=== PATIENT | female | born 1960 | race Caucasian/White ===

== ENCOUNTER → 2017-05-21 | Outpatient (CLI) | payer OTHER ==
--- NOTE | 2017-05-21 22:29 | CT ---
EXAMINATION TYPE: CT cervical spine wo/w con DATE OF EXAM: 05/21/2017 COMPARISON: NONE HISTORY: 56-year-old female pain, no known injury TECHNIQUE: Contiguous axial scanning of the cervical spine performed without and with IV Contrast, pa tient injected with 100 mL of Omnipaque 300. Delayed images through the kidneys were obtained. Hunt l/sagittal reconstructions performed. CT DLP: 1448.6 mGycm Automated exposure control for dose reduction was used. FINDINGS: There is a prominent CSF density collection along the right posterior cranial fossa that demonstrates mass effect on to the right cerebellar hemisphere. This measures 4.8 x 1.8 cm. There is a circumscribed, ovoid homogeneously enhancing lesion measuring 1.5 x 1.0 cm along the left parotid tail at the junction of the deep and superficial carotid lobes. No craniocervical junction abnormality, predental space widening, or prevertebral soft tissue swellin g. Mild to moderate degenerative disc disease lower cervical spine especially at C5-C7 levels with disc osteophyte complex formation and corresponding uncovertebral joint arthropathy. At C5-C6, there is disc osteophyte complex causing moderate spinal canal stenosis with AP canal dimen jose alejandro of 7.3 mm. There is also moderate left and mild right neuroforaminal stenosis at this level. At C6-C7, there is excessive artifact from the patient's shoulders limiting assessment of the spinal canal. Disc osteophyte complex and uncovertebral joint arthropathy is present at this level as well w ith moderate right and mild left neuroforaminal stenosis. No acute fracture of the cervical spine. Alignment is maintained. IMPRESSION: 1. MODERATE SPONDYLOTIC CHANGE ESPECIALLY FROM C5 THROUGH C7 LEVELS. DISC OSTEOPHYTE COMPLEX CAUSES M ODERATE SPINAL CANAL STENOSIS AT C5-C6. 2. THERE IS A MODERATE LEFT AND MILD RIGHT NEUROFORAMINAL STENOSIS AT C5-C6 AND MODERATE RIGHT AND WA LD LEFT NEUROFORAMINAL STENOSIS AT C6/C7. 3. CORRELATE WITH PHYSICAL EXAM FINDINGS FOR A 1.5 X 1.0 CM HOMOGENEOUSLY ENHANCING, CIRCUMSCRIBED MA SS AT THE LEFT PAROTID TAIL. AN ENLARGED LYMPH NODE, NERVE SHEATH TUMOR, OR SALIVARY GLAND TUMOR ARE IN THE DIFFERENTIAL. CONSIDER CLINICAL AND ULTRASOUND SURVEILLANCE. IF ANY GROWTH IS NOTED, TISSUE SA MPLING MAY BE INDICATED. 4. CSF DENSITY COLLECTION IN THE RIGHT POSTERIOR CRANIAL FOSSA MEASURING 4.8 X 1.8 CM. DIFFERENTIAL C ONSIDERATIONS INCLUDE AN ARACHNOID CYST AND EPIDERMOID CYST. CONTRAST-ENHANCED BRAIN MRI CAN FURTHER EVALUATE.
--- NOTE | 2017-05-21 22:43 | CT ---
EXAMINATION TYPE: CT lumbar spine wo/w con DATE OF EXAM: 05/21/2017 COMPARISON: NONE HISTORY: 56-year-old in the lower back pain with difficulty walking. TECHNIQUE: Contiguous axial scanning of the lumbar spine performed without and with IV Contrast, mo ent injected with 100 mL of Omnipaque 300. Coronal/sagittal reconstructions performed. CT DLP: 1909.6 mGycm Automated exposure control for dose reduction was used. FINDINGS: There is a levoconvex scoliosis of the lumbar spine. There is mild left lateral subluxation of L3 on L4 and minimal lateral subluxation of L2 on L3. Hypertrophic facet arthropathy throughout with trace grade 1 retrolistheses at L3-L4 and L4-L5. Degenerative thinning of the interspinous ligament with abutment near abutment of the spinous process es. Vertebral body heights are preserved. Moderate multilevel degenerative disc disease with disc space narrowing and bulging discs at T11-T12, there is mild diffuse disc bulge without significant canal stenosis. There is mild narrowing of the right neuroforamen. At T12-L1, there is mild diffuse disc bulge without significant canal or foraminal stenosis. At L1-L2, tiny central disc without canal or foraminal stenosis. At L2-L3, there is right paracentral and intraforaminal disc protrusion which may abut the traversing L3 nerve root. Changes cause moderate right and mild left neuroforaminal stenosis without significan t spinal canal stenosis. At L3-L4, there is hypertrophic facet arthropathy with trace retrolisthesis and diffuse disc bulge. C hanges cause mild spinal canal stenosis with mild bilateral neural foraminal stenosis. Disc material potentially abuts both traversing L4 nerve roots. At L4-L5, there is diffuse disc bulging with hypertrophic facet arthropathy, ligamentum flavum thicke jonathan, and trace retrolisthesis. Changes result in a moderate left and [id number] right neurofor aminal stenosis. Suspect left lateral recess stenosis possibly with impingement of the traversing lef t L5 nerve root. No spinal canal stenosis. At L5-S1, there is hypertrophic facet arthropathy with bulging disc. Changes result in moderate left greater than right neural foraminal stenosis. Mild degenerative changes of the SI joints. No prevertebral or paravertebral soft tissue abnormality seen. IMPRESSION: 1. A DEGENERATED LEVOCONVEX SCOLIOSIS WITH SLIGHT LEFT LATERAL SUBLUXATION OF L2 ON L3 AND L3 ON L4. 2. HYPERTROPHIC FACET ARTHROPATHY WITH TRACE GRADE 1 RETROLISTHESIS AT L3-L4 AND L4-L5. 3. MODERATE MULTILEVEL DEGENERATIVE DISC DISEASE. NO ROSALBA CANAL COMPROMISE. 4. HOWEVER, CHANGES RESULT IN VERY MINIMAL MILD/MODERATE NEUROFORAMINAL STENOSES OUTLINED ABOVE. T HE GREATEST DEGREE OF NEUROFORAMINAL NARROWING IS MODERATE ON THE LEFT AT L4-L5 AND MODERATE LEFT GRE ATER THAN RIGHT AT L5-S1. 5. DISC MATERIAL AT L3-L4 POTENTIALLY ABUTS BOTH TRAVERSING L4 NERVE ROOTS. AT L4-L5, SUSPECT LEFT LA TERAL RECESS STENOSIS POSSIBLY WITH IMPINGEMENT OF THE TRAVERSING LEFT L5 NERVE ROOT. 6. BAASTRUP'S DISEASE.
== END | disposition home or self-care (01) ==
LOC: RADCTMAIN 18:35
PROVIDERS: ATTEND Physical Medicine & Rehabilitation
DX: M48.02 Spinal stenosis, cervical region (principal); M99.71 Connective tissue and disc stenosis of intervertebral foramina of cervical region; M47.812 Spondylosis without myelopathy or radiculopathy, cervical region; S33.120A Subluxation of L2/L3 lumbar vertebra, initial encounter; S33.130A Subluxation of L3/L4 lumbar vertebra, initial encounter; M99.73 Connective tissue and disc stenosis of intervertebral foramina of lumbar region; M46.96 Unspecified inflammatory spondylopathy, lumbar region; M51.36 Other intervertebral disc degeneration, lumbar region; M43.16 Spondylolisthesis, lumbar region; M48.20 Kissing spine, site unspecified; M41.86 Other forms of scoliosis, lumbar region
CPT/HCPCS: 72127; 72133; Q9967

== ENCOUNTER → 2017-09-01 | Outpatient (CLI) | payer OTHER ==
--- NOTE | 2017-09-01 12:37 | US ---
EXAMINATION TYPE: US abdomen complete DATE OF EXAM: 09/01/2017 COMPARISON: NONE CLINICAL HISTORY: B18.2 chronic hep c. Abd pain EXAM MEASUREMENTS: Liver Length: 21.2 cm Gallbladder Wall: 0.2 cm CBD: 0.9 cm Spleen: 12.1 cm Right Kidney: 9.6 x 4.9 x 5.7 cm Left Kidney: 11.1 x 5.1 x 4.9 cm Pancreas: Tail obscured by overlying bowel gas, visualized portions show no abnormality Liver: Enlarged, heterogeneous echotexture Gallbladder: No stones or sludge visualized Evidence for sonographic Abebe's sign: No CBD: Dilated. Distal portion is obscured by bowel gas Spleen: Nonenlarged Right Kidney: No hydronephrosis or masses seen Left Kidney: No hydronephrosis or masses seen Upper IVC: wnl Abd Aorta: Some atherosclerotic changed noted. Proximal portion obscured by bowel gas There is no ascites Kidneys show normal cortical medullary differentiation IMPRESSION: Correlate for hepatic steatosis with hepatomegaly, hepatocellular disease. Borderline enl argement of the common bile duct. Somewhat limited exam.
--- NOTE | 2017-09-01 13:04 | US ---
EXAMINATION TYPE: US pelvic complete DATE OF EXAM: 09/01/2017 COMPARISON: NONE CLINICAL HISTORY: R10 abdominal pain. Right ovary and fallopian tube surgically absent per patient. D ifficult scan due to patient unable to fill bladder and overlying bowel TECHNIQUE: Transvaginal (TV) and Transabdominal (TA) endovaginal scanning performed for better evalu ation of the uterus. Date of LMP: 15 years ago EXAM MEASUREMENTS: Uterus: 5.2 x 2.9 x 3.3 cm Endometrial Stripe: 0.35 cm Right Ovary: Surgically absent Left Ovary: 2.3 x 0.8 x 1.3 cm There is no free fluid. 1. Uterus: Anteverted Heterogenous echotexture. Hypoechoic area visualized measuring 1.0 x 1.0 x 1 .1 cm, possible fibroid 2. Endometrium: wnl 3. Right Ovary: Surgically absent 4. Left Ovary: wnl 5. Bilateral Adnexa: wnl 6. Posterior cul-de-sac: wnl IMPRESSION: Possible small fibroid within the uterus. Right ovary is not visualized.
--- NOTE | 2017-09-01 15:10 | CT ---
EXAMINATION TYPE: CT chest wo con DATE OF EXAM: 09/01/2017 COMPARISON: NONE HISTORY: Pulmonary nodule CT DLP: 723 mGycm, Automated exposure control for dose reduction was used. CONTRAST: Performed injected with 0 mL of Omnipaque 300. TECHNIQUE: Axial images were obtained at 5 mm thick sections. Reconstructed images are reviewed on [employer] computer in the coronal plane. FINDINGS: Limited portion of the thyroid visualized is normal. There is a 0.3 cm calcification within the periphery of the right upper lobe. A punctate nodule is ad jacent measuring 0.1 cm. Series 4 image 20. Punctate nodules in the periphery of the right upper lobe posterior laterally measuring 0.3 cm. Series 4 image 18. A 0.2 cm punctate nodular densities in the periphery of the right upper lobe. Series 4 image 21. 0.2 cm punctate nodularities in the periphery o f the right posterior lateral mid lung. Series 4 image 29. A peripheral punctate densities at the lef t midlung. Series 4 image 29. Very faint nodule within the periphery of the superior segment left low er lobe. Series 4 image 30. Faint nodularities in the periphery of the right middle lobe. Series 4 im age 31. Some pneumonitis changes in the periphery of the right middle lobe at the same level. Punctat e nodularity measuring 0.2 cm is in the lingula. Series 4 image 31. Calcifications in the right lower lobe measuring 0.3 cm. Series 4 image 32. 0.3 cm calcifications at the left lung base. Series 4 imag e 42 No enlarged mediastinal or hilar adenopathy is evident. There are scattered lymph nodes within the mediastinum which are not enlarged by CT criteria. The ascending aorta diameter at the level of the m ain pulmonary artery is 3.0 cm. The main pulmonary artery diameter at the bifurcation is 3.2 cm. Germán e mild pulmonary hypertension may be present. Note is made of coronary artery calcification. Limited CT sections are obtained through the upper abdomen. There is a splenule anterior to the later al left spleen. IMPRESSIONS: 1. Multiple tiny nodular densities within the periphery of the lungs. Follow-up CT chest is recommend ed in 6 months.
== END | disposition home or self-care (01) ==
LOC: RADUSMAIN 08:27
PROVIDERS: ATTEND Family Medicine
DX: K83.8 Other specified diseases of biliary tract (principal); J98.4 Other disorders of lung; R10.9 Unspecified abdominal pain; B18.2 Chronic viral hepatitis C; Z87.898 Personal history of other specified conditions
CPT/HCPCS: 71250; 76700; 76830; 76856

== ENCOUNTER 2017-10-28 19:19 | Emergency (ER) | payer OTHER ==
[2017-10-28] MEDS ORDERED: HYDROmorphone 1 MG/ML 1 ML SYRINGE IM STA (20:03)
[2017-10-28] MEDS ORDERED: ONDANSETRON 4 MG ODT STARTER PACK 2 TAB BTL PO STA (20:04)
--- NOTE | 2017-10-28 20:13 | ED ---
General Adult HPI - General Chief complaint: Headache Stated complaint: Dr Sent/Head Pain Time Seen by Provider: 10/28/17 19:42 Source: patient, RN notes reviewed Mode of arrival: wheelchair Limitations: no limitations - History of Present Illness Initial comments: Chief complaint and history of present illness a 57-year-old female with a complaint of chronic headaches and pain. 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 She states she's had over 300 and his. She was told she should not have any more lumbar punctures because her tissue is so difficult and scarred to get through. She's also had 29 shunts varying types and the last one was 6 years ago. The patient presents today with the desire to have another shunt placed. We did discuss the fact that neurosurgeons place shunts and she is agreeable to follow-up with a neurosurgeon on referral. She takes pain medications from her chronic pain management doctor. - Related Data Home Medications Medication Instructions Recorded Confirmed Atorvastatin [Lipitor] 20 mg PO HS 10/28/17 10/28/17 Ergocalciferol (Vitamin D2) 50,000 unit PO MO 10/28/17 10/28/17 [Vitamin D2] Lisinopril 40 mg PO DAILY 10/28/17 10/28/17 Metoprolol Tartrate [Lopressor] 100 mg PO BID 10/28/17 10/28/17 Morphine Sulfate [Morphabond ER] 30 mg PO BID PRN 10/28/17 10/28/17 amLODIPine [Norvasc] 10 mg PO DAILY 10/28/17 10/28/17 metFORMIN HCL [metFORMIN HCL ER] 1,000 mg PO BID 10/28/17 10/28/17 oxyCODONE ER [OxyCONTIN 20MG E.R] 20 mg PO Q12HR PRN 10/28/17 10/28/17 Allergies Allergy/AdvReac Type Severity Reaction Status Date / Time Penicillins Allergy Unknown Verified 10/28/17 19:46 Review of Systems ROS Statement: Those systems with pertinent positive or pertinent negative responses have been documented in the HPI. review of systems. The patient has chronic headache. Chronic musculoskeletal pain. She sees a chronic pain management doctor and some chronic pain medications. No significant changes of late. No fever. No meningeal irritation. No complaint of visual acuity changes. Patient states that she used to get at least 6 months worth of relief when she had a [employer] shunt in and stated that has been 6 years since she last had one and has decided she wants and needs another one. Her headache is no worse than it normally is over the last several months. No neuro deficits. All systems are reviewed. Past medical problems significant for nonspecific diabetes mellitus, hypertension, sleep apnea for which he uses CPAP and pseudotumor cerebri. Surgeries include tonsils, adenoidsSurgeries for this LP shunts, bladder surgery ankle surgery. Family history no cancers. Patient has ALLERGIES to penicillin. She does smoke she was encouraged to stop she denies alcohol use. ROS Other: All systems not noted in ROS Statement are negative. Past Medical History Past Medical History: Diabetes Mellitus, Hypertension, Sleep Apnea/CPAP/BIPAP Additional Past Medical History / Comment(s): pseudo- tumor cerebri, neck and back pain History of Any Multi-Drug Resistant Organisms: None Reported Past Surgical History: Adenoidectomy, Appendectomy, Back Surgery, Bladder Surgery, Orthopedic Surgery, Tonsillectomy Additional Past Surgical History / Comment(s): [employer] shunts- none at this time. eye surgery Past Psychological History: Anxiety Smoking Status: Current every day smoker Past Alcohol Use History: None Reported Past Drug Use History: None Reported General Exam - General Exam Comments Initial Comments: General: The patient is awake and alert, he was chronic pain. Hope that she would be able to have a BP shunt placed for chronic headache secondary to pseudotumor cerebri. Her last one was 6 years ago. She states if she can have one done and she would like a referral to someone who can do it. He understands now that we don't have a neurosurgeon who does [employer] shunt [facility]. If she thinks she needs one this evening then we can transfer her by ambulance but she states she can wait and have her friend drive her to an appointment. Vital signs shows temperature 98.8 pulse 84 respiratory rate 18 pulse ox 96. Room air blood pressure 125/79 Eye: Pupils are equal, round and reactive to light, extra-ocular movements are intact ; there is normal conjunctiva bilaterally. No signs of icterus. Ears, nose, mouth and throat: There are moist mucous membranes and no oral lesions. Neck: The neck is supple, there is no tenderness Cardiovascular: There is a regular rate and rhythm. No murmur, rub or gallop is appreciated. Respiratory: Lungs are clear to auscultation, respirations are non-labored, breath sounds are equal. No wheezes, stridor, rales, or rhonchi. Gastrointestinal: no nausea no vomiting no diarrhea. Back: chronic back pain, no changes. She takes multiple pain medications for this and follows up with her chronic pain doctor. Musculoskeletal: sitting comfortably cross legged, and discussing her chronic pain. Neurological: no complaint of or evidence of any neuro deficits. Skin: Skin is warm and dry and no rashes or lesions are noted. Limitations: no limitations Course Vital Signs 10/28/17 19:30 Temperature 98.8 F Pulse Rate 84 Respiratory 18 Rate Blood Pressure 125/79 O2 Sat by Pulse 96 Oximetry Medical Decision Making - Medical Decision Making medical decision making; the patient received a pain shot here. Her friend will drive her home. She will be given the names of neurosurgeons on staff. She is to call the office for appointments. Also advised to talk to her chronic pain management doctor who might be able to refer to a neurosurgeon closer by. She does have a friend who will drive her to her appointment. Disposition Clinical Impression: Chronic pain, Chronic headache disorder Disposition: HOME SELF-CARE Condition: Fair Instructions: Cluster Headache (ED) Additional Instructions: Take home medications as directed by your chronic pain management doctor. Asked for a referral to a neurosurgeon. Referrals: Maribell Anaya MD [Primary Care Provider] - 1-2 days Eddie Rosa MD [STAFF PHYSICIAN] - 1-2 days Time of Disposition: 20:13
[2017-10-28 23:36] VITALS: BP 132/69; PULSE 81; RESP 18; TEMP 98.4
== END 2017-10-28 20:34 | disposition home or self-care (01) ==
LOC: EC 19:19
DX: G44.89 Other headache syndrome (principal); E11.9 Type 2 diabetes mellitus without complications; I10 Essential (primary) hypertension; G47.30 Sleep apnea, unspecified; G93.2 Benign intracranial hypertension; F41.9 Anxiety disorder, unspecified; F17.200 Nicotine dependence, unspecified, uncomplicated; Z98.2 Presence of cerebrospinal fluid drainage device; Z79.84 Long term (current) use of oral hypoglycemic drugs; Z79.899 Other long term (current) drug therapy; Z88.0 Allergy status to penicillin
CPT/HCPCS: 99283; 96372; J1170; S0119

== ENCOUNTER → 2018-04-14 | Outpatient (CLI) | payer OTHER ==
--- NOTE | 2018-04-14 16:07 | CT ---
EXAMINATION TYPE: CT chest wo con DATE OF EXAM: 04/14/2018 COMPARISON: 09/01/2017 HISTORY: 57-year-old female SOB and cough TECHNIQUE: Contiguous axial scanning of the chest without IV contrast. Coronal and sagittal reconstru ctions performed. CT DLP: 842 mGycm Automated exposure control for dose reduction was used. FINDINGS: Heart normal size without pericardial effusion. Coronary vessel calcifications are present and are re markable for coronary artery disease. The aorta normal caliber with conventional arch vessel branching anatomy and mild discogenic calcific ations. No thoracic lymphadenopathy by CT size criteria. Possible 1 cm hypodense nodule left lobe of the thyr oid gland. Evaluation of the lungs show scattered calcified granulomas and minimal centrilobular emphysema. There is some stable subpleural nodularity measuring 9 mm in the peripheral right base suspected to r epresent pleural parenchymal scarring, axial image 37 No consolidation or pleural effusion. No enlarging pulmonary nodule or mass is seen. Visualized upper abdomen shows an anterior splenule. Bones: Endplate spondylosis mid to lower thoracic spine. Moderate multilevel degenerative disc diseas e. IMPRESSION: 1. PRIOR GRANULOMATOUS DISEASE WITH SCATTERED CALCIFIED PULMONARY NODULES. 2. A 9 MM SUBPLEURAL PULMONARY NODULE AT THE PERIPHERAL RIGHT BASE IS UNCHANGED FOR 7 MONTHS AND IS S USPECTED TO RELATE TO PLEURAL PARENCHYMAL SCARRING. AN ADDITIONAL ONE-YEAR FOLLOW-UP CAN BE PERFORMED . 3. MINIMAL EMPHYSEMATOUS CHANGE.
== END | disposition home or self-care (01) ==
LOC: RADCTMAIN 13:34
PROVIDERS: ATTEND Internal Medicine
DX: J43.9 Emphysema, unspecified (principal); R91.8 Other nonspecific abnormal finding of lung field
CPT/HCPCS: 71250

== ENCOUNTER → 2018-09-10 | Outpatient (CLI) | payer OTHER ==
[2018-09-10 12:15] LABS: Partial Thromboplastin Time 25.8 sec (22.0-30.0); Prothrombin Time 9.8 sec (9.0-12.0)
[2018-09-10 12:21] LABS: Basophils # (A) 0.1 k/uL (0-0.2); Basophils % (A) 1 %; Eosinophils # (A) 0.2 k/uL (0-0.7); Eosinophils % (A) 2 %; HCT 42.2 % (34.0-46.0); HGB 13.7 gm/dL (11.4-16.0); Lymphocytes # (A) 2.3 k/uL (1.0-4.8); Lymphocytes % (A) 17 %; MCH 29.1 pg (25.0-35.0); MCHC 32.5 g/dL (31.0-37.0); MCV 89.6 fL (80.0-100.0); Mean Platelet Volume 7.6; Monocytes # (A) 0.7 k/uL (0-1.0); Monocytes % (A) 5 %; Neutrophils # (A) 10.2 k/uL (1.3-7.7); Neutrophils % (A) 74 %; Platelet Count 260 k/uL (150-450); RDW 13.1 % (11.5-15.5); WBC 13.8 k/uL (3.8-10.6)
[2018-09-13 16:13] LABS: HCV Quant Log 5.77 (<1.08)
== END | disposition home or self-care (01) ==
LOC: LABWHC1 10:44
PROVIDERS: ATTEND Internal Medicine Infectious Disease
DX: B18.2 Chronic viral hepatitis C (principal)
CPT/HCPCS: 36415; 85025; 85610; 85730; 87522; 87902

== ENCOUNTER → 2019-01-18 | Outpatient (CLI) | payer OTHER ==
[2019-01-17 14:24] VITALS: BMI 36.5
[2019-01-18 14:16] VITALS: BP 114/74; PULSE 73; RESP 18
--- NOTE | 2019-01-19 09:55 | P.PAINCN ---
History of Present Illness - Reason for Consult Consult date: 01/18/19 - History of Present Illness This is an initial consultation visit for this 58-year-old female with a chronic history of severe neck pain and low back pain, she reported that the pain started more than 5 years ago, she denies any initiating event and she reported that the intensity of the pain increased significantly over the last 4 months, the pain is constant interfere with the quality of life with the intensity of 8/10 and increases with any activity, intensity of the pain interfere with the quality of life and increased when she is sitting, standing, bending forward or moving the neck, the pain in the neck area radiated to the shoulder blade area, she had occasional numbness and tingling sensation in the upper extremity, both fingers, the pain in the low back area radiated to the posterior aspect of both lower extremity, and she has some numbness and tingling sensation in the front of the right leg, she feels that the pain interfere with her ability to walk, she denies any fever or night sweats which she denies any change in the bowel movement or urination, 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,pulmonary htn,steroids December 2018,psoriasis,uses a walker-unable to stand over 5 minutes or walker over 10 feet,bacterial meningitis at age 30,cancer cervix History of Any Multi-Drug Resistant Organisms: None Reported Past Surgical History: Adenoidectomy, Appendectomy, Back Surgery, Bladder Surgery, Orthopedic Surgery, Tonsillectomy, Tubal Ligation Additional Past Surgical History / Comment(s): 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- none at 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 time,28 LP shunts, eye surgery,rt ovary and fallopian tube removed, Laser procedure for cervix CA Past Anesthesia/Blood Transfusion Reactions: No Reported Reaction Additional Past Anesthesia/Blood Transfusion Reaction / Comm: no hx blood transfusion Past Psychological History: Anxiety Smoking Status: Current every day smoker Past Alcohol Use History: None Reported Additional Past Alcohol Use History / Comment(s): started smoking at age 15,1ppd Past Drug Use History: None Reported - Past Family History Mother Family Medical History: No Reported History Medications and Allergies Home Medications Medication Instructions Recorded Confirmed Type Atorvastatin [Lipitor] 20 mg PO HS 10/28/17 01/17/19 History Ergocalciferol (Vitamin D2) 50,000 unit PO MO 10/28/17 01/17/19 History [Vitamin D2] Lisinopril 40 mg PO DAILY 10/28/17 01/17/19 History Metoprolol Tartrate [Lopressor] 100 mg PO BID 10/28/17 01/17/19 History amLODIPine [Norvasc] 10 mg PO DAILY 10/28/17 01/17/19 History metFORMIN HCL [metFORMIN HCL ER] 1,000 mg PO BID 10/28/17 01/17/19 History Glimepiride [Amaryl] 1 mg PO DAILY 01/17/19 01/17/19 History Methadone HCl [Methadone Intensol] 105 mg PO QAM 01/17/19 01/17/19 History Allergies Allergy/AdvReac Type Severity Reaction Status Date / Time No Known Allergies Allergy Verified 01/17/19 14:10 Physical Exam Vitals: Vital Signs Pulse Resp BP Pulse Ox 01/18/19 14:02 73 18 114/74 95 Social history : smoker , NO ETOH , NO Illegal drugs use . Review of Systems : - Constitutional : no chills , no fever , no night sweats , - Ears : no ear discharge , no change in hearing -Nose, Mouth ,Throat ; no bleeding gums, no sore throat , no epistaxis , -Cardiovascular : Denies chest pain, , no orthopnea , no palpitation -Respiratory : Denies cough , no dyspnea , no hemoptysis -Gastrointestinal :, no change in bowel habits , no coffee- ground emesis . -Genitourinary : No hematuria , no discharge , no incontinence, -Musculoskeletal :report gait dysfunction , report low back pain , reports neck pain, report numbness and tingling in the upper and lower extremity , - Neurological : no ataxia , no tremor , no sezure , -Psychatric , no suicidal ideation no hallucination - Endocrine : no cold intolerence , no polyuria , no polydypsia , -Hematologic : no easy bleeding , no easy brusing , -Allergic / immunology : no angioedema , no wheezing ,no allergic rhinitis -Integumentary : no brttle nails , no change hair / nails , no foot/leg ulcers . Physical Examinations : -Constitutional : Cooperative , not in acute distress . -HEENT : nech ; supple , no Lymphadenopathy , no Thyromegaly , :eyes , no icterus, no photophobia . ENT : , normal oropharynx , no Thrush - Respiratory : Chest clear to auscultations Bilaterally , no wheezing . - Cardiovascular : regular rate and rhythem , S1 , S2 , no S3 , no S4. - Gastrointestinal: abdomen soft no tenderness , no organomegally . - Genitourinary : Defferred . -Integumentary : No cellulitis , no ulcers , normal skin turgor , no cyanotic . - neurologic : Cranial nerve II to XII intact , no focal neurological deffecit -psychatric : alert , oriented X 3 , appropriate affect , intact judgment and insight . -Lymphatic : no Lymphadenopathy. - musculoskeltal: normal gait Cervical Spine motor stregnth in the deltoid and biceps, normal right side , normal Left side motor stregnth biceps and the wrist extensors normal right side ,normal left side . motor stregnth in the triceps muscle . normal Right side , normal Left side deep tendon reflexes normal at the biceps , normal at Brachioradialis , normal at triceps. Spurling test = positive Neck distraction test= positive Rudd sign= positive positive cervical facet loading test . Lumber spine moter stegnth lower extremities ,thigh and legs 4/5 Right side , 4/5 Left side deep tendon reflexes : normal Knee Jerk , normal ankle Jerk positive lumber facet Loading Test Range of motion of the lumbar spine Flexion 30 degrees, extension 10 degrees strait leg raising test , positive at 30 degree Fabere test positive RT and positive LT . Severe tenderness over the sacroiliac joint on the right side, and on the left side Gaenslen test= positive bilaterally Seated flexion test= positive bilaterally Results Comments: Computed tomography scan of the lumbar spine= levoscoliosis, L3 4 L4 5 and L5-S1 degenerative disc disease and facet arthropathy, there is bilateral sacroiliac joint degeneration. Computed tomography scan of the cervical spine C5 6, C6 7 foraminal stenosis , and facet arthropathy Assessment and Plan Plan: Assessment and plan= chronic severe low back pain secondary to lumbar spondylosis and lumbar facet arthropathy, and lumbar degenerative disc disease. Right lumbar radiculopathy at L4 5 and L5-S1 distribution Patient will be good candidate to have diagnostic medial branch block lumbar area L3/L4/L5-S1 x2 and if it is positive window RFA. Severe chronic neck pain secondary to cervical spondylosis with cervical facet arthropathy, and cervical foraminal stenosis In the future patient will be good candidate to have agnostic medial branch block cervical area and possible RFA Time with Patient: Greater than 30 PQRS Measure Charge Sheet Measure #130: Documentation of Current Meds in Medical Chart: Patient's medications documented in chart Measure #226: Tobacco Use: Screen & Cessation Intervention: Pt screened for tobacco use AND intervention given Measure #111: Pneumonia Vaccination: Pneumococcal vaccine NOT administered or previously given Measure #47: Advance Care Plan: Advance care planning discussed & documented, pt chose/unable to give Measure #412: Opioid Treatment Agreement: No documentation of signed opioid treatment agreement Measure #408: Opioid Therapy Follow-up Evaluation: Patient had NO f/u eval minimum every 3 months during opioid therapy Measure #317: Preventitive Care & Scrn High Bld Press & F/U: Normal blood pressure, f/u not required Measure #128: Body Mass Index (BMI) Screening & Follow-up: BMI documented ABOVE normal parameters - f/u documented Measure #131: Pain Assessment & Follow-up: Pain positive & plan documented, Follow-up scheduled Measure #431: Unhealthy Alcohol Use Preventative Care & Scrn: Patient not identified as an unhealthy alcohol user PQRS Narrative: Smoking Status Current every day smoker Do You Want the Pneumonia No Vaccine AT THIS TIME? Blood Pressure 114/74 Pain Intensity [Generalized] 8 Scale Used Numeric (1 - 10) Hx Alcohol Use (MH) No Home Medications: Ambulatory Orders Atorvastatin [Lipitor] 20 mg PO HS 10/28/17 Ergocalciferol (Vitamin D2) [Vitamin D2] 50,000 unit PO MO 10/28/17 Lisinopril 40 mg PO DAILY 10/28/17 Metoprolol Tartrate [Lopressor] 100 mg PO BID 10/28/17 amLODIPine [Norvasc] 10 mg PO DAILY 10/28/17 metFORMIN HCL [metFORMIN HCL ER] 1,000 mg PO BID 10/28/17 Glimepiride [Amaryl] 1 mg PO DAILY 01/17/19 Methadone HCl [Methadone Intensol] 105 mg PO QAM 01/17/19
== END | disposition home or self-care (01) ==
LOC: PNWHC3 13:37
PROVIDERS: ATTEND Specialist
DX: G89.29 Other chronic pain (principal); M48.02 Spinal stenosis, cervical region; M51.16 Intervertebral disc disorders with radiculopathy, lumbar region; M47.26 Other spondylosis with radiculopathy, lumbar region; M47.812 Spondylosis without myelopathy or radiculopathy, cervical region; M46.96 Unspecified inflammatory spondylopathy, lumbar region; M46.92 Unspecified inflammatory spondylopathy, cervical region; F17.210 Nicotine dependence, cigarettes, uncomplicated; Z79.899 Other long term (current) drug therapy
CPT/HCPCS: 99211

== ENCOUNTER 2019-03-22 16:43 | Observation (INO) | payer OTHER ==
--- NOTE | 2019-03-22 17:38 | ED ---
General Adult HPI - General Chief complaint: Chest Pain Stated complaint: Chest pain Time Seen by Provider: 03/22/19 17:26 Source: patient, EMS, RN notes reviewed, old records reviewed Mode of arrival: EMS Limitations: no limitations - History of Present Illness Initial comments: 58-year-old female with multiple medical problems including congestive heart failure, pulmonary nodules, pulmonary hypertension presenting with chest pain and dyspnea. She states she has had significant weight gain and lower extremity edema over the past 34 days. She's had constant central chest pain as well as dyspnea for the same 4 days. Denies vomiting. Denies diaphoresis. Denies abdominal pain. Denies cough or fever. She is currently on methadone for chronic pain. - Related Data Home Medications Medication Instructions Recorded Confirmed Atorvastatin [Lipitor] 20 mg PO HS 10/28/17 03/22/19 Ergocalciferol (Vitamin D2) 50,000 unit PO MO 10/28/17 03/22/19 [Vitamin D2] Lisinopril 40 mg PO DAILY 10/28/17 03/22/19 Metoprolol Tartrate [Lopressor] 100 mg PO BID 10/28/17 03/22/19 amLODIPine [Norvasc] 10 mg PO DAILY 10/28/17 03/22/19 Methadone HCl [Methadone Intensol] 45 mg PO QAM 01/17/19 03/22/19 Fluticasone Nasal Hext [Flonase 2 spr EA NOSTRIL BID 03/22/19 03/22/19 Nasal Hext] Insulin Glargine,Hum.rec.anlog 24 units SQ DAILY 03/22/19 03/22/19 [Basaglar Kwikpen U-100] Pioglitazone [Actos] 15 mg PO DAILY 03/22/19 03/22/19 metFORMIN HCL 1,000 mg PO BID 03/22/19 03/22/19 Allergies Allergy/AdvReac Type Severity Reaction Status Date / Time No Known Allergies Allergy Verified 03/22/19 17:25 Review of Systems ROS Statement: Those systems with pertinent positive or pertinent negative responses have been documented in the HPI. ROS Other: All systems not noted in ROS Statement are negative. 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,pulmonary htn,steroids December 2018,psoriasis,uses a walker-unable to stand over 5 minutes or walker over 10 feet,bacterial meningitis at age 30,cancer cervix History of Any Multi-Drug Resistant Organisms: None Reported Past Surgical History: Adenoidectomy, Appendectomy, Back Surgery, Bladder Surgery, Orthopedic Surgery, Tonsillectomy, Tubal Ligation Additional Past Surgical History / Comment(s): 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- none at this time,28 LP shunts, eye surgery,rt ovary and fallopian tube removed, Laser procedure for cervix [place] Past Anesthesia/Blood Transfusion Reactions: No Reported Reaction Additional Past Anesthesia/Blood Transfusion Reaction / Comment(s): no hx blood transfusion Past Psychological History: Anxiety Smoking Status: Current every day smoker Past Alcohol Use History: None Reported Past Drug Use History: None Reported - Past Family History Mother Family Medical History: No Reported History General Exam Limitations: no limitations General appearance: alert, in no apparent distress Head exam: Present: atraumatic, normocephalic Eye exam: Present: normal appearance, PERRL Neck exam: Present: normal inspection. Absent: tenderness, meningismus Respiratory exam: Present: normal lung sounds bilaterally. Absent: respiratory distress, wheezes Cardiovascular Exam: Present: regular rate, normal rhythm GI/Abdominal exam: Present: soft. Absent: distended, tenderness, guarding Extremities exam: Present: pedal edema, calf tenderness (Right lower extremity swelling worse than left,) Neurological exam: Present: alert, oriented X3, CN II-XII intact. Absent: motor sensory deficit Psychiatric exam: Present: normal affect, normal mood Skin exam: Present: warm, dry, intact. Absent: cyanosis, diaphoretic Course Vital Signs 03/22/19 03/22/19 17:10 19:20 Temperature 98.6 F Pulse Rate 92 94 Respiratory 20 18 Rate Blood Pressure 153/86 128/81 O2 Sat by Pulse 99 96 Oximetry EKG Findings - EKG Comments: EKG Findings:: EKG: Normal sinus rhythm, rate of 90, RI interval 144, QRS duration 82, QTC 459, no ST segment elevation T-wave flattening in lead 3 Medical Decision Making - Medical Decision Making 58 female with chest pain central chest tightness and dyspnea. Patient has EKG showing sinus rhythm with no ST segment elevation. She has a chest x-ray which is negative for acute cardiopulmonary disease. She did have right lower extremity swelling, ultrasound is obtained is negative for DVT. She has leukocytosis of uncertain etiology. We will trend. Patient has negative d- dimer, negative troponin, negative BNP. She given aspirin in the emergency department. Symptoms are improved at the time of evaluation. She does have risk factors and will be kept in observation for serial cardiac enzymes, telemetry, cardiology consultation. - Lab Data Result diagrams: 03/22/19 18:15 03/22/19 18:15 Lab Results 03/22/19 03/22/19 03/22/19 Range/Units 18:15 18:15 18:15 WBC 14.6 H (3.8-10.6) k/uL RBC 4.36 (3.80-5.40) m/uL Hgb 12.3 (11.4-16.0) gm/dL Hct 37.5 (34.0-46.0) % MCV 86.2 (80.0-100.0) fL MCH 28.3 (25.0-35.0) pg MCHC 32.8 (31.0-37.0) g/dL RDW 13.9 (11.5-15.5) % Plt Count 292 (150-450) k/uL Neutrophils % 72 % Lymphocytes % 18 % Monocytes % 5 % Eosinophils % 2 % Basophils % 1 % Neutrophils # 10.5 H (1.3-7.7) k/uL Lymphocytes # 2.7 (1.0-4.8) k/uL Monocytes # 0.7 (0-1.0) k/uL Eosinophils # 0.3 (0-0.7) k/uL Basophils # 0.1 (0-0.2) k/uL PT (9.0-12.0) sec INR (<1.2) APTT (22.0-30.0) sec D-Dimer (<0.60) mg/L FEU Sodium 141 (137-145) mmol/L Potassium 4.5 (3.5-5.1) mmol/L Chloride 105 (98-107) mmol/L Carbon Dioxide 24 (22-30) mmol/L Anion Gap 12 mmol/L BUN 18 H (7-17) mg/dL Creatinine 0.84 (0.52-1.04) mg/dL Est GFR (CKD-EPI)AfAm 90 (>60 ml/min/1.73 sqM) Est GFR (CKD-EPI)NonAf 78 (>60 ml/min/1.73 sqM) Glucose 125 H (74-99) mg/dL Calcium 9.4 (8.4-10.2) mg/dL Magnesium 1.4 L (1.6-2.3) mg/dL Total Bilirubin 0.3 (0.2-1.3) mg/dL AST 42 H (14-36) U/L ALT 34 (9-52) U/L Alkaline Phosphatase 122 (38-126) U/L Troponin I (0.000-0.034) ng/mL NT-Pro-B Natriuret Pep 273 pg/mL Total Protein 7.3 (6.3-8.2) g/dL Albumin 4.1 (3.5-5.0) g/dL Lipase 71 (23-300) U/L 03/22/19 03/22/19 Range/Units 18:15 18:15 WBC (3.8-10.6) k/uL RBC (3.80-5.40) m/uL Hgb (11.4-16.0) gm/dL Hct (34.0-46.0) % MCV (80.0-100.0) fL MCH (25.0-35.0) pg MCHC (31.0-37.0) g/dL RDW (11.5-15.5) % Plt Count (150-450) k/uL Neutrophils % % Lymphocytes % % Monocytes % % Eosinophils % % Basophils % % Neutrophils # (1.3-7.7) k/uL Lymphocytes # (1.0-4.8) k/uL Monocytes # (0-1.0) k/uL Eosinophils # (0-0.7) k/uL Basophils # (0-0.2) k/uL PT 10.0 (9.0-12.0) sec INR 0.9 (<1.2) APTT 26.6 (22.0-30.0) sec D-Dimer 0.32 (<0.60) mg/L FEU Sodium (137-145) mmol/L Potassium (3.5-5.1) mmol/L Chloride (98-107) mmol/L Carbon Dioxide (22-30) mmol/L Anion Gap mmol/L BUN (7-17) mg/dL Creatinine (0.52-1.04) mg/dL Est GFR (CKD-EPI)AfAm (>60 ml/min/1.73 sqM) Est GFR (CKD-EPI)NonAf (>60 ml/min/1.73 sqM) Glucose (74-99) mg/dL Calcium (8.4-10.2) mg/dL Magnesium (1.6-2.3) mg/dL Total Bilirubin (0.2-1.3) mg/dL AST (14-36) U/L ALT (9-52) U/L Alkaline Phosphatase (38-126) U/L Troponin I <0.012 (0.000-0.034) ng/mL NT-Pro-B Natriuret Pep pg/mL Total Protein (6.3-8.2) g/dL Albumin (3.5-5.0) g/dL Lipase (23-300) U/L Disposition Clinical Impression: Chest pain Disposition: ADMITTED IP TO THIS [facility] Condition: Stable Is patient prescribed a controlled substance at d/c from ED?: No Referrals: Maribell Anaya MD [Primary Care Provider] - 1-2 days Decision to Admit Reason: Admit from EC Decision Date: 03/22/19 Decision Time: 20:30
[2019-03-22 18:26] LABS: Basophils # (A) 0.1 k/uL (0-0.2); Basophils % (A) 1 %; Eosinophils # (A) 0.3 k/uL (0-0.7); Eosinophils % (A) 2 %; HCT 37.5 % (34.0-46.0); HGB 12.3 gm/dL (11.4-16.0); Lymphocytes # (A) 2.7 k/uL (1.0-4.8); Lymphocytes % (A) 18 %; MCH 28.3 pg (25.0-35.0); MCHC 32.8 g/dL (31.0-37.0); MCV 86.2 fL (80.0-100.0); Mean Platelet Volume 7.6; Monocytes # (A) 0.7 k/uL (0-1.0); Monocytes % (A) 5 %; Neutrophils # (A) 10.5 k/uL (1.3-7.7); Neutrophils % (A) 72 %; Platelet Count 292 k/uL (150-450); RBC 4.36 m/uL (3.80-5.40); RDW 13.9 % (11.5-15.5); WBC 14.6 k/uL (3.8-10.6)
--- NOTE | 2019-03-22 18:26 | XR ---
EXAMINATION: XR chest 2V DATE AND TIME: 03/22/2019 6:06 PM CLINICAL INDICATION: PHH; Chest Pain TECHNIQUE: Departmental protocol COMPARISON: None FINDINGS: There is a horizontal band of added opacity over the right lung zone, with evidence of mild volume lo ss, findings consistent with discoid atelectasis versus parenchymal scar. Otherwise, the lungs are clear well-expanded bilaterally. The pleural spaces are negative. The cardiac silhouette is not enlarged. The remainder of the mediastinal silhouette is unremarkable. The skeletal structures and soft tissues are negative for acute findings. IMPRESSION: NO ACUTE PROCESS.
[2019-03-22 18:37] LABS: Albumin 4.1 g/dL (3.5-5.0); Calcium 9.4 mg/dL (8.4-10.2); Magnesium 1.4 mg/dL (1.6-2.3); Potassium 4.5 mmol/L (3.5-5.1); Total Bilirubin 0.3 mg/dL (0.2-1.3); Total Protein 7.3 g/dL (6.3-8.2)
[2019-03-22 18:42] LABS: D-Dimer 0.32 mg/L FEU (<0.60); INR 0.9 (<1.2); Partial Thromboplastin Time 26.6 sec (22.0-30.0)
--- NOTE | 2019-03-22 19:44 | US ---
EXAMINATION TYPE: US venous doppler duplex LE RT DATE OF EXAM: 03/22/2019 6:44 PM COMPARISON: NONE CLINICAL HISTORY: Pain. Right leg swelling. SIDE PERFORMED: Right TECHNIQUE: The lower extremity deep venous system is examined utilizing real time linear array sonog porsha with graded compression, doppler sonography and color-flow sonography. VESSELS IMAGED: External Iliac Vein (EIV) Common Femoral Vein Deep Femoral Vein Greater Saphenous Vein * Femoral Vein Popliteal Vein Small Saphenous Vein * Proximal Calf Veins (* superficial vessels) FINDINGS: Grayscale, color doppler, spectral doppler imaging performed of the deep veins of the lower extremities. There is normal flow, compressibility, vascular waveforms. IMPRESSION: NEGATIVE FOR DVT, RIGHT LOWER EXTREMITY.
[2019-03-22] MEDS ORDERED: ASPIRIN 325 MG TAB PO STA (19:59)
[2019-03-22] MEDS ORDERED: MAGNESIUM SULFATE-D5W PMX 1 GM in DEXTROSE/WATER 1 100ML.BAG IVPB ONE (19:59)
[2019-03-22] MEDS ORDERED: KETOROLAC 30 MG/ML 1 ML VIAL IVP STA (20:18)
[2019-03-22] MEDS ORDERED: NALOXONE 0.4 MG/ML 1 ML VIAL IV PRN (20:25)
[2019-03-22] MEDS ORDERED: ATORVASTATIN 20 MG TAB PO SCH (21:00)
[2019-03-22] MEDS: METOPROLOL TARTRATE 50 MG TAB PO SCH (21:43)
[2019-03-22] MEDS: metFORMIN 500 MG TAB PO SCH (21:43)
[2019-03-22] MEDS ORDERED: IBUPROFEN 400 MG TAB PO STA (23:37)
[2019-03-23] MEDS ORDERED: IBUPROFEN 400 MG TAB PO STA (03:49)
[2019-03-23] MEDS ORDERED: METHADONE 5 MG TAB PO SCH (07:00)
[2019-03-23] MEDS ORDERED: METHADONE 10 MG TAB PO SCH ×2 (07:00→09:00)
[2019-03-23 07:33] VITALS: TEMP 98.2
--- NOTE | 2019-03-23 07:53 | P.CRDCN ---
History of Present Illness Consult date: 03/23/19 Chief complaint: Chest pain History of present illness: This is a pleasant 58-year-old female patient with a past medical history significant for diabetes, hypertension, dyslipidemia, smoking, and chronic lung disease/pulmonary nodules, presented to the emergency room complaining of chest discomfort. She was in her usual state of health until yesterday when she started experiencing discomfort in the mid of the chest, as a pressure on the ch est, without any radiation to the arm or neck or shoulders, and without any associated symptoms. The patient stated that she always does have shortness of breath which is chronic and related to her lung conditions. And her shortness of breath has been the same. The chest discomfort is new to her. The EKG showed sinus rhythm without any significant ST or T-wave abnormalities. The cardiac enzymes were checked and came in to be unremarkable. She does have a very significant family history of coronary artery disease with her father. Beside that she is diabetic as well as a smoker. She was seen recently in our office because of chest discomfort and she scheduled to undergo a stress test b ut she did not doing good. I am concerned about severe underlying coronary artery disease and because of that I would recommend obtaining a stress test to rule out severe CAD. We'll continue following up with the patient. 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,pulmonary htn,steroids December 2018,psoriasis,uses a walker-unable to stand over 5 minutes or walker over 10 feet,bacterial meningitis at age 30,cancer cervix History of Any Multi-Drug Resistant Organisms: None Reported Past Surgical History: Adenoidectomy, Appendectomy, Back Surgery, Bladder Surgery, Orthopedic Surgery, Tonsillectomy, Tubal Ligation Additional Past Surgical History / Comment(s): 9 [employer] shunts- none at this time,28 LP shunts, eye surgery,rt ovary and fallopian tube removed, Laser procedure for cervix [place] Past Anesthesia/Blood Transfusion Reactions: No Reported Reaction Additional Past Anesthesia/Blood Transfusion Reaction / Comment(s): no hx blood transfusion Past Psychological History: Anxiety Smoking Status: Current every day smoker Past Alcohol Use History: None Reported Past Drug Use History: None Reported - Past Family History Mother Family Medical History: No Reported History Medications and Allergies Home Medications Medication Instructions Recorded Confirmed Type Atorvastatin [Lipitor] 20 mg PO HS 10/28/17 03/22/19 History Ergocalciferol (Vitamin D2) 50,000 unit PO MO 10/28/17 03/22/19 History [Vitamin D2] Lisinopril 40 mg PO DAILY 10/28/17 03/22/19 History Metoprolol Tartrate [Lopressor] 100 mg PO BID 10/28/17 03/22/19 History amLODIPine [Norvasc] 10 mg PO DAILY 10/28/17 03/22/19 History Methadone HCl [Methadone Intensol] 45 mg PO QAM 01/17/19 03/22/19 History Fluticasone Nasal [place] [Flonase 2 spr EA NOSTRIL BID 03/22/19 03/22/19 History Nasal [place]] Insulin Glargine,Hum.rec.anlog 24 units SQ DAILY 03/22/19 03/22/19 History [Basaglar Kwikpen U-100] Pioglitazone [Actos] 15 mg PO DAILY 03/22/19 03/22/19 History metFORMIN HCL 1,000 mg PO BID 03/22/19 03/22/19 History Allergies Allergy/AdvReac Type Severity Reaction Status Date / Time No Known Allergies Allergy Verified 03/22/19 17:25 Physical Exam Vitals: Vital Signs Temp Pulse Resp BP Pulse Ox 03/23/19 07:31 98.2 F 82 18 149/89 96 03/23/19 06:27 78 18 127/81 97 03/23/19 00:25 97.8 F 81 16 112/82 98 03/22/19 23:26 98 F 71 16 131/71 97 03/22/19 22:30 72 20 118/72 99 03/22/19 21:30 82 18 127/92 98 03/22/19 20:00 98.1 F 76 18 126/76 99 03/22/19 19:20 94 18 128/81 96 03/22/19 17:10 98.6 F 92 20 153/86 99 Intake and Output 03/22/19 03/23/19 03/23/19 22:59 06:59 14:59 Other: Weight 108.862 kg - Constitutional General appearance: no acute distress - Respiratory Respiratory: bilateral: CTA - Cardiovascular Rhythm: regular Heart sounds: normal: S1, S2 Results 03/22/19 18:15 03/22/19 18:15 Cardiac Enzymes 03/22/19 03/22/19 03/23/19 Range/Units 18:15 18:15 02:17 AST 42 H (14-36) U/L Troponin I <0.012 <0.012 (0.000-0.034) ng/mL Coagulation 03/22/19 Range/Units 18:15 PT 10.0 (9.0-12.0) sec APTT 26.6 (22.0-30.0) sec CBC 03/22/19 Range/Units 18:15 WBC 14.6 H (3.8-10.6) k/uL RBC 4.36 (3.80-5.40) m/uL Hgb 12.3 (11.4-16.0) gm/dL Hct 37.5 (34.0-46.0) % Plt Count 292 (150-450) k/uL Comprehensive Metabolic Panel 03/22/19 Range/Units 18:15 Sodium 141 (137-145) mmol/L Potassium 4.5 (3.5-5.1) mmol/L Chloride 105 (98-107) mmol/L Carbon Dioxide 24 (22-30) mmol/L BUN 18 H (7-17) mg/dL Creatinine 0.84 (0.52-1.04) mg/dL Glucose 125 H (74-99) mg/dL Calcium 9.4 (8.4-10.2) mg/dL AST 42 H (14-36) U/L ALT 34 (9-52) U/L Alkaline Phosphatase 122 (38-126) U/L Total Protein 7.3 (6.3-8.2) g/dL Albumin 4.1 (3.5-5.0) g/dL Current Medications Generic Name Dose Route Start Last Admin Trade Name Freq PRN Reason Stop Dose Admin Amlodipine Besylate 10 mg 03/23/19 09:00 Norvasc PO DAILY COUNT INCLUDES THE [facility] Atorvastatin Calcium 20 mg 03/22/19 21:00 03/22/19 21:43 Lipitor PO 20 mg HS TREE Administration Insulin Detemir 24 unit 03/23/19 09:00 Levemir SQ DAILY COUNT INCLUDES THE [facility] Lisinopril 40 mg 03/23/19 09:00 Zestril PO DAILY TREE Metformin HCl 1,000 mg 03/22/19 21:00 03/22/19 21:43 Glucophage PO 1,000 mg BID TREE Administration Methadone HCl 40 mg 03/23/19 07:00 03/23/19 06:24 Dolophine PO 40 mg DAILY@0700 TREE Administration Methadone HCl 5 mg 03/23/19 07:00 03/23/19 06:24 Dolophine PO 5 mg DAILY@0700 TREE Administration Metoprolol Tartrate 100 mg 03/22/19 21:00 03/22/19 21:43 Lopressor PO 100 mg BID TREE Administration Naloxone HCl 0.2 mg 03/22/19 20:25 Narcan IV Q2M PRN Opioid Reversal Intake and Output 03/22/19 03/23/19 03/23/19 22:59 06:59 14:59 Other: Weight 108.862 kg 03/22/19 18:15 03/22/19 18:15 Assessment and Plan Assessment: Assessment #1 chest discomfort #2 multiple risk factors for CAD including diabetes, hypertension, dyslipidemia, smoking #3 chronic lung disease Plan #1 acute coronary syndrome was ruled out #2 I will obtain a stress test #3 follow-up with the patient Thank you for allowing us participate in her care
[2019-03-23] MEDS ORDERED: SODIUM CHLORIDE 0.9% IV ONE (07:54)
[2019-03-23] MEDS ORDERED: CAFFEINE CITRATE 60 MG/3 ML VIAL IV PRN (07:54)
[2019-03-23] MEDS ORDERED: AMINOPHYLLINE 500 MG/20 ML VIAL IV PRN (07:54)
[2019-03-23] MEDS ORDERED: DIPYRIDAMOLE IV ONE (07:54)
[2019-03-23] MEDS ORDERED: DOBUTamine DRIP for NUC MED 500 MG in DEXTROSE/WATER 1 250ML.BAG IV ONE (08:35)
[2019-03-23 08:50] LABS: Glucose,Whole Blood 126 mg/dL (75-99)
[2019-03-23] MEDS ORDERED: LISINOPRIL 20 MG TAB PO SCH (09:00)
[2019-03-23] MEDS ORDERED: INSULIN DETEMIR (LEVEMIR) 100 UNIT/ML SYR SQ SCH (09:00)
[2019-03-23] MEDS ORDERED: amLODIPine 10 MG TAB PO SCH (09:00)
[2019-03-23] MEDS: METOPROLOL TARTRATE 50 MG TAB PO SCH (09:29)
[2019-03-23] MEDS: metFORMIN 500 MG TAB PO SCH (09:30)
[2019-03-23 09:33] VITALS: RESP 20
[2019-03-23] MEDS ORDERED: ATROPINE SULFATE 0.1 MG/ML 10ML SYRINGE ONE (11:20)
[2019-03-23 12:25] LABS: Glucose,Whole Blood 116 mg/dL (75-99)
[2019-03-23 12:27] VITALS: BP 113/69; PULSE 73
[2019-03-23 13:29] VITALS: BMI 39.9
--- NOTE | 2019-03-23 17:02 | P.HPIM ---
History of Present Illness H&P Date: 03/23/19 Chief Complaint: Chest pressure Patient is a 58 old female with a known history of pseudo-tumor cerebri, chronic neck and back pain with polysubstance abuse currently on methadone, hypertension, diabetes type 2, pulmonary hypertension and other multiple medical problems including morbid obesity with BMI 39.9 came to ER with the complaints of chest discomfort. Patient has been having chest discomfort/pressure like sensation mainly left retrosternal for the past few days., Worse last night. Patient denied radiation of the pain. No associated nausea vomiting or diapho resis. Patient does have baseline shortness of breath without much change. Patient follows with Dr. Anaya, as an outpatient. Patient is currently being worked up for leukocytosis, malignancy versus autoimmune. Following hematology clinic. Patient says that she's been having right lower extremity swelling on and off for the past 3 weeks. Right lower extremity duplex scan is negative for DVT. EKG showed normal sinus rhythm without significant improvement ST-T wave changes. Troponin 3 negative Chest x-ray showed no acute cardio pulmonary process Review of Systems Constitutional: Patient denies any fever or chills . No generalized weakness or weight loss. Abdomen: Patient denied nausea vomiting and diarrhea and abdominal pain. Cardiovascular: Patient denies any chest pain or short of breath no palpitations. Chest pressure. Respiratory: patient denied any cough is from production. No shortness of breath Neurologic: Patient denied any numbness or tingling headache. Musculoskeletal: Patient denies any complaints of joint swelling or deformity. Skin: Negative Psychiatric: Negative Endocrine: No heat or cold intolerance. No recent weight gain. Genitourinary: No dysuria or hematuria. 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,pulmonary htn,steroids December 2018,psoriasis,uses a walker-unable to stand over 5 minutes or walker over 10 feet,bacterial meningitis at age 30,cancer cervix History of Any Multi-Drug Resistant Organisms: None Reported Past Surgical History: Adenoidectomy, Appendectomy, Back Surgery, Bladder Surgery, Orthopedic Surgery, Tonsillectomy, Tubal Ligation Additional Past Surgical History / Comment(s): 9 [employer] shunts- none at this time,28 LP shunts, eye surgery,rt ovary and fallopian tube removed, Laser procedure for cervix [place] Past Anesthesia/Blood Transfusion Reactions: No Reported Reaction Additional Past Anesthesia/Blood Transfusion Reaction / Comment(s): no hx blood transfusion Past Psychological History: Anxiety Smoking Status: Current every day smoker Past Alcohol Use History: None Reported Past Drug Use History: None Reported - Past Family History Mother Family Medical History: No Reported History Father Family Medical History: Myocardial Infarction (DC) Additional Family Medical History / Comment(s): Father of a DC at the age of 60 yrs. Medications and Allergies Home Medications Medication Instructions Recorded Confirmed Type Atorvastatin [Lipitor] 20 mg PO HS 10/28/17 03/22/19 History Ergocalciferol (Vitamin D2) 50,000 unit PO MO 10/28/17 03/22/19 History [Vitamin D2] Lisinopril 40 mg PO DAILY 10/28/17 03/22/19 History Metoprolol Tartrate [Lopressor] 100 mg PO BID 10/28/17 03/22/19 History amLODIPine [Norvasc] 10 mg PO DAILY 10/28/17 03/22/19 History Methadone HCl [Methadone Intensol] 45 mg PO QAM 01/17/19 03/22/19 History Fluticasone Nasal [place] [Flonase 2 spr EA NOSTRIL BID 03/22/19 03/22/19 History Nasal [place]] Insulin Glargine,Hum.rec.anlog 24 units SQ DAILY 03/22/19 03/22/19 History [Basaglar Kwikpen U-100] Pioglitazone [Actos] 15 mg PO DAILY 03/22/19 03/22/19 History metFORMIN HCL 1,000 mg PO BID 03/22/19 03/22/19 History Allergies Allergy/AdvReac Type Severity Reaction Status Date / Time No Known Allergies Allergy Verified 03/22/19 17:25 Physical Exam Vitals: Vital Signs Temp Pulse Resp BP Pulse Ox 03/23/19 12:25 73 20 113/69 96 03/23/19 09:31 80 20 152/85 96 03/23/19 07:31 98.2 F 82 18 149/89 96 03/23/19 06:27 78 18 127/81 97 03/23/19 00:25 97.8 F 81 16 112/82 98 03/22/19 23:26 98 F 71 16 131/71 97 03/22/19 22:30 72 20 118/72 99 03/22/19 21:30 82 18 127/92 98 03/22/19 20:00 98.1 F 76 18 126/76 99 03/22/19 19:20 94 18 128/81 96 03/22/19 17:10 98.6 F 92 20 153/86 99 Intake and Output 03/22/19 03/23/19 03/23/19 22:59 06:59 14:59 Other: Weight 108.862 kg 108.862 kg PHYSICAL EXAMINATION: Patient is lying in the bed comfortably, no acute distress, awake alert and oriented. Morbidly obese.. HEENT: Normocephalic. Neck is supple. Pupils reactive. Nostrils clear. Oral cavity is moist. Ears reveal no drainage. Neck reveals no JVD, carotid bruits, or thyromegaly. CHEST EXAMINATION: Trachea is central. Symmetrical expansion. Lung dutta clear to auscultation and percussion. CARDIAC: Normal S1, S2 with no gallops. No murmurs ABDOMEN: Soft. Bowel sounds normal. No organomegaly. No abdominal bruits. Extremities: Right lower extremity trace edema greater than left. No clubbing or cyanosis Neurologically awake, alert, oriented x3 with well-coordinated movements. No focal deficits noted Skin: No rash or skin lesions. Psychiatric: Coperative. Nonsuicidal Musculoskeletal: No joint swelling or deformity. Normal range of motion. Results CBC & Chem 7: 03/22/19 18:15 03/22/19 18:15 Labs: Abnormal Lab Results - Last 24 Hours (Table) 03/22/19 03/22/19 03/23/19 Range/Units 18:15 18:15 08:47 WBC 14.6 H (3.8-10.6) k/uL Neutrophils # 10.5 H (1.3-7.7) k/uL BUN 18 H (7-17) mg/dL Glucose 125 H (74-99) mg/dL POC Glucose (mg/dL) 126 H (75-99) mg/dL Magnesium 1.4 L (1.6-2.3) mg/dL AST 42 H (14-36) U/L 03/23/19 Range/Units 12:23 WBC (3.8-10.6) k/uL Neutrophils # (1.3-7.7) k/uL BUN (7-17) mg/dL Glucose (74-99) mg/dL POC Glucose (mg/dL) 116 H (75-99) mg/dL Magnesium (1.6-2.3) mg/dL AST (14-36) U/L Thrombosis Risk Factor Assmnt - DVT/VTE Prophylaxis DVT/VTE Prophylaxis: Pharmacologic Prophylaxis ordered Assessment and Plan Assessment: Chest pressure/atypical chest pain. Rule out ACS. Hypomagnesemia replaced Hypertension Diabetes type 2 Pulmonary hypertension Partial diaphragmatic paralysis History of pseudotumor cerebri Family history of coronary artery disease Anxiety Nicotine addiction with current every day smoker Morbid obesity with BMI 39.9 DVT prophylaxis Plan: Patient be continued on telemetry monitoring. Serial EKG and troponin 3 negative. Cardiology is planning for stress test today. Continue the home medications and follow up closely. Started back on methadone dose. Further recommendations based on the clinical course. Prognosis is guarded. Time with Patient: Greater than 30
--- NOTE | 2019-03-23 18:03 | ECHOS ---
STRESS ECHOCARDIOGRAM DATE OF SERVICE: 03/23/2019 INDICATIONS: Chest pain. MEDICATIONS: BASELINE HEART RATE: 67 BASELINE BLOOD PRESSURE: 102/76 MAXIMUM HEART RATE: 130 MAXIMUM BLOOD PRESSURE: 159/78 85% MPHR: 139 100% MPHR: 164 METS: MAXIMUM STAGE REACHED: 5 mcg/kg per minute TOTAL EXERCISE TIME: 15:11 CLINICAL INFORMATION: STRESS DATA: Pre-testing physical examination showed a heart rate of 67, pressure 162/74 mmHg. Baseline EKG showed sinus mechanism. Dobutamine infusion at a dose of 10 mcg/kg per minute was initiated and increased to 40 mcg/kg per minute. The patient achieved a max heart rate of 130, which is about 80% of maximum predicted heart rate. Maximum blood pressure was 159/73 mmHg. Clinically the patient did not have any symptoms of chest pain or discomfort and the EKG did not show any significant ST or T- wave abnormalities concerning for ischemia. ECHOCARDIOGRAM IMAGES: Echocardiogram images from parasternal long-axis view, parasternal short-axis view, apical 4-chamber and apical 2-chamber views were obtained as the baseline images, at low-dose dobutamine infusion, at peak heart rate, as well as on recovery. The echocardiogram did not show any obvious wall motion abnormalities concerning for ischemia. CONCLUSION: 1. Normal EKG in response to dobutamine. 2. Normal echocardiogram in response to dobutamine. 3. Essentially normal dobutamine stress echocardiogram for the heart rate that was achieved, which is 79% of maximum predicted heart rate. MMODL / IJN: [id number] /
== END 2019-03-23 15:10 | disposition home or self-care (01) ==
LOC: EC 16:43 → 1SOBS 20:25
PROVIDERS: ADMIT Hospitalist; ATTEND Hospitalist
DX: R07.89 Other chest pain (principal); E83.42 Hypomagnesemia; I11.0 Hypertensive heart disease with heart failure; I50.9 Heart failure, unspecified; I27.20 Pulmonary hypertension, unspecified; R91.8 Other nonspecific abnormal finding of lung field; E11.9 Type 2 diabetes mellitus without complications; D72.829 Elevated white blood cell count, unspecified; G93.2 Benign intracranial hypertension; L40.9 Psoriasis, unspecified; F41.9 Anxiety disorder, unspecified; J98.6 Disorders of diaphragm; J98.4 Other disorders of lung; E78.5 Hyperlipidemia, unspecified; R60.0 Localized edema; F19.11 Other psychoactive substance abuse, in remission; G89.29 Other chronic pain; M54.2 Cervicalgia; M54.9 Dorsalgia, unspecified; E66.01 Morbid (severe) obesity due to excess calories; Z68.39 Body mass index [BMI] 39.0-39.9, adult; F17.200 Nicotine dependence, unspecified, uncomplicated; Z79.891 Long term (current) use of opiate analgesic; Z79.4 Long term (current) use of insulin; Z79.899 Other long term (current) drug therapy; Z85.41 Personal history of malignant neoplasm of cervix uteri; Z90.49 Acquired absence of other specified parts of digestive tract; Z98.51 Tubal ligation status; Z90.721 Acquired absence of ovaries, unilateral; Z90.79 Acquired absence of other genital organ(s); Z86.61 Personal history of infections of the central nervous system; Z86.69 Personal history of other diseases of the nervous system and sense organs; Z82.49 Family history of ischemic heart disease and other diseases of the circulatory system; Z53.21 Procedure and treatment not carried out due to patient leaving prior to being seen by health care provider
CPT/HCPCS: 96365; 96375; 99285; 36415; 93005; 85379; 83880; 80053; 83690; 83735; 84484 ×2; 85025; 85610; 85730; 71046; 93971; G0378 ×2; C8930; J1250; J0461; J1885; S0109 ×2; J3475; Q9950; 93351

== ENCOUNTER → 2019-10-28 | Outpatient (CLI) | payer OTHER ==
--- NOTE | 2019-10-28 15:00 | US ---
EXAMINATION TYPE: US venous doppler duplex LE BI DATE OF EXAM: 10/28/2019 2:44 PM COMPARISON: NONE CLINICAL HISTORY: 59-year-old female R60.9 edema. SIDE PERFORMED: Bilateral TECHNIQUE: The lower extremity deep venous system is examined utilizing real time linear array sonog porsha with graded compression, doppler sonography and color-flow sonography. FINDINGS: VESSELS IMAGED: External Iliac Vein (EIV) Common Femoral Vein Deep Femoral Vein Greater Saphenous Vein * Femoral Vein Popliteal Vein Small Saphenous Vein * Proximal Calf Veins (* superficial vessels) Right Leg: Negative for DVT Left Leg: Negative for DVT IMPRESSION: No evidence for DVT within the bilateral lower extremities imaged from the groin to the upper calves.
== END | disposition home or self-care (01) ==
LOC: RADUSWWP 10-03 12:14
PROVIDERS: ATTEND Internal Medicine Pulmonary Disease
DX: R60.0 Localized edema (principal)
CPT/HCPCS: 93970

== ENCOUNTER → 2019-10-31 | Outpatient (CLI) | payer OTHER ==
--- NOTE | 2019-11-01 10:13 | MR ---
EXAMINATION TYPE: MR lumbar spine wo con DATE OF EXAM: 10/31/2019 COMPARISON: NONE HISTORY: Neck and low back pain TECHNIQUE: T1 and T2 axial and sagittal images of the lumbar spine are submitted. FINDINGS: There is no abnormal signal seen within the visualized spinal cord or paraspinal soft tissu es. T12-L1 there is a right paracentral disc bulge or small protrusion but no spinal cord contact. Neural foramina patent. Mild facet arthropathy and degenerative disc disease. At L1-2 there is there is central disc bulging but no canal stenosis. Neural foramina patent. Vacuum disc and severe degenerative disc disease. At L2-3 there is vacuum disc and severe degenerative disc disease with diffuse disc bulging and facet arthropathy. Borderline to mild canal stenosis. Mild bilateral foraminal encroachment but no nerve r oot impingement At L3-4 there is vacuum disc and severe degenerative disc disease with advanced facet arthropathy and ligamentum flavum hypertrophy. Diffuse disc bulging contributes to mild canal stenosis and bilateral foraminal encroachment. At L4-5 there is moderate to severe degenerative disc disease with marked facet arthropathy greater o n the left. Disc bulging contributes to mild canal stenosis with moderate to severe left foraminal en croachment and mild to moderate right foraminal encroachment. At L5-S1 there is vacuum disc and severe degenerative disc disease with advanced facet arthropathy an d ligamentum flavum hypertrophy. Moderate bilateral foraminal encroachment. No Canal stenosis. IMPRESSION: 1. Multilevel degenerative disc disease. Disc bulging or protrusions at multiple levels are noted as discussed above resulting in multilevel mild canal stenosis and foraminal encroachment. 2. At T12-L1 there is a right paracentral disc or small protrusion with no foraminal encroachment or canal stenosis. No spinal cord contact. EXAMINATION TYPE: MR cervical spine wo con DATE OF EXAM: 10/31/2019 COMPARISON: NONE HISTORY: Neck and low back pain TECHNIQUE: T1 sagittal and coronal, T2 sagittal, and gradient echo axial views of the cervical spine are submitted. FINDINGS: Low-lying cerebellar tonsils.. There is no abnormal signal seen within the spinal cord or paraspinal soft tissues. Exam is limited by motion artifact. At C2-3 there is no disc herniation or canal stenosis. No foraminal encroachment. At C3-4 there is no disc herniation or canal stenosis. No foraminal encroachment. At C4-5 there is enter disc disease with mild bilateral uncovertebral joint hypertrophy. Mild central disc bulging but no canal stenosis or focal herniation. Neural foramina patent. At C5-6 there is degenerative disc disease with broad-based disc protrusion and mild central stenosis . Moderate to severe left foraminal encroachment and moderate right foraminal encroachment. At C6-7 there is degenerative disc disease with broad-based disc protrusion. Mild central stenosis an d mild bilateral foraminal encroachment with facet arthropathy. Uncovertebral joint hypertrophy bilat erally. At C7-T1 there is no disc herniation or canal stenosis. No foraminal encroachment. Vertebral body hem angioma of T1. IMPRESSION: Limited exam due to motion artifact. 1. Multilevel degenerative disc disease with broad-based disc protrusion C5-C6 resulting in mild can al stenosis and moderate to severe bilateral foraminal encroachment as discussed above. 2. Disc bulging C4-C5 but no canal stenosis or foraminal encroachment. 3. Broad-based disc protrusion with mild central stenosis C6-C7. Mild bilateral foraminal encroachmen t. 4. Low-lying cerebellar tonsils.
== END | disposition home or self-care (01) ==
LOC: RADMRIMAIN 14:43
PROVIDERS: ATTEND Internal Medicine
DX: M48.061 Spinal stenosis, lumbar region without neurogenic claudication (principal); M51.25 Other intervertebral disc displacement, thoracolumbar region; M51.26 Other intervertebral disc displacement, lumbar region; M51.36 Other intervertebral disc degeneration, lumbar region; M48.02 Spinal stenosis, cervical region; M50.221 Other cervical disc displacement at C4-C5 level; M50.322 Other cervical disc degeneration at C5-C6 level
CPT/HCPCS: 72141; 72148

== ENCOUNTER 2020-03-21 11:31 | Emergency (ER) | payer OTHER ==
[2020-03-21 11:34] VITALS: TEMP 98
[2020-03-21] MEDS ORDERED: OXYMETAZOLINE 0.05% NASL SPRAY 1 SPRAY BOTTLE NASAL STA (11:40)
--- NOTE | 2020-03-21 12:25 | ED ---
ENT HPI - General Chief complaint: ENT Stated complaint: nose bleed Time Seen by Provider: 03/21/20 11:37 Source: EMS Mode of arrival: EMS Limitations: no limitations - History of Present Illness Initial comments: Patient is a 59-year-old female presenting to the emergency department with a chief complaint of a nosebleed. Patient reports the bleeding started about 45 minutes prior to arrival. She was brought to the ED via EMS. States she was about to eat her meal when she began a sudden onset of right-sided epistaxis. She also continues to spit out blood clots. She states she can taste the blood in the back of her throat. Denies any direct trauma. States she applied pressure but there is no improvement in his symptoms. States she is not on blood thinners. - Related Data Home Medications Medication Instructions Recorded Confirmed Ergocalciferol (Vitamin D2) 50,000 unit PO MO 10/28/17 12/13/19 [Vitamin D2] Fluticasone Nasal [place] [Flonase 2 spray EA NOSTRIL DAILY 03/22/19 12/13/19 Nasal [place]] Pioglitazone [Actos] 15 mg PO DAILY 03/22/19 12/13/19 metFORMIN HCL 1,000 mg PO BID 03/22/19 12/13/19 Aspirin 81 mg PO DAILY 12/13/19 12/13/19 Atorvastatin [Lipitor] 10 mg PO HS 12/13/19 12/13/19 Furosemide [Lasix] 40 mg PO DAILY 12/13/19 12/13/19 Metoprolol Succinate (ER) [Toprol 100 mg PO BID 12/13/19 12/13/19 XL] Omeprazole 20 mg PO DAILY 12/13/19 12/13/19 Potassium Chloride ER [K-Dur 10] 10 meq PO DAILY 12/13/19 12/13/19 oxyCODONE-APAP 10-325MG [Percocet 1 tab PO Q6H 12/13/19 12/13/19 10-325 mg] Previous Rx's Medication Instructions Recorded Cyanocobalamin [Vitamin B-12 1,000 mcg SQ WEEKLY #8 vial 12/15/19 Injection] Insulin Detemir (Levemir) [Levemir] 15 unit SQ DAILY@0700 #1 vial 12/15/19 Magnesium Oxide [Mag-Ox] 400 mg PO DAILY 5 Days #5 tab 12/15/19 Nicotine 21Mg/24Hr Patch [Habitrol] 1 patch TRANSDERM DAILY #30 patch 12/15/19 acetaZOLAMIDE [Diamox] 500 mg PO BID #120 tab 12/15/19 Lisinopril [Zestril] 10 mg PO DAILY #0 12/16/19 Amoxicillin/Potassium Clav 1 tab PO BID 5 Days #10 tab 03/21/20 [Augmentin 875-125 Tablet] Allergies Allergy/AdvReac Type Severity Reaction Status Date / Time No Known Allergies Allergy Verified 03/21/20 11:32 Review of Systems ROS Statement: Those systems with pertinent positive or pertinent negative responses have been documented in the HPI. ROS Other: All systems not noted in ROS Statement are negative. 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,pulmonary htn,steroids December 2018,psoriasis,uses a walker-unable to stand over 5 minutes or walker over 10 feet,bacterial meningitis at age 30,cancer cervix History of Any Multi-Drug Resistant Organisms: None Reported Past Surgical History: Adenoidectomy, Appendectomy, Back Surgery, Bladder Surgery, Orthopedic Surgery, Tonsillectomy, Tubal Ligation Additional Past Surgical History / Comment(s): 9 NUCLEAR MEDICINE MEDICAL DIRECTOR shunts- none at this time,30 LP shunts, eye surgery,rt ovary and fallopian tube removed, Laser procedure for cervix [place] Past Anesthesia/Blood Transfusion Reactions: No Reported Reaction Additional Past Anesthesia/Blood Transfusion Reaction / Comment(s): no hx blood transfusion Past Psychological History: Anxiety Smoking Status: Current every day smoker Past Alcohol Use History: None Reported Past Drug Use History: None Reported - Past Family History Mother Family Medical History: No Reported History Father Family Medical History: Myocardial Infarction ([place]) Additional Family Medical History / Comment(s): Father of a [place] at the age of 60 yrs. General Exam Limitations: no limitations General appearance: alert, in no apparent distress, obese Head exam: Present: atraumatic, normocephalic, normal inspection Eye exam: Present: normal appearance, PERRL, EOMI Pupils: Present: normal accommodation ENT exam: Present: normal exam, mucous membranes moist. Absent: normal oropharynx (Right-sided nasal bleed. Unable to detect the source of the bleeding. Residual blood detected in the posterior pharynx.) Neck exam: Present: normal inspection, full ROM Respiratory exam: Present: normal lung sounds bilaterally. Absent: respiratory distress, wheezes, rales Cardiovascular Exam: Present: regular rate, normal rhythm, normal heart sounds Extremities exam: Present: normal inspection, full ROM Back exam: Present: normal inspection, full ROM Neurological exam: Present: alert, oriented X3 Psychiatric exam: Present: normal affect, normal mood Skin exam: Present: warm, dry, intact, normal color Course Vital Signs 03/21/20 03/21/20 11:32 14:34 Temperature 98 F Pulse Rate 67 68 Respiratory 18 18 Rate Blood Pressure 149/95 106/73 O2 Sat by Pulse 96 Oximetry Medical Decision Making - Medical Decision Making Patient 59-year-old female presenting to the emergency department with a chief complaint of a nosebleed. Patient had over half hour of bleeding from the right nausea. On exam patient does have residual posterior pharyngeal blood. The bleed appears to be coming only from right nostril which I suspect is an anterior bleed, however I was not able to detect a source of the bleeding. Afrin and pressure was applied with no improvement. I attempted to insert a Rhino Rocket but was unsuccessful. was able to advance the Rhino Rocket in place. Patient was given [place] in the ED for pain. She takes that at home. Patient also started on Augmentin. EKG shows sinus bradycardia with no signs of ST elevation or T-wave inversion. Patient states she does have leukocytosis at baseline and is currently being investigated for a possible hematologic disorder. CBC is unremarkable otherwise. CMP is unremarkable. Patient is not on blood thinners. Patient advised to see Dr. Michel, ENT specialist, as soon as possible. Return parameters were thoroughly discussed with patient is an ascending agreeable. Case discussed with physician. - Lab Data Result diagrams: 03/21/20 14:30 03/21/20 14:30 Lab Results 03/21/20 03/21/20 03/21/20 Range/Units 14:30 14:30 14:30 WBC 17.4 H (3.8-10.6) k/uL RBC 4.48 (3.80-5.40) m/uL Hgb 12.5 (11.4-16.0) gm/dL Hct 39.9 (34.0-46.0) % MCV 89.1 (80.0-100.0) fL MCH 28.0 (25.0-35.0) pg MCHC 31.4 (31.0-37.0) g/dL RDW 13.9 (11.5-15.5) % Plt Count 282 (150-450) k/uL Neutrophils % 79 % Lymphocytes % 13 % Monocytes % 4 % Eosinophils % 2 % Basophils % 1 % Neutrophils # 13.8 H (1.3-7.7) k/uL Lymphocytes # 2.3 (1.0-4.8) k/uL Monocytes # 0.6 (0-1.0) k/uL Eosinophils # 0.4 (0-0.7) k/uL Basophils # 0.1 (0-0.2) k/uL Hypochromasia Slight PT 10.2 (9.0-12.0) sec INR 1.0 (<1.2) APTT 23.7 (22.0-30.0) sec Sodium (137-145) mmol/L Potassium (3.5-5.1) mmol/L Chloride (98-107) mmol/L Carbon Dioxide (22-30) mmol/L Anion Gap mmol/L BUN (7-17) mg/dL Creatinine (0.52-1.04) mg/dL Est GFR (CKD-EPI)AfAm (>60 ml/min/1.73 sqM) Est GFR (CKD-EPI)NonAf (>60 ml/min/1.73 sqM) Glucose (74-99) mg/dL Calcium (8.4-10.2) mg/dL Magnesium (1.6-2.3) mg/dL Total Bilirubin (0.2-1.3) mg/dL AST (14-36) U/L ALT (4-34) U/L Alkaline Phosphatase (38-126) U/L Total Protein (6.3-8.2) g/dL Albumin (3.5-5.0) g/dL Blood Type Recheck No Previous Record Bld Type Recheck Status CABO Indicated Spec Expiration Date 03/24/2020 - 232903/21/20 Range/Units 14:30 WBC (3.8-10.6) k/uL RBC (3.80-5.40) m/uL Hgb (11.4-16.0) gm/dL Hct (34.0-46.0) % MCV (80.0-100.0) fL MCH (25.0-35.0) pg MCHC (31.0-37.0) g/dL RDW (11.5-15.5) % Plt Count (150-450) k/uL Neutrophils % % Lymphocytes % % Monocytes % % Eosinophils % % Basophils % % Neutrophils # (1.3-7.7) k/uL Lymphocytes # (1.0-4.8) k/uL Monocytes # (0-1.0) k/uL Eosinophils # (0-0.7) k/uL Basophils # (0-0.2) k/uL Hypochromasia PT (9.0-12.0) sec INR (<1.2) APTT (22.0-30.0) sec Sodium 138 (137-145) mmol/L Potassium 4.8 (3.5-5.1) mmol/L Chloride 108 H (98-107) mmol/L Carbon Dioxide 21 L (22-30) mmol/L Anion Gap 9 mmol/L BUN 16 (7-17) mg/dL Creatinine 0.73 (0.52-1.04) mg/dL Est GFR (CKD-EPI)AfAm >90 (>60 ml/min/1.73 sqM) Est GFR (CKD-EPI)NonAf >90 (>60 ml/min/1.73 sqM) Glucose 139 H (74-99) mg/dL Calcium 9.3 (8.4-10.2) mg/dL Magnesium 1.7 (1.6-2.3) mg/dL Total Bilirubin 0.6 (0.2-1.3) mg/dL AST 37 H (14-36) U/L ALT 27 (4-34) U/L Alkaline Phosphatase 112 (38-126) U/L Total Protein 6.6 (6.3-8.2) g/dL Albumin 3.6 (3.5-5.0) g/dL Blood Type Recheck Bld Type Recheck Status Spec Expiration Date - EKG Data EKG Comments: Signs bradycardia, no ST or T-wave inversions. Ventricular rate 56, OH 132, QRS 78, QTC 413. Disposition Clinical Impression: Epistaxis not due to trauma Disposition: HOME SELF-CARE Condition: Stable Instructions (If sedation given, give patient instructions): Nosebleed (ED) Additional Instructions: Take prescribed medication as directed. Follow-up with an ENT specialist. Return to emergency department if symptoms worsen. Prescriptions: Amoxicillin/Potassium Clav [Augmentin 875-125 Tablet] 1 tab PO BID 5 Days #10 tab Is patient prescribed a controlled substance at d/c from ED?: No Referrals: Omer Garcia MD [Primary Care Provider] - 1-2 days Daren Michel MD [STAFF PHYSICIAN] - 1-2 days Time of Disposition: 15:34
[2020-03-21 14:54] LABS: Basophils # (A) 0.1 k/uL (0-0.2); Basophils % (A) 1 %; Eosinophils # (A) 0.4 k/uL (0-0.7); Eosinophils % (A) 2 %; HCT 39.9 % (34.0-46.0); HGB 12.5 gm/dL (11.4-16.0); Hypochromasia Slight; Lymphocytes # (A) 2.3 k/uL (1.0-4.8); Lymphocytes % (A) 13 %; MCHC 31.4 g/dL (31.0-37.0); MCV 89.1 fL (80.0-100.0); Monocytes # (A) 0.6 k/uL (0-1.0); Monocytes % (A) 4 %; Neutrophils # (A) 13.8 k/uL (1.3-7.7); Neutrophils % (A) 79 %; Platelet Count 282 k/uL (150-450); RBC 4.48 m/uL (3.80-5.40); RDW 13.9 % (11.5-15.5); WBC 17.4 k/uL (3.8-10.6)
[2020-03-21 15:02] LABS: Partial Thromboplastin Time 23.7 sec (22.0-30.0); Prothrombin Time 10.2 sec (9.0-12.0)
[2020-03-21 15:13] LABS: ALT 27 U/L (4-34); AST 37 U/L (14-36); African American GFR (CKD) >90 (>60 ml/min/1.73 sqM); Albumin 3.6 g/dL (3.5-5.0); Alkaline Phosphatase 112 U/L (38-126); Anion Gap 9 mmol/L; Blood Urea Nitrogen 16 mg/dL (7-17); Calcium 9.3 mg/dL (8.4-10.2); Carbon Dioxide 21 mmol/L (22-30); Chloride 108 mmol/L (98-107); Glucose 139 mg/dL (74-99); Magnesium 1.7 mg/dL (1.6-2.3); Non-African American GFR(CKD) >90 (>60 ml/min/1.73 sqM); Potassium 4.8 mmol/L (3.5-5.1); Sodium 138 mmol/L (137-145); Total Bilirubin 0.6 mg/dL (0.2-1.3); Total Protein 6.6 g/dL (6.3-8.2)
[2020-03-21] MEDS ORDERED: HYDROcodone/APAP 10-325MG 1 EACH TAB PO ONE (15:33)
[2020-03-21] MEDS ORDERED: AMOXIC-POT CLAV 875MG STARTER PACK 2 TAB BTL PO STA (15:33)
[2020-03-21 16:21] VITALS: BP 133/77; PULSE 78; RESP 16
== END 2020-03-21 16:20 | disposition home or self-care (01) ==
LOC: EC 11:31
DX: R04.0 Epistaxis (principal); I11.0 Hypertensive heart disease with heart failure; I50.9 Heart failure, unspecified; E11.9 Type 2 diabetes mellitus without complications; F17.200 Nicotine dependence, unspecified, uncomplicated; Z99.81 Dependence on supplemental oxygen; Z85.41 Personal history of malignant neoplasm of cervix uteri; Z98.890 Other specified postprocedural states; Z79.82 Long term (current) use of aspirin; Z79.899 Other long term (current) drug therapy; Z79.84 Long term (current) use of oral hypoglycemic drugs
CPT/HCPCS: 30903; 36415; 80053; 83735; 85025; 85610; 85730; 86850; 86900; 86901; 93005; 99284

== ENCOUNTER 2020-03-23 01:54 | Emergency (ER) | payer OTHER ==
[2020-03-23] MEDS ORDERED: TRANEXAMIC ACID 1,000 MG in SODIUM CHLORIDE 0.9% 100 ML IVPB ONE (02:01)
[2020-03-23 02:08] VITALS: TEMP 98.4
[2020-03-23 02:51] LABS: Basophils # (A) 0.1 k/uL (0-0.2); Basophils % (A) 0 %; Eosinophils # (A) 0.4 k/uL (0-0.7); Eosinophils % (A) 2 %; HCT 32.5 % (34.0-46.0); HGB 10.8 gm/dL (11.4-16.0); Hypochromasia Moderate; Lymphocytes # (A) 3.3 k/uL (1.0-4.8); Lymphocytes % (A) 20 %; MCH 29.3 pg (25.0-35.0); MCHC 33.2 g/dL (31.0-37.0); MCV 88.3 fL (80.0-100.0); Mean Platelet Volume 8.8; Monocytes # (A) 0.9 k/uL (0-1.0); Monocytes % (A) 5 %; Neutrophils # (A) 11.4 k/uL (1.3-7.7); Neutrophils % (A) 70 %; Platelet Count 269 k/uL (150-450); RBC 3.68 m/uL (3.80-5.40); WBC 16.3 k/uL (3.8-10.6)
[2020-03-23] MEDS ORDERED: HYDROcodone/APAP 10-325MG 1 EACH TAB PO ONE (03:31)
[2020-03-23] MEDS ORDERED: METHADONE 10 MG TAB PO ONE (04:00)
--- NOTE | 2020-03-23 04:14 | ED ---
ENT HPI - General Chief complaint: ENT Stated complaint: Nose bleed Time Seen by Provider: 03/23/20 01:59 Source: EMS Mode of arrival: EMS Limitations: no limitations - History of Present Illness Initial comments: This patient is a 59-year-old woman who presents to be evaluated for epistaxis. The patient had been seen here on the for the same. She states that at that time they had placed a balloon packing which had stopped bleeding. The patient states that while she was at home she had a recurrence of bleeding. She is denying chest pain or dyspnea. No palpitations, lightheadedness or syncope. MD complaint: epistaxis -: days(s) Location: nose Severity scale (1-10): 0 Consistency: constant Improves with: none Worsens with: none - Related Data Home Medications Medication Instructions Recorded Confirmed Ergocalciferol (Vitamin D2) 50,000 unit PO MO 10/28/17 12/13/19 [Vitamin D2] Fluticasone Nasal [place] [Flonase 2 spray EA NOSTRIL DAILY 03/22/19 12/13/19 Nasal [place]] Pioglitazone [Actos] 15 mg PO DAILY 03/22/19 12/13/19 metFORMIN HCL 1,000 mg PO BID 03/22/19 12/13/19 Aspirin 81 mg PO DAILY 12/13/19 12/13/19 Atorvastatin [Lipitor] 10 mg PO HS 12/13/19 12/13/19 Furosemide [Lasix] 40 mg PO DAILY 12/13/19 12/13/19 Metoprolol Succinate (ER) [Toprol 100 mg PO BID 12/13/19 12/13/19 XL] Omeprazole 20 mg PO DAILY 12/13/19 12/13/19 Potassium Chloride ER [K-Dur 10] 10 meq PO DAILY 12/13/19 12/13/19 oxyCODONE-APAP 10-325MG [Percocet 1 tab PO Q6H 12/13/19 12/13/19 10-325 mg] Previous Rx's Medication Instructions Recorded Cyanocobalamin [Vitamin B-12 1,000 mcg SQ WEEKLY #8 vial 12/15/19 Injection] Insulin Detemir (Levemir) [Levemir] 15 unit SQ DAILY@0700 #1 vial 12/15/19 Magnesium Oxide [Mag-Ox] 400 mg PO DAILY 5 Days #5 tab 12/15/19 Nicotine 21Mg/24Hr Patch [Habitrol] 1 patch TRANSDERM DAILY #30 patch 12/15/19 acetaZOLAMIDE [Diamox] 500 mg PO BID #120 tab 12/15/19 Lisinopril [Zestril] 10 mg PO DAILY #0 12/16/19 Amoxicillin/Potassium Clav 1 tab PO BID 5 Days #10 tab 03/21/20 [Augmentin 875-125 Tablet] Allergies Allergy/AdvReac Type Severity Reaction Status Date / Time No Known Allergies Allergy Verified 03/23/20 02:08 Review of Systems ROS Statement: Those systems with pertinent positive or pertinent negative responses have been documented in the HPI. ROS Other: All systems not noted in ROS Statement are negative. 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, pulmonary htn,steroids December 2018,psoriasis,uses a walker-unable to stand over 5 minutes or walker over 10 feet,bacterial meningitis at age 30,cancer cervix History of Any Multi-Drug Resistant Organisms: None Reported Past Surgical History: Adenoidectomy, Appendectomy, Back Surgery, Bladder Surgery, Orthopedic Surgery, Tonsillectomy, Tubal Ligation Additional Past Surgical History / Comment(s): 9 TEST DESKMAN shunts- none at this time,30 LP shunts, eye surgery,rt ovary and fallopian tube removed, Laser procedure for cervix [place] Past Anesthesia/Blood Transfusion Reactions: No Reported Reaction Additional Past Anesthesia/Blood Transfusion Reaction / Comment(s): no hx blood transfusion Past Psychological History: Anxiety Smoking Status: Current every day smoker Past Alcohol Use History: None Reported Past Drug Use History: None Reported - Past Family History Mother Family Medical History: No Reported History Father Family Medical History: Myocardial Infarction ([place]) Additional Family Medical History / Comment(s): Father of a [place] at the age of 60 yrs. General Exam Limitations: no limitations General appearance: alert, in no apparent distress Head exam: Present: atraumatic, normocephalic Eye exam: Present: normal appearance. Absent: scleral icterus, conjunctival injection Neck exam: Present: normal inspection Respiratory exam: Present: normal lung sounds bilaterally. Absent: respiratory distress, wheezes, rales, rhonchi, stridor Cardiovascular Exam: Present: regular rate, normal rhythm, normal heart sounds. Absent: systolic murmur, diastolic murmur, rubs, gallop GI/Abdominal exam: Present: soft. Absent: tenderness Extremities exam: Present: normal inspection, normal capillary refill. Absent: pedal edema, calf tenderness Neurological exam: Present: alert Skin exam: Present: warm, dry, intact, normal color. Absent: rash Course Vital Signs 03/23/20 03/23/20 01:58 04:15 Temperature 98.4 F Pulse Rate 95 88 Respiratory 18 16 Rate Blood Pressure 138/78 134/76 O2 Sat by Pulse 97 96 Oximetry Medical Decision Making - Medical Decision Making This patient's 59-year-old woman presenting with recurrence of epistaxis from the right naris. She does have the balloon packing in place. I did administer a dose of TXA which has stop the recurrence of bleeding, and in light of this the packing was not disturbed. Patient will follow with ENT as had been previously planned. Discussed appropriate return parameters patient does have prescription for antibiotic coverage. - Lab Data Result diagrams: 03/23/20 02:15 Lab Results 03/23/20 Range/Units 02:15 WBC 16.3 H (3.8-10.6) k/uL RBC 3.68 L (3.80-5.40) m/uL Hgb 10.8 L (11.4-16.0) gm/dL Hct 32.5 L (34.0-46.0) % MCV 88.3 (80.0-100.0) fL MCH 29.3 (25.0-35.0) pg MCHC 33.2 (31.0-37.0) g/dL RDW 14.0 (11.5-15.5) % Plt Count 269 (150-450) k/uL Neutrophils % 70 % Lymphocytes % 20 % Monocytes % 5 % Eosinophils % 2 % Basophils % 0 % Neutrophils # 11.4 H (1.3-7.7) k/uL Lymphocytes # 3.3 (1.0-4.8) k/uL Monocytes # 0.9 (0-1.0) k/uL Eosinophils # 0.4 (0-0.7) k/uL Basophils # 0.1 (0-0.2) k/uL Hypochromasia Moderate Disposition Clinical Impression: Epistaxis Disposition: HOME SELF-CARE Condition: Fair Instructions (If sedation given, give patient instructions): Nosebleed (ED) Is patient prescribed a controlled substance at d/c from ED?: No Referrals: Omer Garcia MD [Primary Care Provider] - 1-2 days Daren Michel MD [STAFF PHYSICIAN] - 1-2 days
[2020-03-23 04:17] VITALS: BP 134/76; PULSE 88; RESP 16
== END 2020-03-23 04:35 | disposition home or self-care (01) ==
LOC: EC 01:54
DX: R04.0 Epistaxis (principal); I11.0 Hypertensive heart disease with heart failure; I27.20 Pulmonary hypertension, unspecified; I50.9 Heart failure, unspecified; E11.9 Type 2 diabetes mellitus without complications; B19.20 Unspecified viral hepatitis C without hepatic coma; F17.200 Nicotine dependence, unspecified, uncomplicated; Z79.4 Long term (current) use of insulin; Z79.82 Long term (current) use of aspirin; Z79.899 Other long term (current) drug therapy; Z85.41 Personal history of malignant neoplasm of cervix uteri; Z82.49 Family history of ischemic heart disease and other diseases of the circulatory system; Z99.89 Dependence on other enabling machines and devices; Z98.890 Other specified postprocedural states
CPT/HCPCS: 99284; 96365; 36415; 85025; S0109

== ENCOUNTER 2020-03-24 04:12 | Inpatient (IN) | payer OTHER ==
[2020-03-24] MEDS ORDERED: SODIUM CHLORIDE 0.9% 1,000 ML IV STA ×2 (05:06)
--- NOTE | 2020-03-24 05:07 | ED ---
ENT HPI - General Chief complaint: ENT Stated complaint: Nose bleed Time Seen by Provider: 03/24/20 04:15 Source: patient, EMS Mode of arrival: EMS Limitations: no limitations - Related Data Home Medications Medication Instructions Recorded Confirmed Ergocalciferol (Vitamin D2) 50,000 unit PO MO 10/28/17 12/13/19 [Vitamin D2] Fluticasone Nasal [place] [Flonase 2 spray EA NOSTRIL DAILY 03/22/19 12/13/19 Nasal [place]] Pioglitazone [Actos] 15 mg PO DAILY 03/22/19 12/13/19 metFORMIN HCL 1,000 mg PO BID 03/22/19 12/13/19 Aspirin 81 mg PO DAILY 12/13/19 12/13/19 Atorvastatin [Lipitor] 10 mg PO HS 12/13/19 12/13/19 Furosemide [Lasix] 40 mg PO DAILY 12/13/19 12/13/19 Metoprolol Succinate (ER) [Toprol 100 mg PO BID 12/13/19 12/13/19 XL] Omeprazole 20 mg PO DAILY 12/13/19 12/13/19 Potassium Chloride ER [K-Dur 10] 10 meq PO DAILY 12/13/19 12/13/19 oxyCODONE-APAP 10-325MG [Percocet 1 tab PO Q6H 12/13/19 12/13/19 10-325 mg] Previous Rx's Medication Instructions Recorded Cyanocobalamin [Vitamin B-12 1,000 mcg SQ WEEKLY #8 vial 12/15/19 Injection] Insulin Detemir (Levemir) [Levemir] 15 unit SQ DAILY@0700 #1 vial 12/15/19 Magnesium Oxide [Mag-Ox] 400 mg PO DAILY 5 Days #5 tab 12/15/19 Nicotine 21Mg/24Hr Patch [Habitrol] 1 patch TRANSDERM DAILY #30 patch 12/15/19 acetaZOLAMIDE [Diamox] 500 mg PO BID #120 tab 12/15/19 Lisinopril [Zestril] 10 mg PO DAILY #0 12/16/19 Amoxicillin/Potassium Clav 1 tab PO BID 5 Days #10 tab 03/21/20 [Augmentin 875-125 Tablet] Allergies Allergy/AdvReac Type Severity Reaction Status Date / Time No Known Allergies Allergy Verified 03/23/20 02:08 Review of Systems ROS Statement: Those systems with pertinent positive or pertinent negative responses have been documented in the HPI. ROS Other: All systems not noted in ROS Statement are negative. 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,pulmonary htn,steroids December 2018,psoriasis,uses a walker-unable to stand over 5 minutes or walker over 10 feet,bacterial meningitis at age 30,cancer cervix History of Any Multi-Drug Resistant Organisms: None Reported Past Surgical History: Adenoidectomy, Appendectomy, Back Surgery, Bladder Surgery, Orthopedic Surgery, Tonsillectomy, Tubal Ligation Additional Past Surgical History / Comment(s): 9 MANUFACTURING ENGINEER MACHINING shunts- none at this time,28 LP shunts, eye surgery,rt ovary and fallopian tube removed, Laser procedure for cervix [place] Past Anesthesia/Blood Transfusion Reactions: No Reported Reaction Additional Past Anesthesia/Blood Transfusion Reaction / Comment(s): no hx blood transfusion Past Psychological History: Anxiety Smoking Status: Current every day smoker Past Alcohol Use History: None Reported Past Drug Use History: None Reported - Past Family History Mother Family Medical History: No Reported History Father Family Medical History: Myocardial Infarction ([place]) Additional Family Medical History / Comment(s): Father of a [place] at the age of 60 yrs. General Exam Limitations: no limitations Course Vital Signs 03/24/20 03/24/20 04:13 06:32 Temperature 98.2 F 97.5 F L Pulse Rate 86 85 Respiratory 20 19 Rate Blood Pressure 144/95 113/68 O2 Sat by Pulse 98 96 Oximetry Medical Decision Making - Lab Data Result diagrams: 03/24/20 04:41 03/24/20 04:41 Lab Results 03/24/20 03/24/20 03/24/20 Range/Units 04:41 04:41 04:41 WBC 15.8 H (3.8-10.6) k/uL RBC 3.61 L (3.80-5.40) m/uL Hgb 10.4 L (11.4-16.0) gm/dL Hct 31.9 L (34.0-46.0) % MCV 88.5 (80.0-100.0) fL MCH 28.9 (25.0-35.0) pg MCHC 32.6 (31.0-37.0) g/dL RDW 14.3 (11.5-15.5) % Plt Count 303 (150-450) k/uL Neutrophils % 68 % Lymphocytes % 23 % Monocytes % 5 % Eosinophils % 2 % Basophils % 1 % Neutrophils # 10.7 H (1.3-7.7) k/uL Lymphocytes # 3.7 (1.0-4.8) k/uL Monocytes # 0.7 (0-1.0) k/uL Eosinophils # 0.3 (0-0.7) k/uL Basophils # 0.1 (0-0.2) k/uL PT 9.7 (9.0-12.0) sec INR 0.9 (<1.2) APTT 24.9 (22.0-30.0) sec Sodium 141 (137-145) mmol/L Potassium 4.4 (3.5-5.1) mmol/L Chloride 107 (98-107) mmol/L Carbon Dioxide 23 (22-30) mmol/L Anion Gap 11 mmol/L BUN 19 H (7-17) mg/dL Creatinine 0.67 (0.52-1.04) mg/dL Est GFR (CKD-EPI)AfAm >90 (>60 ml/min/1.73 sqM) Est GFR (CKD-EPI)NonAf >90 (>60 ml/min/1.73 sqM) Glucose 129 H (74-99) mg/dL Calcium 9.6 (8.4-10.2) mg/dL Total Bilirubin 0.4 (0.2-1.3) mg/dL AST 40 H (14-36) U/L ALT 29 (4-34) U/L Alkaline Phosphatase 110 (38-126) U/L Total Protein 6.9 (6.3-8.2) g/dL Albumin 4.0 (3.5-5.0) g/dL Disposition Clinical Impression: Epistaxis not due to trauma, Epistaxis, Left-sided epistaxis, Right-sided epistaxis, Failure of outpatient treatment Disposition: ADMITTED IP TO THIS [facility] Condition: Good Is patient prescribed a controlled substance at d/c from ED?: No Referrals: Omer Garcia MD [Primary Care Provider] - 1-2 days
[2020-03-24 05:15] LABS: Basophils # (A) 0.1 k/uL (0-0.2); Basophils % (A) 1 %; Eosinophils # (A) 0.3 k/uL (0-0.7); Eosinophils % (A) 2 %; HCT 31.9 % (34.0-46.0); HGB 10.4 gm/dL (11.4-16.0); Lymphocytes # (A) 3.7 k/uL (1.0-4.8); Lymphocytes % (A) 23 %; MCH 28.9 pg (25.0-35.0); MCHC 32.6 g/dL (31.0-37.0); MCV 88.5 fL (80.0-100.0); Mean Platelet Volume 8.1; Monocytes # (A) 0.7 k/uL (0-1.0); Monocytes % (A) 5 %; Neutrophils # (A) 10.7 k/uL (1.3-7.7); Neutrophils % (A) 68 %; Platelet Count 303 k/uL (150-450); RBC 3.61 m/uL (3.80-5.40); RDW 14.3 % (11.5-15.5); WBC 15.8 k/uL (3.8-10.6)
[2020-03-24 05:25] LABS: ALT 29 U/L (4-34); AST 40 U/L (14-36); African American GFR (CKD) >90 (>60 ml/min/1.73 sqM); Alkaline Phosphatase 110 U/L (38-126); Anion Gap 11 mmol/L; Blood Urea Nitrogen 19 mg/dL (7-17); Calcium 9.6 mg/dL (8.4-10.2); Carbon Dioxide 23 mmol/L (22-30); Chloride 107 mmol/L (98-107); Glucose 129 mg/dL (74-99); INR 0.9 (<1.2); Non-African American GFR(CKD) >90 (>60 ml/min/1.73 sqM); Partial Thromboplastin Time 24.9 sec (22.0-30.0); Potassium 4.4 mmol/L (3.5-5.1); Prothrombin Time 9.7 sec (9.0-12.0); Sodium 141 mmol/L (137-145); Total Bilirubin 0.4 mg/dL (0.2-1.3); Total Protein 6.9 g/dL (6.3-8.2)
[2020-03-24] MEDS ORDERED: MORPHINE SULFATE 4 MG/ML SYRINGE IVP STA (05:43)
[2020-03-24] MEDS ORDERED: LORazepam 2 MG/ML INJ IV STA (06:53)
[2020-03-24] MEDS ORDERED: AMPICILLIN-SULBACTAM 3 GM in SODIUM CHLORIDE 0.9% 100 ML IVPB STA (06:53)
[2020-03-24] MEDS ORDERED: TRANEXAMIC ACID 1,000 MG in SODIUM CHLORIDE 0.9% 100 ML IVPB ONE (07:13)
[2020-03-24] MEDS ORDERED: HYDROmorphone 1 MG/ML 1 ML SYRINGE IVP STA (07:13)
[2020-03-24] MEDS ORDERED: HYDROmorphone 1 MG/ML 1 ML SYRINGE IVP PRN (07:13)
[2020-03-24] MEDS ORDERED: NALOXONE 0.4 MG/ML 1 ML VIAL IV PRN (13:39)
[2020-03-24] MEDS ORDERED: HYDROmorphone PCA 10 MG/50 ML BAG IV PRN (13:39)
[2020-03-24] MEDS ORDERED: ONDANSETRON 4 MG/2 ML VIAL IVP PRN (13:43)
[2020-03-24] MEDS ORDERED: TEMAZEPAM 30 MG CAP PO PRN (14:05)
--- NOTE | 2020-03-24 14:34 | P.HPIM ---
History of Present Illness 59-year-old female with multiple medical issues is admitted for epistaxis patient wasn't in with similar symptoms twice in ER was referred to ENT specialist as an outpatient and a tampon was put in at that time shortly after a wound that patient started bleeding again patient had multiple episodes of epistaxis leading to swallowing of blood and hematemesis along with the.stools patient had couple episodes of dark stools today and couple episodes of hematemesis yesterday and multiple episodes of for epistaxis. Patient is on Mot rin and aspirin as an outpatient. These are being held and patient had a syncopal episode and lightheadedness secondary to significant bleeding. She hasn't some nonspecific diffuse abdominal pain. Patient had an acetyl packing ENT was consulted ENT physician is evaluating the patient now patient does smoke has some wheezing on exam. Patient's blood pressure is low receiving IV fluids patient had a normal ejection fraction but had is on Lasix at home. Review of Systems REVIEW OF SYSTEMS: CONSTITUTIONAL: No fever, no malaise, no fatigue. HEENT: No recent visual problems or hearing problems. Denied any sore throat. CARDIOVASCULAR: No chest pain, orthopnea, PND, no palpitations, no syncope. PULMONARY: No shortness of breath, no cough, no hemoptysis. GASTROINTESTINAL: As mentioned in HPI NEUROLOGICAL: No headaches, no weakness, no numbness. HEMATOLOGICAL: Denies any bleeding or petechiae. GENITOURINARY: Denies any burning micturition, frequency, or urgency. MUSCULOSKELETAL/RHEUMATOLOGICAL: Denies any joint pain, swelling, or any muscle pain. ENDOCRINE: Denies any polyuria or polydipsia. The rest of the 14-point review of systems is negative. 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,pulmonary htn,steroids December 2018,psoriasis,uses a walker-unable to stand over 5 minutes or walker over 10 feet,bacterial meningitis at age 30,cancer cervix History of Any Multi-Drug Resistant Organisms: None Reported Past Surgical History: Adenoidectomy, Appendectomy, Back Surgery, Bladder Surgery, Orthopedic Surgery, Tonsillectomy, Tubal Ligation Additional Past Surgical History / Comment(s): 9 SPECIAL ED ASSISTANT shunts- none at this time,28 LP shunts, eye surgery,rt ovary and fallopian tube removed, Laser procedure for cervix [place] Past Anesthesia/Blood Transfusion Reactions: No Reported Reaction Additional Past Anesthesia/Blood Transfusion Reaction / Comment(s): no hx blood transfusion Past Psychological History: Anxiety Additional Psychological History / Comment(s): Pt resides at home with her Daugh christy. She uses a walker to ambulate and has a motorized wheelchair coming soon. Smoking Status: Former smoker Past Alcohol Use History: None Reported Additional Past Alcohol Use History / Comment(s): started smoking at age 15, was a 2.5 ppd smoker but has cut down to 1/2 ppd and has gotten chantrix. States she quit as of . Past Drug Use History: None Reported - Past Family History Mother Family Medical History: No Reported History Father Family Medical History: Myocardial Infarction ([place]) Additional Family Medical History / Comment(s): Father of a [place] at the age of 60 yrs. Medications and Allergies Home Medications Medication Instructions Recorded Confirmed Type Ergocalciferol (Vitamin D2) 50,000 unit PO MO 10/28/17 03/24/20 History [Vitamin D2] Fluticasone Nasal [place] [Flonase 2 spray EA NOSTRIL DAILY 03/22/19 03/24/20 History Nasal [place]] Pioglitazone [Actos] 15 mg PO DAILY 03/22/19 03/24/20 History metFORMIN HCL 1,000 mg PO BID 03/22/19 03/24/20 History Aspirin 81 mg PO DAILY 12/13/19 03/24/20 History Atorvastatin [Lipitor] 10 mg PO HS 12/13/19 03/24/20 History Furosemide [Lasix] 40 mg PO DAILY 12/13/19 03/24/20 History Metoprolol Succinate (ER) [Toprol 100 mg PO BID 12/13/19 03/24/20 History XL] Omeprazole 20 mg PO DAILY 12/13/19 03/24/20 History Magnesium Oxide [Mag-Ox] 400 mg PO DAILY 5 Days #5 tab 12/15/19 03/24/20 Rx Amoxicillin/Potassium Clav 1 tab PO BID 5 Days #10 tab 03/21/20 03/24/20 Rx [Augmentin 875-125 Tablet] Butalb/Acetaminophen/Caffeine 1 - 2 each PO Q4H 03/24/20 03/24/20 History [Fioricet 50-325-40] Ertugliflozin Pidolate [Steglatro] 15 mg PO DAILY 03/24/20 03/24/20 History HYDROcodone/APAP 10-325MG [[place] 1 tab PO BID PRN 03/24/20 03/24/20 History 10-325] Ibuprofen 800 mg PO DAILY 03/24/20 03/24/20 History Insulin Glargine,Hum.rec.anlog 24 unit SQ HS 03/24/20 03/24/20 History [Basaglar Kwikpen U-100] Lisinopril 20 mg PO DAILY 03/24/20 03/24/20 History hydrOXYzine HCL [Atarax] 50 mg PO DAILY PRN 03/24/20 03/24/20 History tiZANidine HCL 4 mg PO BID 03/24/20 03/24/20 History Allergies Allergy/AdvReac Type Severity Reaction Status Date / Time No Known Allergies Allergy Verified 03/24/20 12:11 Physical Exam Vitals: Vital Signs Temp Pulse Pulse Resp BP BP Pulse Ox 03/24/20 08:00 16 03/24/20 07:51 98.3 F 73 16 100/57 92 L 03/24/20 06:32 97.5 F L 85 19 113/68 96 03/24/20 04:13 98.2 F 86 20 144/95 98 Intake and Output 03/23/20 03/24/20 03/24/20 22:59 06:59 14:59 Other: # Voids 1 Weight 108.862 kg 108.862 kg PHYSICAL EXAMINATION: GENERAL: The patient is alert and oriented x3, not in any acute distress. Well developed, well nourished. Obese HEENT: Pupils are round and equally reacting to light. EOMI. No scleral icterus. No conjunctival pallor. Normocephalic, atraumatic. No pharyngeal erythema. No thyromegaly. Patient has nasal packing at this time CARDIOVASCULAR: S1 and S2 present. No murmurs, rubs, or gallops. PULMONARY: Chest is clear to auscultation, no wheezing or crackles. ABDOMEN: Soft, nontender, nondistended, normoactive bowel sounds. No palpable organomegaly. MUSCULOSKELETAL: No joint swelling or deformity. EXTREMITIES: No cyanosis, clubbing, or pedal edema. NEUROLOGICAL: Gross neurological examination did not reveal any focal deficits. SKIN: No rashes. Results CBC & Chem 7: 03/24/20 04:41 03/24/20 04:41 Labs: Abnormal Lab Results - Last 24 Hours (Table) 03/24/20 03/24/20 Range/Units 04:41 04:41 WBC 15.8 H (3.8-10.6) k/uL RBC 3.61 L (3.80-5.40) m/uL Hgb 10.4 L (11.4-16.0) gm/dL Hct 31.9 L (34.0-46.0) % Neutrophils # 10.7 H (1.3-7.7) k/uL BUN 19 H (7-17) mg/dL Glucose 129 H (74-99) mg/dL AST 40 H (14-36) U/L Thrombosis Risk Factor Assmnt - Choose All That Apply Any of the Below Risk Factors Present?: Yes Each Factor Represents 1 point: Age 41-60 years, Obesity (BMI >25) Other Risk Factors: No Other congenital or acquired thrombophilia - If yes, enter type in comment: No Thrombosis Risk Factor Assessment Total Risk Factor Score: 2 Thrombosis Risk Factor Assessment Level: Low Risk Assessment and Plan Plan: Epistaxis: Hold off aspirin and Motrin patient is in aspirin back to ENT is evaluating the patient. Patient will be continued on Augmentin -Hematemesis along with malunited he is to be swallowing from epistaxis patient will be continued on Protonix if patient has more episodes of melena will consult gastroneurology otherwise will just monitor for now. -Hypotension and syncope: Single be secondary to hypotension from a acute bleeding secondary to epistaxis patient can urine IV fluids hold off on lisin opril and Lasix. history of pseudotumor cerebri hepatitis, psoriasis, partial paralysis of the diaphragm, Arnold-chiari mal- formation patient has a SPECIAL ED ASSISTANT shunt all these conditions are stable at this time -Type 2 diabetes mellitus patient will be resumed on her home regimen along with sliding scale insulin -Hypertension patient is actually hypotensive.
[2020-03-24] MEDS: SODIUM CHLORIDE 0.9% 1,000 ML IV SCH (16:00)
[2020-03-24 16:37] LABS: HCT 24.3 % (34.0-46.0); Hypochromasia Slight; MCH 29.4 pg (25.0-35.0); MCHC 32.7 g/dL (31.0-37.0); MCV 90.1 fL (80.0-100.0); Platelet Count 246 k/uL (150-450); RBC 2.69 m/uL (3.80-5.40); RDW 14.7 % (11.5-15.5); WBC 12.9 k/uL (3.8-10.6)
[2020-03-24 16:38] LABS: HGB 7.9 gm/dL (11.4-16.0)
[2020-03-24 17:00] LABS: Glucose,Whole Blood 96 mg/dL (75-99)
[2020-03-24 20:38] LABS: Glucose,Whole Blood 116 mg/dL (75-99)
[2020-03-24] MEDS: PANTOPRAZOLE 40 MG/10 ML VIAL IVP SCH (21:09)
[2020-03-24] MEDS: METOPROLOL SUCCINATE (ER) 100 MG TAB.ER.24H PO SCH (21:10)
[2020-03-24] MEDS: ATORVASTATIN 10 MG TAB PO SCH (21:10)
[2020-03-24] MEDS: LORazepam 2 MG/ML INJ IV PRN (21:11)
[2020-03-24] MEDS: AMOXIC-POT CLAV 875-125MG 1 EACH TAB PO SCH (21:11)
[2020-03-24] MEDS: INSULIN DETEMIR (LEVEMIR) 100 UNIT/ML SYR SQ SCH (21:11)
[2020-03-24 23:51] LABS: HCT 22.8 % (34.0-46.0); HGB 7.3 gm/dL (11.4-16.0); Hypochromasia Slight; MCH 28.9 pg (25.0-35.0); MCV 90.2 fL (80.0-100.0); Mean Platelet Volume 8.3; Platelet Count 276 k/uL (150-450); RBC 2.53 m/uL (3.80-5.40); RDW 14.7 % (11.5-15.5); WBC 14.4 k/uL (3.8-10.6)
[2020-03-25] MEDS: TEMAZEPAM 15 MG CAP PO PRN ×2 (04:34→22:09)
[2020-03-25] MEDS: metFORMIN 500 MG TAB PO SCH ×3 (04:51→22:13)
[2020-03-25 06:25] LABS: Glucose,Whole Blood 110 mg/dL (75-99)
[2020-03-25 06:43] LABS: HCT 22.3 % (34.0-46.0); HGB 7.1 gm/dL (11.4-16.0); Hypochromasia Slight; MCH 28.5 pg (25.0-35.0); MCHC 31.7 g/dL (31.0-37.0); MCV 90.1 fL (80.0-100.0); Mean Platelet Volume 8.2; Platelet Count 252 k/uL (150-450); RBC 2.48 m/uL (3.80-5.40); WBC 13.4 k/uL (3.8-10.6)
[2020-03-25 06:51] LABS: African American GFR (CKD) >90 (>60 ml/min/1.73 sqM); Anion Gap 4 mmol/L; Blood Urea Nitrogen 13 mg/dL (7-17); Calcium 8.3 mg/dL (8.4-10.2); Carbon Dioxide 26 mmol/L (22-30); Chloride 109 mmol/L (98-107); Glucose 96 mg/dL (74-99); Non-African American GFR(CKD) >90 (>60 ml/min/1.73 sqM); Potassium 4.1 mmol/L (3.5-5.1); Sodium 139 mmol/L (137-145)
[2020-03-25] MEDS ORDERED: PANTOPRAZOLE 40 MG TABLET PO SCH (07:30)
[2020-03-25] MEDS: AMOXIC-POT CLAV 875-125MG 1 EACH TAB PO SCH ×2 (10:48→20:09)
[2020-03-25] MEDS: MAGNESIUM OXIDE 400 MG TAB PO SCH (10:48)
[2020-03-25] MEDS: ERTUGLIFLOZIN PIDOLATE 15 MG PO SCH (10:48)
[2020-03-25] MEDS: METOPROLOL SUCCINATE (ER) 100 MG TAB.ER.24H PO SCH ×2 (10:49→20:09)
[2020-03-25] MEDS: PANTOPRAZOLE 40 MG/10 ML VIAL IVP SCH ×2 (10:49→20:09)
[2020-03-25] MEDS: PIOGLITAZONE 15 MG TAB PO SCH (10:50)
[2020-03-25] MEDS: HYDROcodone/APAP 7.5-325MG 1 EACH TAB PO PRN (11:28)
[2020-03-25 11:31] LABS: Glucose,Whole Blood 108 mg/dL (75-99)
--- NOTE | 2020-03-25 12:10 | P.PN ---
Subjective 59-year-old female was admitted for repeat epistaxis, hematemesis and melena. Patient doesn't have any episodes of melena today patient did not move her bowel since yesterday afternoon. Patient's hemoglobin also dropped significantly to 7.1 will order 1 unit of PRBC transfusion. Dilaudid STUDY DIRECTOR pump will be discontinued and patient will be started on IV pain medications along with [place], gastroenterology will evaluate the patient.she does complain he of severe headache. Constitutional: Denied any fatigue denied any fever. Cardio vascular: denied any chest pain, palpitations Gastrointestinal denied any nausea vomiting Pulmonary: Denied any shortness of breath cough Neurologic denied any new focal deficits All inpatient medications were reviewed and appropriate changes in these medications as dictated in the interval history and assessment and plan. Objective - Vital Signs Vital signs: Vital Signs Temp 98.2 F 03/25/20 09:40 Pulse 82 03/25/20 09:40 Resp 16 03/25/20 09:40 BP 111/72 03/25/20 09:40 Pulse Ox 94 L 03/25/20 09:40 Intake & Output 03/24/20 03/25/20 03/25/20 18:59 06:59 18:59 Output Total 160 Balance -160 Weight 108.862 kg Output: Urine 160 Other: Voiding Method Bedside Commode Bedside Commode # Voids 2 2 1 # Bowel Movements 1 - Exam PHYSICAL EXAMINATION: GENERAL: The patient is alert and oriented x3, not in any acute distress. Well developed, well nourished. HEENT: Pupils are round and equally reacting to light. EOMI. No scleral icter us.does have conjunctival pallor. Normocephalic, atraumatic. No pharyngeal erythema. No thyromegaly. nasal packing in place CARDIOVASCULAR: S1 and S2 present. No murmurs, rubs, or gallops. PULMONARY: Chest is clear to auscultation, no wheezing or crackles. ABDOMEN: Soft, nontender, nondistended, normoactive bowel sounds. No palpable organomegaly. MUSCULOSKELETAL: No joint swelling or deformity. EXTREMITIES: No cyanosis, clubbing, or pedal edema. NEUROLOGICAL: Gross neurological examination did not reveal any focal deficits. SKIN: No rashes. - Labs CBC & Chem 7: 03/25/20 05:53 03/25/20 05:53 Labs: Abnormal Lab Results - Last 24 Hours (Table) 05/30/20 05/30/20 05/30/20 Range/Units 16:17 20:36 23:01 WBC 12.9 H 14.4 H (3.8-10.6) k/uL RBC 2.69 L 2.53 L (3.80-5.40) m/uL Hgb 7.9 L D 7.3 L (11.4-16.0) gm/dL Hct 24.3 L 22.8 L (34.0-46.0) % Chloride (98-107) mmol/L POC Glucose (mg/dL) 116 H (75-99) mg/dL Calcium (8.4-10.2) mg/dL 03/25/20 03/25/20 03/25/20 Range/Units 05:53 05:53 06:20 WBC 13.4 H (3.8-10.6) k/uL RBC 2.48 L (3.80-5.40) m/uL Hgb 7.1 L (11.4-16.0) gm/dL Hct 22.3 L (34.0-46.0) % Chloride 109 H (98-107) mmol/L POC Glucose (mg/dL) 110 H (75-99) mg/dL Calcium 8.3 L (8.4-10.2) mg/dL 03/25/20 Range/Units 11:29 WBC (3.8-10.6) k/uL RBC (3.80-5.40) m/uL Hgb (11.4-16.0) gm/dL Hct (34.0-46.0) % Chloride (98-107) mmol/L POC Glucose (mg/dL) 108 H (75-99) mg/dL Calcium (8.4-10.2) mg/dL Assessment and Plan Plan: Epistaxis: Hold off aspirin and Motrin patient is in aspirin back to ENTevaluated the patient and patient has a nasal packing. Patient will be continued on Augmentin -possibility of GI bleed cannot be ruled out acute blood loss anemia from upper GI bleed cannot be excluded. Gastric body was consulted patient is on Protonix now gastroenterology will evaluated the patient -Hypotension and syncope: Single be secondary to hypotension from a acute bleeding secondary to epistaxis patient can urine IV fluids hold off on lisinopril and Lasix. 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
[2020-03-25 16:40] LABS: Glucose,Whole Blood 124 mg/dL (75-99)
[2020-03-25] MEDS: MORPHINE SULFATE 4 MG/ML SYRINGE IVP PRN ×2 (17:54→22:09)
--- NOTE | 2020-03-25 19:38 | P.CONS ---
History of Present Illness - Reason for Consult Consult date: 03/25/20 Hematemesis, melena Requesting physician: Nancy Willis - Chief Complaint Nose bleed - History of Present Illness 59-year-old female with multiple medical comorbidities including psoriasis, hypertension, pseudotumor cerebri, diabetes mellitus who presents to the hosp [facility] with recurrent episodes of epistaxis. The patient has been having problems with recurrent epistaxis according over the past few weeks. Bleeding occurs from both nares. She reports dark colored stool and episodes of hematemesis with the episodes. She had been scheduled to see an ENT in the outpatient setting however presented to the hospital similar complaints. She also reports a long-standing history of reflux. She is on omeprazole daily but does have breakthrough symptoms for which she takes Tums. She also takes aspirin daily and had previously been taking Motrin once per day. She also reports a history of fatty liver disease as well as hepatitis C for which she is treatment izabel. No prior EGD or colonoscopy. Laboratory evaluation significant for anemia on presentation with hemoglobin currently at 7.1, WBC 13.4, platelet count 252,000, INR 0.9, alkaline phosphatase 110, alkaline phosphatase 0.9, AST 40 and ALT 29. Review of Systems REVIEW OF SYSTEMS: CONSTITUTIONAL: Denies any fevers, chills, weight change or fatigue. CARDIOVASCULAR: Denies any chest pain, palpitations high or low blood pressures RESPIRATORY: Denies any shortness of breath acutely but does suffer from shortness of breath at baseline, hemoptysis or cough. GENITOURINARY: No dysuria or hematuria. MUSCULOSKELETAL: No weakness reported. SKIN: Denies any new rashes or lesions, jaundice or pallor. PSYCHIATRIC: Denies any depression or anxiety. NEUROLOGY: Denies headache, denies any new focal deficits. EARS/NOSE/THROAT: No recent hearing change, congestion, nasal discharge or sore throat, however to present to the hospital due to recurrent epistaxis. EYES: No pain in eyes, discharge or change in vision. GASTROINTESTINAL: As per HPI. 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,pulmonary htn,steroids December 2018,psoriasis,uses a walker-unable to stand over 5 minutes or walker over 10 feet,bacterial meningitis at age 30,cancer cervix History of Any Multi-Drug Resistant Organisms: None Reported Past Surgical History: Adenoidectomy, Appendectomy, Back Surgery, Bladder Surgery, Orthopedic Surgery, Tonsillectomy, Tubal Ligation Additional Past Surgical History / Comment(s): 9 VICE PRESIDENT EDUCATION shunts- none at this time,28 LP shunts, eye surgery,rt ovary and fallopian tube removed, Laser procedure for cervix [place] Past Anesthesia/Blood Transfusion Reactions: No Reported Reaction Additional Past Anesthesia/Blood Transfusion Reaction / Comm: no hx blood transfusion Past Psychological History: Anxiety Additional Psychological History / Comment(s): Pt resides at home with her Daug hter. She uses a walker to ambulate and has a motorized wheelchair coming soon. Smoking Status: Former smoker Past Alcohol Use History: None Reported Additional Past Alcohol Use History / Comment(s): started smoking at age 15, was a 2.5 ppd smoker but has cut down to 1/2 ppd and has gotten chantrix. States she quit as of . Past Drug Use History: None Reported - Past Family History Mother Family Medical History: No Reported History Father Family Medical History: Myocardial Infarction ([place]) Additional Family Medical History / Comment(s): Father of a [place] at the age of 60 yrs. Medications and Allergies Home Medications Medication Instructions Recorded Confirmed Type Ergocalciferol (Vitamin D2) 50,000 unit PO MO 10/28/17 03/24/20 History [Vitamin D2] Fluticasone Nasal [place] [Flonase 2 spray EA NOSTRIL DAILY 03/22/19 03/24/20 History Nasal [place]] Pioglitazone [Actos] 15 mg PO DAILY 03/22/19 03/24/20 History metFORMIN HCL 1,000 mg PO BID 03/22/19 03/24/20 History Aspirin 81 mg PO DAILY 12/13/19 03/24/20 History Atorvastatin [Lipitor] 10 mg PO HS 12/13/19 03/24/20 History Furosemide [Lasix] 40 mg PO DAILY 12/13/19 03/24/20 History Metoprolol Succinate (ER) [Toprol 100 mg PO BID 12/13/19 03/24/20 History XL] Omeprazole 20 mg PO DAILY 12/13/19 03/24/20 History Magnesium Oxide [Mag-Ox] 400 mg PO DAILY 5 Days #5 tab 12/15/19 03/24/20 Rx Amoxicillin/Potassium Clav 1 tab PO BID 5 Days #10 tab 03/21/20 03/24/20 Rx [Augmentin 875-125 Tablet] Butalb/Acetaminophen/Caffeine 1 - 2 each PO Q4H 03/24/20 03/24/20 History [Fioricet 50-325-40] Ertugliflozin Pidolate [Steglatro] 15 mg PO DAILY 03/24/20 03/24/20 History HYDROcodone/APAP 10-325MG [[place] 1 tab PO BID PRN 03/24/20 03/24/20 History 10-325] Ibuprofen 800 mg PO DAILY 03/24/20 03/24/20 History Insulin Glargine,Hum.rec.anlog 24 unit SQ HS 03/24/20 03/24/20 History [Basaglar Kwikpen U-100] Lisinopril 20 mg PO DAILY 03/24/20 03/24/20 History hydrOXYzine HCL [Atarax] 50 mg PO DAILY PRN 03/24/20 03/24/20 History tiZANidine HCL 4 mg PO BID 03/24/20 03/24/20 History Allergies Allergy/AdvReac Type Severity Reaction Status Date / Time No Known Allergies Allergy Verified 03/24/20 12:11 Physical Exam Vitals: Vital Signs Temp Pulse Resp BP Pulse Ox 03/25/20 04:00 98.3 F 94 16 117/84 94 L 03/25/20 00:00 97.9 F 95 14 126/65 96 03/24/20 20:00 98.3 F 93 16 135/63 03/24/20 15:38 97.7 F 83 18 132/73 99 03/24/20 15:30 16 Intake and Output 03/24/20 03/25/20 03/25/20 22:59 06:59 14:59 Output Total 160 Balance -160 Output: Urine 160 Other: Voiding Method Bedside Commode Bedside Commode # Voids 2 2 1 # Bowel Movements 1 On physical examination, patient appears comfortable in no apparent distress. HEAD: Normocephalic, atraumatic. EYES: No scleral icterus. No conjunctival injection. MOUTH: No lesions, tongue midline. NECK: Trachea midline, no gross abnormalities. CHEST: Decreased air entry bilaterally. HEART: S1-S2 appreciated. ABDOMEN: Soft, obese. Bowel sounds are positive. No organomegaly. No guarding or rigidity. EXTREMITIES: No pedal edema. SKIN: No rashes, no jaundice, history of psoriasis. NEUROLOGIC: Alert and oriented x3. No focal deficits. Results CBC & Chem 7: 03/25/20 05:53 03/25/20 05:53 Labs: Abnormal Lab Results - Last 24 Hours (Table) 03/24/20 03/24/20 03/24/20 Range/Units 16:17 20:36 23:01 WBC 12.9 H 14.4 H (3.8-10.6) k/uL RBC 2.69 L 2.53 L (3.80-5.40) m/uL Hgb 7.9 L D 7.3 L (11.4-16.0) gm/dL Hct 24.3 L 22.8 L (34.0-46.0) % Chloride (98-107) mmol/L POC Glucose (mg/dL) 116 H (75-99) mg/dL Calcium (8.4-10.2) mg/dL 03/25/20 03/25/20 03/25/20 Range/Units 05:53 05:53 06:20 WBC 13.4 H (3.8-10.6) k/uL RBC 2.48 L (3.80-5.40) m/uL Hgb 7.1 L (11.4-16.0) gm/dL Hct 22.3 L (34.0-46.0) % Chloride 109 H (98-107) mmol/L POC Glucose (mg/dL) 110 H (75-99) mg/dL Calcium 8.3 L (8.4-10.2) mg/dL Assessment and Plan (1) Anemia associated with acute blood loss Narrative/Plan: 59-year-old female with multiple medical comorbidities who presents to the hospital due to recurrent epistaxis found to have an acute fall in her hemog lobin currently 7.1 from 10.4 on presentation. Likely related to epistaxis, however cannot rule out a component of GI bleed as the patient reports symptoms of uncontrolled GERD and has been taking aspirin in combination with Motrin. No prior history of EGD or colonoscopy. She does report frequent GERD with breakthrough symptoms even on omeprazole therapy. Plan is to rule out peptic ulcer disease, gastritis, esophagitis or other upper GI etiology is contributing to her anemia. Current Visit: Yes Status: Acute Code(s): D62 - ACUTE POSTHEMORRHAGIC ANEMIA SNOMED Code(s): 189068811 (2) Melena Current Visit: Yes Status: Acute Code(s): K92.1 - MELENA SNOMED Code(s): 2397355 (3) Epistaxis not due to trauma Current Visit: Yes Status: Acute Code(s): R04.0 - EPISTAXIS SNOMED Code(s): 161128969 Plan: Supportive care Okay for diet Nothing by mouth after midnight Continue to monitor hemoglobin and hematocrit and transfuse as needed Continue Protonix 40 mg twice daily Avoid NSAID use Plan for EGD tomorrow to rule out GI bleed Evaluation by ENT Thank you for allowing us to participate in the care of the patient we will continue to follow
[2020-03-25] MEDS: ATORVASTATIN 10 MG TAB PO SCH (20:09)
[2020-03-25] MEDS: LORazepam 2 MG/ML INJ IV PRN (20:09)
[2020-03-25 20:41] LABS: Glucose,Whole Blood 104 mg/dL (75-99)
[2020-03-25] MEDS: INSULIN DETEMIR (LEVEMIR) 100 UNIT/ML SYR SQ SCH (22:11)
[2020-03-26] MEDS: MORPHINE SULFATE 4 MG/ML SYRINGE IVP PRN ×4 (03:17→20:52)
[2020-03-26 05:49] LABS: Glucose,Whole Blood 93 mg/dL (75-99)
[2020-03-26] MEDS: SODIUM CHLORIDE 0.9% 1,000 ML IV SCH ×3 (07:12→08:07)
[2020-03-26] MEDS: ERTUGLIFLOZIN PIDOLATE 15 MG PO SCH (08:53)
[2020-03-26] MEDS: HYDROcodone/APAP 7.5-325MG 1 EACH TAB PO PRN ×2 (09:02→19:46)
[2020-03-26] MEDS: MAGNESIUM OXIDE 400 MG TAB PO SCH (09:02)
[2020-03-26] MEDS: METOPROLOL SUCCINATE (ER) 100 MG TAB.ER.24H PO SCH ×2 (09:02→19:45)
[2020-03-26] MEDS: AMOXIC-POT CLAV 875-125MG 1 EACH TAB PO SCH ×2 (09:03→19:46)
[2020-03-26] MEDS: metFORMIN 500 MG TAB PO SCH ×2 (09:03→20:51)
[2020-03-26] MEDS: PANTOPRAZOLE 40 MG/10 ML VIAL IVP SCH ×2 (09:04→19:45)
[2020-03-26] MEDS: LORazepam 2 MG/ML INJ IV PRN (09:07)
[2020-03-26 10:29] LABS: HCT 27.7 % (34.0-46.0); HGB 8.9 gm/dL (11.4-16.0); MCH 28.9 pg (25.0-35.0); MCHC 32.2 g/dL (31.0-37.0); MCV 89.7 fL (80.0-100.0); Mean Platelet Volume 8.7; Platelet Count 279 k/uL (150-450); Poikilocytosis Slight; RBC 3.09 m/uL (3.80-5.40); RDW 15.4 % (11.5-15.5); WBC 12.6 k/uL (3.8-10.6)
--- NOTE | 2020-03-26 12:09 | P.DS ---
Providers Date of admission: 03/25/20 14:43 Attending physician: Jose Armando Romeo Consults: 03/24/20 06:53 Consult Physician Routine Consulting Provider: Daren Michel Consult Reason/Comments: epistaxis Do you want consulting provider notified?: Yes 03/24/20 15:46 Consult Physician Routine Consulting Provider: Hannah Gongora Consult Reason/Comments: GI BLEED Do you want consulting provider notified?: Yes Primary care physician: Radha Tello Hospital Course: 59-year-old female was admitted for repeat epistaxis, hematemesis and melena. Patient doesn't have any episodes of melena today patient did not move her bowel since yesterday afternoon. Patient's hemoglobin also dropped significantly to 7.1 will order 1 unit of PRBC transfusion. 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 03/26/2020 Patient will undergo upper GI endoscopy and after that if she is cleared by gastroenterology and after physical therapy evaluation patient will be discharged patient's Motrin and aspirin will be discontinued until seen by ENT for her epistaxis patient doesn't have any epistaxis patient denied any dark stools or blood in the stools today. Physical therapy and occupational therapy will evaluate the patient and if patient is physically strong enough will be discharged home or else may require home care for subacute rehabilitation. PHYSICAL EXAMINATION: GENERAL: The patient is alert and oriented x3, not in any acute distress. Well developed, well nourished. Obese HEENT: Pupils are round and equally reacting to light. EOMI. does have conjunctival pallor scleral icterus. No conjunctival pallor. Normocephalic, atraumatic. No pharyngeal erythema. No thyromegaly. She has nasal packing in both nostrils CARDIOVASCULAR: S1 and S2 present. No murmurs, rubs, or gallops. PULMONARY: Chest is clear to auscultation, no wheezing or crackles. ABDOMEN: Soft, nontender, nondistended, normoactive bowel sounds. No palpable organomegaly. MUSCULOSKELETAL: No joint swelling or deformity. EXTREMITIES: No cyanosis, clubbing, or pedal edema. NEUROLOGICAL: Gross neurological examination did not reveal any focal deficits. SKIN: No rashes. Assessment and Plan Plan: Epistaxis: Hold off aspirin and Motrin patient is in aspirin back to ENTevaluated the patient and patient has a nasal packing. Patient will be continued on Augmentin -possibility of GI bleed cannot be ruled out acute blood loss anemia from upper GI bleed cannot be excluded. Patient will undergo upper GI endoscopy patient is presently on Protonix will be discharged on Prilosec twice a day -Hypotension and syncope: Single be secondary to hypotension from a acute bleeding secondary to epistaxis patient not requiring Lasix. Lasix will be discontinued. 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 all these conditions are stable at this time -Type 2 diabetes mellitus patient will be resumed on her home regimen, blood sugars are very well controlled -Hypertension patient's hypotension resolved and patient can be resumed on her lisinopril Patient Condition at Discharge: Good Plan - Discharge Summary New Discharge Prescriptions: New Omeprazole [PriLOSEC] 40 mg PO BID #30 cap Atorvastatin Calcium [Lipitor] 10 mg PO HS #30 tab Continue Ergocalciferol (Vitamin D2) [Vitamin D2] 50,000 unit PO MO Pioglitazone [Actos] 15 mg PO DAILY metFORMIN HCL 1,000 mg PO BID Fluticasone Nasal [place] [Flonase Nasal [place]] 2 spray EA NOSTRIL DAILY Metoprolol Succinate (ER) [Toprol XL] 100 mg PO BID Furosemide [Lasix] 40 mg PO DAILY Magnesium Oxide [Mag-Ox] 400 mg PO DAILY 5 Days #5 tab Amoxicillin/Potassium Clav [Augmentin 875-125 Tablet] 1 tab PO BID 5 Days #10 tab Butalb/Acetaminophen/Caffeine [Fioricet 50-325-40] 1 - 2 each PO Q4H Ertugliflozin Pidolate [Steglatro] 15 mg PO DAILY HYDROcodone/APAP 10-325MG [[facility] 10-325] 1 tab PO BID PRN PRN Reason: Pain hydrOXYzine HCL [Atarax] 50 mg PO DAILY PRN PRN Reason: Itching Insulin Glargine,Hum.rec.anlog [Basaglar Kwikpen U-100] 24 unit SQ HS Lisinopril 20 mg PO DAILY tiZANidine HCL 4 mg PO BID Discontinued Aspirin 81 mg PO DAILY Atorvastatin [Lipitor] 10 mg PO HS Omeprazole 20 mg PO DAILY Ibuprofen 800 mg PO DAILY Discharge Medication List Ergocalciferol (Vitamin D2) [Vitamin D2] 50,000 unit PO MO 10/28/17 [History] Fluticasone Nasal [place] [Flonase Nasal [place]] 2 spray EA NOSTRIL DAILY 03/22/19 [History] Pioglitazone [Actos] 15 mg PO DAILY 03/22/19 [History] metFORMIN HCL 1,000 mg PO BID 03/22/19 [History] Furosemide [Lasix] 40 mg PO DAILY 12/13/19 [History] Metoprolol Succinate (ER) [Toprol XL] 100 mg PO BID 12/13/19 [History] Magnesium Oxide [Mag-Ox] 400 mg PO DAILY 5 Days #5 tab 12/15/19 [Rx] Amoxicillin/Potassium Clav [Augmentin 875-125 Tablet] 1 tab PO BID 5 Days #10 tab 03/21/20 [Rx] Butalb/Acetaminophen/Caffeine [Fioricet 50-325-40] 1 - 2 each PO Q4H 03/24/20 [History] Ertugliflozin Pidolate [Steglatro] 15 mg PO DAILY 03/24/20 [History] HYDROcodone/APAP 10-325MG [[facility] 10-325] 1 tab PO BID PRN 03/24/20 [History] Insulin Glargine,Hum.rec.anlog [Basaglar Kwikpen U-100] 24 unit SQ HS 03/24/20 [History] Lisinopril 20 mg PO DAILY 03/24/20 [History] hydrOXYzine HCL [Atarax] 50 mg PO DAILY PRN 03/24/20 [History] tiZANidine HCL 4 mg PO BID 03/24/20 [History] Atorvastatin Calcium [Lipitor] 10 mg PO HS #30 tab 03/26/20 [Rx] Omeprazole [PriLOSEC] 40 mg PO BID #30 cap 03/26/20 [Rx] Follow up Appointment(s)/Referral(s): Omer Garcia MD [Primary Care Provider] - 1-2 days
[2020-03-26 12:37] LABS: Glucose,Whole Blood 72 mg/dL (75-99)
[2020-03-26] MEDS ORDERED: MIDAZOLAM 2 MG/2 ML VIAL ONE (15:37)
[2020-03-26] MEDS ORDERED: LIDOCAINE 1% INJ 10MG/ML (20 ML MDV) ONE (15:37)
[2020-03-26] MEDS ORDERED: PROPOFOL 10 MG/ML 20 ML VIAL IV ONE (15:37)
--- NOTE | 2020-03-26 15:40 | CONS ---
CONSULTATION DATE OF CONSULTATION: 03/24/2020 REASON FOR THE CONSULTATION: Epistaxis. HISTORY OF PRESENT ILLNESS: The patient is a pleasant 59-year-old female who was admitted via the [facility] for control of bilateral epistaxis. The patient states that approximately 4 days prior to her admission, she developed a nosebleed. She was not able to stop this at home and therefore she presented at [facility]. The emergency room physicians were able to get the bleeding stopped and the patient was discharged to home. Once she was discharged home, the bleeding apparently started again. She returned to [facility] and this time after stopping the bleeding, the ER physicians placed a balloon packing in the left naris. The patient states that this was quite uncomfortable. She returned home and approximately the next day she noted there was significant bleeding around the nasal balloon and therefore she returned for a third time to [facility]. This was on 03/24/2020. The ER physician remove the balloon but could not see the exact source of the bleeding and therefore he inserted bilateral nasal tampons because the patient was bleeding out of both nares. I was contacted in the early a.m. of 03/24/2020, and advised the ER physician that because the patient had been to the emergency room multiple times that it would be best to admit her. Since her admission, she has not had any significant bleeding from her nose. However, she has developed rectal bleeding, which will be dealt with by the GI Service because they are planning on scope her. PAST MEDICAL HISTORY: Reveals patient is on numerous medications including Steglatro, Fioricet, insulin, Atarax, aspirin, lisinopril, Tizanidine, Lasix, Flonase, Toprol, metformin, Actos, [place], Prilosec, and Lipitor. She smokes approximately 1/2 pack of cigarettes now, but has in the past smoked as much as 2 packs of cigarettes. She has a history of type 1 diabetes mellitus, hypertension, and also COPD. REVIEW OF SYSTEMS: CARDIOVASCULAR SYSTEM: Positive for hypertension and ASHD. RESPIRATORY SYSTEM: Positive for COPD/emphysema. GASTROINTESTINAL SYSTEM; Positive for GERD, gastroesophageal reflux disorder. METABOLIC ENDOCRINE SYSTEM: Positive for hypercholesterolemia and type 1 diabetes mellitus. MUSCULOSKELETAL SYSTEM: Positive for osteoarthritis. The remainder of the review of systems is essentially unremarkable. PHYSICAL EXAMINATION: This patient is a 59-year-old female who was alert and cooperative. She is in no acute distress at this time, and she is not bleeding. HEENT: Patient is normocephalic. Tympanic membranes are normal. Middle ear spaces are free of any fluid or infection. Pupils are equal, round, and react to light and accommodation. Extraocular movements within normal limits. Intranasal examination reveals bilateral nasal tampons intact and relatively dry. Examination of oropharynx reveals no bleeding down the posterior pharyngeal wall. Examination of oropharynx is unremarkable. Palpation of the neck, cranial nerves 2-12, remainder of the head and neck exam is all within normal limits. CHEST CARDIOVASCULAR: Both lung dutta are clear to percussion and auscultation, although lung sounds are quite distant. There is no evidence any rales or rhonchi. The patient is in regular sinus rhythm. S1, S2 are present without evidence of murmurs, S3s or S4. ABDOMEN: There is no evidence any masses, megaly or tenderness. Abdomen is soft. The remainder of physical examination is unremarkable. ASSESSMENT: Bilateral anterior-posterior epistaxis, nasal packing is intact and effective. PLAN: We will continue to monitor this patient and keep the nasal packing in place. I generally likely to leave the nasal packing in for at least 4 or 5 days before removing the give the blood vessels a chance to thrombose. I will most likely remove this packing in my office where they could be done in a controlled situation. 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 I will also give her something for nausea, Zofran 4 mg IV q.6 hours p.r.n. for nausea, compression stockings, and also Restoril for sleep. I will monitor this patient on a daily basis and follow her with you. I want to thank you for allowing me to assist in the care of your patient. If I can be of any further assistance, please feel free to call my office. MMODL / IJN: [id number] / MTDD
[2020-03-26] MEDS ORDERED: IV FLUID CONTINUATION 1,000 ML IV ONE (15:42)
--- NOTE | 2020-03-26 15:57 | P.PCN ---
Date of Procedure: 03/26/20 Description of Procedure: BRIEF HISTORY: 59-year-old female with multiple medical comorbidities including psoriasis, hypertension, pseudotumor cerebri, diabetes mellitus who presents to the hospital with recurrent episodes of epistaxis. The patient has been having problems with recurrent epistaxis according over the past few weeks. Bleeding occurs from both nares. She reports dark colored stool and episodes of hematemesis with the episodes. She had been scheduled to see an ENT in the outpatient setting however presented to the hospital similar complaints. She also reports a long-standing history of reflux. She is on omeprazole daily but does have breakthrough symptoms for which she takes Tums. She also takes aspirin daily and had previously been taking Motrin once per day. She also reports a history of fatty liver disease as well as hepatitis C for which she is treatment izabel. No prior EGD or colonoscopy. Laboratory evaluation significant for anemia on presentation with hemoglobin currently at 7.1, WBC 13.4, platelet count 252,000, INR 0.9, alkaline phosphatase 110, alkaline phosphatase 0.9, AST 40 and ALT 29. PROCEDURE PERFORMED: Esophagogastroduodenoscopy with biopsy. PREOPERATIVE DIAGNOSIS: Anemia acute blood loss, melena, hematemesis. ESTIMATED BLOOD LOSS: Minimal. IV sedation per anesthesia. PROCEDURE: After informed consent was obtained, the patient was brought into the endoscopy unit. IV sedation was administered by Anesthesia under continuous monitoring. Initially the Olympus GIF-190 video endoscope was inserted into the mouth. Esophagus intubated without any difficulty. It was gradually advanced into the stomach and duodenum and carefully examined. The bulb and the second part of the duodenum appeared normal, with biopsies taken. The scope at this time was withdrawn to the stomach, adequately insufflated with air, and upon careful examination, mucosa of the antrum, body, cardia and the fundus appeared normal, except for some mild scattered erythema in the antrum and body suggestive of mild gastritis with biopsies taken. The scope was then withdrawn into the esophagus. The GE junction was located at 37 cm from the incisors. The esophagus appeared normal. There were no erosions or ulcerations seen and the patient estefani erated the procedure well. IMPRESSION: 1. No old blood, active bleeding or pathology to suggest upper GI bleed. 2. Gastritis antrum and body, biopsied. 3. Duodenal biopsies. RECOMMENDATIONS: The findings of this examination were discussed with the patient. Okay to resume diet. Okay to resume medications. Follow-up with ENT as previously scheduled. No further gastroenterology intervention planned at this time, okay for discharge when otherwise medically stable.
[2020-03-26 17:00] LABS: Glucose,Whole Blood 72 mg/dL (75-99)
[2020-03-26] MEDS: PIOGLITAZONE 15 MG TAB PO SCH (18:20)
[2020-03-26] MEDS: ATORVASTATIN 10 MG TAB PO SCH (19:45)
[2020-03-26] MEDS: TEMAZEPAM 15 MG CAP PO PRN (19:46)
[2020-03-26 20:50] LABS: Glucose,Whole Blood 133 mg/dL (75-99)
[2020-03-26] MEDS: INSULIN DETEMIR (LEVEMIR) 100 UNIT/ML SYR SQ SCH (20:51)
[2020-03-27] MEDS: HYDROcodone/APAP 7.5-325MG 1 EACH TAB PO PRN (00:49)
[2020-03-27] MEDS: LORazepam 2 MG/ML INJ IV PRN ×2 (00:58→11:25)
[2020-03-27] MEDS: MORPHINE SULFATE 4 MG/ML SYRINGE IVP PRN ×3 (02:14→13:44)
--- NOTE | 2020-03-27 03:05 | PN ---
PROGRESS NOTE DATE OF SERVICE: 03/25/2020 SUBJECTIVE: Vital signs are stable. No further active bleeding noted. OBJECTIVE: Examination of the nasal tampons reveals that there has not been any further absorption of blood on either the right or left nasal tampon suggesting the bleeding is under control. Examination of oropharynx does not reveal any evidence of bleeding down the posterior pharyngeal wall. The remainder of the head and neck exam and physical exam is unchanged since last visit. ASSESSMENT: Bilateral anterior posterior epistaxis. PLAN: The patient apparently is scheduled to undergo a GI assessment for rectal bleeding tomorrow. I will see her tomorrow and if she does not have any further nasal bleeding, then certainly she could be discharged to home. I would like to see her in my office on either Thursday or and at that time I will remove the nasal tampons. In addition to this, she is not. I advised her that she should never use the Flonase nasal spray because this medication is known to cause bleeding. Using that in conjunction with the baby aspirin daily, most likely is what caused her bleeding to start and not stop. When I see her in the office, I will advise her of a different medication that she can use to assist her in breathing through her nose. Unfortunately, she has a severely deviated nasal septum and therefore there are very few medications that will help her and because of her poor health she is not a surgical candidate for septoplasty. I will continue to follow this patient with you. BENNY / RUTHANN: [id number] /
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
[2020-03-27 06:19] LABS: Glucose,Whole Blood 79 mg/dL (75-99)
[2020-03-27 06:19] LABS: HCT 25.7 % (34.0-46.0); HGB 8.1 gm/dL (11.4-16.0); Hypochromasia Slight; MCH 28.5 pg (25.0-35.0); MCHC 31.7 g/dL (31.0-37.0); MCV 89.8 fL (80.0-100.0); Mean Platelet Volume 8.2; Platelet Count 255 k/uL (150-450); Poikilocytosis Slight; RBC 2.86 m/uL (3.80-5.40); RDW 15.7 % (11.5-15.5); WBC 10.2 k/uL (3.8-10.6)
[2020-03-27] MEDS: MAGNESIUM OXIDE 400 MG TAB PO SCH (08:40)
[2020-03-27] MEDS: PIOGLITAZONE 15 MG TAB PO SCH (08:40)
[2020-03-27] MEDS: METOPROLOL SUCCINATE (ER) 100 MG TAB.ER.24H PO SCH (08:40)
[2020-03-27] MEDS: AMOXIC-POT CLAV 875-125MG 1 EACH TAB PO SCH (08:40)
[2020-03-27] MEDS: metFORMIN 500 MG TAB PO SCH (08:40)
[2020-03-27] MEDS: PANTOPRAZOLE 40 MG/10 ML VIAL IVP SCH (08:40)
[2020-03-27 09:20] VITALS: RESP 16
[2020-03-27] MEDS: ERTUGLIFLOZIN PIDOLATE 15 MG PO SCH (10:38)
--- NOTE | 2020-03-27 11:15 | P.DS ---
Providers Date of admission: 03/25/20 14:43 Attending physician: Jose Armando Romeo Consults: 03/24/20 06:53 Consult Physician Routine Consulting Provider: Daren Michel Consult Reason/Comments: epistaxis Do you want consulting provider notified?: Yes Primary care physician: Radha Tello Hospital Course: Patient had an upper GI scope. He showed mild gastritis. Patient doesn't have any evidence of any more GI bleed. Patient will be discharged today to either subacute rehab or home with home care. I will ask the physical therapy to reevaluate the patient has patient doesn't want to go to rehab once to go home and the recommendation yesterday was 2 discharged to subacute rehabilitation. Patient will follow-up with the gastroneurology, PCP and ENT as an outpatient patient still has last packing in place for rest of the other hospitalization course and medical issues that were addressed please refer to my discharge summary from yesterday. PHYSICAL EXAMINATION: GENERAL: The patient is alert and oriented x3, not in any acute distress. Well developed, well nourished. Obese HEENT: Pupils are round and equally reacting to light. EOMI. does have conjunctival pallor scleral icterus. No conjunctival pallor. Normocephalic, atraumatic. No pharyngeal erythema. No thyromegaly. She has nasal packing in both nostrils CARDIOVASCULAR: S1 and S2 present. No murmurs, rubs, or gallops. PULMONARY: Chest is clear to auscultation, no wheezing or crackles. ABDOMEN: Soft, nontender, nondistended, normoactive bowel sounds. No palpable organomegaly. MUSCULOSKELETAL: No joint swelling or deformity. EXTREMITIES: No cyanosis, clubbing, or pedal edema. NEUROLOGICAL: Gross neurological examination did not reveal any focal deficits. SKIN: No rashes. Patient Condition at Discharge: Good Plan - Discharge Summary New Discharge Prescriptions: New Omeprazole [PriLOSEC] 40 mg PO BID #30 cap Atorvastatin Calcium [Lipitor] 10 mg PO HS #30 tab Continue Ergocalciferol (Vitamin D2) [Vitamin D2] 50,000 unit PO MO Pioglitazone [Actos] 15 mg PO DAILY metFORMIN HCL 1,000 mg PO BID Fluticasone Nasal [place] [Flonase Nasal [place]] 2 spray EA NOSTRIL DAILY Metoprolol Succinate (ER) [Toprol XL] 100 mg PO BID Furosemide [Lasix] 40 mg PO DAILY Magnesium Oxide [Mag-Ox] 400 mg PO DAILY 5 Days #5 tab Amoxicillin/Potassium Clav [Augmentin 875-125 Tablet] 1 tab PO BID 5 Days #10 tab Butalb/Acetaminophen/Caffeine [Fioricet 50-325-40] 1 - 2 each PO Q4H Ertugliflozin Pidolate [Steglatro] 15 mg PO DAILY HYDROcodone/APAP 10-325MG [[place] 10-325] 1 tab PO BID PRN PRN Reason: Pain hydrOXYzine HCL [Atarax] 50 mg PO DAILY PRN PRN Reason: Itching Insulin Glargine,Hum.rec.anlog [Basaglar Kwikpen U-100] 24 unit SQ HS Lisinopril 20 mg PO DAILY tiZANidine HCL 4 mg PO BID Discontinued Aspirin 81 mg PO DAILY Atorvastatin [Lipitor] 10 mg PO HS Omeprazole 20 mg PO DAILY Ibuprofen 800 mg PO DAILY Discharge Medication List Ergocalciferol (Vitamin D2) [Vitamin D2] 50,000 unit PO MO 10/28/17 [History] Fluticasone Nasal [place] [Flonase Nasal [place]] 2 spray EA NOSTRIL DAILY 03/22/19 [History] Pioglitazone [Actos] 15 mg PO DAILY 03/22/19 [History] metFORMIN HCL 1,000 mg PO BID 03/22/19 [History] Furosemide [Lasix] 40 mg PO DAILY 12/13/19 [History] Metoprolol Succinate (ER) [Toprol XL] 100 mg PO BID 12/13/19 [History] Magnesium Oxide [Mag-Ox] 400 mg PO DAILY 5 Days #5 tab 12/15/19 [Rx] Amoxicillin/Potassium Clav [Augmentin 875-125 Tablet] 1 tab PO BID 5 Days #10 tab 03/21/20 [Rx] Butalb/Acetaminophen/Caffeine [Fioricet 50-325-40] 1 - 2 each PO Q4H 03/24/20 [History] Ertugliflozin Pidolate [Steglatro] 15 mg PO DAILY 03/24/20 [History] HYDROcodone/APAP 10-325MG [[place] 10-325] 1 tab PO BID PRN 03/24/20 [History] Insulin Glargine,Hum.rec.anlog [Basaglar Kwikpen U-100] 24 unit SQ HS 03/24/20 [History] Lisinopril 20 mg PO DAILY 03/24/20 [History] hydrOXYzine HCL [Atarax] 50 mg PO DAILY PRN 03/24/20 [History] tiZANidine HCL 4 mg PO BID 03/24/20 [History] Atorvastatin Calcium [Lipitor] 10 mg PO HS #30 tab 03/26/20 [Rx] Omeprazole [PriLOSEC] 40 mg PO BID #30 cap 03/26/20 [Rx] Follow up Appointment(s)/Referral(s): Omer Garcia MD [Primary Care Provider] - 03/30/20 9:10 am Daren Michel MD [STAFF PHYSICIAN] - 03/29/20 12:00 pm (Please arrive 15 minutes early to fill out new patient forms.) Naif Moreira MD [STAFF PHYSICIAN] - 04/16/20 1:30 pm Patient Instructions/Handouts: Nosebleed (GEN)
[2020-03-27 11:40] VITALS: BP 138/85; PULSE 75; TEMP 98.1
[2020-03-27 11:53] LABS: Glucose,Whole Blood 100 mg/dL (75-99)
== END 2020-03-27 16:06 | disposition home health service (06) | DRG 151 ==
LOC: EC 04:12 → 1SOBS 06:53 → 3SCARD 18:09 → OBSVTOIN 03-25 14:43
PROVIDERS: ADMIT Hospitalist; ATTEND Hospitalist
DX: R04.0 Epistaxis (principal); D62 Acute posthemorrhagic anemia; K92.0 Hematemesis; K92.1 Melena; I27.20 Pulmonary hypertension, unspecified; J98.6 Disorders of diaphragm; I95.89 Other hypotension; I11.0 Hypertensive heart disease with heart failure; I50.9 Heart failure, unspecified; K76.0 Fatty (change of) liver, not elsewhere classified; E11.9 Type 2 diabetes mellitus without complications; F17.210 Nicotine dependence, cigarettes, uncomplicated; F41.9 Anxiety disorder, unspecified; J44.9 Chronic obstructive pulmonary disease, unspecified; K21.9 Gastro-esophageal reflux disease without esophagitis; K29.70 Gastritis, unspecified, without bleeding; L40.9 Psoriasis, unspecified; Q07.00 Arnold-Chiari syndrome without spina bifida or hydrocephalus; G93.2 Benign intracranial hypertension; B19.20 Unspecified viral hepatitis C without hepatic coma; R55 Syncope and collapse; J98.4 Other disorders of lung; E66.9 Obesity, unspecified; Z68.35 Body mass index [BMI] 35.0-35.9, adult; Z79.4 Long term (current) use of insulin; Z79.82 Long term (current) use of aspirin; Z79.899 Other long term (current) drug therapy; Z98.2 Presence of cerebrospinal fluid drainage device; Z85.41 Personal history of malignant neoplasm of cervix uteri; Z90.49 Acquired absence of other specified parts of digestive tract; Z98.51 Tubal ligation status; Z90.79 Acquired absence of other genital organ(s); Z90.721 Acquired absence of ovaries, unilateral; Z82.49 Family history of ischemic heart disease and other diseases of the circulatory system
CPT/HCPCS: 36410; 36415; 43239; 76937; 80048; 80053; 85025; 85027; 85610; 85730; 86850; 86900; 86901; 86920; 88305; 96361; 96374; 99284

== ENCOUNTER 2020-11-12 07:28 | Observation (INO) | payer OTHER ==
[2020-11-12 07:39] VITALS: RESP 18
[2020-11-12] MEDS ORDERED: ONDANSETRON 4 MG/2 ML VIAL IVP STA (08:12)
[2020-11-12] MEDS ORDERED: HYDROmorphone 0.5 MG/0.5 ML SYRINGE IVP STA ×2 (08:12→09:44)
--- NOTE | 2020-11-12 08:19 | ED ---
General Adult HPI - General Chief complaint: Abdominal Pain Stated complaint: Abd Pain Time Seen by Provider: 11/12/20 07:43 Source: patient, EMS, RN notes reviewed Mode of arrival: EMS Limitations: no limitations - History of Present Illness Initial comments: Patient's a 60-year-old female significant past medical history for liver failure, presented to the emergency room today with a chief complaint of increased right-sided abdominal pain. Patient doesn't that she's had symptoms over the last week of nausea, vomiting, diarrhea. She denies any fever. Denies any cough or congestion. Patient states that she's currently on palliative care for history of liver failure. States she has a history of both lung and heart failure as well. Patient denies any other complaints or symptoms currently. Patient denies any recent fever, chills, shortness of breath, chest pain, back pain, headaches or visual changes, or any other complaints. - Related Data Home Medications Medication Instructions Recorded Confirmed Pioglitazone [Actos] 15 mg PO DAILY 03/22/19 11/12/20 Furosemide [Lasix] 40 mg PO MOWEFR 12/13/19 11/12/20 Ertugliflozin Pidolate [Steglatro] 15 mg PO DAILY 03/24/20 11/12/20 lisinopriL 20 mg PO DAILY 03/24/20 11/12/20 tiZANidine HCL 4 mg PO BID 03/24/20 11/12/20 Aspirin EC [Ecotrin Low Dose] 81 mg PO DAILY 11/12/20 11/12/20 Clobetasol Propionate [Temovate 1 applic TOPICAL DAILY 11/12/20 11/12/20 0.05% Cream] Dapagliflozin/Metformin HCl 1 tab PO BID 11/12/20 11/12/20 [Xigduo Xr 10 mg-1,000 mg Tab] Ferrous Sulfate [Feosol] 325 mg PO DAILY 11/12/20 11/12/20 Gabapentin 600 mg PO BID 11/12/20 11/12/20 Ibuprofen [Motrin] 800 mg PO Q12H 11/12/20 11/12/20 Insulin Glargine,Hum.rec.anlog 16 - 18 unit SQ DAILY 11/12/20 11/12/20 [Lantus Solostar] LORazepam [Ativan] 1 mg PO TID PRN 11/12/20 11/12/20 Omeprazole [PriLOSEC] 40 mg PO DAILY 11/12/20 11/12/20 Promethazine HCl 12.5 mg PO QID PRN 11/12/20 11/12/20 Tacrolimus 30 gm TP DAILY 11/12/20 11/12/20 hydrOXYzine HCL 10 mg PO QID 11/12/20 11/12/20 oxyCODONE HCL [oxyCODONE HCL (IR)] 20 mg PO Q4H 11/12/20 11/12/20 Allergies Allergy/AdvReac Type Severity Reaction Status Date / Time No Known Allergies Allergy Verified 11/12/20 07:39 Review of Systems ROS Statement: Those systems with pertinent positive or pertinent negative responses have been documented in the HPI. ROS Other: All systems not noted in ROS Statement are negative. 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- none at this time,28 LP shunts, eye surgery,rt ovary and fallopian tube removed, Laser procedure for cervix [place] Past Anesthesia/Blood Transfusion Reactions: No Reported Reaction Additional Past Anesthesia/Blood Transfusion Reaction / Comment(s): no hx blood transfusion Past Psychological History: Anxiety Smoking Status: Current every day smoker Past Alcohol Use History: None Reported Past Drug Use History: None Reported - Past Family History Mother Family Medical History: No Reported History Father Family Medical History: Myocardial Infarction ([place]) Additional Family Medical History / Comment(s): Father of a [place] at the age of 60 yrs. General Exam - General Exam Comments Initial Comments: General: The patient is awake and alert, in no distress, and does not appear acutely ill. Eye: extra-ocular movements are intact. No nystagmus. There is normal conjunctiva bilaterally. No signs of icterus. Ears, nose, mouth and throat: There are moist mucous membranes and no oral lesions. Neck: The neck is supple, there is no tenderness or JVD. Cardiovascular: There is a regular rate and rhythm. No murmur, rub or gallop is appreciated. Respiratory: Lungs are clear to auscultation, respirations are non-labored, breath sounds are equal. No wheezes, stridor, rales, or rhonchi. Gastrointestinal: Abdomen mildly distended. Does have tenderness in epigastric right upper quadrants. No rebound, guarding. Musculoskeletal: Normal ROM, no tenderness. Strength 5/5. Sensation intact. Pulses equal bilaterally 2+. Neurological: A&O x 3. CN II-XII intact, There are no obvious motor or sensory deficits. Coordination appears grossly intact. Speech is normal. Skin: Skin is warm and dry and no rashes or lesions are noted. Psychiatric: Cooperative, appropriate mood & affect, normal judgment. Limitations: no limitations Course Vital Signs 11/12/20 11/12/20 11/12/20 07:29 08:43 09:26 Temperature 99.5 F Pulse Rate 107 H 98 99 Respiratory 18 18 18 Rate Blood Pressure 156/98 133/68 128/78 O2 Sat by Pulse 97 95 94 L Oximetry 11/12/20 10:35 Temperature Pulse Rate 95 Respiratory 18 Rate Blood Pressure 101/57 O2 Sat by Pulse 92 L Oximetry EKG Findings - EKG Comments: EKG Findings:: EKG performed: 0756. Normal sinus rhythm at 103 bpm. ID interval 130. QRS 72. QT/QTc 330/432. No acute ST changes. Medical Decision Making - Medical Decision Making Patient reexamined at this time she is resting comfortably. Patient does admit to some pain to the right side of the abdomen. She admits that she has a history of liver, lung, heart failure. Patient's CAT scan was reviewed on the patient's labs here in emergency room. She does admit that she is on palliative care and has been talking about starting hospice. She is living at home by herself does not feel that she is able take care of himself at home and may be needs to be sent [facility]. - Lab Data Result diagrams: 11/12/20 08:20 11/12/20 08:20 Lab Results 11/12/20 11/12/20 11/12/20 Range/Units 08:20 08:20 08:20 WBC 12.1 H (3.8-10.6) k/uL RBC 5.05 (3.80-5.40) m/uL Hgb 14.0 (11.4-16.0) gm/dL Hct 41.9 (34.0-46.0) % MCV 82.9 (80.0-100.0) fL MCH 27.7 (25.0-35.0) pg MCHC 33.4 (31.0-37.0) g/dL RDW 14.2 (11.5-15.5) % Plt Count 246 (150-450) k/uL MPV 7.6 Neutrophils % 77 % Lymphocytes % 13 % Monocytes % 5 % Eosinophils % 2 % Basophils % 1 % Neutrophils # 9.3 H (1.3-7.7) k/uL Lymphocytes # 1.5 (1.0-4.8) k/uL Monocytes # 0.7 (0-1.0) k/uL Eosinophils # 0.3 (0-0.7) k/uL Basophils # 0.1 (0-0.2) k/uL PT 9.8 (9.0-12.0) sec INR 0.9 (<1.2) APTT 25.3 (22.0-30.0) sec Sodium 138 (137-145) mmol/L Potassium 4.9 (3.5-5.1) mmol/L Chloride 102 (98-107) mmol/L Carbon Dioxide 27 (22-30) mmol/L Anion Gap 9 mmol/L BUN 23 H (7-17) mg/dL Creatinine 0.66 (0.52-1.04) mg/dL Est GFR (CKD-EPI)AfAm >90 (>60 ml/min/1.73 sqM) Est GFR (CKD-EPI)NonAf >90 (>60 ml/min/1.73 sqM) Glucose 222 H (74-99) mg/dL Calcium 9.8 (8.4-10.2) mg/dL Total Bilirubin 0.5 (0.2-1.3) mg/dL AST 50 H (14-36) U/L ALT 45 H (4-34) U/L Alkaline Phosphatase 122 (38-126) U/L Ammonia (<30) umol/L Troponin I (0.000-0.034) ng/mL Total Protein 7.6 (6.3-8.2) g/dL Albumin 4.2 (3.5-5.0) g/dL Amylase 67 (30-110) U/L Lipase 86 (23-300) U/L Urine Color Urine Appearance (Clear) Urine pH (5.0-8.0) Ur Specific [place] (1.001-1.035) Urine Protein (Negative) Urine Glucose (UA) (Negative) Urine Ketones (Negative) Urine Blood (Negative) Urine Nitrite (Negative) Urine Bilirubin (Negative) Urine Urobilinogen (<2.0) mg/dL Ur Leukocyte Esterase (Negative) 11/12/20 11/12/20 11/12/20 Range/Units 08:20 08:20 08:20 WBC (3.8-10.6) k/uL RBC (3.80-5.40) m/uL Hgb (11.4-16.0) gm/dL Hct (34.0-46.0) % MCV (80.0-100.0) fL MCH (25.0-35.0) pg MCHC (31.0-37.0) g/dL RDW (11.5-15.5) % Plt Count (150-450) k/uL MPV Neutrophils % % Lymphocytes % % Monocytes % % Eosinophils % % Basophils % % Neutrophils # (1.3-7.7) k/uL Lymphocytes # (1.0-4.8) k/uL Monocytes # (0-1.0) k/uL Eosinophils # (0-0.7) k/uL Basophils # (0-0.2) k/uL PT (9.0-12.0) sec INR (<1.2) APTT (22.0-30.0) sec Sodium (137-145) mmol/L Potassium (3.5-5.1) mmol/L Chloride (98-107) mmol/L Carbon Dioxide (22-30) mmol/L Anion Gap mmol/L BUN (7-17) mg/dL Creatinine (0.52-1.04) mg/dL Est GFR (CKD-EPI)AfAm (>60 ml/min/1.73 sqM) Est GFR (CKD-EPI)NonAf (>60 ml/min/1.73 sqM) Glucose (74-99) mg/dL Calcium (8.4-10.2) mg/dL Total Bilirubin (0.2-1.3) mg/dL AST (14-36) U/L ALT (4-34) U/L Alkaline Phosphatase (38-126) U/L Ammonia <9 (<30) umol/L Troponin I <0.012 (0.000-0.034) ng/mL Total Protein (6.3-8.2) g/dL Albumin (3.5-5.0) g/dL Amylase (30-110) U/L Lipase (23-300) U/L Urine Color Light Yellow Urine Appearance Clear (Clear) Urine pH 5.0 (5.0-8.0) Ur Specific [place] 1.015 (1.001-1.035) Urine Protein Negative (Negative) Urine Glucose (UA) 4+ H (Negative) Urine Ketones Negative (Negative) Urine Blood Negative (Negative) Urine Nitrite Negative (Negative) Urine Bilirubin Negative (Negative) Urine Urobilinogen <2.0 (<2.0) mg/dL Ur Leukocyte Esterase Negative (Negative) Disposition Clinical Impression: Abdominal pain, Ascites Disposition: ADMITTED IP TO THIS HOSP Condition: Stable Referrals: Omer Garcia MD [Primary Care Provider] - 1-2 days Time of Disposition: 10:56
[2020-11-12 08:38] LABS: Basophils # (A) 0.1 k/uL (0-0.2); Basophils % (A) 1 %; Eosinophils # (A) 0.3 k/uL (0-0.7); Eosinophils % (A) 2 %; HCT 41.9 % (34.0-46.0); Lymphocytes # (A) 1.5 k/uL (1.0-4.8); Lymphocytes % (A) 13 %; MCH 27.7 pg (25.0-35.0); MCHC 33.4 g/dL (31.0-37.0); MCV 82.9 fL (80.0-100.0); Mean Platelet Volume 7.6; Monocytes # (A) 0.7 k/uL (0-1.0); Monocytes % (A) 5 %; Neutrophils # (A) 9.3 k/uL (1.3-7.7); Neutrophils % (A) 77 %; Platelet Count 246 k/uL (150-450); RBC 5.05 m/uL (3.80-5.40); RDW 14.2 % (11.5-15.5); WBC 12.1 k/uL (3.8-10.6)
[2020-11-12 08:40] LABS: Appearance,Urine Clear (Clear); Bilirubin,Urine Negative (Negative); Blood,Urine Negative (Negative); Color,Urine Light Yellow; Glucose,Urine (UA) 4+ (Negative); Ketones,Urine Negative (Negative); Leukocyte Esterase,Urine Negative (Negative); Nitrite,Urine Negative (Negative); Protein,Urine Negative (Negative); Specific Gravity,Urine 1.015 (1.001-1.035); Urobilinogen,Urine <2.0 mg/dL (<2.0)
--- NOTE | 2020-11-12 08:41 | XR ---
EXAMINATION TYPE: XR chest 1V portable DATE OF EXAM: 11/12/2020 COMPARISON: Chest CT April 14, 2018. Chest x-ray December 14, 2019 HISTORY: Epigastric and chest pain. TECHNIQUE: Single frontal view of the chest is obtained. FINDINGS: Mild emphysematous change with right basilar linear scarring redemonstrated. There is no ne w suspicious focal air space opacity, pleural effusion, or pneumothorax seen. The cardiac silhouette size is stable and within normal limits. The osseous structures are intact. IMPRESSION: No acute process.
[2020-11-12 08:48] LABS: INR 0.9 (<1.2); Partial Thromboplastin Time 25.3 sec (22.0-30.0); Prothrombin Time 9.8 sec (9.0-12.0)
[2020-11-12 08:49] LABS: ALT 45 U/L (4-34); AST 50 U/L (14-36); African American GFR (CKD) >90 (>60 ml/min/1.73 sqM); Albumin 4.2 g/dL (3.5-5.0); Alkaline Phosphatase 122 U/L (38-126); Amylase 67 U/L (30-110); Anion Gap 9 mmol/L; Blood Urea Nitrogen 23 mg/dL (7-17); Calcium 9.8 mg/dL (8.4-10.2); Carbon Dioxide 27 mmol/L (22-30); Chloride 102 mmol/L (98-107); Glucose 222 mg/dL (74-99); Lipase 86 U/L (23-300); Non-African American GFR(CKD) >90 (>60 ml/min/1.73 sqM); Potassium 4.9 mmol/L (3.5-5.1); Sodium 138 mmol/L (137-145); Total Bilirubin 0.5 mg/dL (0.2-1.3); Total Protein 7.6 g/dL (6.3-8.2)
--- NOTE | 2020-11-12 09:40 | CT ---
EXAMINATION TYPE: CT abdomen pelvis w con DATE OF EXAM: 11/12/2020 HISTORY: Generalized pain with distention. CT DLP: 1962.2mGycm Automated Exposure Control for Dose Reduction was Utilized. CONTRAST: CT scan of the abdomen and pelvis is performed without oral but with IV Contrast, patient injected wi th 100 mL of Isovue 300. COMPARISON: Ultrasound abdomen September 01, 2017 FINDINGS: LUNG BASES: Persistent slightly elevated right hemidiaphragm with right basilar linear scarring. Ther e are a few small calcified nodules are granulomas in the right lung base axial image 7 for reference has 6 mm calcified nodule or granuloma. LIVER/GB: Visualized liver is heterogeneously hypodense. No surrounding ascites. No ductal dilatation . PANCREAS: No significant abnormality is seen. SPLEEN: Spleen is enlarged in size at 14.2 cm long axis coronal image 77. There is roughly 1.5 cm spl enule anterior to the spleen on axial image 31 ADRENALS: No significant abnormality is seen. KIDNEYS: Symmetric cortical medullary uptake and excretion without hydronephrosis seen bilaterally. BOWEL: Slightly suboptimal evaluation of bowel without enteric contrast. No suspicious small or large bowel dilatation is seen. Moderate prominence of fecal material in the right colon. UTERUS/ADNEXA: Anteverted uterus. Scattered bilateral pelvic phleboliths. LYMPH NODES: No greater than 1cm abdominal or pelvic lymph nodes are appreciated. OSSEOUS STRUCTURES: No significant abnormality is seen. Underlying scoliosis with loss of normal lumb ar lordosis. Multilevel subtle spondylolisthesis. Multilevel spurring and disc space narrowing in the thoracolumbar spine. Moderate narrowing and acetabular spurring of both hip joints. Multilevel facet arthropathy in the mid to lower lumbar spine. OTHER: Moderate to severe calcified plaque of the distal abdominal aorta extends into the iliac branc h vessels. IMPRESSION: 1. No bowel obstruction. No new ascites. Mild/moderate proximal colonic fecal stasis otherwise no acu te findings identified. 2. Diffuse fatty infiltration of liver and/or underlying hepatocellular disease. Spleen is now slight ly enlarged in size.
[2020-11-12] MEDS ORDERED: NALOXONE 0.4 MG/ML 1 ML VIAL IV PRN (10:53)
[2020-11-12] MEDS ORDERED: HYDROmorphone 0.5 MG/0.5 ML SYRINGE IVP PRN (10:53)
[2020-11-12] MEDS ORDERED: ONDANSETRON 4 MG/2 ML VIAL IVP PRN (10:53)
[2020-11-12] MEDS ORDERED: SODIUM CHLORIDE 0.9% 1,000 ML IV SCH (11:00)
[2020-11-12] MEDS ORDERED: PROMETHAZINE 25 MG TAB PO PRN (12:45)
[2020-11-12] MEDS ORDERED: LORazepam 1 MG TAB PO PRN (12:45)
[2020-11-12 12:50] VITALS: BP 136/85; PULSE 98; TEMP 98.3
[2020-11-12] MEDS ORDERED: IBUPROFEN 800 MG TAB PO SCH (13:15)
[2020-11-12] MEDS ORDERED: FUROSEMIDE 40 MG TAB PO SCH (13:15)
[2020-11-12] MEDS ORDERED: HYDROcodone/APAP 5-325MG 1 EACH TAB PO PRN (14:35)
[2020-11-12] MEDS ORDERED: NICOTINE 21MG/24HR PATCH TRANSDERM SCH (14:45)
[2020-11-12 16:54] LABS: Glucose,Whole Blood 167 mg/dL (75-99)
[2020-11-12] MEDS ORDERED: INSULIN ASPART (NovoLOG) 100 UNIT/ML VIAL SQ SCH (17:30)
--- NOTE | 2020-11-12 20:48 | P.HPIM ---
History of Present Illness This is a pleasant 60 years old female with past medical history of heart failure, diabetes mellitus, hypertension, hepatitis C, pseudotumor cerebri, chronic neck and back pain, pulmonary hypertension, psoriasis cervical cancer. She is a patient of Dr. Garcia. Presents because of abdominal pain, patient states her pain is right upper quadrant for 5 days about 8-10/10 in severity, first set sites nonradiating then she said it radiates to the whole upper abdomen but is focused more on the right upper quadrant felt like someone p ushing from inside. Associated with nausea but no vomiting as per patient, she complains also from dizziness and also she states that she has diarrhea about twice per day for 2 days and it is soft not watery. And she says she always has little blood in her stool but not concerned marked about it. Also she states she has chronic chest pain and chronic dyspnea and she has heart failure Patient claims that she supposed to be hospice at home however she did not want to be DO NOT RESUSCITATE and she wants to find it so she turned into palliative care and states that Dr. Garcia is her hospice doctor and that she is in hospice because she has heart failure, liver failure and COPD. However lungs examination is clear without wheezing or basal crepitation or abnormal findings to suggest CHF or COPD, call her INR 0.9 and her liver enzymes only mildly elevated which does not go with her history of severe heart failure, liver failure or COPD that's eligible for hospice. She told me she has a wheelchair because of chronic dyspnea but because of her apartment she cannot use it and she has to use a walker and that she can walks only to the kitchen. She states she smokes 1-5 cigarettes per day, no alcohol or illicit drugs. She states she is on Lasix because of her leg swelling and she confirms remission takes Levemir 16-18 units Patient had recent EGD on 03/26/20 showing normal mucosa of the stomach and duodenum Vitas looks stable, patient is afebrile. Labs showing mild leukocytosis of 12.1 K, patient also has chronic leukocytosis. INR is 0.9, BMP is unremarkable, liver enzymes only mildly elevated with AST 50 and ALT 45. His negative less than 0.02, lipase is negative at 86. Urinalysis is no suspicion of infection CT of the abdomen and pelvis with contrast: Diffuse fatty infiltration of the liver and/or underlying hepatocellular disease. Spleen is now slightly large in size Chest x-ray: No acute process. In the emergency room patient received Dilaudid, Zofran. A started on normal sinus 50 mL per hour Review of Systems CONSTITUTIONAL: No fever, no malaise, no fatigue. HEENT: No recent visual problems or hearing problems. Denied any sore throat. CARDIOVASCULAR: No orthopnea, PND, no palpitations, no syncope. PULMONARY: No chest wall tenderness, no hemoptysis. GASTROINTESTINAL: No jaundice. Normoactive bowel sounds. NEUROLOGICAL: No headaches, no weakness, no numbness. HEMATOLOGICAL: Denies any bleeding or petechiae. GENITOURINARY: Denies any burning micturition, frequency, or urgency. MUSCULOSKELETAL/RHEUMATOLOGICAL: Denies any joint pain, swelling, or any muscle pain. ENDOCRINE: Denies any polyuria or polydipsia. 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 time,28 LP shunts, eye surgery,rt ovary and fallopian tube removed, Laser procedure for cervix [place] Past Anesthesia/Blood Transfusion Reactions: No Reported Reaction Additional Past Anesthesia/Blood Transfusion Reaction / Comment(s): no hx blood transfusion Past Psychological History: Anxiety Smoking Status: Current every day smoker Past Alcohol Use History: None Reported Past Drug Use History: None Reported - Past Family History Mother Family Medical History: No Reported History Father Family Medical History: Myocardial Infarction ([place]) Additional Family Medical History / Comment(s): Father of a [place] at the age of 60 yrs. Medications and Allergies Home Medications Medication Instructions Recorded Confirmed Type Pioglitazone [Actos] 15 mg PO DAILY 03/22/19 11/12/20 History Furosemide [Lasix] 40 mg PO MOWEFR 12/13/19 11/12/20 History Ertugliflozin Pidolate [Steglatro] 15 mg PO DAILY 03/24/20 11/12/20 History lisinopriL 20 mg PO DAILY 03/24/20 11/12/20 History tiZANidine HCL 4 mg PO BID 03/24/20 11/12/20 History Aspirin EC [Ecotrin Low Dose] 81 mg PO DAILY 11/12/20 11/12/20 History Clobetasol Propionate [Temovate 1 applic TOPICAL DAILY 11/12/20 11/12/20 History 0.05% Cream] Dapagliflozin/Metformin HCl 1 tab PO BID 11/12/20 11/12/20 History [Xigduo Xr 10 mg-1,000 mg Tab] Ferrous Sulfate [Feosol] 325 mg PO DAILY 11/12/20 11/12/20 History Gabapentin 600 mg PO BID 11/12/20 11/12/20 History Ibuprofen [Motrin] 800 mg PO Q12H 11/12/20 11/12/20 History Insulin Glargine,Hum.rec.anlog 16 - 18 unit SQ DAILY 11/12/20 11/12/20 History [Lantus Solostar] LORazepam [Ativan] 1 mg PO TID PRN 11/12/20 11/12/20 History Omeprazole [PriLOSEC] 40 mg PO DAILY 11/12/20 11/12/20 History Promethazine HCl 12.5 mg PO QID PRN 11/12/20 11/12/20 History Tacrolimus 30 gm TP DAILY 11/12/20 11/12/20 History hydrOXYzine HCL 10 mg PO QID 11/12/20 11/12/20 History oxyCODONE HCL [oxyCODONE HCL (IR)] 20 mg PO Q4H 11/12/20 11/12/20 History Allergies Allergy/AdvReac Type Severity Reaction Status Date / Time No Known Allergies Allergy Verified 11/12/20 07:39 Physical Exam Vitals: Vital Signs Temp Pulse Resp BP Pulse Ox 11/12/20 11:40 98.6 F 94 18 110/58 96 11/12/20 10:35 95 18 101/57 92 L 11/12/20 09:26 99 18 128/78 94 L 11/12/20 08:43 98 18 133/68 95 11/12/20 07:29 99.5 F 107 H 18 156/98 97 Intake and Output 11/11/20 11/12/20 11/12/20 22:59 06:59 14:59 Other: Weight 108.862 kg GENERAL: The patient is alert and oriented x3, not in any acute distress. Well developed, well nourished. HEENT: Pupils are round and equally reacting to light. EOMI. No scleral icterus. No conjunctival pallor. Normocephalic, atraumatic. No pharyngeal erythema. No thyromegaly. CARDIOVASCULAR: S1 and S2 present. No murmurs, rubs, or gallops. PULMONARY: Chest is clear to auscultation, no wheezing or crackles. -ABDOMEN: Soft, on touching the right upper quadrant of the abdomen patient states is tender, nondistended, normoactive bowel sounds. No palpable organomegaly. MUSCULOSKELETAL: No joint swelling or deformity. EXTREMITIES: No cyanosis, clubbing, or pedal edema. NEUROLOGICAL: Gross neurological examination did not reveal any focal deficits. SKIN: No rashes. No petechiae Results CBC & Chem 7: 11/12/20 08:20 11/12/20 08:20 Labs: Abnormal Lab Results - Last 24 Hours (Table) 11/12/20 11/12/20 11/12/20 Range/Units 08:20 08:20 08:20 WBC 12.1 H (3.8-10.6) k/uL Neutrophils # 9.3 H (1.3-7.7) k/uL BUN 23 H (7-17) mg/dL Glucose 222 H (74-99) mg/dL AST 50 H (14-36) U/L ALT 45 H (4-34) U/L Urine Glucose (UA) 4+ H (Negative) Assessment and Plan Assessment: Abdominal pain Diffuse fatty infiltration of the liver with possible hepatocellular disease. Mild splenomegaly Chronic leukocytosis and Diabetes mellitus Hypertension Hepatitis C History of pseudotumor cerebri History of heart failure Chronic neck and back pain Pulmonary hypertension History of psoriasis History of cervical cancer Plan: This is a pleasant 60 resolved female who presents with right-sided abdominal pain. Continue with pain management. Follow-up less closely. GI consult . Continue gentle hydration Labs and medication were reviewed.. Continue same treatment. Continue with symptomatic treatment. Resume home medication. Monitor lytes and vitals. DVT and GI prophylaxis. Further recommendations depends on the clinical course of the patient DVT prophylaxis: Subcutaneous heparin GI Prophylaxis: Pepcid Prognosis is guarded
[2020-11-12] MEDS ORDERED: GABAPENTIN 300 MG CAP PO SCH (21:00)
[2020-11-12] MEDS ORDERED: INSULIN DETEMIR (LEVEMIR) 100 UNIT/ML SYR SQ SCH (21:00)
[2020-11-13] MEDS ORDERED: PIOGLITAZONE 15 MG TAB PO SCH (09:00)
[2020-11-13] MEDS ORDERED: lisinopriL 20 MG TAB PO SCH (09:00)
[2020-11-13] MEDS ORDERED: TACROLIMUS TOPICAL SCH (09:00)
[2020-11-13] MEDS ORDERED: ASPIRIN 81 MG PO SCH (09:00)
[2020-11-13] MEDS ORDERED: CLOBETASOL PROP 0.05% CR 15GM TOPICAL SCH (09:00)
== END 2020-11-12 18:29 | disposition left against medical advice (07) ==
LOC: EC 07:28 → INTOOBSV 11:27 → 5NMEDONC 11:27 → UNDODISIN 18:29
PROVIDERS: ADMIT Internal Medicine; ATTEND Internal Medicine
DX: R10.11 Right upper quadrant pain (principal); Z53.29 Procedure and treatment not carried out because of patient's decision for other reasons; R11.0 Nausea; R42 Dizziness and giddiness; R19.4 Change in bowel habit; K92.1 Melena; K72.90 Hepatic failure, unspecified without coma; I50.9 Heart failure, unspecified; J96.90 Respiratory failure, unspecified, unspecified whether with hypoxia or hypercapnia; E11.9 Type 2 diabetes mellitus without complications; I11.0 Hypertensive heart disease with heart failure; L40.9 Psoriasis, unspecified; G93.2 Benign intracranial hypertension; J98.4 Other disorders of lung; J98.6 Disorders of diaphragm; I27.20 Pulmonary hypertension, unspecified; F41.9 Anxiety disorder, unspecified; G89.29 Other chronic pain; M54.2 Cervicalgia; M54.9 Dorsalgia, unspecified; R07.9 Chest pain, unspecified; J44.9 Chronic obstructive pulmonary disease, unspecified; F17.210 Nicotine dependence, cigarettes, uncomplicated; K76.0 Fatty (change of) liver, not elsewhere classified; R16.1 Splenomegaly, not elsewhere classified; D72.829 Elevated white blood cell count, unspecified; Z79.899 Other long term (current) drug therapy; Z79.82 Long term (current) use of aspirin; Z79.52 Long term (current) use of systemic steroids; Z79.1 Long term (current) use of non-steroidal anti-inflammatories (NSAID); Z79.4 Long term (current) use of insulin; Z79.891 Long term (current) use of opiate analgesic; Z86.19 Personal history of other infectious and parasitic diseases; Z85.41 Personal history of malignant neoplasm of cervix uteri; Z86.61 Personal history of infections of the central nervous system; Z90.89 Acquired absence of other organs; Z90.49 Acquired absence of other specified parts of digestive tract; Z98.890 Other specified postprocedural states; Z90.79 Acquired absence of other genital organ(s); Z90.721 Acquired absence of ovaries, unilateral; Z98.51 Tubal ligation status; Z82.49 Family history of ischemic heart disease and other diseases of the circulatory system
CPT/HCPCS: 96376; 96374; 96375; 99285; 36415; 93005; 80053; 82140; 82150; 83690; 84484; 85025; 85610; 85730; 81003; 71045; 74177; G0378; S4990; J2405; J1170; Q9967

== ENCOUNTER 2020-12-14 19:41 | Emergency (ER) | payer OTHER ==
[2020-12-14 20:41] LABS: Basophils # (A) 0.1 k/uL (0-0.2); Basophils % (A) 1 %; Eosinophils # (A) 0.2 k/uL (0-0.7); Eosinophils % (A) 2 %; HCT 43.4 % (34.0-46.0); HGB 14.4 gm/dL (11.4-16.0); Lymphocytes # (A) 1.8 k/uL (1.0-4.8); Lymphocytes % (A) 15 %; MCHC 33.3 g/dL (31.0-37.0); MCV 84.3 fL (80.0-100.0); Mean Platelet Volume 7.6; Monocytes # (A) 0.6 k/uL (0-1.0); Monocytes % (A) 5 %; Neutrophils # (A) 8.7 k/uL (1.3-7.7); Neutrophils % (A) 75 %; Platelet Count 248 k/uL (150-450); RBC 5.15 m/uL (3.80-5.40); RDW 13.9 % (11.5-15.5); WBC 11.6 k/uL (3.8-10.6)
[2020-12-14 20:50] LABS: ALT 38 U/L (4-34); AST 41 U/L (14-36); African American GFR (CKD) >90 (>60 ml/min/1.73 sqM); Albumin 4.4 g/dL (3.5-5.0); Alkaline Phosphatase 121 U/L (38-126); Anion Gap 11 mmol/L; Blood Urea Nitrogen 25 mg/dL (7-17); Calcium 9.8 mg/dL (8.4-10.2); Carbon Dioxide 26 mmol/L (22-30); Chloride 100 mmol/L (98-107); Glucose 185 mg/dL (74-99); Magnesium 1.6 mg/dL (1.6-2.3); Non-African American GFR(CKD) 85 (>60 ml/min/1.73 sqM); Potassium 4.6 mmol/L (3.5-5.1); Sodium 137 mmol/L (137-145); Total Bilirubin 0.5 mg/dL (0.2-1.3); Total Protein 7.9 g/dL (6.3-8.2)
[2020-12-14 20:56] LABS: D-Dimer 0.29 mg/L FEU (<0.60); INR 0.9 (<1.2); Partial Thromboplastin Time 25.4 sec (22.0-30.0); Prothrombin Time 9.7 sec (9.0-12.0)
--- NOTE | 2020-12-14 20:56 | XR ---
EXAMINATION TYPE: XR chest 2V DATE OF EXAM: 12/14/2020 COMPARISON: 11/12/2020 HISTORY: Chest pain TECHNIQUE: FINDINGS: Heart is normal. There is some atelectasis at the right lung base and slight elevated right diaphragm. Left lung is clear. There is no heart failure. There are no hilar masses. Mediastinum is normal. IMPRESSION: There is some atelectasis at the right lung base that is the same or slightly worse than last exam. Normal heart.
--- NOTE | 2020-12-14 22:34 | ED ---
General Adult HPI - General Chief complaint: Chest Pain Stated complaint: Chest pain Time Seen by Provider: 12/14/20 19:43 Source: patient, EMS Mode of arrival: EMS Limitations: no limitations - History of Present Illness Initial comments: Kristyn is a 60-year-old female with a very extensive past medical history for which she was previously on hospice but had this enrolled in hospice is now on palliative care. Patient presents to the hospital today via ambulance for evaluation of 2 days of upper chest pain that she describes as a pulling sensation in her mid upper chest at approximately level of the clavicles. This pain is constant, not reproducible. Associated with subjective shortness of breath. No fevers chills or cough. She does report she's been hot and sweaty but no documented fevers. She reports generalized malaise, weakness and body aches. No known sick contacts. - Related Data Home Medications Medication Instructions Recorded Confirmed Pioglitazone [Actos] 15 mg PO DAILY 03/22/19 12/14/20 Furosemide [Lasix] 40 mg PO MOWEFR 12/13/19 12/14/20 lisinopriL 20 mg PO DAILY 03/24/20 12/14/20 tiZANidine HCL 4 mg PO BID 03/24/20 12/14/20 Aspirin EC [Ecotrin Low Dose] 81 mg PO DAILY 11/12/20 12/14/20 Clobetasol Propionate [Temovate 1 applic TOPICAL DAILY 11/12/20 12/14/20 0.05% Cream] Ferrous Sulfate [Feosol] 325 mg PO DAILY 11/12/20 12/14/20 Gabapentin 600 mg PO BID 11/12/20 12/14/20 Ibuprofen [Motrin] 800 mg PO Q12H 11/12/20 12/14/20 Insulin Glargine,Hum.rec.anlog 16 - 18 unit SQ DAILY 11/12/20 12/14/20 [Lantus Solostar] LORazepam [Ativan] 1 mg PO TID PRN 11/12/20 12/14/20 Omeprazole [PriLOSEC] 40 mg PO DAILY 11/12/20 12/14/20 Promethazine HCl 12.5 mg PO QID PRN 11/12/20 12/14/20 Tacrolimus 1 applic TOPICAL DAILY 11/12/20 12/14/20 hydrOXYzine HCL 10 mg PO QID 11/12/20 12/14/20 oxyCODONE HCL [oxyCODONE HCL (IR)] 20 mg PO Q4H PRN 11/12/20 12/14/20 Dapagliflozin/Metformin HCl 1 tab PO BID 12/14/20 12/14/20 [Xigduo Xr 5 mg-500 mg Tablet] Allergies Allergy/AdvReac Type Severity Reaction Status Date / Time No Known Allergies Allergy Verified 12/14/20 21:19 Review of Systems ROS Statement: Those systems with pertinent positive or pertinent negative responses have been documented in the HPI. ROS Other: All systems not noted in ROS Statement are negative. 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 02 2l at night History of Any Multi-Drug Resistant Organisms: None Reported Past Surgical History: Adenoidectomy, Appendectomy, Back Surgery, Bladder Surgery, Orthopedic Surgery, Tonsillectomy, Tubal Ligation Additional Past Surgical History / Comment(s): 9 [employer] shunts- none at this time,30 LP shunts, eye surgery,rt ovary and fallopian tube removed, Laser procedure for cervix [place] Past Anesthesia/Blood Transfusion Reactions: No Reported Reaction Additional Past Anesthesia/Blood Transfusion Reaction / Comment(s): no hx blood transfusion Past Psychological History: Anxiety Smoking Status: Former smoker Past Alcohol Use History: None Reported Past Drug Use History: None Reported - Past Family History Mother Family Medical History: No Reported History Father Family Medical History: Myocardial Infarction ([place]) Additional Family Medical History / Comment(s): Father of a [place] at the age of 60 yrs. General Exam - General Exam Comments Initial Comments: Physical Exam GENERAL: Chronically ill-appearing obese female in no acute distress HENT: Normocephalic, Atraumatic. EYES: PERRL, EOMI PULMONARY: Unlabored respirations. CARDIOVASCULAR: RRR Warm and well perfused extremities ABDOMEN: Non-tender, Non-distended SKIN: General pallor : Deferred NEUROLOGIC: Alert and oriented Normal speech Normal gait MUSCULOSKELETAL: Moving all extremities with no apparent injury PSYCHIATRIC: No SI/HI Limitations: no limitations Course Vital Signs 12/14/20 12/14/20 12/14/20 19:42 21:35 22:47 Temperature 98.7 F 98.4 F Pulse Rate 117 H 104 H 97 Respiratory 20 20 20 Rate Blood Pressure 141/83 114/79 136/86 O2 Sat by Pulse 97 97 96 Oximetry EKG Findings - EKG Comments: EKG Findings:: KG obtained due to complaint of chest pain and EKG obtained at 1945 rate is 111 rhythm is sinus tachycardia normal axis, normal intervals, IL 128 QRS 82 QTc 454 there are no acute ST elevations or depressions Medical Decision Making - Lab Data Result diagrams: 12/14/20 20:30 12/14/20 20:30 Lab Results 12/14/20 12/14/20 12/14/20 Range/Units 20:30 20:30 20:30 WBC 11.6 H (3.8-10.6) k/uL RBC 5.15 (3.80-5.40) m/uL Hgb 14.4 (11.4-16.0) gm/dL Hct 43.4 (34.0-46.0) % MCV 84.3 (80.0-100.0) fL MCH 28.0 (25.0-35.0) pg MCHC 33.3 (31.0-37.0) g/dL RDW 13.9 (11.5-15.5) % Plt Count 248 (150-450) k/uL MPV 7.6 Neutrophils % 75 % Lymphocytes % 15 % Monocytes % 5 % Eosinophils % 2 % Basophils % 1 % Neutrophils # 8.7 H (1.3-7.7) k/uL Lymphocytes # 1.8 (1.0-4.8) k/uL Monocytes # 0.6 (0-1.0) k/uL Eosinophils # 0.2 (0-0.7) k/uL Basophils # 0.1 (0-0.2) k/uL PT 9.7 (9.0-12.0) sec INR 0.9 (<1.2) APTT 25.4 (22.0-30.0) sec D-Dimer 0.29 (<0.60) mg/L FEU Sodium 137 (137-145) mmol/L Potassium 4.6 (3.5-5.1) mmol/L Chloride 100 (98-107) mmol/L Carbon Dioxide 26 (22-30) mmol/L Anion Gap 11 mmol/L BUN 25 H (7-17) mg/dL Creatinine 0.77 (0.52-1.04) mg/dL Est GFR (CKD-EPI)AfAm >90 (>60 ml/min/1.73 sqM) Est GFR (CKD-EPI)NonAf 85 (>60 ml/min/1.73 sqM) Glucose 185 H (74-99) mg/dL Calcium 9.8 (8.4-10.2) mg/dL Magnesium 1.6 (1.6-2.3) mg/dL Total Bilirubin 0.5 (0.2-1.3) mg/dL AST 41 H (14-36) U/L ALT 38 H (4-34) U/L Alkaline Phosphatase 121 (38-126) U/L Troponin I (0.000-0.034) ng/mL Total Protein 7.9 (6.3-8.2) g/dL Albumin 4.4 (3.5-5.0) g/dL 12/14/20 Range/Units 20:30 WBC (3.8-10.6) k/uL RBC (3.80-5.40) m/uL Hgb (11.4-16.0) gm/dL Hct (34.0-46.0) % MCV (80.0-100.0) fL MCH (25.0-35.0) pg MCHC (31.0-37.0) g/dL RDW (11.5-15.5) % Plt Count (150-450) k/uL MPV Neutrophils % % Lymphocytes % % Monocytes % % Eosinophils % % Basophils % % Neutrophils # (1.3-7.7) k/uL Lymphocytes # (1.0-4.8) k/uL Monocytes # (0-1.0) k/uL Eosinophils # (0-0.7) k/uL Basophils # (0-0.2) k/uL PT (9.0-12.0) sec INR (<1.2) APTT (22.0-30.0) sec D-Dimer (<0.60) mg/L FEU Sodium (137-145) mmol/L Potassium (3.5-5.1) mmol/L Chloride (98-107) mmol/L Carbon Dioxide (22-30) mmol/L Anion Gap mmol/L BUN (7-17) mg/dL Creatinine (0.52-1.04) mg/dL Est GFR (CKD-EPI)AfAm (>60 ml/min/1.73 sqM) Est GFR (CKD-EPI)NonAf (>60 ml/min/1.73 sqM) Glucose (74-99) mg/dL Calcium (8.4-10.2) mg/dL Magnesium (1.6-2.3) mg/dL Total Bilirubin (0.2-1.3) mg/dL AST (14-36) U/L ALT (4-34) U/L Alkaline Phosphatase (38-126) U/L Troponin I <0.012 (0.000-0.034) ng/mL Total Protein (6.3-8.2) g/dL Albumin (3.5-5.0) g/dL Disposition Clinical Impression: Atypical chest pain Disposition: HOME SELF-CARE Condition: Stable Instructions (If sedation given, give patient instructions): Chest Pain (ED) Is patient prescribed a controlled substance at d/c from ED?: No Referrals: Omer Garcia MD [Primary Care Provider] - 1-2 days
[2020-12-14 22:51] VITALS: TEMP 98.4
[2020-12-14 23:51] VITALS: BP 120/108; PULSE 101; RESP 16
== END 2020-12-14 23:51 | disposition home or self-care (01) ==
LOC: EC 19:41
DX: R07.89 Other chest pain (principal); F41.9 Anxiety disorder, unspecified; I50.9 Heart failure, unspecified; E11.9 Type 2 diabetes mellitus without complications; I11.0 Hypertensive heart disease with heart failure; Z79.4 Long term (current) use of insulin; Z79.899 Other long term (current) drug therapy; Z87.891 Personal history of nicotine dependence; Z90.89 Acquired absence of other organs; Z90.49 Acquired absence of other specified parts of digestive tract; Z85.41 Personal history of malignant neoplasm of cervix uteri; Z82.49 Family history of ischemic heart disease and other diseases of the circulatory system
CPT/HCPCS: 36415; 71046; 80053; 83735; 84484; 85025; 85379; 85610; 85730; 93005; 99285

== ENCOUNTER 2021-05-25 16:51 | Inpatient (IN) | payer OTHER ==
[2021-05-25] MEDS ORDERED: SODIUM CHLORIDE 0.9% 1,000 ML IV ONE (17:03)
[2021-05-25] MEDS ORDERED: HYDROmorphone 1 MG/ML 1 ML SYRINGE IVP STA (17:09)
--- NOTE | 2021-05-25 17:10 | ED ---
Altered Mental Status HPI - General Chief Complaint: Altered Mental Status Stated Complaint: Altered Mental Source: EMS Mode of arrival: EMS Limitations: altered mental status - History of Present Illness Initial Comments: Patient is a 60-year-old female with past medical history of pseudotumor cerebri, chronic neck and back pain on narcotics, hepatitis C, diabetic mellitus presents emergency Department with reported altered mental status. The patient does reside at [facility] on the pending sale to [facility]. EMS states that the patient had sudden onset of altered mental status and therefore EMS was called and the patient was transported to the hospital. They found that she had a temperature of 102 axillary. They state that she is normally alert and oriented 4 however could not provide any history to them. She was moaning however not answering any questions appropriately. Transfer paperwork states that the patient was hypoxic and shaky. Upon arrival the patient is moaning and will answer yes or no questions. She denies being in any pain. She does not have any unilateral numbness or weakness. Patient will follow commands. Due to the patient's confusion, the HPI is difficult to obtain - Related Data Home Medications Medication Instructions Recorded Confirmed Furosemide [Lasix] 40 mg PO DAILY 12/13/19 05/25/21 Ferrous Sulfate [Feosol] 325 mg PO DAILY 11/12/20 05/25/21 Gabapentin 600 mg PO BID 11/12/20 05/25/21 LORazepam [Ativan] 1 mg PO TID@0600,1400,2200 11/12/20 05/25/21 Promethazine HCl 12.5 mg PO QID PRN 11/12/20 05/25/21 hydrOXYzine HCL 10 mg PO QID@00,06,12,18 11/12/20 05/25/21 oxyCODONE HCL [oxyCODONE HCL (IR)] 20 mg PO Q4H PRN 11/12/20 05/25/21 DULoxetine HCL [Cymbalta] 60 mg PO DAILY 05/25/21 05/25/21 Gabapentin 300 mg PO BID 05/25/21 05/25/21 Glimepiride [Amaryl] 2 mg PO DAILY 05/25/21 05/25/21 INSULIN LISPRO (HumaLOG) [humaLOG] See Protocol SQ ACHS@09,12,17,05/25/21 05/25/21 Insulin Detemir [Levemir Flextouch] 16 units SQ DAILY 05/25/21 05/25/21 Ketoconazole 2% Cream [Nizoral 2%] 1 applic TOPICAL TUSA@2100 05/25/21 05/25/21 Lisinopril [Prinivil] 10 mg PO DAILY 05/25/21 05/25/21 Metoprolol Tartrate [Lopressor] 100 mg PO BID 05/25/21 05/25/21 Nitroglycerin Sl Tabs [Nitrostat] 0.4 mg SL Q5M PRN 05/25/21 05/25/21 Omeprazole 20 mg PO DAILY 05/25/21 05/25/21 Sennosides [Senna] 8.6 mg PO BID PRN 05/25/21 05/25/21 Tacrolimus [Protopic] 1 applic TOPICAL BID 05/25/21 05/25/21 Vascepa 1gm 2 gm PO BID 05/25/21 05/25/21 metFORMIN HCL [Glucophage] 1,000 mg PO BID@0900,1700 05/25/21 05/25/21 Allergies Allergy/AdvReac Type Severity Reaction Status Date / Time No Known Allergies Allergy Verified 05/25/21 17:07 Review of Systems ROS Statement: Those systems with pertinent positive or pertinent negative responses have been documented in the HPI. ROS Other: All systems not noted in ROS Statement are negative. 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 02 2l at night History of Any Multi-Drug Resistant Organisms: None Reported Past Surgical History: Adenoidectomy, Appendectomy, Back Surgery, Bladder Surgery, Orthopedic Surgery, Tonsillectomy, Tubal Ligation Additional Past Surgical History / Comment(s): 9 [employer] shunts- none at this time,28 LP shunts, eye surgery,rt ovary and fallopian tube removed, Laser procedure for cervix [place] Past Anesthesia/Blood Transfusion Reactions: No Reported Reaction Additional Past Anesthesia/Blood Transfusion Reaction / Comment(s): no hx blood transfusion Past Psychological History: Anxiety Smoking Status: Former smoker Past Alcohol Use History: None Reported Past Drug Use History: None Reported - Past Family History Mother Family Medical History: No Reported History Father Family Medical History: Myocardial Infarction ([place]) Additional Family Medical History / Comment(s): Father of a [place] at the age of 60 yrs. General Exam Limitations: altered mental status Course Vital Signs 05/25/21 05/25/21 05/25/21 16:55 17:58 18:00 Temperature 99.7 F H Pulse Rate 144 H 140 H 140 H Respiratory 18 16 16 Rate Blood Pressure 154/84 151/93 151/93 O2 Sat by Pulse 94 L 94 L 94 L Oximetry 05/25/21 05/25/21 18:58 19:55 Temperature 99.1 F 100 F H Pulse Rate 140 H 137 H Respiratory 18 20 Rate Blood Pressure 135/76 118/78 O2 Sat by Pulse 95 95 Oximetry Procedures - Sepsis Sepsis Focused Exam #1 Time Sepsis Criteria Met: 18:10 Sepsis Focused Exam Date: 05/25/21 Sepsis Focused Exam Time: 21:00 Sepsis Focused Exam Complete: Yes Vital Signs & RN Notes Reviewed: Yes Capillary Refill: < 2 Seconds: Fingers, Toes Peripheral Pulses: Normal: Radial (R), Radial (L) Skin Color: Normal for Patient Cardiovascular Exam: tachycardia Medical Decision Making - Medical Decision Making Upon arrival the patient is promptly placed in trauma bay 1. A thorough history and physical exam is performed. IV is obtained and laboratory studies were conducted. Patient is started on 75 mL normal saline per hour. She is given 1 mg of Dilaudid as she does appear to be in pain. She went immediately for CT of her brain. Laboratory studies are reviewed and demonstrated a d-dimer of 2.75. Lactic acid is 4.2. Urinalysis is positive for nitrites, large leukocyte esterase, 16 red blood cells, 59 white blood cells and many white blood cell clumps. Diagnosis of UTI with sepsis is made at 1810. Blood cultures are obtained, the patient was given a dose of Rocephin and fluids increased to 130 mL/hr. no boluses given due to her history of congestive heart failure. CT of the patient's brain demonstrates no acute intracranial abnormality. Encephalomalacia of the right parietal lobe with previous surgery. Right-sided posterior fossa abnormality that could relate to old cerebellar infarct. A ches t x-ray demonstrates increased atelectasis at the lung bases. CTA of the patient's chest is performed due to elevated d-dimer which demonstrates bilateral lower lobe pulmonary infiltrates and atelectasis. Because of this I did add on azithromycin. Patient was given acetaminophen IV for fever control. Patient could not tolerate by mouth intake originally upon arrival due to her confusion. CT of the patient's abdomen and pelvis was also. Through because she did not provide a history. He demonstrates decreased renal excretion with some mild fullness of the right upper collecting system. Patient is reevaluated and becomes more alert. She is able to answer questions appropriately and is oriented 3. Patient admits to her chronic neck and back pain stating that "she gets in a lot of pain when she is not given her pain meds". She denies any headaches, chest pain, shortness of breath. Typically wears 2L of O2. Is non ambulatory. I recommended hospital admission. I spoke with Dr. fish who agreed to admit the patient. Patient is a DO NOT RESUSCITATE. Dr. fish does request Zosyn administration and consult Dr. Aranda. Patient was taken to the floor in stable condition - Lab Data Result diagrams: 05/27/21 07:11 05/27/21 07:11 Lab Results 05/25/21 05/25/21 05/25/21 Range/Units 17:22 17:22 17:22 WBC 9.5 (3.8-10.6) k/uL RBC 4.69 (3.80-5.40) m/uL Hgb 13.8 (11.4-16.0) gm/dL Hct 41.2 (34.0-46.0) % MCV 87.9 (80.0-100.0) fL MCH 29.4 (25.0-35.0) pg MCHC 33.4 (31.0-37.0) g/dL RDW 13.8 (11.5-15.5) % Plt Count 186 (150-450) k/uL MPV 7.9 Neutrophils % (Manual) 71 % Band Neuts % (Manual) 20 % Lymphocytes % (Manual) 8 % Eosinophils % (Manual) 1 % Basophils % (Manual) 1 % Neutrophils # (Manual) 8.60 H (1.3-7.7) k/uL Lymphocytes # (Manual) 0.76 L (1.0-4.8) k/uL Eosinophils # (Manual) 0.10 (0-0.7) k/uL Basophils # (Manual) 0.10 (0-0.2) k/uL Nucleated RBCs 0 (0-0) /100 WBC Manual Slide Review Performed PT 11.0 (9.0-12.0) sec INR 1.0 (<1.2) APTT 24.8 (22.0-30.0) sec D-Dimer 2.75 H (<0.60) mg/L FEU Sodium 138 (137-145) mmol/L Potassium 4.2 (3.5-5.1) mmol/L Chloride 101 (98-107) mmol/L Carbon Dioxide 21 L (22-30) mmol/L Anion Gap 16 mmol/L BUN 29 H (7-17) mg/dL Creatinine 1.16 H (0.52-1.04) mg/dL Est GFR (CKD-EPI)AfAm 60 (>60 ml/min/1.73 sqM) Est GFR (CKD-EPI)NonAf 52 (>60 ml/min/1.73 sqM) Glucose 179 H (74-99) mg/dL Lactic Ac Sepsis Rflx Plasma Lactic Acid Ian (0.7-2.0) mmol/L Calcium 9.0 (8.4-10.2) mg/dL Total Bilirubin 0.9 (0.2-1.3) mg/dL AST 48 H (14-36) U/L ALT 27 (4-34) U/L Alkaline Phosphatase 168 H (38-126) U/L Ammonia (<30) umol/L Creatine Kinase 201 H (30-135) U/L Troponin I (0.000-0.034) ng/mL Total Protein 7.2 (6.3-8.2) g/dL Albumin 3.8 (3.5-5.0) g/dL TSH 0.553 (0.465-4.680) mIU/L Urine Color Urine Appearance (Clear) Urine pH (5.0-8.0) Ur Specific [place] (1.001-1.035) Urine Protein (Negative) Urine Glucose (UA) (Negative) Urine Ketones (Negative) Urine Blood (Negative) Urine Nitrite (Negative) Urine Bilirubin (Negative) Urine Urobilinogen (<2.0) mg/dL Ur Leukocyte Esterase (Negative) Urine RBC (0-5) /hpf Urine WBC (0-5) /hpf Urine WBC Clumps (None) /hpf Ur Squamous Epith Cells (0-4) /hpf Urine Bacteria (None) /hpf Urine Mucus (None) /hpf Urine Opiates Screen (NotDetected) Ur Oxycodone Screen (NotDetected) Urine Methadone Screen (NotDetected) Ur Propoxyphene Screen (NotDetected) Ur Barbiturates Screen (NotDetected) U Tricyclic Antidepress (NotDetected) Ur Phencyclidine Scrn (NotDetected) Ur Amphetamines Screen (NotDetected) U Methamphetamines Scrn (NotDetected) U Benzodiazepines Scrn (NotDetected) Urine Cocaine Screen (NotDetected) U Marijuana (THC) Screen (NotDetected) Coronavirus (PCR) (Not Detectd) 05/25/21 05/25/21 05/25/21 Range/Units 17:22 17:22 17:22 WBC (3.8-10.6) k/uL RBC (3.80-5.40) m/uL Hgb (11.4-16.0) gm/dL Hct (34.0-46.0) % MCV (80.0-100.0) fL MCH (25.0-35.0) pg MCHC (31.0-37.0) g/dL RDW (11.5-15.5) % Plt Count (150-450) k/uL MPV Neutrophils % (Manual) % Band Neuts % (Manual) % Lymphocytes % (Manual) % Eosinophils % (Manual) % Basophils % (Manual) % Neutrophils # (Manual) (1.3-7.7) k/uL Lymphocytes # (Manual) (1.0-4.8) k/uL Eosinophils # (Manual) (0-0.7) k/uL Basophils # (Manual) (0-0.2) k/uL Nucleated RBCs (0-0) /100 WBC Manual Slide Review PT (9.0-12.0) sec INR (<1.2) APTT (22.0-30.0) sec D-Dimer (<0.60) mg/L FEU Sodium (137-145) mmol/L Potassium (3.5-5.1) mmol/L Chloride (98-107) mmol/L Carbon Dioxide (22-30) mmol/L Anion Gap mmol/L BUN (7-17) mg/dL Creatinine (0.52-1.04) mg/dL Est GFR (CKD-EPI)AfAm (>60 ml/min/1.73 sqM) Est GFR (CKD-EPI)NonAf (>60 ml/min/1.73 sqM) Glucose (74-99) mg/dL Lactic Ac Sepsis Rflx Plasma Lactic Acid Ian 4.2 H* (0.7-2.0) mmol/L Calcium (8.4-10.2) mg/dL Total Bilirubin (0.2-1.3) mg/dL AST (14-36) U/L ALT (4-34) U/L Alkaline Phosphatase (38-126) U/L Ammonia 19 (<30) umol/L Creatine Kinase (30-135) U/L Troponin I 0.013 (0.000-0.034) ng/mL Total Protein (6.3-8.2) g/dL Albumin (3.5-5.0) g/dL TSH (0.465-4.680) mIU/L Urine Color Urine Appearance (Clear) Urine pH (5.0-8.0) Ur Specific [place] (1.001-1.035) Urine Protein (Negative) Urine Glucose (UA) (Negative) Urine Ketones (Negative) Urine Blood (Negative) Urine Nitrite (Negative) Urine Bilirubin (Negative) Urine Urobilinogen (<2.0) mg/dL Ur Leukocyte Esterase (Negative) Urine RBC (0-5) /hpf Urine WBC (0-5) /hpf Urine WBC Clumps (None) /hpf Ur Squamous Epith Cells (0-4) /hpf Urine Bacteria (None) /hpf Urine Mucus (None) /hpf Urine Opiates Screen (NotDetected) Ur Oxycodone Screen (NotDetected) Urine Methadone Screen (NotDetected) Ur Propoxyphene Screen (NotDetected) Ur Barbiturates Screen (NotDetected) U Tricyclic Antidepress (NotDetected) Ur Phencyclidine Scrn (NotDetected) Ur Amphetamines Screen (NotDetected) U Methamphetamines Scrn (NotDetected) U Benzodiazepines Scrn (NotDetected) Urine Cocaine Screen (NotDetected) U Marijuana (THC) Screen (NotDetected) Coronavirus (PCR) (Not Detectd) 05/25/21 05/25/21 05/25/21 Range/Units 17:23 18:09 19:00 WBC (3.8-10.6) k/uL RBC (3.80-5.40) m/uL Hgb (11.4-16.0) gm/dL Hct (34.0-46.0) % MCV (80.0-100.0) fL MCH (25.0-35.0) pg MCHC (31.0-37.0) g/dL RDW (11.5-15.5) % Plt Count (150-450) k/uL MPV Neutrophils % (Manual) % Band Neuts % (Manual) % Lymphocytes % (Manual) % Eosinophils % (Manual) % Basophils % (Manual) % Neutrophils # (Manual) (1.3-7.7) k/uL Lymphocytes # (Manual) (1.0-4.8) k/uL Eosinophils # (Manual) (0-0.7) k/uL Basophils # (Manual) (0-0.2) k/uL Nucleated RBCs (0-0) /100 WBC Manual Slide Review PT (9.0-12.0) sec INR (<1.2) APTT (22.0-30.0) sec D-Dimer (<0.60) mg/L FEU Sodium (137-145) mmol/L Potassium (3.5-5.1) mmol/L Chloride (98-107) mmol/L Carbon Dioxide (22-30) mmol/L Anion Gap mmol/L BUN (7-17) mg/dL Creatinine (0.52-1.04) mg/dL Est GFR (CKD-EPI)AfAm (>60 ml/min/1.73 sqM) Est GFR (CKD-EPI)NonAf (>60 ml/min/1.73 sqM) Glucose (74-99) mg/dL Lactic Ac Sepsis Rflx Y Plasma Lactic Acid Ian (0.7-2.0) mmol/L Calcium (8.4-10.2) mg/dL Total Bilirubin (0.2-1.3) mg/dL AST (14-36) U/L ALT (4-34) U/L Alkaline Phosphatase (38-126) U/L Ammonia (<30) umol/L Creatine Kinase (30-135) U/L Troponin I (0.000-0.034) ng/mL Total Protein (6.3-8.2) g/dL Albumin (3.5-5.0) g/dL TSH (0.465-4.680) mIU/L Urine Color Yellow Urine Appearance Cloudy H (Clear) Urine pH 5.5 (5.0-8.0) Ur Specific [place] 1.014 (1.001-1.035) Urine Protein 2+ H (Negative) Urine Glucose (UA) Negative (Negative) Urine Ketones Negative (Negative) Urine Blood Moderate H (Negative) Urine Nitrite Positive H (Negative) Urine Bilirubin Negative (Negative) Urine Urobilinogen <2.0 (<2.0) mg/dL Ur Leukocyte Esterase Large H (Negative) Urine RBC 16 H (0-5) /hpf Urine WBC 59 H (0-5) /hpf Urine WBC Clumps Many H (None) /hpf Ur Squamous Epith Cells 1 (0-4) /hpf Urine Bacteria Occasional H (None) /hpf Urine Mucus Rare H (None) /hpf Urine Opiates Screen Detected H (NotDetected) Ur Oxycodone Screen Detected H (NotDetected) Urine Methadone Screen Not Detected (NotDetected) Ur Propoxyphene Screen Not Detected (NotDetected) Ur Barbiturates Screen Not Detected (NotDetected) U Tricyclic Antidepress Not Detected (NotDetected) Ur Phencyclidine Scrn Not Detected (NotDetected) Ur Amphetamines Screen Not Detected (NotDetected) U Methamphetamines Scrn Not Detected (NotDetected) U Benzodiazepines Scrn Detected H (NotDetected) Urine Cocaine Screen Not Detected (NotDetected) U Marijuana (THC) Screen Not Detected (NotDetected) Coronavirus (PCR) Not Detected (Not Detectd) - EKG Data EKG Comments: EKG demonstrates a sinus tachycardia with a ventricular rate of 144. VA interval 128. QRS 80. QTC of 510. There is some mild ST depression likely rate dependent. No acute ST segment elevations. Disposition Clinical Impression: Acute encephalopathy, Sepsis secondary to UTI, Tachycardia, Lactic acid acidosis Disposition: ADMITTED IP TO THIS [facility] Condition: Serious Is patient prescribed a controlled substance at d/c from ED?: No Decision to Admit Reason: Admit from EC Decision Date: 05/25/21 Decision Time: 19:53
[2021-05-25] MEDS: ACETAMINOPHEN TAB 500 MG TAB PO STA ×2 (17:21→17:27)
[2021-05-25 17:31] LABS: HCT 41.2 % (34.0-46.0); HGB 13.8 gm/dL (11.4-16.0); MCH 29.4 pg (25.0-35.0); MCHC 33.4 g/dL (31.0-37.0); MCV 87.9 fL (80.0-100.0); Mean Platelet Volume 7.9; Platelet Count 186 k/uL (150-450); RBC 4.69 m/uL (3.80-5.40); RDW 13.8 % (11.5-15.5); WBC 9.5 k/uL (3.8-10.6)
[2021-05-25 17:37] LABS: Albumin 3.8 g/dL (3.5-5.0); Potassium 4.2 mmol/L (3.5-5.1); Total Bilirubin 0.9 mg/dL (0.2-1.3); Total Protein 7.2 g/dL (6.3-8.2)
[2021-05-25 17:40] LABS: Partial Thromboplastin Time 24.8 sec (22.0-30.0)
[2021-05-25] MEDS ORDERED: ACETAMINOPHEN IV (For NPO) 1,000 MG in EMPTY BAG 1 BAG IVPB STA (17:43)
--- NOTE | 2021-05-25 17:57 | CT ---
EXAMINATION TYPE: CT brain wo con DATE OF EXAM: 05/25/2021 COMPARISON: None HISTORY: AMS. Hx pseudo tumor cerebri. CT DLP: 1231.4 mGycm Automated exposure control for dose reduction was used. There is mild cerebral atrophy. There is no mass effect nor midline shift. There is no sign of intrac ranial hemorrhage. There is some serra white matter hypodensity in the right parietal lobe that measur es 3 x 1 cm. There is apparent right old parietal craniotomy defect. There is widening of the subdura l space in the posterior fossa on the right side without mass effect. This could relate to some asymm etric cerebellar atrophy or old infarct. IMPRESSION: No acute intracranial abnormality. Encephalomalacia right parietal lobe. Previous surgery. Right side posterior fossa abnormality as above that could relate to old cerebellar infarct or atrophy.
--- NOTE | 2021-05-25 17:59 | XR ---
EXAMINATION TYPE: XR chest 2V DATE OF EXAM: 05/25/2021 COMPARISON: December 14, 2020 HISTORY: Altered mental status TECHNIQUE: FINDINGS: There is poor inspiration. There is atelectasis at the lung bases. There is no gross heart failure. Heart size is fairly normal. There are chest leads. IMPRESSION: There is increased atelectasis at the lung bases compared to old exam.
[2021-05-25 18:07] LABS: Band Neutrophils % 20 %; Lymphocytes # (M) 0.76 k/uL (1.0-4.8); Neutrophils % (M) 71 %; Nucleated Red Blood Cells 0 /100 WBC (0-0); Total Cells Counted 200
[2021-05-25 18:27] LABS: Appearance,Urine Cloudy (Clear); Bacteria,Urine Occasional /hpf; Bilirubin,Urine Negative (Negative); Blood,Urine Moderate (Negative); Color,Urine Yellow; Glucose,Urine (UA) Negative (Negative); Ketones,Urine Negative (Negative); Leukocyte Esterase,Urine Large (Negative); Mucus,Urine Rare /hpf; Nitrite,Urine Positive (Negative); PH, Urine 5.5 (5.0-8.0); Protein,Urine 2+ (Negative); RBC,Urine 16 /hpf (0-5); Specific Gravity,Urine 1.014 (1.001-1.035); Squamous Epithelial Cell,Urine 1 /hpf (0-4); Urobilinogen,Urine <2.0 mg/dL (<2.0); WBC,Urine 59 /hpf (0-5)
[2021-05-25 18:33] LABS: Amphetamine Screen,Urine Not Detected (NotDetected); Barbiturate Screen,Urine Not Detected (NotDetected); Benzodiazepines Screen,Urine Detected (NotDetected); Cocaine Screen,Urine Not Detected (NotDetected); Methadone Screen, Urine Not Detected (NotDetected); Opiate Screen,Urine Detected (NotDetected); Oxycodone Screen, Urine Detected (NotDetected); Phencyclidine Screen,Urine Not Detected (NotDetected); Tricyclic Antidepressant,Urine Not Detected (NotDetected); Urn Cannabinoid Scrn Not Detected (NotDetected)
[2021-05-25] MEDS ORDERED: cefTRIAXone IN SWFI 1,000 MG/10 ML SYRINGE IVP STA (18:36)
--- NOTE | 2021-05-25 19:16 | CT ---
EXAMINATION TYPE: CT chest angio for PE DATE OF EXAM: 05/25/2021 COMPARISON: None HISTORY: Elevated d dimer. hypoxia. Pt unable to follow breathing commands CT DLP: 646.3 mGycm Automated exposure control for dose reduction was used. CONTRAST: Performed with IV Contrast, patient injected with 80 mL of Isovue 370. Images obtained from the thoracic inlet to the diaphragm with IV contrast. There are 3-D post process ed images. There is some patchy infiltrate and atelectasis in the lower lung dutta. Heart appears borderline en larged. There is no pericardial effusion. There is no pleural effusion. There is some fatty infiltrat ion of the liver. I see no evidence of filling defect in the pulmonary arteries. The thoracic aorta is intact. There is no sign of aneurysm or dissection. There is no mediastinal adenopathy. There are no hilar masses. The bony thorax is intact. There is no compression fracture. Sternum is intact. IMPRESSION: Bilateral lower lobe pulmonary infiltrates and atelectasis. Fatty infiltration of the liver. No evidence of pulmonary embolism.
[2021-05-25] MEDS ORDERED: AZITHROMYCIN 500 MG in SODIUM CHLORIDE 0.9% 250 ML IVPB STA (19:27)
--- NOTE | 2021-05-25 19:27 | CT ---
EXAMINATION TYPE: CT abdomen pelvis w con DATE OF EXAM: 05/25/2021 COMPARISON: 11/12/2020 HISTORY: Fever CT DLP: mGycm Automated exposure control for dose reduction was used. CONTRAST: Images obtained from the diaphragm to the floor the pelvis with IV contrast Isovue 80 mL. There is some patchy atelectasis at the lung bases. There is also some infiltrate component in the ri ght lower lobe. There is no pleural effusion. Heart size is fairly normal. There is no pericardial ef fusion. There is some fatty infiltration of the liver. Spleen is intact. The stomach is intact. There is no evidence of pancreatic mass. Gallbladder appears normal. There is no adrenal mass. Kidneys show satisfactory contrast opacification. There is no hydronephrosi s. There is decreased contrast on the delayed images in the right renal collecting system compared to the left. There is some fullness of the right upper collecting system. There is minimal stranding ar ound the right kidney. No calculus seen.. There is no retroperitoneal adenopathy. Abdominal aorta is atheromatous. Bladder is empty. There is Collado catheter in the bladder. Uterus is anteverted. There i s no inguinal hernia. There is no free fluid in the pelvis. There is some retained fecal material in the rectum. Lumbar vertebra appear intact. There is mild thoracolumbar levoscoliosis. There is no lum bar compression fracture. The bony pelvis appears intact. There is no mesenteric edema. Appendix is not definitely seen. There is no sign of thickened appendix . There is no ascites or free air. There is no sign of a bowel obstruction. IMPRESSION: Decreased renal excretion consistent with some degree of renal failure that is more on the right side in the left side. There is some mild fullness of the right upper collecting system compared to old e xam but no calculus seen. This could relate to recently passed stone or nonopaque stone or pyelonephr itis. Mild constipation.
[2021-05-25] MEDS ORDERED: NALOXONE 0.4 MG/ML 1 ML VIAL IV PRN (19:53)
[2021-05-25] MEDS ORDERED: ACETAMINOPHEN TAB 325 MG TAB PO PRN (19:53)
[2021-05-25] MEDS ORDERED: IBUPROFEN 400 MG TAB PO PRN (19:53)
[2021-05-25] MEDS: SODIUM CHLORIDE 0.9% 1,000 ML IV SCH (19:55)
[2021-05-25] MEDS ORDERED: SENNOSIDES 8.6 MG TAB PO PRN (20:43)
[2021-05-25] MEDS ORDERED: PROMETHAZINE 25 MG TAB PO PRN (20:43)
[2021-05-25] MEDS ORDERED: GABAPENTIN 300 MG CAP PO SCH (21:00)
[2021-05-25] MEDS ORDERED: METOPROLOL TARTRATE 50 MG TAB PO SCH (21:00)
[2021-05-25 21:01] LABS: Glucose,Whole Blood 146 mg/dL (75-99)
[2021-05-25] MEDS: LORazepam 1 MG TAB PO SCH (22:05)
[2021-05-25] MEDS: GABAPENTIN 300 MG CAP PO SCH (22:05)
[2021-05-25] MEDS: CLOTRIMAZOLE 1% CREAM 30 GM TUBE TOPICAL SCH (22:08)
[2021-05-25] MEDS ORDERED: SODIUM CHLORIDE 0.9% 500 ML 500 ML IV ONE (23:10)
[2021-05-25] MEDS: PIPERACILLIN-TAZOBACTAM 3.375 GM in SODIUM CHLORIDE 0.9% 100 ML IVPB SCH (23:23)
[2021-05-26] MEDS: INSULIN ASPART (NovoLOG) 100 UNIT/ML VIAL SQ SCH ×5 (00:17→23:59)
[2021-05-26] MEDS: SODIUM CHLORIDE 0.9% 1,000 ML IV SCH ×5 (00:19→19:57)
[2021-05-26 04:23] LABS: Basophils # (A) 0.1 k/uL (0-0.2); Basophils % (A) 0 %; Eosinophils % (A) 0 %; HCT 33.4 % (34.0-46.0); Lymphocytes # (A) 1.2 k/uL (1.0-4.8); Lymphocytes % (A) 5 %; MCH 29.6 pg (25.0-35.0); MCHC 32.8 g/dL (31.0-37.0); MCV 90.3 fL (80.0-100.0); Mean Platelet Volume 8.7; Monocytes # (A) 1.3 k/uL (0-1.0); Monocytes % (A) 5 %; Neutrophils # (A) 23.3 k/uL (1.3-7.7); Neutrophils % (A) 89 %; Platelet Count 208 k/uL (150-450); RDW 13.6 % (11.5-15.5); WBC 26.3 k/uL (3.8-10.6)
[2021-05-26 04:38] LABS: Calcium 7.8 mg/dL (8.4-10.2); Potassium 4.3 mmol/L (3.5-5.1)
[2021-05-26 06:16] LABS: Glucose,Whole Blood 216 mg/dL (75-99)
[2021-05-26] MEDS: INSULIN DETEMIR (LEVEMIR) 100 UNIT/ML SYR SQ SCH (06:17)
[2021-05-26] MEDS: PANTOPRAZOLE 40 MG TABLET PO SCH (06:17)
[2021-05-26] MEDS: LORazepam 1 MG TAB PO SCH ×3 (06:17→21:33)
[2021-05-26] MEDS ORDERED: SODIUM CHLORIDE 0.9% 1,000 ML IV ONE (07:35)
[2021-05-26] MEDS ORDERED: SODIUM CHLORIDE 0.9% 2,000 ML IV ONE (07:37)
[2021-05-26] MEDS: FERROUS SULFATE 325 MG TAB PO SCH (07:50)
[2021-05-26] MEDS: DULoxetine HCL 60 MG CAPSULE.DR PO SCH (07:50)
[2021-05-26] MEDS: PIPERACILLIN-TAZOBACTAM 3.375 GM in SODIUM CHLORIDE 0.9% 100 ML IVPB SCH ×3 (07:50→23:59)
[2021-05-26] MEDS: HEPARIN SODIUM,PORCINE/PF 5,000 UNIT/0.5 ML SYRINGE SQ SCH ×2 (07:50→21:38)
[2021-05-26] MEDS: GABAPENTIN 300 MG CAP PO SCH ×2 (07:50→21:32)
--- NOTE | 2021-05-26 08:29 | US ---
EXAMINATION TYPE: US renals and bladder DATE OF EXAM: 05/26/2021 COMPARISON: CT 05/25/2021 CLINICAL HISTORY: uti. EXAM MEASUREMENTS: Right Kidney: 12.5 x 5.1 x 6.3 cm Left Kidney: 11.5 x 5.4 x 5.6 cm Right Kidney: No hydronephrosis or masses seen Left Kidney: No hydronephrosis or masses seen Bladder: not seen, patient has catheter. There is no evidence for hydronephrosis at this point in time. No nephrolithiasis is seen. No austen s are identified. IMPRESSION: No hydronephrosis or nephrolithiasis. Collado catheter limits assessment of bladder.
--- NOTE | 2021-05-26 08:53 | P.HPIM ---
History of Present Illness This is a pleasant 60 years old female with past medical history of hepatitis C, diabetes mellitus, hypertension, chronic neck and back pain, pseudotumor cerebri, pulmonary hypertension, psoriasis bacterial meningitis at age 30. An xiety Patient is fully awake and oriented, she states she lives at [facility] because she has too many medical problems and she cannot take care of herself. She has a daughter that she thinks she stopped taking care of her and she does not want us to contact her. Instead she wants us to contact her cousin came [facility]ry [facility] Patient states this and her because she was going crazy as she describes, but in for the last 2-3 days. Ends her problem is in her bladder because she can smell bad odor for the last 2 days, also reports increased frequency of urination but no dysuria. No diarrhea actually she is complaining of from constipation. She likes to smoke but they don't that her in the penitentiary. She denies alcohol or illicit drugs Showing or suicidal ideation. She confirms she has history of atrial fibrillation but she is not on anticoagulation. Also she has history She is also on 2 L of oxygen at night which she was not using. 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 Numbness or sensory loss. She called her neurosurgeon at her report to see if he can help her with her low back pain and they told her they don't take patients now. Blood pressure is on the low side 95/53 and currently is 88/53. Heart rate is 93, patient is afebrile currently but she had fever of 100 on admission, Her WBCs on admission was 9.5, this morning increased to 26.3. Hemoglobin 11.0. INR is 1.0. Creatinine 1.1 went up to 1.4. Lactic acid was high at 5.5 improved to 3.1 which is still elevated. AST is mildly elevated at 48, ALT is normal at 27. Ammonia level is normal at 19, TSH is normal 0.5. On is normal at 0.013. Urinalysis is suspicious of infection Urinary tract screen is positive for opioids, oxycodone, and benzodiazepines. Coronavirus not detected. EKG showing sinus tachycardia at [address] T changes, QTC is 510. Chest x-ray: There is increased atelectasis of the lung base compared to old exam CT of the brain: No acute process. Encephalomalacia with the right parietal lobe. Previous surgery. 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 Fatty infiltration of the liver CT of the abdomen and pelvis done with contrast showing decreasing renal excretion consistent with some degree of renal failure that is more on the right side and the left side. There is some mild fullness of the right upper collecting system compared to old exam but no calculus seen.. This could be related to recently passed stone or non-opaque stone or pyelonephritis. TSH 0.5. Also Collado catheter was placed in the emergency room, currently this morning she has 125 mL in her urine bag Review of Systems CONSTITUTIONAL: No fever, no malaise, no fatigue. HEENT: No recent visual problems or hearing problems. Denied any sore throat. CARDIOVASCULAR: No orthopnea, PND, no palpitations, no syncope. PULMONARY: No shortness of breath, no cough, no hemoptysis. GASTROINTESTINAL: No diarrhea, no nausea, no vomiting,. Normoactive bowel sounds. NEUROLOGICAL: No headaches, no weakness, no numbness. HEMATOLOGICAL: Denies any bleeding or petechiae. GENITOURINARY: Denies any burning micturition, no hematuria. MUSCULOSKELETAL/RHEUMATOLOGICAL: Denies any joint pain, swelling, or any muscle pain. ENDOCRINE: Denies any polyuria or polydipsia. 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 02 2l at night History of Any Multi-Drug Resistant Organisms: None Reported Past Surgical History: Adenoidectomy, Appendectomy, Back Surgery, Bladder Surgery, Orthopedic Surgery, Tonsillectomy, Tubal Ligation Additional Past Surgical History / Comment(s): 9 RAG INSPECTOR shunts- none at this time, 28 LP shunts, eye surgery, rt ovary and fallopian tube removed, Laser procedure for cervix [place] Past Anesthesia/Blood Transfusion Reactions: No Reported Reaction Additional Past Anesthesia/Blood Transfusion Reaction / Comment(s): no hx blood transfusion Past Psychological History: Anxiety Smoking Status: Former smoker Past Alcohol Use History: None Reported Additional Past Alcohol Use History / Comment(s): started smoking at age 15, was a 2.5 ppd smoker but has cut down to 1/2 ppd and has gotten chantrix. States she quit as of . Past Drug Use History: None Reported - Past Family History Mother Family Medical History: No Reported History Father Family Medical History: Myocardial Infarction ([place]) Additional Family Medical History / Comment(s): Father of a [place] at the age of 60 yrs. Medications and Allergies Home Medications Medication Instructions Recorded Confirmed Type Furosemide [Lasix] 40 mg PO DAILY 12/13/19 05/25/21 History Ferrous Sulfate [Feosol] 325 mg PO DAILY 11/12/20 05/25/21 History Gabapentin 600 mg PO BID 11/12/20 05/25/21 History LORazepam [Ativan] 1 mg PO TID@0600,1400,2200 11/12/20 05/25/21 History Promethazine HCl 12.5 mg PO QID PRN 11/12/20 05/25/21 History hydrOXYzine HCL 10 mg PO QID@00,06,12,18 11/12/20 05/25/21 History oxyCODONE HCL [oxyCODONE HCL (IR)] 20 mg PO Q4H PRN 11/12/20 05/25/21 History DULoxetine HCL [Cymbalta] 60 mg PO DAILY 05/25/21 05/25/21 History Gabapentin 300 mg PO BID 05/25/21 05/25/21 History Glimepiride [Amaryl] 2 mg PO DAILY 05/25/21 05/25/21 History INSULIN LISPRO (HumaLOG) [humaLOG] See Protocol SQ ACHS@09,12,17,05/25/21 05/25/21 History Insulin Detemir [Levemir Flextouch] 16 units SQ DAILY 05/25/21 05/25/21 History Ketoconazole 2% Cream [Nizoral 2%] 1 applic TOPICAL TUSA@2100 05/25/21 05/25/21 History Lisinopril [Prinivil] 10 mg PO DAILY 05/25/21 05/25/21 History Metoprolol Tartrate [Lopressor] 100 mg PO BID 05/25/21 05/25/21 History Nitroglycerin Sl Tabs [Nitrostat] 0.4 mg SL Q5M PRN 05/25/21 05/25/21 History Omeprazole 20 mg PO DAILY 05/25/21 05/25/21 History Sennosides [Senna] 8.6 mg PO BID PRN 05/25/21 05/25/21 History Tacrolimus [Protopic] 1 applic TOPICAL BID 05/25/21 05/25/21 History Vascepa 1gm 2 gm PO BID 05/25/21 05/25/21 History metFORMIN HCL [Glucophage] 1,000 mg PO BID@0900,1700 05/25/21 05/25/21 History Allergies Allergy/AdvReac Type Severity Reaction Status Date / Time No Known Allergies Allergy Verified 05/25/21 17:07 Physical Exam Vitals: Vital Signs Temp Pulse Pulse Resp BP BP Pulse Ox 05/26/21 04:00 98.4 F 93 16 88/53 97 05/26/21 00:00 98.6 F 97 15 92/51 96 05/25/21 21:00 97.9 F 118 H 16 95/53 96 05/25/21 19:55 100 F H 137 H 20 118/78 95 05/25/21 18:58 99.1 F 140 H 18 135/76 95 05/25/21 18:00 140 H 16 151/93 94 L 05/25/21 17:58 140 H 16 151/93 94 L 05/25/21 16:55 99.7 F H 144 H 18 154/84 94 L Intake and Output 05/25/21 05/26/21 05/26/21 22:59 06:59 14:59 Intake Total 20 Output Total 250 120 150 Balance -250 -100 -150 Intake: IV 20 Invasive Line 2 20 Output: Urine 250 120 150 Uretheral (Collado) 150 Other: Voiding Method Indwelling Catheter Weight 81.647 kg 97 kg -GENERAL: The patient is fully awake and oriented to time, place and person, she is appropriate and follow commands, not in any acute distress. Obese HEENT: Pupils are round and equally reacting to light. EOMI. No scleral icterus. No conjunctival pallor. Normocephalic, atraumatic. No pharyngeal erythema. No thyromegaly. CARDIOVASCULAR: S1 and S2 present. No murmurs, rubs, or gallops. PULMONARY: Chest is clear to auscultation, no wheezing or crackles. -ABDOMEN: Soft, mild right lower quadrant tenderness, nondistended, normoactive bowel sounds. No palpable organomegaly. -MUSCULOSKELETAL: No joint swelling or deformity. Right leg looks slightly weaker than the left leg.(Patient refused to do back examination) EXTREMITIES: No cyanosis, clubbing, or pedal edema. NEUROLOGICAL: Gross neurological examination did not reveal any focal deficits. SKIN: No rashes. No petechiae Results CBC & Chem 7: 05/26/21 03:36 05/26/21 03:36 Labs: Abnormal Lab Results - Last 24 Hours (Table) 05/25/21 05/25/21 05/25/21 Range/Units 17:22 17:22 17:22 WBC (3.8-10.6) k/uL RBC (3.80-5.40) m/uL Hgb (11.4-16.0) gm/dL Hct (34.0-46.0) % Neutrophils # (1.3-7.7) k/uL Neutrophils # (Manual) 8.60 H (1.3-7.7) k/uL Lymphocytes # (Manual) 0.76 L (1.0-4.8) k/uL Monocytes # (0-1.0) k/uL D-Dimer 2.75 H (<0.60) mg/L FEU Carbon Dioxide 21 L (22-30) mmol/L BUN 29 H (7-17) mg/dL Creatinine 1.16 H (0.52-1.04) mg/dL Glucose 179 H (74-99) mg/dL POC Glucose (mg/dL) (75-99) mg/dL Plasma Lactic Acid Ian (0.7-2.0) mmol/L Calcium (8.4-10.2) mg/dL AST 48 H (14-36) U/L Alkaline Phosphatase 168 H (38-126) U/L Creatine Kinase 201 H (30-135) U/L Urine Appearance (Clear) Urine Protein (Negative) Urine Blood (Negative) Urine Nitrite (Negative) Ur Leukocyte Esterase (Negative) Urine RBC (0-5) /hpf Urine WBC (0-5) /hpf Urine WBC Clumps (None) /hpf Urine Bacteria (None) /hpf Urine Mucus (None) /hpf Urine Opiates Screen (NotDetected) Ur Oxycodone Screen (NotDetected) U Benzodiazepines Scrn (NotDetected) 05/25/21 05/25/21 05/25/21 Range/Units 17:22 18:09 20:47 WBC (3.8-10.6) k/uL RBC (3.80-5.40) m/uL Hgb (11.4-16.0) gm/dL Hct (34.0-46.0) % Neutrophils # (1.3-7.7) k/uL Neutrophils # (Manual) (1.3-7.7) k/uL Lymphocytes # (Manual) (1.0-4.8) k/uL Monocytes # (0-1.0) k/uL D-Dimer (<0.60) mg/L FEU Carbon Dioxide (22-30) mmol/L BUN (7-17) mg/dL Creatinine (0.52-1.04) mg/dL Glucose (74-99) mg/dL POC Glucose (mg/dL) 146 H (75-99) mg/dL Plasma Lactic Acid Ian 4.2 H* (0.7-2.0) mmol/L Calcium (8.4-10.2) mg/dL AST (14-36) U/L Alkaline Phosphatase (38-126) U/L Creatine Kinase (30-135) U/L Urine Appearance Cloudy H (Clear) Urine Protein 2+ H (Negative) Urine Blood Moderate H (Negative) Urine Nitrite Positive H (Negative) Ur Leukocyte Esterase Large H (Negative) Urine RBC 16 H (0-5) /hpf Urine WBC 59 H (0-5) /hpf Urine WBC Clumps Many H (None) /hpf Urine Bacteria Occasional H (None) /hpf Urine Mucus Rare H (None) /hpf Urine Opiates Screen Detected H (NotDetected) Ur Oxycodone Screen Detected H (NotDetected) U Benzodiazepines Scrn Detected H (NotDetected) 05/25/21 05/26/21 05/26/21 Range/Units 21:06 00:51 03:36 WBC 26.3 H (3.8-10.6) k/uL RBC 3.70 L (3.80-5.40) m/uL Hgb 11.0 L (11.4-16.0) gm/dL Hct 33.4 L (34.0-46.0) % Neutrophils # 23.3 H (1.3-7.7) k/uL Neutrophils # (Manual) (1.3-7.7) k/uL Lymphocytes # (Manual) (1.0-4.8) k/uL Monocytes # 1.3 H (0-1.0) k/uL D-Dimer (<0.60) mg/L FEU Carbon Dioxide (22-30) mmol/L BUN (7-17) mg/dL Creatinine (0.52-1.04) mg/dL Glucose (74-99) mg/dL POC Glucose (mg/dL) (75-99) mg/dL Plasma Lactic Acid Ian 5.5 H* 3.8 H* (0.7-2.0) mmol/L Calcium (8.4-10.2) mg/dL AST (14-36) U/L Alkaline Phosphatase (38-126) U/L Creatine Kinase (30-135) U/L Urine Appearance (Clear) Urine Protein (Negative) Urine Blood (Negative) Urine Nitrite (Negative) Ur Leukocyte Esterase (Negative) Urine RBC (0-5) /hpf Urine WBC (0-5) /hpf Urine WBC Clumps (None) /hpf Urine Bacteria (None) /hpf Urine Mucus (None) /hpf Urine Opiates Screen (NotDetected) Ur Oxycodone Screen (NotDetected) U Benzodiazepines Scrn (NotDetected) 05/26/21 05/26/21 05/26/21 Range/Units 03:36 03:36 06:13 WBC (3.8-10.6) k/uL RBC (3.80-5.40) m/uL Hgb (11.4-16.0) gm/dL Hct (34.0-46.0) % Neutrophils # (1.3-7.7) k/uL Neutrophils # (Manual) (1.3-7.7) k/uL Lymphocytes # (Manual) (1.0-4.8) k/uL Monocytes # (0-1.0) k/uL D-Dimer (<0.60) mg/L FEU Carbon Dioxide (22-30) mmol/L BUN 33 H (7-17) mg/dL Creatinine 1.40 H (0.52-1.04) mg/dL Glucose 243 H (74-99) mg/dL POC Glucose (mg/dL) 216 H (75-99) mg/dL Plasma Lactic Acid Ian 3.1 H* (0.7-2.0) mmol/L Calcium 7.8 L (8.4-10.2) mg/dL AST (14-36) U/L Alkaline Phosphatase (38-126) U/L Creatine Kinase (30-135) U/L Urine Appearance (Clear) Urine Protein (Negative) Urine Blood (Negative) Urine Nitrite (Negative) Ur Leukocyte Esterase (Negative) Urine RBC (0-5) /hpf Urine WBC (0-5) /hpf Urine WBC Clumps (None) /hpf Urine Bacteria (None) /hpf Urine Mucus (None) /hpf Urine Opiates Screen (NotDetected) Ur Oxycodone Screen (NotDetected) U Benzodiazepines Scrn (NotDetected) Thrombosis Risk Factor Assmnt - Choose All That Apply Each Factor Represents 1 point: Age 41-60 years, Obesity (BMI >25) Thrombosis Risk Factor Assessment Total Risk Factor Score: 2 Thrombosis Risk Factor Assessment Level: Low Risk Assessment and Plan Assessment: Acute urinary tract infection Severe sepsis secondary to above Hypotension Elevated lactic acid, slightly improving Acute kidney injury Acute and chronic low back pain with radiating to the right leg with difficulty walking and right leg weakness Diabetes mellitus Hypertension Chronic neck and back pain History of pseudotumor cerebri History of bacterial meningitis at age 30 History of hepatitis C History of pulmonary hypertension History of psoriasis Anxiety, not an active issue. Plan: this is a pleasant 60 years old female who presents with severe sepsis, UTI. GUSTAVO 2 L of normal saline Monitor creatinine and input and output. Consult Continue with IV antibiotic. Follow-up with ID team recommendations Check renal ultrasound Also we'll consult orthopedic team for low back pain with right leg weakness for 1-2 months Labs and medication were reviewed.. Continue same treatment. Continue with symptomatic treatment. Resume home medication. Monitor lytes and vitals. DVT and GI prophylaxis. Further recommendations depends on the clinical course of the patient DVT prophylaxis: Subcutaneous heparin GI Prophylaxis: Pepcid Prognosis is guarded
[2021-05-26] MEDS ORDERED: FAMOTIDINE 20 MG/2 ML VIAL IV SCH (09:00)
[2021-05-26] MEDS ORDERED: lisinopriL 10 MG TAB PO SCH (09:00)
[2021-05-26] MEDS: MIDODRINE 5 MG TAB PO SCH ×2 (09:56→11:54)
[2021-05-26 11:45] LABS: Glucose,Whole Blood 104 mg/dL (75-99)
--- NOTE | 2021-05-26 14:27 | P.NPCON ---
History of Present Illness - Reason for Consult Consult date: 05/26/21 acute renal failure - Chief Complaint Altered mental status. - History of Present Illness 60-year-old white female coming to the hospital with the above complaints. Nephrology was consulted for acute kidney injury. Very minimal history obtained from the patient, most of the story is obtained from the nursing staff and the chart. His line creatinine 0.7-0.9 MG per DL. Admitted with a creatinine of 1.1 yesterday and 1.4 MG per DL today. She has a Collado catheter making good amount of urine. Urine analysis consistent with activity/UTI. She had computed tomography scan of the abdomen and chest and 80 mL of contrast was used. She was hypotensive on admission with a systolic blood pressure of 90s and lactic acidosis. Currently on antibiotics, blood pressure seems to be improved. No hi story of nausea vomiting diarrhea. Medications does include Lasix, lisinopril, metoprolol and metformin. 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 States she quit as of . Past Drug Use History: None Reported - Past Family History Mother Family Medical History: No Reported History Father Family Medical History: Myocardial Infarction ([place]) Additional Family Medical History / Comment(s): Father of a [place] at the age of 60 yrs. Medications and Allergies Home Medications Medication Instructions Recorded Confirmed Type Furosemide [Lasix] 40 mg PO DAILY 12/13/19 05/25/21 History Ferrous Sulfate [Feosol] 325 mg PO DAILY 11/12/20 05/25/21 History Gabapentin 600 mg PO BID 11/12/20 05/25/21 History LORazepam [Ativan] 1 mg PO TID@0600,1400,2200 11/12/20 05/25/21 History Promethazine HCl 12.5 mg PO QID PRN 11/12/20 05/25/21 History hydrOXYzine HCL 10 mg PO QID@00,06,12,18 11/12/20 05/25/21 History oxyCODONE HCL [oxyCODONE HCL (IR)] 20 mg PO Q4H PRN 11/12/20 05/25/21 History DULoxetine HCL [Cymbalta] 60 mg PO DAILY 05/25/21 05/25/21 History Gabapentin 300 mg PO BID 05/25/21 05/25/21 History Glimepiride [Amaryl] 2 mg PO DAILY 05/25/21 05/25/21 History INSULIN LISPRO (HumaLOG) [humaLOG] See Protocol SQ ACHS@09,12,17,05/25/21 05/25/21 History Insulin Detemir [Levemir Flextouch] 16 units SQ DAILY 05/25/21 05/25/21 History Ketoconazole 2% Cream [Nizoral 2%] 1 applic TOPICAL TUSA@2100 05/25/21 05/25/21 History Lisinopril [Prinivil] 10 mg PO DAILY 05/25/21 05/25/21 History Metoprolol Tartrate [Lopressor] 100 mg PO BID 05/25/21 05/25/21 History Nitroglycerin Sl Tabs [Nitrostat] 0.4 mg SL Q5M PRN 05/25/21 05/25/21 History Omeprazole 20 mg PO DAILY 05/25/21 05/25/21 History Sennosides [Senna] 8.6 mg PO BID PRN 05/25/21 05/25/21 History Tacrolimus [Protopic] 1 applic TOPICAL BID 05/25/21 05/25/21 History Vascepa 1gm 2 gm PO BID 05/25/21 05/25/21 History metFORMIN HCL [Glucophage] 1,000 mg PO BID@0900,1700 05/25/21 05/25/21 History Allergies Allergy/AdvReac Type Severity Reaction Status Date / Time No Known Allergies Allergy Verified 05/25/21 17:07 Physical Exam Vitals: Vital Signs Temp Pulse Pulse Resp BP BP Pulse Ox 05/26/21 14:00 100 16 05/26/21 12:00 98.8 F 100 16 145/78 94 L 05/26/21 10:26 116/64 05/26/21 09:18 91/52 05/26/21 08:00 78 18 05/26/21 07:43 97.7 F 78 18 98/57 98 05/26/21 04:00 98.4 F 93 16 88/53 97 05/26/21 00:00 98.6 F 97 15 92/51 96 05/25/21 21:00 97.9 F 118 H 16 95/53 96 05/25/21 19:55 100 F H 137 H 20 118/78 95 05/25/21 18:58 99.1 F 140 H 18 135/76 95 05/25/21 18:00 140 H 16 151/93 94 L 05/25/21 17:58 140 H 16 151/93 94 L 05/25/21 16:55 99.7 F H 144 H 18 154/84 94 L Intake and Output 05/25/21 05/26/21 05/26/21 22:59 06:59 14:59 Intake Total 20 240 Output Total 250 120 150 Balance -250 -100 90 Intake: IV 20 Invasive Line 2 20 Oral 240 Output: Urine 250 120 150 Uretheral (Collado) 150 Other: Voiding Method Indwelling Catheter Indwelling Catheter Weight 81.647 kg 97 kg Acute distress S1-S2 heard Lungs clear Edema Results - Lab Results Most recent lab results Calcium 7.8 mg/dL (8.4-10.2) L 05/26/21 03:36 05/26/21 03:36 05/26/21 03:36 Assessment and Plan Assessment: #1 acute kidney injury multifactorial. Hemodynamic and toxic ATN with hypotensive episodes and recent contrast studies. Baseline creatinine 0.7-0.9 MG per DL. #2 severe shock secondary to complicated UTI. #3 lactic acidosis #4 encephalopathy #5 complicated UTI Plan: #1 continue with IV fluids and antibiotics. Blood pressure seems to be better. Continue current management. #2 midodrine if systolic less than 100. #3 avoid nephrotoxic agents and hypotensive episodes. #4 anticipate improvement in renal function with good perfusion.
[2021-05-26 16:31] LABS: Glucose,Whole Blood 152 mg/dL (75-99)
[2021-05-26 21:04] LABS: Glucose,Whole Blood 142 mg/dL (75-99)
[2021-05-26] MEDS: FAMOTIDINE 20 MG TAB PO SCH (21:32)
[2021-05-26 23:58] LABS: Glucose,Whole Blood 153 mg/dL (75-99)
[2021-05-26] MEDS ORDERED: MIDODRINE 5 MG TAB PO PRN (23:58)
[2021-05-27] MEDS: INSULIN ASPART (NovoLOG) 100 UNIT/ML VIAL SQ SCH ×4 (06:22→23:55)
[2021-05-27] MEDS: INSULIN DETEMIR (LEVEMIR) 100 UNIT/ML SYR SQ SCH (06:25)
[2021-05-27] MEDS: LORazepam 1 MG TAB PO SCH ×3 (06:33→21:07)
[2021-05-27] MEDS: PANTOPRAZOLE 40 MG TABLET PO SCH (06:33)
[2021-05-27 06:50] LABS: Glucose,Whole Blood 68 mg/dL (75-99)
[2021-05-27 06:50] LABS: Glucose,Whole Blood 85 mg/dL (75-99)
--- NOTE | 2021-05-27 07:43 | P.CONS ---
History of Present Illness - Reason for Consult Consult date: 05/26/21 Bacteremia Requesting physician: Jose Armando Romeo - Chief Complaint Mental status changes x 1 day - History of Present Illness Patient is a 60-year-old female presenting to the ER last night for evaluation of her mental status changes patient is a resident of local care home apparently the patient did have good onset of mental status changes and the patient was noticed to be febrile with temperature of 102 F patient was moaning and not answering any question the patient was hypoxic and shaky on presentation to the hospital on arrival to the ER patient did have a temperature of 99.7 F O2 sat 94% on room air patient did have a normal white count elevation s ubsequently white count is up to 26.3 today BUN and creatinine was mildly elevated lactic acid was elevated at 3.1 liver exams were not significantly elevated but did have a positive UA with large leukocyte esterase and WBC many bacteria murillo PCR was negative chest x-ray with atelectasis at the lung bases CT angiogram of the chest bilateral lower lobe infiltrate and atelectasis no PE CT of the abdominal pelvis mild fullness of the right upper collecting system but no calculus patient was started on Zosyn subsequent blood cultures remain positive with gram-negative bacilli that has prompted this infectious disease consultation patient evaluation slightly more awake alert she knows she is in the hospital denies having any headache no chest pain shortness of breath or cough some vague abdominal pain no vomiting or diarrhea has been reported patient did have a Collado catheter however patient mention she did have a long- term catheter and is not sure when the catheter was changed last. 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 02 2l at night History of Any Multi-Drug Resistant Organisms: None Reported Past Surgical History: Adenoidectomy, Appendectomy, Back Surgery, Bladder Surgery, Orthopedic Surgery, Tonsillectomy, Tubal Ligation Additional Past Surgical History / Comment(s): 9 MA[employer] shunts- none at this time, 28 LP shunts, eye surgery, rt ovary and fallopian tube removed, Laser procedure for cervix CA Past Anesthesia/Blood Transfusion Reactions: No Reported Reaction Additional Past Anesthesia/Blood Transfusion Reaction / Comm: no hx blood transfusion Past Psychological History: Anxiety Smoking Status: Former smoker Past Alcohol Use History: None Reported Additional Past Alcohol Use History / Comment(s): started smoking at age 15, was a 2.5 ppd smoker but has cut down to 1/2 ppd and has gotten chantrix. States she quit as of . Past Drug Use History: None Reported - Past Family History Mother Family Medical History: No Reported History Father Family Medical History: Myocardial Infarction (CT) Additional Family Medical History / Comment(s): Father of a CT at the age of 60 yrs. Medications and Allergies Home Medications Medication Instructions Recorded Confirmed Type Furosemide [Lasix] 40 mg PO DAILY 12/13/19 05/25/21 History Ferrous Sulfate [Feosol] 325 mg PO DAILY 11/12/20 05/25/21 History Gabapentin 600 mg PO BID 11/12/20 05/25/21 History LORazepam [Ativan] 1 mg PO TID@0600,1400,2200 11/12/20 05/25/21 History Promethazine HCl 12.5 mg PO QID PRN 11/12/20 05/25/21 History hydrOXYzine HCL 10 mg PO QID@00,06,12,18 11/12/20 05/25/21 History oxyCODONE HCL [oxyCODONE HCL (IR)] 20 mg PO Q4H PRN 11/12/20 05/25/21 History DULoxetine HCL [Cymbalta] 60 mg PO DAILY 05/25/21 05/25/21 History Gabapentin 300 mg PO BID 05/25/21 05/25/21 History Glimepiride [Amaryl] 2 mg PO DAILY 05/25/21 05/25/21 History INSULIN LISPRO (HumaLOG) [humaLOG] See Protocol SQ ACHS@09,12,17,21 05/25/21 05/25/21 History Insulin Detemir [Levemir Flextouch] 16 units SQ DAILY 05/25/21 05/25/21 History Ketoconazole 2% Cream [Nizoral 2%] 1 applic TOPICAL TUSA@2100 05/25/21 05/25/21 History Lisinopril [Prinivil] 10 mg PO DAILY 05/25/21 05/25/21 History Metoprolol Tartrate [Lopressor] 100 mg PO BID 05/25/21 05/25/21 History Nitroglycerin Sl Tabs [Nitrostat] 0.4 mg SL Q5M PRN 05/25/21 05/25/21 History Omeprazole 20 mg PO DAILY 05/25/21 05/25/21 History Sennosides [Senna] 8.6 mg PO BID PRN 05/25/21 05/25/21 History Tacrolimus [Protopic] 1 applic TOPICAL BID 05/25/21 05/25/21 History Vascepa 1gm 2 gm PO BID 05/25/21 05/25/21 History metFORMIN HCL [Glucophage] 1,000 mg PO BID@0900,1700 05/25/21 05/25/21 History Allergies Allergy/AdvReac Type Severity Reaction Status Date / Time No Known Allergies Allergy Verified 05/25/21 17:07 Physical Exam Vitals: Vital Signs Temp Pulse Pulse Resp BP BP Pulse Ox 05/26/21 14:00 100 16 05/26/21 12:00 98.8 F 100 16 145/78 94 L 05/26/21 10:26 116/64 05/26/21 09:18 91/52 05/26/21 08:00 78 18 05/26/21 07:43 97.7 F 78 18 98/57 98 05/26/21 04:00 98.4 F 93 16 88/53 97 05/26/21 00:00 98.6 F 97 15 92/51 96 05/25/21 21:00 97.9 F 118 H 16 95/53 96 05/25/21 19:55 100 F H 137 H 20 118/78 95 05/25/21 18:58 99.1 F 140 H 18 135/76 95 05/25/21 18:00 140 H 16 151/93 94 L 05/25/21 17:58 140 H 16 151/93 94 L 05/25/21 16:55 99.7 F H 144 H 18 154/84 94 L Intake and Output 05/26/21 05/26/21 05/26/21 06:59 14:59 22:59 Intake Total 20 240 Output Total 120 150 Balance -100 90 Intake: IV 20 Invasive Line 2 20 Oral 240 Output: Urine 120 150 Other: Voiding Method Indwelling Catheter Indwelling Catheter Weight 97 kg GENERAL DESCRIPTION: Middle-aged female lying in bed, no distress. No tachypnea or accessory muscle of respiration use. HEENT: Shows Pallor , no scleral icterus. Oral mucous membrane is dry. No pharyngeal erythema or thrush NECK: Trachea central, no thyromegaly. LUNGS: Unlabored breathing. Clear to auscultation anteriorly. No wheeze or crackle. HEART: S1, S2, regular rate and rhythm. No loud murmur ABDOMEN: Soft, no tenderness , guarding or rigidity, no organomegaly EXTREMITIES: No edema of feet. SKIN: No rash, no masses palpable. NEUROLOGICAL: The patient is awake, alert, oriented x3, mood and affect normal. Results CBC & Chem 7: 05/26/21 03:36 05/26/21 03:36 Labs: Abnormal Lab Results - Last 24 Hours (Table) 05/25/21 05/25/21 05/25/21 Range/Units 17:22 17:22 17:22 WBC (3.8-10.6) k/uL RBC (3.80-5.40) m/uL Hgb (11.4-16.0) gm/dL Hct (34.0-46.0) % Neutrophils # (1.3-7.7) k/uL Neutrophils # (Manual) 8.60 H (1.3-7.7) k/uL Lymphocytes # (Manual) 0.76 L (1.0-4.8) k/uL Monocytes # (0-1.0) k/uL D-Dimer 2.75 H (<0.60) mg/L FEU Carbon Dioxide 21 L (22-30) mmol/L BUN 29 H (7-17) mg/dL Creatinine 1.16 H (0.52-1.04) mg/dL Glucose 179 H (74-99) mg/dL POC Glucose (mg/dL) (75-99) mg/dL Plasma Lactic Acid Ian (0.7-2.0) mmol/L Calcium (8.4-10.2) mg/dL AST 48 H (14-36) U/L Alkaline Phosphatase 168 H (38-126) U/L Creatine Kinase 201 H (30-135) U/L Urine Appearance (Clear) Urine Protein (Negative) Urine Blood (Negative) Urine Nitrite (Negative) Ur Leukocyte Esterase (Negative) Urine RBC (0-5) /hpf Urine WBC (0-5) /hpf Urine WBC Clumps (None) /hpf Urine Bacteria (None) /hpf Urine Mucus (None) /hpf Urine Opiates Screen (NotDetected) Ur Oxycodone Screen (NotDetected) U Benzodiazepines Scrn (NotDetected) 05/25/21 05/25/21 05/25/21 Range/Units 17:22 18:09 20:47 WBC (3.8-10.6) k/uL RBC (3.80-5.40) m/uL Hgb (11.4-16.0) gm/dL Hct (34.0-46.0) % Neutrophils # (1.3-7.7) k/uL Neutrophils # (Manual) (1.3-7.7) k/uL Lymphocytes # (Manual) (1.0-4.8) k/uL Monocytes # (0-1.0) k/uL D-Dimer (<0.60) mg/L FEU Carbon Dioxide (22-30) mmol/L BUN (7-17) mg/dL Creatinine (0.52-1.04) mg/dL Glucose (74-99) mg/dL POC Glucose (mg/dL) 146 H (75-99) mg/dL Plasma Lactic Acid Ian 4.2 H* (0.7-2.0) mmol/L Calcium (8.4-10.2) mg/dL AST (14-36) U/L Alkaline Phosphatase (38-126) U/L Creatine Kinase (30-135) U/L Urine Appearance Cloudy H (Clear) Urine Protein 2+ H (Negative) Urine Blood Moderate H (Negative) Urine Nitrite Positive H (Negative) Ur Leukocyte Esterase Large H (Negative) Urine RBC 16 H (0-5) /hpf Urine WBC 59 H (0-5) /hpf Urine WBC Clumps Many H (None) /hpf Urine Bacteria Occasional H (None) /hpf Urine Mucus Rare H (None) /hpf Urine Opiates Screen Detected H (NotDetected) Ur Oxycodone Screen Detected H (NotDetected) U Benzodiazepines Scrn Detected H (NotDetected) 05/25/21 05/26/21 05/26/21 Range/Units 21:06 00:51 03:36 WBC 26.3 H (3.8-10.6) k/uL RBC 3.70 L (3.80-5.40) m/uL Hgb 11.0 L (11.4-16.0) gm/dL Hct 33.4 L (34.0-46.0) % Neutrophils # 23.3 H (1.3-7.7) k/uL Neutrophils # (Manual) (1.3-7.7) k/uL Lymphocytes # (Manual) (1.0-4.8) k/uL Monocytes # 1.3 H (0-1.0) k/uL D-Dimer (<0.60) mg/L FEU Carbon Dioxide (22-30) mmol/L BUN (7-17) mg/dL Creatinine (0.52-1.04) mg/dL Glucose (74-99) mg/dL POC Glucose (mg/dL) (75-99) mg/dL Plasma Lactic Acid Ian 5.5 H* 3.8 H* (0.7-2.0) mmol/L Calcium (8.4-10.2) mg/dL AST (14-36) U/L Alkaline Phosphatase (38-126) U/L Creatine Kinase (30-135) U/L Urine Appearance (Clear) Urine Protein (Negative) Urine Blood (Negative) Urine Nitrite (Negative) Ur Leukocyte Esterase (Negative) Urine RBC (0-5) /hpf Urine WBC (0-5) /hpf Urine WBC Clumps (None) /hpf Urine Bacteria (None) /hpf Urine Mucus (None) /hpf Urine Opiates Screen (NotDetected) Ur Oxycodone Screen (NotDetected) U Benzodiazepines Scrn (NotDetected) 05/26/21 05/26/21 05/26/21 Range/Units 03:36 03:36 06:13 WBC (3.8-10.6) k/uL RBC (3.80-5.40) m/uL Hgb (11.4-16.0) gm/dL Hct (34.0-46.0) % Neutrophils # (1.3-7.7) k/uL Neutrophils # (Manual) (1.3-7.7) k/uL Lymphocytes # (Manual) (1.0-4.8) k/uL Monocytes # (0-1.0) k/uL D-Dimer (<0.60) mg/L FEU Carbon Dioxide (22-30) mmol/L BUN 33 H (7-17) mg/dL Creatinine 1.40 H (0.52-1.04) mg/dL Glucose 243 H (74-99) mg/dL POC Glucose (mg/dL) 216 H (75-99) mg/dL Plasma Lactic Acid Ian 3.1 H* (0.7-2.0) mmol/L Calcium 7.8 L (8.4-10.2) mg/dL AST (14-36) U/L Alkaline Phosphatase (38-126) U/L Creatine Kinase (30-135) U/L Urine Appearance (Clear) Urine Protein (Negative) Urine Blood (Negative) Urine Nitrite (Negative) Ur Leukocyte Esterase (Negative) Urine RBC (0-5) /hpf Urine WBC (0-5) /hpf Urine WBC Clumps (None) /hpf Urine Bacteria (None) /hpf Urine Mucus (None) /hpf Urine Opiates Screen (NotDetected) Ur Oxycodone Screen (NotDetected) U Benzodiazepines Scrn (NotDetected) 05/26/21 Range/Units 11:43 WBC (3.8-10.6) k/uL RBC (3.80-5.40) m/uL Hgb (11.4-16.0) gm/dL Hct (34.0-46.0) % Neutrophils # (1.3-7.7) k/uL Neutrophils # (Manual) (1.3-7.7) k/uL Lymphocytes # (Manual) (1.0-4.8) k/uL Monocytes # (0-1.0) k/uL D-Dimer (<0.60) mg/L FEU Carbon Dioxide (22-30) mmol/L BUN (7-17) mg/dL Creatinine (0.52-1.04) mg/dL Glucose (74-99) mg/dL POC Glucose (mg/dL) 104 H (75-99) mg/dL Plasma Lactic Acid Ian (0.7-2.0) mmol/L Calcium (8.4-10.2) mg/dL AST (14-36) U/L Alkaline Phosphatase (38-126) U/L Creatine Kinase (30-135) U/L Urine Appearance (Clear) Urine Protein (Negative) Urine Blood (Negative) Urine Nitrite (Negative) Ur Leukocyte Esterase (Negative) Urine RBC (0-5) /hpf Urine WBC (0-5) /hpf Urine WBC Clumps (None) /hpf Urine Bacteria (None) /hpf Urine Mucus (None) /hpf Urine Opiates Screen (NotDetected) Ur Oxycodone Screen (NotDetected) U Benzodiazepines Scrn (NotDetected) Microbiology - Last 24 Hours (Table) 05/25/21 17:22 Blood Culture Gram Stain - Preliminary Blood 05/25/21 18:09 Urine Culture - Preliminary Urine,Voided Assessment and Plan Assessment: 1-patient presented to hospital with sepsis this patient who did have a fever tachycardia elevated white count and lactic acid now with evidence of gram- negative bacteremia source likely renal with evidence of some fullness of the right renal collecting system concerning for right-sided pyelonephritis but there is evidence of any stone and the patient currently do not have any other obvious focus for this bacteremia and sepsis (1) Gram-negative bacteremia Current Visit: Yes Status: Acute Code(s): R78.81 - BACTEREMIA SNOMED Code(s): 165205437653 (2) Sepsis secondary to UTI Current Visit: Yes Status: Acute Code(s): A41.9 - SEPSIS, UNSPECIFIED ORGANISM; N39.0 - URINARY TRACT INFECTION, SITE NOT SPECIFIED SNOMED Code(s): 520368972 Plan: 1-patient to continue with Zosyn with concern for possible resistant gram- negative to responsible for this episode of sepsis and pyelonephritis 2-change Collado catheter if he has not been change since admission 3-gentle IV fluid We will follow on clinical condition and cultures to further adjust medication if needed Thank you for this consultation we will follow the patient along with you Time with Patient: Greater than 30
[2021-05-27 07:57] LABS: Basophils % (A) 0 %; Eosinophils # (A) 0.2 k/uL (0-0.7); Eosinophils % (A) 2 %; HGB 11.2 gm/dL (11.4-16.0); Hypochromasia Slight; Lymphocytes # (A) 1.1 k/uL (1.0-4.8); Lymphocytes % (A) 7 %; MCH 29.6 pg (25.0-35.0); MCV 89.8 fL (80.0-100.0); Mean Platelet Volume 8.8; Monocytes # (A) 0.7 k/uL (0-1.0); Monocytes % (A) 5 %; Neutrophils # (A) 12.3 k/uL (1.3-7.7); Neutrophils % (A) 83 %; Platelet Count 153 k/uL (150-450); RBC 3.78 m/uL (3.80-5.40); RDW 13.4 % (11.5-15.5); WBC 14.8 k/uL (3.8-10.6)
[2021-05-27 08:16] LABS: Calcium 8.1 mg/dL (8.4-10.2); Magnesium 1.5 mg/dL (1.6-2.3); Potassium 3.9 mmol/L (3.5-5.1)
[2021-05-27] MEDS: GABAPENTIN 300 MG CAP PO SCH ×2 (08:39→21:07)
[2021-05-27] MEDS: FAMOTIDINE 20 MG TAB PO SCH ×2 (08:41→21:06)
[2021-05-27] MEDS: DULoxetine HCL 60 MG CAPSULE.DR PO SCH (08:41)
[2021-05-27] MEDS: FERROUS SULFATE 325 MG TAB PO SCH (08:41)
[2021-05-27] MEDS: HEPARIN SODIUM,PORCINE/PF 5,000 UNIT/0.5 ML SYRINGE SQ SCH ×2 (08:42→21:07)
[2021-05-27] MEDS: PIPERACILLIN-TAZOBACTAM 3.375 GM in SODIUM CHLORIDE 0.9% 100 ML IVPB SCH ×3 (08:42→23:48)
--- NOTE | 2021-05-27 08:55 | P.PN ---
Subjective Patient is seen in follow-up for acute kidney injury. Renal function better today. Patient is somewhat confused. Nonoliguric. Vital signs are stable. General: The patient appeared well nourished and normally developed. HEENT: Head exam is unremarkable. Neck is without jugular venous distension. LUNGS: Breath sounds decreased. HEART: Rate and Rhythm are regular. ABDOMEN: Soft, no distention. EXTREMITITES: No edema. Objective - Vital Signs Vital signs: Vital Signs Temp 97.8 F 05/27/21 04:00 Pulse 95 05/27/21 04:00 Resp 16 05/27/21 04:00 BP 149/90 05/27/21 04:00 Pulse Ox 98 05/27/21 04:00 Intake & Output 05/26/21 05/27/21 05/27/21 18:59 06:59 18:59 Intake Total 480 10 240 Output Total 800 1100 Balance -320 -1090 240 Weight 96.5 kg Intake: IV 10 Invasive Line 1 10 Oral 480 240 Output: Urine 800 1100 Other: Voiding Method Indwelling Catheter Indwelling Catheter # Voids 0 - Labs CBC & Chem 7: 05/27/21 07:11 05/27/21 07:11 Labs: Abnormal Lab Results - Last 24 Hours (Table) 05/26/21 05/26/21 05/26/21 Range/Units 11:43 16:30 20:10 WBC (3.8-10.6) k/uL RBC (3.80-5.40) m/uL Hgb (11.4-16.0) gm/dL Neutrophils # (1.3-7.7) k/uL Chloride (98-107) mmol/L BUN (7-17) mg/dL Glucose (74-99) mg/dL POC Glucose (mg/dL) 104 H 152 H 142 H (75-99) mg/dL Calcium (8.4-10.2) mg/dL Magnesium (1.6-2.3) mg/dL 05/26/21 05/27/21 05/27/21 Range/Units 23:57 06:11 07:11 WBC 14.8 H (3.8-10.6) k/uL RBC 3.78 L (3.80-5.40) m/uL Hgb 11.2 L (11.4-16.0) gm/dL Neutrophils # 12.3 H (1.3-7.7) k/uL Chloride (98-107) mmol/L BUN (7-17) mg/dL Glucose (74-99) mg/dL POC Glucose (mg/dL) 153 H 68 L (75-99) mg/dL Calcium (8.4-10.2) mg/dL Magnesium (1.6-2.3) mg/dL 05/27/21 Range/Units 07:11 WBC (3.8-10.6) k/uL RBC (3.80-5.40) m/uL Hgb (11.4-16.0) gm/dL Neutrophils # (1.3-7.7) k/uL Chloride 110 H (98-107) mmol/L BUN 20 H (7-17) mg/dL Glucose 154 H (74-99) mg/dL POC Glucose (mg/dL) (75-99) mg/dL Calcium 8.1 L (8.4-10.2) mg/dL Magnesium 1.5 L (1.6-2.3) mg/dL Microbiology - Last 24 Hours (Table) 05/25/21 17:22 Blood Culture - Preliminary Blood No Growth after 24 hours 05/25/21 17:22 Blood Culture Gram Stain - Preliminary Blood Blood Culture - Preliminary Escherichia coli 05/25/21 18:09 Urine Culture - Preliminary Urine,Voided Assessment and Plan Plan: Assessment: 1. Acute kidney injury mostly prerenal secondary to hypotension. Renal function improving. Creatinine 0.91 today. 2. E. coli bacteremia on antibiotics. 3. Hypomagnesemia from poor intake. 4. Diabetes mellitus. Plan: Maintain IV fluids. Avoid nephrotoxins. Continue to monitor renal function and urine output. Replace magnesium.
[2021-05-27] MEDS ORDERED: Magnesium Replacement Protocol 1 EACH MISC MISCELLANE PRN (10:55)
[2021-05-27] MEDS: MAGNESIUM SULFATE-D5W PMX 1 GM in DEXTROSE/WATER 1 100ML.BAG IVPB SCH ×2 (11:48→13:05)
--- NOTE | 2021-05-27 11:51 | P.PN ---
Subjective This is a pleasant 60 years old female with past medical history of hepatitis C, diabetes mellitus, hypertension, chronic neck and back pain, pseudotumor cerebri, pulmonary hypertension, psoriasis bacterial meningitis at age 30. Anxiety Patient is fully awake and oriented, she states she lives at [facility] because she has too many medical problems and she cannot take care of herself. She has a daughter that she thinks she stopped taking care of her and she does not want us to contact her. Instead she wants us to contact her cousin came or tarry from prison Patient states this and her because she was going crazy as she describes, but in for the last 2-3 days. Ends her problem is in her bladder because she can smell bad odor for the last 2 days, also reports increased frequency of urination but no dysuria. No diarrhea actually she is complaining of from constipation. She likes to smoke but they don't that her in the prison. She denies alcohol or illicit drugs Showing or suicidal ideation. She confirms she has history of atrial fibrillation but she is not on anticoagulation. Also she has history She is also on 2 L of oxygen at night which she was not using. She has history of pulmonary fibrosis emergency medicine used to be Dr. Lam but not anymore She has mild abdominal pain in the right lower quadrant with no rebound tenderness or guarding, abdomen soft no History of kidney stones Patient states that last time she was able to walk was about one month ago with a walker, she had difficulty walking and especially over the last 2 weeks, she states that her main issue was low back pain radiating to the right leg with weakness of the right leg but she denies urine or bowel incontinence. Numbness or sensory loss. She called her neurosurgeon at her report to see if he can help her with her low back pain and they told her they don't take patients now. Blood pressure is on the low side 95/53 and currently is 88/53. Heart rate is 93, patient is afebrile currently but she had fever of 100 on admission, Her WBCs on admission was 9.5, this morning increased to 26.3. Hemoglobin 11.0. INR is 1.0. Creatinine 1.1 went up to 1.4. Lactic acid was high at 5.5 improved to 3.1 which is still elevated. AST is mildly elevated at 48, ALT is normal at 27. Ammonia level is normal at 19, TSH is normal 0.5. On is normal at 0.013. Urinalysis is suspicious of infection Urinary tract screen is positive for opioids, oxycodone, and benzodiazepines. Coronavirus not detected. EKG showing sinus tachycardia at [address] T changes, QTC is 510. Chest x-ray: There is increased atelectasis of the lung base compared to old exam CT of the brain: No acute process. Encephalomalacia with the right parietal lobe. Previous surgery. 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 Fatty infiltration of the liver CT of the abdomen and pelvis done with contrast showing decreasing renal excretion consistent with some degree of renal failure that is more on the right side and the left side. There is some mild fullness of the right upper collecting system compared to old exam but no calculus seen.. This could be related to recently passed stone or non-opaque stone or pyelonephritis. TSH 0.5. Also Collado catheter was placed in the emergency room, currently this morning she has 125 mL in her urine bag 05/27/2021 Patient is fully awake and oriented, no specific complaints, still complaining of from low back pain 9/10 in severity by patient. she still have Collado catheter was good urine output urine output. Vitals are stable Her leukocytosis is improving down to 14 gait. The blood culture is positive for E. coli and currently patient is covered with Zosyn. Her creatinine back to normal at 0.9, normal saline and maintained at 75 mL/h The tic team consult is appreciated, MRI of the spine is ordered. Review of Systems CONSTITUTIONAL: No fever, no malaise, no fatigue. HEENT: No recent visual problems or hearing problems. Denied any sore throat. CARDIOVASCULAR: No orthopnea, PND, no palpitations, no syncope. PULMONARY: No shortness of breath, no cough, no hemoptysis. GASTROINTESTINAL: No diarrhea, no nausea, no vomiting,. Normoactive bowel sounds. NEUROLOGICAL: No headaches, no weakness, no numbness. HEMATOLOGICAL: Denies any bleeding or petechiae. Active Medications Generic Name Dose Route Start Last Admin Trade Name Freq PRN Reason Stop Dose Admin Acetaminophen 650 mg 05/25/21 19:53 05/26/21 15:47 Acetaminophen Tab 325 Mg Tab PO 650 mg Q6HR PRN Administration Mild Pain or Fever > 100.5 Clotrimazole 1 applic 05/25/21 21:30 05/25/21 22:08 Clotrimazole 1% Cream 30 Gm Tube TOPICAL 1 applic TUSA@2100 TREE Administration Duloxetine HCl 60 mg 05/26/21 09:00 05/27/21 08:41 Duloxetine Hcl 60 Mg Capsule.Dr PO 60 mg DAILY TREE Administration Famotidine 10 mg 05/26/21 21:00 05/27/21 08:41 Famotidine 20 Mg Tab PO 10 mg Q12HR TREE Administration Ferrous Sulfate 325 mg 05/26/21 09:00 05/27/21 08:41 Ferrous Sulfate 325 Mg Tab PO 325 mg DAILY TREE Administration Gabapentin 900 mg 05/25/21 21:15 05/27/21 08:39 Gabapentin 300 Mg Cap PO 900 mg BID TREE Administration Heparin Sodium (Porcine) 5,000 unit 05/26/21 09:00 05/27/21 08:42 Heparin Sodium,Porcine/Pf 5,000 Unit/0.5 Ml Syringe SQ 5,000 unit Q12HR TREE Administration Hydromorphone HCl 1 mg 05/25/21 19:53 Hydromorphone 1 Mg/Ml 1 Ml Syringe IVP Q3HR PRN Severe Pain Piperacillin Sod/Tazobactam 100 mls @ 25 mls/hr 05/26/21 00:00 05/27/21 08:42 Sod 3.375 gm/ Sodium Chloride IVPB 25 mls/hr Q8HR TREE Administration Sodium Chloride 1,000 mls @ 75 mls/hr 05/26/21 09:30 05/26/21 19:57 Saline 0.9% IV Not Given .[id number] [facility] Insulin Aspart 0 unit 05/26/21 00:00 05/27/21 06:22 Insulin Aspart (Novolog) 100 Unit/Ml Vial SQ Not Given Q6HR [facility] Protocol Insulin Detemir 16 unit 05/26/21 07:00 05/27/21 06:25 Insulin Detemir (Levemir) 100 Unit/Ml Syr SQ Not Given DAILY@0700 [facility] Lorazepam 1 mg 05/25/21 22:00 05/27/21 06:33 Lorazepam 1 Mg Tab PO 1 mg TID@0600,1400,2200 [facility] Administration Midodrine 5 mg 05/26/21 23:58 Midodrine 5 Mg Tab PO TID PRN Blood Pressure - Low Miscellaneous Information 1 each 05/27/21 10:55 Magnesium Replacement Protocol 1 Each Misc MISCELLANE DAILY PRN Per Protocol Protocol Naloxone HCl 0.2 mg 05/25/21 19:53 Naloxone 0.4 Mg/Ml 1 Ml Vial IV Q2M PRN Opioid Reversal Oxycodone HCl 20 mg 05/25/21 20:43 05/27/21 08:40 Oxycodone Hcl 5 Mg Tab PO 20 mg Q4H PRN Administration Pain Pantoprazole Sodium 40 mg 05/26/21 07:30 05/27/21 06:33 Pantoprazole 40 Mg Tablet PO 40 mg [id number] TREE Administration Promethazine HCl 12.5 mg 05/25/21 20:43 Promethazine 25 Mg Tab PO QID PRN Nausea Senna 8.6 mg 05/25/21 20:43 Sennosides 8.6 Mg Tab PO BID PRN Constipation Objective - Vital Signs Vital signs: Vital Signs Temp 98.6 F 05/27/21 08:00 Pulse 105 H 05/27/21 08:00 Resp 18 05/27/21 08:00 BP 177/84 05/27/21 08:00 Pulse Ox 96 05/27/21 08:00 Intake & Output 05/26/21 05/27/21 05/27/21 18:59 06:59 18:59 Intake Total 480 10 240 Output Total 800 1100 Balance -320 -1090 240 Weight 96.5 kg Intake: IV 10 Invasive Line 1 10 Oral 480 240 Output: Urine 800 1100 Other: Voiding Method Indwelling Catheter Indwelling Catheter Indwelling Catheter # Voids 0 - Labs CBC & Chem 7: 05/27/21 07:11 05/27/21 07:11 Labs: Abnormal Lab Results - Last 24 Hours (Table) 05/26/21 05/26/21 05/26/21 Range/Units 16:30 20:10 23:57 WBC (3.8-10.6) k/uL RBC (3.80-5.40) m/uL Hgb (11.4-16.0) gm/dL Neutrophils # (1.3-7.7) k/uL Chloride (98-107) mmol/L BUN (7-17) mg/dL Glucose (74-99) mg/dL POC Glucose (mg/dL) 152 H 142 H 153 H (75-99) mg/dL Calcium (8.4-10.2) mg/dL Magnesium (1.6-2.3) mg/dL 05/27/21 05/27/21 05/27/21 Range/Units 06:11 07:11 07:11 WBC 14.8 H (3.8-10.6) k/uL RBC 3.78 L (3.80-5.40) m/uL Hgb 11.2 L (11.4-16.0) gm/dL Neutrophils # 12.3 H (1.3-7.7) k/uL Chloride 110 H (98-107) mmol/L BUN 20 H (7-17) mg/dL Glucose 154 H (74-99) mg/dL POC Glucose (mg/dL) 68 L (75-99) mg/dL Calcium 8.1 L (8.4-10.2) mg/dL Magnesium 1.5 L (1.6-2.3) mg/dL Microbiology - Last 24 Hours (Table) 05/25/21 17:22 Blood Culture - Final Blood 05/25/21 17:22 Blood Culture Gram Stain - Preliminary Blood Blood Culture - Preliminary Escherichia coli 05/25/21 18:09 Urine Culture - Preliminary Urine,Voided Assessment and Plan Assessment: Acute urinary tract infection E coli bacteremia Severe sepsis secondary to above Hypotension Elevated lactic acid, slightly improving Acute kidney injury Acute and chronic low back pain with radiating to the right leg with difficulty walking and right leg weakness Diabetes mellitus Hypertension Chronic neck and back pain History of pseudotumor cerebri History of bacterial meningitis at age 30 History of hepatitis C History of pulmonary hypertension History of psoriasis Anxiety, not an active issue. Plan: this is a pleasant 60 years old female who presents with severe sepsis, UTI. GUSTAVO normal saline at 75 mL/h Continue with IV Zosyn. Follow-up with ID team recommendations Follow-up MRI of the spine Follow-up blood culture final results follow-up urine culture Labs and medication were reviewed.. Continue same treatment. Continue with sym ptomatic treatment. Resume home medication. Monitor lytes and vitals. DVT and GI prophylaxis. Further recommendations depends on the clinical course of the patient DVT prophylaxis: Subcutaneous heparin GI Prophylaxis: Pepcid Prognosis is guarded
[2021-05-27 12:18] LABS: Glucose,Whole Blood 139 mg/dL (75-99)
[2021-05-27 17:01] LABS: Glucose,Whole Blood 162 mg/dL (75-99)
--- NOTE | 2021-05-27 17:30 | P.CNOR ---
History of Present Illness - [facility] Consult date: 05/27/21 Requesting physician: Kevin E Vinay Consult reason: other (back pain, LE weakness) History of present illness: 52-year-old female presenting the hospital 05/25/2021 in the ER with altered mental status. Patient normally lives at [facility]. This began she has many medical conditions and is unable to take care of herself. Patient does have a history of hepatitis C diabetes mellitus, hypertension, chronic neck and back pain, pseudotumor cerebri. There consults that your lower extremity weakness and back pain. Patient says she has had back pain over the past 28 years. She does not remember any specific incident that led up to her back pain. She says this weakness in her legs began about 2 weeks ago. Patient does have pain in both her lower extremities and she says it's mostly at the back of her upper legs. Patient also says she has some weakness in her arms well. She says her back pain is throughout her spine. Patient is not able to describe the pain. Patient denies any recent trauma to her spine. Patient denies any previous orthopedic surgical history. Patient denies chest pain, fever, [place] breath, nausea, loss of bowel/bladder control, saddle anesthesia. 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 02 2l at night History of Any Multi-Drug Resistant Organisms: None Reported Past Surgical History: Adenoidectomy, Appendectomy, Back Surgery, Bladder Surg edel, Orthopedic Surgery, Tonsillectomy, Tubal Ligation Additional Past Surgical History / Comment(s): [employer] shunts- none at this time, 30 LP shunts, eye surgery, rt ovary and fallopian tube removed, Laser procedure for cervix CA Past Anesthesia/Blood Transfusion Reactions: No Reported Reaction Additional Past Anesthesia/Blood Transfusion Reaction / Comm: no hx blood transfusion Past Psychological History: Anxiety Smoking Status: Former smoker Past Alcohol Use History: None Reported Additional Past Alcohol Use History / Comment(s): started smoking at age 15, was a 2.5 ppd smoker but has cut down to 1/2 ppd and has gotten chantrix. States she quit as of . Past Drug Use History: None Reported - Past Family History Mother Family Medical History: No Reported History Father Family Medical History: Myocardial Infarction ([place]) Additional Family Medical History / Comment(s): Father of a [place] at the age of 60 yrs. Medications and Allergies Home Medications Medication Instructions Recorded Confirmed Type Furosemide [Lasix] 40 mg PO DAILY 12/13/19 05/25/21 History Ferrous Sulfate [Feosol] 325 mg PO DAILY 11/12/20 05/25/21 History Gabapentin 600 mg PO BID 11/12/20 05/25/21 History LORazepam [Ativan] 1 mg PO TID@0600,1400,2200 11/12/20 05/25/21 History Promethazine HCl 12.5 mg PO QID PRN 11/12/20 05/25/21 History hydrOXYzine HCL 10 mg PO QID@00,06,12,18 11/12/20 05/25/21 History oxyCODONE HCL [oxyCODONE HCL (IR)] 20 mg PO Q4H PRN 11/12/20 05/25/21 History DULoxetine HCL [Cymbalta] 60 mg PO DAILY 05/25/21 05/25/21 History Gabapentin 300 mg PO BID 05/25/21 05/25/21 History Glimepiride [Amaryl] 2 mg PO DAILY 05/25/21 05/25/21 History INSULIN LISPRO (HumaLOG) [humaLOG] See Protocol SQ ACHS@09,12,17,05/25/21 05/25/21 History Insulin Detemir [Levemir Flextouch] 16 units SQ DAILY 05/25/21 05/25/21 History Ketoconazole 2% Cream [Nizoral 2%] 1 applic TOPICAL TUSA@2100 05/25/21 05/25/21 History Lisinopril [Prinivil] 10 mg PO DAILY 05/25/21 05/25/21 History Metoprolol Tartrate [Lopressor] 100 mg PO BID 05/25/21 05/25/21 History Nitroglycerin Sl Tabs [Nitrostat] 0.4 mg SL Q5M PRN 05/25/21 05/25/21 History Omeprazole 20 mg PO DAILY 05/25/21 05/25/21 History Sennosides [Senna] 8.6 mg PO BID PRN 05/25/21 05/25/21 History Tacrolimus [Protopic] 1 applic TOPICAL BID 05/25/21 05/25/21 History Vascepa 1gm 2 gm PO BID 05/25/21 05/25/21 History metFORMIN HCL [Glucophage] 1,000 mg PO BID@0900,1700 05/25/21 05/25/21 History Allergies Allergy/AdvReac Type Severity Reaction Status Date / Time No Known Allergies Allergy Verified 05/25/21 17:07 Physical Examination Inspection: Negative for any open fractures, ulcers, erythema, ecchymosis. Palpation: Bilateral upper extremities nontender to palpation throughout exam. Bilateral lower extremities nontender to palpation throughout exam. Spine - midline cervical, thoracic, lumbar TTP. NTTP in paravertebral area. Cervical and upper thoracic area are edematous to palpation. Sensation: Sensation is present throughout bilateral upper and lower extremities symmetric, and intact, equal. ROM: Upper extremities: Patient able lift arms FROM; bilateral lower extremities - patient not able to elevate legs off bed. Patient unable flex knees due to weakness. I am able to elevate legs off of bed, but at about 40 elevation patient feels pain in posterior upper legs bilaterally. Motor: Bilateral upper extremities: Weak 2/5 in resisted elbow flexion/extension and resisted shoulder elevation, internal rotation, external rotation, abduction. Digital Media Director strength - 3/5 bilaterally. Bilateral lower extremities - Unable perform exam due to patient not being able lift legs at all Neurovascular: Refill below 3 seconds bilaterally in upper extremities. Dorsalis pedis pulse present, intact, 2+. Radial pulses present, intact 2+. Special tests: Negative Homans bilaterally; Negative Inocencio's bilaterally; negative clonus upon dorsiflexing feet bilaterally Results - Labs Labs: Abnormal Lab Results - Last 24 Hours (Table) 05/26/21 05/26/21 05/27/21 Range/Units 20:10 23:57 06:11 WBC (3.8-10.6) k/uL RBC (3.80-5.40) m/uL Hgb (11.4-16.0) gm/dL Neutrophils # (1.3-7.7) k/uL Chloride (98-107) mmol/L BUN (7-17) mg/dL Glucose (74-99) mg/dL POC Glucose (mg/dL) 142 H 153 H 68 L (75-99) mg/dL Calcium (8.4-10.2) mg/dL Magnesium (1.6-2.3) mg/dL 05/27/21 05/27/21 05/27/21 Range/Units 07:11 07:11 12:04 WBC 14.8 H (3.8-10.6) k/uL RBC 3.78 L (3.80-5.40) m/uL Hgb 11.2 L (11.4-16.0) gm/dL Neutrophils # 12.3 H (1.3-7.7) k/uL Chloride 110 H (98-107) mmol/L BUN 20 H (7-17) mg/dL Glucose 154 H (74-99) mg/dL POC Glucose (mg/dL) 139 H (75-99) mg/dL Calcium 8.1 L (8.4-10.2) mg/dL Magnesium 1.5 L (1.6-2.3) mg/dL Microbiology - Last 24 Hours (Table) 05/25/21 18:09 Urine Culture - Preliminary Urine,Voided Gram Neg Bacilli 05/25/21 17:22 Blood Culture - Final Blood 05/25/21 17:22 Blood Culture Gram Stain - Preliminary Blood Blood Culture - Preliminary Escherichia coli H & H 05/25/21 05/26/21 05/27/21 Range/Units 17:22 03:36 07:11 Hgb 13.8 11.0 L 11.2 L (11.4-16.0) gm/dL Hct 41.2 33.4 L 34.0 (34.0-46.0) % Coagulation 05/25/21 Range/Units 17:22 INR 1.0 (<1.2) Result Diagrams: 05/27/21 07:11 05/27/21 07:11 Assessment and Plan Assessment: 1. Back pain 2. Bilateral lower extremity weakness 3. Multiple medical comorbidities Plan: 1. Back pain; bilateral lower extremity weakness- I did discuss with the patient the findings of physical exam. Discussed possibility imaging with MRI to check for spinal cord compression which could be leading to the weakness in the lower an upper extremities. At this time we'll order MRI with and without contrast of the cervical, thoracic, lumbar spine. We will continue to follow while in hospital 2. Multiple medical comorbidities 3. Appreciate medical and cardiology management 4. Pain management - stable at this time 5. DVT ppx/GI ppx - Heparin and Protonix 6. Appreciate consult 7. PT/ OT - WBAT w walker Time with Patient: Less than 30
--- NOTE | 2021-05-27 20:29 | MR ---
EXAMINATION TYPE: MR cervical spine wo/w con DATE OF EXAM: 05/27/2021 COMPARISON: 10/31/2019 HISTORY: Prior on synapse, neck pain , sepsis CONTRAST: Standard multiplanar, multisequence MRI departmental protocol utilizing 9.5 mL intravenous Gadavist g adolinium contrast. Cervical vertebra have normal alignment. There is disc space narrowing and mild posterior disc bulgin g at C5-6 and C6-7. There is developmentally adequate spinal canal. The canal measures 7.5 mm at C5-6 . Canal measures 9.5 mm at C3-6-7. Cervical spinal cord shows normal signal pattern. There is no efren a. The brainstem appears normal. There is no compression fracture. There is rounded area of increased signal in the inferior T1 vertebral body that could be some fatty marrow replacement. The prevertebr al soft tissues are intact. The contrast images show no pathologic enhancement. There is no cervical paraspinal mass. IMPRESSION: Small posterior concentric disc bulging and herniation at C5-6 and C6-7. C5-6 disc herniation slightl y increased compared to old exam. Spinal canal measures 8 mm on previous exam and now measures 7.5 mm . There is overall no significant spinal stenosis.
[2021-05-27] MEDS: SODIUM CHLORIDE 0.9% 1,000 ML IV SCH ×2 (21:06→23:29)
[2021-05-27 23:56] LABS: Glucose,Whole Blood 127 mg/dL (75-99)
[2021-05-28] MEDS: HYDROmorphone 1 MG/ML 1 ML SYRINGE IVP PRN ×2 (00:38→05:53)
[2021-05-28 05:47] LABS: Glucose,Whole Blood 98 mg/dL (75-99)
[2021-05-28] MEDS: INSULIN ASPART (NovoLOG) 100 UNIT/ML VIAL SQ SCH ×3 (05:57→18:23)
[2021-05-28] MEDS: LORazepam 1 MG TAB PO SCH ×3 (06:15→21:25)
[2021-05-28] MEDS: PANTOPRAZOLE 40 MG TABLET PO SCH (06:16)
[2021-05-28] MEDS: INSULIN DETEMIR (LEVEMIR) 100 UNIT/ML SYR SQ SCH (07:34)
[2021-05-28 08:25] LABS: African American GFR (CKD) >90 (>60 ml/min/1.73 sqM); Anion Gap 6 mmol/L; Blood Urea Nitrogen 10 mg/dL (7-17); Calcium 8.9 mg/dL (8.4-10.2); Carbon Dioxide 25 mmol/L (22-30); Chloride 110 mmol/L (98-107); Glucose 115 mg/dL (74-99); Magnesium 1.9 mg/dL (1.6-2.3); Non-African American GFR(CKD) 82 (>60 ml/min/1.73 sqM); Potassium 4.2 mmol/L (3.5-5.1); Sodium 141 mmol/L (137-145)
--- NOTE | 2021-05-28 08:30 | P.PN ---
Subjective Progress Note Date: 05/28/21 Principal diagnosis: 1. Back pain 2. Bilateral lower extremity weakness 3. Multiple medical comorbidities Patient seen at bedside this morning laying semirecumbent in bed. Patient says she is still very weak in arms and legs and not much has changed since yesterday. Patient denies chest pain, fever, SOB, N/V, changes in vision, numbness/tingling. Objective - Vital Signs Vital signs: Vital Signs Temp 98.8 F 05/28/21 03:55 Pulse 100 05/28/21 03:55 Resp 14 05/28/21 06:12 BP 175/110 05/28/21 06:12 Pulse Ox 97 05/28/21 03:55 Intake & Output 05/27/21 05/28/21 05/28/21 18:59 06:59 18:59 Intake Total 1200 Output Total 500 Balance 700 Weight 102.5 kg Intake: Oral 1200 Output: Urine 500 Other: Voiding Method Indwelling Catheter Diaper # Voids 1 # Bowel Movements 1 - Exam Inspection: Negative for any open fractures, ulcers, erythema, ecchymosis. Palpation: Bilateral upper extremities nontender to palpation throughout exam. Bilateral lower extremities nontender to palpation throughout exam. Spine - midline cervical, thoracic, lumbar TTP. NTTP in paravertebral area. Cervical and upper thoracic area are edematous to palpation. Sensation: Sensation is present throughout bilateral upper and lower extremities symmetric, and intact, equal. ROM: Upper extremities: Patient able lift arms FROM; bilateral lower extremities - patient not able to elevate legs off bed. Patient unable flex knees due to weakness. I am able to elevate legs off of bed, but at about 40 elevation patient feels pain in posterior upper legs bilaterally. Motor: Bilateral upper extremities: Weak 2/5 in resisted elbow flexion/extension and resisted shoulder elevation, internal rotation, external rotation, abduction. Machine Feeder Raw Stock strength - 3/5 bilaterally. Bilateral lower extremities - Unable perform exam due to patient not being able lift legs at all Neurovascular: Refill below 3 seconds bilaterally in upper extremities. Dorsalis pedis pulse present, intact, 2+. Radial pulses present, intact 2+. Special tests: Negative Homans bilaterally; Positive Hoffmans left hand. Negative Hoffmans right hand; negative clonus upon dorsiflexing feet bilaterally - Labs CBC & Chem 7: 05/27/21 07:11 05/28/21 07:23 Labs: Abnormal Lab Results - Last 24 Hours (Table) 05/27/21 05/27/21 05/27/21 Range/Units 12:04 16:43 23:54 POC Glucose (mg/dL) 139 H 162 H 127 H (75-99) mg/dL Microbiology - Last 24 Hours (Table) 05/25/21 18:09 Urine Culture - Final Urine,Voided Escherichia coli 05/25/21 17:22 Blood Culture - Final Blood Assessment and Plan Assessment: 1. Back pain 2. Bilateral lower extremity weakness 3. Multiple medical comorbidities Plan: 1. Back pain; bilateral lower extremity weakness- MRI cervical spine has been completed and did discuss findings with patient. No urgent surgical intervention needed at this time based on cervical spine MRI. We will wait for thoracic and lumbar spine MRI to be completed. We will continue to follow while in hospital 2. Multiple medical comorbidities 3. Appreciate medical and cardiology management 4. Pain management - stable at this time 5. DVT ppx/GI ppx - Heparin and Protonix 6. Appreciate consult 7. PT/ OT - WBAT w walker Time with Patient: Less than 30
--- NOTE | 2021-05-28 08:37 | P.PN ---
Subjective Patient is seen in follow-up for acute kidney injury. Renal function at baseline. Patient is somewhat confused. Nonoliguric. Off IV fluids. Collado catheter removed. Vital signs are stable. General: The patient appeared well nourished and normally developed. HEENT: Head exam is unremarkable. Neck is without jugular venous distension. LUNGS: Breath sounds decreased. HEART: Rate and Rhythm are regular. ABDOMEN: Soft, no distention. EXTREMITITES: Trace edema. Objective - Vital Signs Vital signs: Vital Signs Temp 98.8 F 05/28/21 03:55 Pulse 100 05/28/21 03:55 Resp 14 05/28/21 06:12 BP 175/110 05/28/21 06:12 Pulse Ox 97 05/28/21 03:55 Intake & Output 05/27/21 05/28/21 05/28/21 18:59 06:59 18:59 Intake Total 1200 Output Total 500 Balance 700 Weight 102.5 kg Intake: Oral 1200 Output: Urine 500 Other: Voiding Method Indwelling Catheter Diaper # Voids 1 # Bowel Movements 1 - Labs CBC & Chem 7: 05/27/21 07:11 05/28/21 07:23 Labs: Abnormal Lab Results - Last 24 Hours (Table) 05/27/21 05/27/21 05/27/21 Range/Units 12:04 16:43 23:54 Chloride (98-107) mmol/L Glucose (74-99) mg/dL POC Glucose (mg/dL) 139 H 162 H 127 H (75-99) mg/dL 05/28/21 Range/Units 07:23 Chloride 110 H (98-107) mmol/L Glucose 115 H (74-99) mg/dL POC Glucose (mg/dL) (75-99) mg/dL Microbiology - Last 24 Hours (Table) 05/25/21 18:09 Urine Culture - Final Urine,Voided Escherichia coli 05/25/21 17:22 Blood Culture - Final Blood Assessment and Plan Plan: Assessment: 1. Acute kidney injury mostly prerenal secondary to hypotension. Renal function back to baseline. 2. E. coli bacteremia on antibiotics. 3. Hypomagnesemia from poor intake. Replace. Better. 4. Diabetes mellitus. Plan: Off IV fluids. Encouraged oral intake. Avoid nephrotoxins. I will sign off. Please call with any questions or concerns.
[2021-05-28] MEDS: FAMOTIDINE 20 MG TAB PO SCH ×2 (08:45→21:25)
[2021-05-28] MEDS: HEPARIN SODIUM,PORCINE/PF 5,000 UNIT/0.5 ML SYRINGE SQ SCH ×2 (08:45→21:25)
[2021-05-28] MEDS: FUROSEMIDE 40 MG TAB PO SCH (08:45)
[2021-05-28] MEDS: DULoxetine HCL 60 MG CAPSULE.DR PO SCH (08:45)
[2021-05-28] MEDS: FERROUS SULFATE 325 MG TAB PO SCH (08:45)
[2021-05-28] MEDS: GABAPENTIN 300 MG CAP PO SCH ×2 (08:45→21:25)
[2021-05-28] MEDS: PIPERACILLIN-TAZOBACTAM 3.375 GM in SODIUM CHLORIDE 0.9% 100 ML IVPB SCH (08:46)
--- NOTE | 2021-05-28 08:49 | PN ---
PROGRESS NOTE DATE OF SERVICE: 05/27/2021 REASON FOR FOLLOWUP: E coli bacteremia secondary to right-sided pyelonephritis. INTERVAL HISTORY: The patient is afebrile. The patient is breathing comfortably. Denies any chest pain, cough. No nausea, vomiting. No abdominal pain, no diarrhea. PHYSICAL EXAMINATION: Blood pressure 182/91 with a pulse of 101, temperature 97.9. She is 93% on 2 L nasal cannula. General description is a middle-aged female lying in no distress. Respiratory system: Unlabored breathing clear to auscultation anteriorly. Heart S1, S2. Regular rate and rhythm. Abdomen soft, no tenderness. LABS: Hemoglobin is 11.1, white count 14.9, BUN of 20, creatinine 0.91. DIAGNOSTIC IMPRESSION AND PLAN: Patient with an E coli bacteremia, source is right-sided pyelonephritis. The patient is covered with Zosyn. White count is trending down and adjust antibiotic further on the basis of the culture report. Continue supportive care. MMODL / IJN: [id number] /
[2021-05-28] MEDS ORDERED: GLIMEPIRIDE 2 MG TAB PO SCH (09:00)
[2021-05-28] MEDS ORDERED: lisinopriL 10 MG TAB PO SCH (11:00)
--- NOTE | 2021-05-28 11:14 | P.PN ---
Subjective This is a pleasant 60 years old female with past medical history of hepatitis C, diabetes mellitus, hypertension, chronic neck and back pain, pseudotumor cerebri, pulmonary hypertension, psoriasis bacterial meningitis at age 30. Anxiety Patient is fully awake and oriented, she states she lives at [facility] because she has too many medical problems and she cannot take care of herself. She has a daughter that she thinks she stopped taking care of her and she does not want us to contact her. Instead she wants us to contact her cousin came or tar[facility] from [facility] Patient states this and her because she was going crazy as she describes, but in for the last 2-3 days. Ends her problem is in her bladder because she can smell bad odor for the last 2 days, also reports increased frequency of urination but no dysuria. No diarrhea actually she is complaining of from constipation. She likes to smoke but they don't that her in the [facility]. She denies alcohol or illicit drugs Showing or suicidal ideation. She confirms she has history of atrial fibrillation but she is not on anticoagulation. Also she has history She is also on 2 L of oxygen at night which she was not using. 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 Numbness or sensory loss. She called her neurosurgeon at her report to see if he can help her with her low back pain and they told her they don't take patients now. Blood pressure is on the low side 95/53 and currently is 88/53. Heart rate is 93, patient is afebrile currently but she had fever of 100 on admission, Her WBCs on admission was 9.5, this morning increased to 26.3. Hemoglobin 11.0. INR is 1.0. Creatinine 1.1 went up to 1.4. Lactic acid was high at 5.5 improved to 3.1 which is still elevated. AST is mildly elevated at 48, ALT is normal at 27. Ammonia level is normal at 19, TSH is normal 0.5. On is normal at 0.013. Urinalysis is suspicious of infection Urinary tract screen is positive for opioids, oxycodone, and benzodiazepines. Coronavirus not detected. EKG showing sinus tachycardia at [address] T changes, QTC is 510. Chest x-ray: There is increased atelectasis of the lung base compared to old exam CT of the brain: No acute process. Encephalomalacia with the right parietal lobe. Previous surgery. 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 Fatty infiltration of the liver CT of the abdomen and pelvis done with contrast showing decreasing renal excretion consistent with some degree of renal failure that is more on the right side and the left side. There is some mild fullness of the right upper collecting system compared to old exam but no calculus seen.. This could be related to recently passed stone or non-opaque stone or pyelonephritis. TSH 0.5. Also Collado catheter was placed in the emergency room, currently this morning she has 125 mL in her urine bag 05/27/2021 Patient is fully awake and oriented, no specific complaints, still complaining of from low back pain 9/10 in severity by patient. she still have Collado catheter was good urine output urine output. Vitals are stable Her leukocytosis is improving down to 14 gait. The blood culture is positive for E. coli and currently patient is covered with Zosyn. Her creatinine back to normal at 0.9, normal saline and maintained at 75 mL/h The tic team consult is appreciated, MRI of the spine is ordered. 05/28/2021 Patient awake and alert, she is complaining of from milder low back pain today as pain coming down to 2/10. Her both legs has been weak for the last 2-3 months and orthopedic team are planning for MRI of the spine, right of the cervical spine was obtained and MRI of the thoracic and lumbar spine is still pending. Patient blood pressure was on the high side today 180/104, heart rate 96. Patient when necessary we did drain was stopped and resumed her metoprolol 100 mg twice a day and lisinopril 10 mg daily with close monitoring of blood pressure Her creatinine back to normal today and nephrology team signed off Blood culture and urine culture growing E. coli, both sensitive to ceftriaxone and Zosyn. Infectious disease team on the case IV fluids were stopped and patient currently continued on Zosyn. Glucose is controlled Objective - Vital Signs Vital signs: Vital Signs Temp 97.8 F 05/28/21 08:00 Pulse 96 05/28/21 08:00 Resp 18 05/28/21 08:00 BP 180/104 05/28/21 08:00 Pulse Ox 97 05/28/21 08:00 Intake & Output 05/27/21 05/28/21 05/28/21 18:59 06:59 18:59 Intake Total 1200 180 Output Total 500 Balance 700 180 Weight 102.5 kg Intake: Oral 1200 180 Output: Urine 500 Other: Voiding Method Indwelling Catheter Diaper # Voids 1 # Bowel Movements 1 - Exam -GENERAL: The patient is fully awake and oriented to time, place and person, she is appropriate and follow commands, not in any acute distress. Obese HEENT: Pupils are round and equally reacting to light. EOMI. No scleral icterus. No conjunctival pallor. Normocephalic, atraumatic. No pharyngeal erythema. No thyromegaly. CARDIOVASCULAR: S1 and S2 present. No murmurs, rubs, or gallops. PULMONARY: Chest is clear to auscultation, no wheezing or crackles. ABDOMEN: Soft, no tenderness, nondistended, normoactive bowel sounds. No palpable organomegaly. -MUSCULOSKELETAL: No joint swelling or deformity. Both legs are weak Right leg looks slightly weaker than the left leg. EXTREMITIES: No cyanosis, clubbing, or pedal edema. NEUROLOGICAL: Gross neurological examination did not reveal any focal deficits. SKIN: No rashes. No petechiae - Labs CBC & Chem 7: 05/27/21 07:11 05/28/21 07:23 Labs: Abnormal Lab Results - Last 24 Hours (Table) 05/27/21 05/27/21 05/27/21 Range/Units 12:04 16:43 23:54 Chloride (98-107) mmol/L Glucose (74-99) mg/dL POC Glucose (mg/dL) 139 H 162 H 127 H (75-99) mg/dL 05/28/21 Range/Units 07:23 Chloride 110 H (98-107) mmol/L Glucose 115 H (74-99) mg/dL POC Glucose (mg/dL) (75-99) mg/dL Microbiology - Last 24 Hours (Table) 05/25/21 17:22 Blood Culture Gram Stain - Final Blood Blood Culture - Final Escherichia coli 05/25/21 18:09 Urine Culture - Final Urine,Voided Escherichia coli 05/25/21 17:22 Blood Culture - Final Blood Assessment and Plan Assessment: Acute urinary tract infection E coli bacteremia Severe sepsis secondary to above Hypotension Elevated lactic acid, slightly improving Acute kidney injury Acute and chronic low back pain with radiating to the right leg with difficulty walking and right leg weakness Diabetes mellitus Hypertension Chronic neck and back pain History of pseudotumor cerebri History of bacterial meningitis at age 30 History of hepatitis C History of pulmonary hypertension History of psoriasis Anxiety, not an active issue. Plan: this is a pleasant 60 years old female who presents with severe sepsis, UTI. GUSTAVO Discontinue normal saline at 75 mL/h Continue with IV Zosyn. Follow-up with ID team recommendations Follow-up MRI of the spine, follow-up recommendation by orthopedic team who saw the patient Follow-up blood culture final results follow-up urine culture Labs and medication were reviewed.. Continue same treatment. Continue with symptomatic treatment. Resume home medication. Monitor lytes and vitals. DVT and GI prophylaxis. Further recommendations depends on the clinical course of the patient DVT prophylaxis: Subcutaneous heparin GI Prophylaxis: Pepcid Prognosis is guarded
[2021-05-28 12:03] LABS: Glucose,Whole Blood 108 mg/dL (75-99)
[2021-05-28] MEDS: METOPROLOL TARTRATE 50 MG TAB PO SCH ×2 (12:29→21:26)
--- NOTE | 2021-05-28 12:50 | PN ---
PROGRESS NOTE DATE OF SERVICE: 05/28/2021 REASON FOR FOLLOWUP: Right-sided pyelonephritis. INTERVAL HISTORY: The patient is afebrile. The patient is feeling better. Breathing comfortably. No chest pain or cough. No abdominal pain or diarrhea. PHYSICAL EXAMINATION: Blood pressure 108/100 with a pulse of 96. Temperature is 97.8. She is 97% on 2 L nasal cannula. General description is a middle-aged female lying in bed in no distress. Respiratory system: Unlabored breathing. Clear to auscultation anteriorly. Heart S1, S2. Regular rate and rhythm. Abdomen: Soft, no tenderness. LABS: Blood in the urine with an E. coli. Sensitive to Zosyn. Patient . DIAGNOSTIC IMPRESSION AND PLAN: Patient with E coli urinary tract infection with secondary bacteremia possible pyelonephritis. Antibiotic adjusted to Rocephin 2 grams daily being sensitive pathogen and plan to finish therapy with oral antibiotics. Continue supportive care. MMODL / IJN: [id number] /
[2021-05-28] MEDS ORDERED: lisinopriL 10 MG TAB PO STA (18:06)
[2021-05-28 18:13] LABS: Glucose,Whole Blood 162 mg/dL (75-99)
[2021-05-28] MEDS ORDERED: QUEtiapine 25 MG TAB PO PRN (18:52)
[2021-05-28 20:05] LABS: Glucose,Whole Blood 152 mg/dL (75-99)
[2021-05-28] MEDS: CLOTRIMAZOLE 1% CREAM 30 GM TUBE TOPICAL SCH (21:26)
[2021-05-29 00:07] LABS: Glucose,Whole Blood 103 mg/dL (75-99)
[2021-05-29] MEDS: INSULIN ASPART (NovoLOG) 100 UNIT/ML VIAL SQ SCH ×4 (01:00→18:40)
[2021-05-29 05:43] LABS: Glucose,Whole Blood 116 mg/dL (75-99)
[2021-05-29] MEDS: PANTOPRAZOLE 40 MG TABLET PO SCH (05:49)
[2021-05-29] MEDS: LORazepam 1 MG TAB PO SCH (05:49)
[2021-05-29] MEDS: INSULIN DETEMIR (LEVEMIR) 100 UNIT/ML SYR SQ SCH (07:48)
--- NOTE | 2021-05-29 08:09 | P.PN ---
Subjective Progress Note Date: 05/29/21 Principal diagnosis: back and neck pain, LE weakness Patient seen and examined this morning. Nursing at bedside. Pertinent nursing she had an event this morning where she is up in the chair but then started having extreme pain in her arms and in her back as well as her legs and then when she went to get back to her chair she is unable to do so under her own power. Nursing stated it was weaker than she has been. They denied any bowel or bladder issues. The patient is more obtunded today than she was yesterday. She is being seen by medicine and infectious disease as well as urology. She is working diagnosis of UTI with sepsis bacteremia and metabolic encephalopathy. Objective - Vital Signs Vital signs: Vital Signs Temp 98.6 F 05/29/21 03:47 Pulse 74 05/29/21 03:47 Resp 18 05/29/21 03:47 BP 150/85 05/29/21 03:47 Pulse Ox 98 05/29/21 03:47 Intake & Output 05/28/21 05/29/21 05/29/21 18:59 06:59 18:59 Intake Total 420 Balance 420 Weight 103.5 kg Intake: Oral 420 Other: Voiding Method Diaper Diaper # Voids 1 2 # Bowel Movements 1 2 - Exam Unable to obtain new exam today patient is very uncooperative will not follow commands. Previous exam listed for reference Physical exam: Patient is alert and oriented 3 appears well-nourished well-hydrated is in no acute distress. They does not appear septic. On exam the patient has no tenderness to palpation of her thoracic or lumbar spine. There is no edema or ballottement sign. Lower extremities with 3 out of 5 strength in all major muscle groups Upper extremities show 4/5 strength in all major muscle groups. There is FROM that is painless of the b/l UE and LE in all major joints. She is a poor command follow her at this time They are intact to light touch sensation in L2 to S1 nerve distribution. Intact light touch sensation in the C5 to T1 nerve distribution as well Intact perirectal and perianal sensation. Good rectal tone on chaperoned exam Patient has palpable dorsalis pedis was posterior tibial pulses. Compartments are soft and compressible. Patient shows a negative Homans, Positive Inocencio's on the left negative on the right negative Babinski's negative clonus bilaterally. negative straight leg raise bilaterally. No tensioning signs. Cranial nerves II through XII are grossly intact. Overall alignment is well-maintained in the sagittal coronal planes. Ambulates with a scooter - Labs CBC & Chem 7: 05/27/21 07:11 05/28/21 07:23 Labs: Abnormal Lab Results - Last 24 Hours (Table) 05/28/21 05/28/21 05/28/21 Range/Units 07:23 11:57 18:10 Chloride 110 H (98-107) mmol/L Glucose 115 H (74-99) mg/dL POC Glucose (mg/dL) 108 H 162 H (75-99) mg/dL 05/28/21 05/29/21 05/29/21 Range/Units 20:04 00:05 05:40 Chloride (98-107) mmol/L Glucose (74-99) mg/dL POC Glucose (mg/dL) 152 H 103 H 116 H (75-99) mg/dL Microbiology - Last 24 Hours (Table) 05/25/21 17:22 Blood Culture Gram Stain - Final Blood Blood Culture - Final Escherichia coli 05/25/21 18:09 Urine Culture - Final Urine,Voided Escherichia coli Assessment and Plan Assessment: Assessment: 60-year-old female complex medical history with upper and lower extremity weakness, chronic multiple medical comorbidities altered mental status, uro- sepsis, rule out spinal etiology, bacteremia Plan: Plan: MRI is completed of her C-spine with and without which shows no infectious process MRI of her thoracic and lumbar spine are pending at this time we are coordinating for her to go to [facility] for MRI Primary medical management GI DVT prophylaxis We will continue to follow
[2021-05-29] MEDS: HEPARIN SODIUM,PORCINE/PF 5,000 UNIT/0.5 ML SYRINGE SQ SCH ×2 (09:00→20:54)
[2021-05-29] MEDS ORDERED: LORazepam 0.5 MG TAB PO PRN (09:09)
[2021-05-29] MEDS: GABAPENTIN 300 MG CAP PO SCH ×2 (09:18→20:52)
[2021-05-29] MEDS: lisinopriL 20 MG TAB PO SCH (09:49)
[2021-05-29] MEDS: METOPROLOL TARTRATE 50 MG TAB PO SCH ×2 (09:49→20:53)
--- NOTE | 2021-05-29 09:49 | CT ---
EXAMINATION TYPE: CT brain wo con DATE OF EXAM: 05/29/2021 COMPARISON: 05/25/2021 HISTORY: 60-year-old female confusion, Altered mental status. TECHNIQUE: Examination was done in axial plane without intravenous contrast. Coronal and sagittal r econstructions performed. CT DLP: 1139.4 mGycm Automated exposure control for dose reduction was used. FINDINGS: There is no evidence of acute intracranial hemorrhage, acute ischemic changes, or extra-axial fluid collection. There is no effacement of cerebral sulci or basal subarachnoid cisterns. There is no hy drocephalus. There is no midline shift. Pate-white matter distinction is preserved. Stable encephalomalacia anterior superior right frontal lobe and a couple associated amalia holes overl harini. Stable enlarged CSF space right cerebellopontine angle measuring 3.5 x 2.4 cm, not significantly daugherty ged allowing for differences in patient positioning. Associated slight mass effect onto the right cer ebellar hemisphere. Leftward nasal septal deviation. Paranasal sinuses and mastoid air cells well pneumatized. Orbits and globes are intact. IMPRESSION: No acute intracranial abnormality seen. Stable CSF prominence at the right cerebellopontine angle carolina suring 3.5 x 2.4 cm, suspected arachnoid cyst. Stable bur holes superior right frontal convexity with underlying encephalomalacia.
[2021-05-29] MEDS: FERROUS SULFATE 325 MG TAB PO SCH (09:50)
[2021-05-29] MEDS: DULoxetine HCL 60 MG CAPSULE.DR PO SCH (09:50)
[2021-05-29] MEDS: FUROSEMIDE 40 MG TAB PO SCH (09:50)
[2021-05-29] MEDS: FAMOTIDINE 20 MG TAB PO SCH ×2 (09:50→20:53)
[2021-05-29 12:29] LABS: Glucose,Whole Blood 103 mg/dL (75-99)
--- NOTE | 2021-05-29 16:29 | PN ---
PROGRESS NOTE DATE OF SERVICE: 05/29/2021 REASON FOR FOLLOWUP: E coli UTI and bacteremia. INTERVAL HISTORY: The patient is afebrile. The patient is breathing comfortably. Denies having any chest pain, shortness of breath. No vomiting or abdominal pain, no diarrhea. PHYSICAL EXAMINATION: Blood pressure 151/93 with a pulse of 69, temperature 98.7 she is 98% on 2 L nasal cannula. General description is a middle-aged female lying in bed in no distress respiratory system unlabored breathing, clear to auscultation anteriorly. Heart S1, S2. Regular rate and rhythm. Abdomen soft. No tenderness. LABS: No new labs have been obtained today. DIAGNOSTIC IMPRESSION AND PLAN: Patient with an E coli bacteremia. Source is likely pyelonephritis right side. Patient is covered with Rocephin 2 grams daily, to continue. Will monitor clinical course closely. Continue supportive care. MMODL / IJN: [id number] /
[2021-05-29 18:04] LABS: Glucose,Whole Blood 142 mg/dL (75-99)
[2021-05-29] MEDS: hydrALAZINE HCL 20 MG/ML 1 ML VIAL IVP PRN (20:56)
--- NOTE | 2021-05-29 23:53 | P.PN ---
Subjective This is a pleasant 60 years old female with past medical history of hepatitis C, diabetes mellitus, hypertension, chronic neck and back pain, pseudotumor cerebri, pulmonary hypertension, psoriasis bacterial meningitis at age 30. Anxiety Patient is fully awake and oriented, she states she lives at [facility] because she has too many medical problems and she cannot take care of herself. She has a daughter that she thinks she stopped taking care of her and she does not want us to contact her. Instead she wants us to contact her cousin came or tarry from residential Patient states this and her because she was going crazy as she describes, but in for the last 2-3 days. Ends her problem is in her bladder because she can smell bad odor for the last 2 days, also reports increased frequency of urination but no dysuria. No diarrhea actually she is complaining of from constipation. She likes to smoke but they don't that her in the residential. She denies alcohol or illicit drugs Showing or suicidal ideation. She confirms she has history of atrial fibrillation but she is not on anticoagulation. Also she has history She is also on 2 L of oxygen at night which she was not using. 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 Numbness or sensory loss. She called her neurosurgeon at her report to see if he can help her with her low back pain and they told her they don't take patients now. Blood pressure is on the low side 95/53 and currently is 88/53. Heart rate is 93, patient is afebrile currently but she had fever of 100 on admission, Her WBCs on admission was 9.5, this morning increased to 26.3. Hemoglobin 11.0. INR is 1.0. Creatinine 1.1 went up to 1.4. Lactic acid was high at 5.5 improved to 3.1 which is still elevated. AST is mildly elevated at 48, ALT is normal at 27. Ammonia level is normal at 19, TSH is normal 0.5. On is normal at 0.013. Urinalysis is suspicious of infection Urinary tract screen is positive for opioids, oxycodone, and benzodiazepines. Coronavirus not detected. EKG showing sinus tachycardia at [address] T changes, QTC is 510. Chest x-ray: There is increased atelectasis of the lung base compared to old exam CT of the brain: No acute process. Encephalomalacia with the right parietal lobe. Previous surgery. 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 Fatty infiltration of the liver CT of the abdomen and pelvis done with contrast showing decreasing renal excretion consistent with some degree of renal failure that is more on the right side and the left side. There is some mild fullness of the right upper collecting system compared to old exam but no calculus seen.. This could be related to recently passed stone or non-opaque stone or pyelonephritis. TSH 0.5. Also Collado catheter was placed in the emergency room, currently this morning she has 125 mL in her urine bag 05/27/2021 Patient is fully awake and oriented, no specific complaints, still complaining of from low back pain 9/10 in severity by patient. she still have Collado catheter was good urine output urine output. Vitals are stable Her leukocytosis is improving down to 14 gait. The blood culture is positive for E. coli and currently patient is covered with Zosyn. Her creatinine back to normal at 0.9, normal saline and maintained at 75 mL/h The tic team consult is appreciated, MRI of the spine is ordered. 05/28/2021 Patient awake and alert, she is complaining of from milder low back pain today as pain coming down to 2/10. Her both legs has been weak for the last 2-3 months and orthopedic team are planning for MRI of the spine, right of the cervical spine was obtained and MRI of the thoracic and lumbar spine is still pending. Patient blood pressure was on the high side today 180/104, heart rate 96. Patient when necessary we did drain was stopped and resumed her metoprolol 100 mg twice a day and lisinopril 10 mg daily with close monitoring of blood pressure Her creatinine back to normal today and nephrology team signed off Blood culture and urine culture growing E. coli, both sensitive to ceftriaxone and Zosyn. Infectious disease team on the case IV fluids were stopped and patient currently continued on Zosyn. Glucose is controlled 05/29/2021 Yesterday after rounding patient got confused and I got a call by the bedside nurse worse or call one-time dose was ordered as needed but patient did not get it. Patient was more obtunded and this morning however she got Dilaudid 1 mg yesterday morning besides Ativan 1 mg 3 times a day and oxycodone 20 mg 1 this morning and [address] of the brain showing no acute intracranial a bnormalities. Stable CSF prominence of the right cerebellar pontine angle measuring 3.5 x 2.4 cm suspected arachnoid cyst. Staple bur holes superior right frontal convexity with underlying encephalomalacia. Neck her on patient started waking up. Confirmed to the patient states that she takes Ativan for anxiety or presents for seizure When checked on the patient in the afternoon she was more awake and answering questions appropriately a bedside nurse. Patient refused blood test drawn today and yesterday. She is still on Zosyn for her UTI with bacteremia secondary to E. coli. Blood pressure is better controlled after increasing her home dose of lisinopril 10-20 mg and continued with her home dose of metoprolol 100 mg twice a day. Blood pressure currently is 125/76. And heart rate is controlled. Orthopedic team on the case and recommended an MRI of the lumbar and thoracic spine which is pending Discussed with the bedside nurse Review of systems: N/a as patient was tender this morning not answering questions Active Medications Generic Name Dose Route Start Last Admin Trade Name Liamq PRN Reason Stop Dose Admin Acetaminophen 650 mg 05/25/21 19:53 05/26/21 15:47 Acetaminophen Tab 325 Mg Tab PO 650 mg Q6HR PRN Administration Mild Pain or Fever > 100.5 Clotrimazole 1 applic 05/25/21 21:30 05/28/21 21:26 Clotrimazole 1% Cream 30 Gm Tube TOPICAL 1 applic TUSA@2100 TREE Administration Duloxetine HCl 60 mg 05/26/21 09:00 05/29/21 09:50 Duloxetine Hcl 60 Mg Capsule. PO 60 mg DAILY TREE Administration Famotidine 10 mg 05/26/21 21:00 05/29/21 09:50 Famotidine 20 Mg Tab PO 10 mg Q12HR TREE Administration Ferrous Sulfate 325 mg 05/26/21 09:00 05/29/21 09:50 Ferrous Sulfate 325 Mg Tab PO 325 mg DAILY TREE Administration Furosemide 40 mg 05/28/21 09:00 05/29/21 09:50 Furosemide 40 Mg Tab PO 40 mg DAILY TREE Administration Gabapentin 900 mg 05/25/21 21:15 05/29/21 09:18 Gabapentin 300 Mg Cap PO Not Given BID TREE Heparin Sodium (Porcine) 5,000 unit 05/26/21 09:00 05/29/21 09:00 Heparin Sodium,Porcine/Pf 5,000 Unit/0.5 Ml Syringe SQ Not Given Q12HR TREE Hydralazine HCl 5 mg 05/28/21 18:58 Hydralazine Hcl 20 Mg/Ml 1 Ml Vial IVP Q4HR PRN Blood Pressure - High Ceftriaxone Sodium 2 gm/ 50 mls @ 100 mls/hr 05/28/21 22:00 05/28/21 23:58 Sodium Chloride IVPB 100 mls/hr Q24H TREE Administration Insulin Aspart 0 unit 05/26/21 00:00 05/29/21 12:36 Insulin Aspart (Novolog) 100 Unit/Ml Vial SQ Not Given Q6HR [facility] Protocol Insulin Detemir 16 unit 05/26/21 07:00 05/29/21 07:48 Insulin Detemir (Levemir) 100 Unit/Ml Syr SQ 16 unit DAILY@0700 TREE Administration Lisinopril 20 mg 05/29/21 09:00 05/29/21 09:49 Lisinopril 20 Mg Tab PO 20 mg DAILY TREE Administration Lorazepam 0.5 mg 05/29/21 09:09 Lorazepam 0.5 Mg Tab PO Q8HR PRN Anxiety Metoprolol Tartrate 100 mg 05/28/21 11:00 05/29/21 09:49 Metoprolol Tartrate 50 Mg Tab PO 50 mg BID TREE Administration Miscellaneous Information 1 each 05/27/21 10:55 Magnesium Replacement Protocol 1 Each Misc MISCELLANE DAILY PRN Per Protocol Protocol Naloxone HCl 0.2 mg 05/25/21 19:53 Naloxone 0.4 Mg/Ml 1 Ml Vial IV Q2M PRN Opioid Reversal Oxycodone HCl 20 mg 05/25/21 20:43 05/29/21 06:26 Oxycodone Hcl 5 Mg Tab PO 20 mg Q4H PRN Administration Pain Pantoprazole Sodium 40 mg 05/26/21 07:30 05/29/21 05:49 Pantoprazole 40 Mg Tablet PO 40 mg [id number] TREE Administration Promethazine HCl 12.5 mg 05/25/21 20:43 Promethazine 25 Mg Tab PO QID PRN Nausea Quetiapine Fumarate 25 mg 05/28/21 18:52 Quetiapine 25 Mg Tab PO ONCE PRN Agitation or Acute Psychosis Senna 8.6 mg 05/25/21 20:43 Sennosides 8.6 Mg Tab PO BID PRN Constipation Objective - Vital Signs Vital signs: Vital Signs Temp 98.8 F 05/29/21 08:00 Pulse 71 05/29/21 08:00 Resp 18 05/29/21 08:00 BP 125/76 05/29/21 08:00 Pulse Ox 95 05/29/21 08:12 Intake & Output 05/28/21 05/29/21 05/29/21 18:59 06:59 18:59 Intake Total 420 0 Balance 420 0 Weight 103.5 kg Intake: Oral 420 0 Other: Voiding Method Diaper Diaper Diaper # Voids 1 2 # Bowel Movements 1 2 - Exam -GENERAL: The patient is fully awake and oriented to time, place and person, she is appropriate and follow commands, not in any acute distress. Obese HEENT: Pupils are round and equally reacting to light. EOMI. No scleral icterus. No conjunctival pallor. Normocephalic, atraumatic. No pharyngeal erythema. No thyromegaly. CARDIOVASCULAR: S1 and S2 present. No murmurs, rubs, or gallops. PULMONARY: Chest is clear to auscultation, no wheezing or crackles. ABDOMEN: Soft, no tenderness, nondistended, normoactive bowel sounds. No palpable organomegaly. -MUSCULOSKELETAL: No joint swelling or deformity. Both legs are weak Right leg looks slightly weaker than the left leg. EXTREMITIES: No cyanosis, clubbing, or pedal edema. NEUROLOGICAL: Gross neurological examination did not reveal any focal deficits. SKIN: No rashes. No petechiae - Labs CBC & Chem 7: 05/27/21 07:11 05/28/21 07:23 Labs: Abnormal Lab Results - Last 24 Hours (Table) 05/28/21 05/28/21 05/29/21 Range/Units 18:10 20:04 00:05 POC Glucose (mg/dL) 162 H 152 H 103 H (75-99) mg/dL 05/29/21 05/29/21 Range/Units 05:40 12:28 POC Glucose (mg/dL) 116 H 103 H (75-99) mg/dL Microbiology - Last 24 Hours (Table) 05/25/21 17:22 Blood Culture Gram Stain - Final Blood Blood Culture - Final Escherichia coli Assessment and Plan Assessment: Acute urinary tract infection, secondary to E. coli E coli bacteremia Severe sepsis secondary to above. Improved Hypotension. Improved and currently patient placed back on her antihypertensive medication and blood pressure is controlled Elevated lactic acid, slightly improving Acute kidney injury . Back to baseline Acute and chronic low back pain with radiating to the right leg with difficulty walking and right leg weakness. Orthopedic team on the case and MRI of the spine is ordered Diabetes mellitus Hypertension Chronic neck and back pain History of pseudotumor cerebri History of bacterial meningitis at age 30 History of hepatitis C History of pulmonary hypertension History of psoriasis Anxiety, not an active issue. Plan: this is a pleasant 60 years old female who presents with severe sepsis, UTI. GUSTAVO Continue with IV Zosyn. Follow-up with ID team recommendations Follow-up MRI of the spine, follow-up recommendation by orthopedic team who saw the patient abnormal CT brain with encephalomalacia and previous bur holes and CSF cyst Labs and medication were reviewed.. Continue same treatment. Continue with symptomatic treatment. Resume home medication. Monitor lytes and vitals. DVT and GI prophylaxis. Further recommendations depends on the clinical course of the patient DVT prophylaxis: Subcutaneous heparin GI Prophylaxis: Pepcid Prognosis is guarded
[2021-05-30 00:22] LABS: Glucose,Whole Blood 100 mg/dL (75-99)
[2021-05-30] MEDS: INSULIN ASPART (NovoLOG) 100 UNIT/ML VIAL SQ SCH ×5 (00:26→23:56)
[2021-05-30] MEDS: INSULIN DETEMIR (LEVEMIR) 100 UNIT/ML SYR SQ SCH (06:32)
[2021-05-30] MEDS: PANTOPRAZOLE 40 MG TABLET PO SCH (06:32)
[2021-05-30 06:33] LABS: Glucose,Whole Blood 77 mg/dL (75-99)
--- NOTE | 2021-05-30 07:35 | P.PN ---
Subjective Progress Note Date: 05/30/21 Principal diagnosis: 1. Back pain 2. Bilateral lower extremity weakness 3. Multiple medical comorbidities Patient seen at bedside this morning laying semirecumbent in bed. Patient says she is still very weak in arms and legs and not much has changed since yesterday. Patient denies chest pain, fever, SOB, N/V, changes in vision, numbness/tingling. Objective - Vital Signs Vital signs: Vital Signs Temp 98.4 F 05/30/21 03:00 Pulse 63 05/30/21 03:00 Resp 18 05/30/21 03:00 BP 170/84 05/30/21 03:00 Pulse Ox 98 05/30/21 03:00 Intake & Output 05/29/21 05/30/21 05/30/21 18:59 06:59 18:59 Intake Total 490 480 Output Total 200 400 Balance 290 80 Weight 102.5 kg Intake: Oral 490 480 Output: Urine 200 400 Other: Voiding Method Diaper Bedpan # Voids 1 # Bowel Movements 1 - Exam Inspection: Negative for any open fractures, ulcers, erythema, ecchymosis. Palpation: Bilateral upper extremities nontender to palpation throughout exam. Bilateral lower extremities nontender to palpation throughout exam. Spine - midline cervical, thoracic, lumbar TTP. NTTP in paravertebral area. Cervical an d upper thoracic area are edematous to palpation. Sensation: Sensation is present throughout bilateral upper and lower extremities symmetric, and intact, equal. ROM: Upper extremities: Patient able lift arms FROM; bilateral lower extremities - patient not able to elevate legs off bed. Patient unable flex knees due to weakness. I am able to elevate legs off of bed, but at about 40 elevation p atient feels pain in posterior upper legs bilaterally. Motor: Bilateral upper extremities: Weak 2/5 in resisted elbow flexion/extension and resisted shoulder elevation, internal rotation, external rotation, abduction. Propulsion Generator Repairer strength - 3/5 bilaterally. Bilateral lower extremities - Unable perform exam due to patient not being able lift legs at all Neurovascular: Refill below 3 seconds bilaterally in upper extremities. Dorsalis pedis pulse present, intact, 2+. Radial pulses present, intact 2+. Special tests: Negative Homans bilaterally; Positive Hoffmans left hand. Negative Hoffmans right hand; negative clonus upon dorsiflexing feet bilaterally - Labs CBC & Chem 7: 05/27/21 07:11 05/28/21 07:23 Labs: Abnormal Lab Results - Last 24 Hours (Table) 05/29/21 05/29/21 05/30/21 Range/Units 12:28 18:03 00:21 POC Glucose (mg/dL) 103 H 142 H 100 H (75-99) mg/dL Microbiology - Last 24 Hours (Table) 05/25/21 17:22 Blood Culture Gram Stain - Final Blood Blood Culture - Final Escherichia coli Assessment and Plan Assessment: 1. Back pain 2. Bilateral lower extremity weakness 3. Multiple medical comorbidities Plan: 1. Back pain; bilateral lower extremity weakness- MRI cervical spine has been completed and did discuss findings with patient. No urgent surgical intervention needed at this time based on cervical spine MRI. We will wait for thoracic and lumbar spine MRI to be completed. Thoracic and lumbar MRI uable to be perormed at [facility]. Waiting on transfer to [facility] for completeion of thoracic and lumbar spine MRI. 2. Multiple medical comorbidities 3. Appreciate medical and cardiology management 4. Pain management - stable at this time 5. DVT ppx/GI ppx - Heparin and Protonix 6. Appreciate consult 7. PT/ OT - WBAT w walker Time with Patient: Less than 30
[2021-05-30] MEDS ORDERED: ONDANSETRON 4 MG/2 ML VIAL IVP PRN (08:41)
[2021-05-30] MEDS ORDERED: DEXTROSE 50% SYRINGE 50 ML IVP STA (08:42)
[2021-05-30] MEDS ORDERED: SODIUM CHLORIDE 0.9% 1,000 ML IV SCH ×2 (08:45→13:45)
[2021-05-30] MEDS: FAMOTIDINE 20 MG TAB PO SCH ×2 (09:00→20:10)
[2021-05-30] MEDS: GABAPENTIN 300 MG CAP PO SCH ×2 (09:00→20:09)
[2021-05-30] MEDS: FERROUS SULFATE 325 MG TAB PO SCH (09:00)
[2021-05-30] MEDS: lisinopriL 20 MG TAB PO SCH (09:00)
[2021-05-30] MEDS: DULoxetine HCL 60 MG CAPSULE.DR PO SCH (09:00)
[2021-05-30] MEDS: METOPROLOL TARTRATE 50 MG TAB PO SCH ×2 (09:00→20:10)
[2021-05-30] MEDS: FUROSEMIDE 40 MG TAB PO SCH (09:00)
[2021-05-30] MEDS: HEPARIN SODIUM,PORCINE/PF 5,000 UNIT/0.5 ML SYRINGE SQ SCH ×2 (09:00→10:05)
[2021-05-30] MEDS ORDERED: MORPHINE SULFATE 2 MG/ML SYRINGE IVP STA (10:25)
[2021-05-30] MEDS ORDERED: DEXTROSE 5%-0.9% NACL 1,000 ML IV SCH (10:30)
--- NOTE | 2021-05-30 10:37 | P.PN ---
Subjective This is a pleasant 60 years old female with past medical history of hepatitis C, diabetes mellitus, hypertension, chronic neck and back pain, pseudotumor cerebri, pulmonary hypertension, psoriasis bacterial meningitis at age 30. Anxiety Patient is fully awake and oriented, she states she lives at [facility] because she has too many medical problems and she cannot take care of herself. She has a daughter that she thinks she stopped taking care of her and she does not want us to contact her. Instead she wants us to contact her cousin came or tarry from detention Patient states this and her because she was going crazy as she describes, but in for the last 2-3 days. Ends her problem is in her bladder because she can smell bad odor for the last 2 days, also reports increased frequency of urination but no dysuria. No diarrhea actually she is complaining of from constipation. She likes to smoke but they don't that her in the detention. She denies alcohol or illicit drugs Showing or suicidal ideation. She confirms she has history of atrial fibrillation but she is not on anticoagulation. Also she has history She is also on 2 L of oxygen at night which she was not using. 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 Numbness or sensory loss. She called her neurosurgeon at her report to see if he can help her with her low back pain and they told her they don't take patients now. Blood pressure is on the low side 95/53 and currently is 88/53. Heart rate is 93, patient is afebrile currently but she had fever of 100 on admission, Her WBCs on admission was 9.5, this morning increased to 26.3. Hemoglobin 11.0. INR is 1.0. Creatinine 1.1 went up to 1.4. Lactic acid was high at 5.5 improved to 3.1 which is still elevated. AST is mildly elevated at 48, ALT is normal at 27. Ammonia level is normal at 19, TSH is normal 0.5. On is normal at 0.013. Urinalysis is suspicious of infection Urinary tract screen is positive for opioids, oxycodone, and benzodiazepines. Coronavirus not detected. EKG showing sinus tachycardia at [address] T changes, QTC is 510. Chest x-ray: There is increased atelectasis of the lung base compared to old exam CT of the brain: No acute process. Encephalomalacia with the right parietal lobe. Previous surgery. 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 Fatty infiltration of the liver CT of the abdomen and pelvis done with contrast showing decreasing renal excretion consistent with some degree of renal failure that is more on the right side and the left side. There is some mild fullness of the right upper collecting system compared to old exam but no calculus seen.. This could be related to recently passed stone or non-opaque stone or pyelonephritis. TSH 0.5. Also Collado catheter was placed in the emergency room, currently this morning she has 125 mL in her urine bag 05/27/2021 Patient is fully awake and oriented, no specific complaints, still complaining of from low back pain 9/10 in severity by patient. she still have Collado catheter was good urine output urine output. Vitals are stable Her leukocytosis is improving down to 14 gait. The blood culture is positive for E. coli and currently patient is covered with Zosyn. Her creatinine back to normal at 0.9, normal saline and maintained at 75 mL/h The tic team consult is appreciated, MRI of the spine is ordered. 05/28/2021 Patient awake and alert, she is complaining of from milder low back pain today as pain coming down to 2/10. Her both legs has been weak for the last 2-3 months and orthopedic team are planning for MRI of the spine, right of the cervical spine was obtained and MRI of the thoracic and lumbar spine is still pending. Patient blood pressure was on the high side today 180/104, heart rate 96. Patient when necessary we did drain was stopped and resumed her metoprolol 100 mg twice a day and lisinopril 10 mg daily with close monitoring of blood pressure Her creatinine back to normal today and nephrology team signed off Blood culture and urine culture growing E. coli, both sensitive to ceftriaxone and Zosyn. Infectious disease team on the case IV fluids were stopped and patient currently continued on Zosyn. Glucose is controlled 05/29/2021 Yesterday after rounding patient got confused and I got a call by the bedside nurse worse or call one-time dose was ordered as needed but patient did not get it. Patient was more obtunded and this morning however she got Dilaudid 1 mg yesterday morning besides Ativan 1 mg 3 times a day and oxycodone 20 mg 1 this morning and [address] of the brain showing no acute intracranial a bnormalities. Stable CSF prominence of the right cerebellar pontine angle measuring 3.5 x 2.4 cm suspected arachnoid cyst. Staple bur holes superior right frontal convexity with underlying encephalomalacia. Neck her on patient started waking up. Confirmed to the patient states that she takes Ativan for anxiety or presents for seizure When checked on the patient in the afternoon she was more awake and answering questions appropriately a bedside nurse. Patient refused blood test drawn today and yesterday. She is still on Zosyn for her UTI with bacteremia secondary to E. coli. Blood pressure is better controlled after increasing her home dose of lisinopril 10-20 mg and continued with her home dose of metoprolol 100 mg twice a day. Blood pressure currently is 125/76. And heart rate is controlled. Orthopedic team on the case and recommended an MRI of the lumbar and thoracic spine which is pending Discussed with the bedside nurse 05/30/2021 Patient is fully awake and oriented today, counseled her about taking Ativan for anxiety and she agrees to lower rectum 0.5 mg twice a day, start BuSpar 7.5 mg anesthetic. Also patient is on oxycodone 20 mg daily. The patient is refusing to eat because of abdominal pain and other pains. Zetia, no reports of diarrhea. And she has some tenderness with no guarding or rebound tenderness. She rates her pain about 6/10. So we will order CT of the abdomen and pelvis with oral contrast and no IV contrast. Patient glucose this morning was in the 70s and she took 16 units of Levemir so change her fluids to D5 normal saline at 50 mL per hour, midline is ordered as patient has poor IV line. Chest complaining of from pain in her neck but 6/10, and bilateral leg pain about 7-8/10. Regarding her back pain and lower extremity weakness, cystic CAT scan of the lumbar or thoracic spines are still pending with orthopedic team on the case patient remains on Rocephin 2 g for right pyelonephritis and E. coli bacteremia. Labs from today are pending Review of systems CONSTITUTIONAL: No fever, no malaise, no fatigue. HEENT: No recent visual problems or hearing problems. Denied any sore throat. CARDIOVASCULAR: No orthopnea, PND, no palpitations, no syncope. PULMONARY: No shortness of breath, no cough, no hemoptysis. GASTROINTESTINAL: No diarrhea,. Normoactive bowel sounds. NEUROLOGICAL: No headaches, no weakness, no numbness. Active Medications Generic Name Dose Route Start Last Admin Trade Name Freq PRN Reason Stop Dose Admin Acetaminophen 650 mg 05/25/21 19:53 05/26/21 15:47 Acetaminophen Tab 325 Mg Tab PO 650 mg Q6HR PRN Administration Mild Pain or Fever > 100.5 Buspirone HCl 7.5 mg 05/30/21 16:00 Buspirone Hcl 5 Mg Tab PO TID [facility] Clotrimazole 1 applic 05/25/21 21:30 05/28/21 21:26 Clotrimazole 1% Cream 30 Gm Tube TOPICAL 1 applic TUSA@2100 [facility] Administration Duloxetine HCl 60 mg 05/26/21 09:00 05/30/21 09:00 Duloxetine Hcl 60 Mg Capsule.Dr PO 60 mg DAILY [facility] Administration Famotidine 10 mg 05/26/21 21:00 05/30/21 09:00 Famotidine 20 Mg Tab PO 10 mg Q12HR [facility] Administration Ferrous Sulfate 325 mg 05/26/21 09:00 05/30/21 09:00 Ferrous Sulfate 325 Mg Tab PO 325 mg DAILY [facility] Administration Furosemide 40 mg 05/28/21 09:00 05/30/21 09:00 Furosemide 40 Mg Tab PO 40 mg DAILY [facility] Administration Gabapentin 900 mg 05/25/21 21:15 05/30/21 09:00 Gabapentin 300 Mg Cap PO 900 mg BID TREE Administration Heparin Sodium (Porcine) 5,000 unit 05/26/21 09:00 05/30/21 10:05 Heparin Sodium,Porcine/Pf 5,000 Unit/0.5 Ml Syringe SQ 5,000 unit Q12HR [facility] Administration Hydralazine HCl 5 mg 05/28/21 18:58 05/29/21 20:56 Hydralazine Hcl 20 Mg/Ml 1 Ml Vial IVP 5 mg Q4HR PRN Administration Blood Pressure - High Ceftriaxone Sodium 2 gm/ 50 mls @ 100 mls/hr 05/28/21 22:00 05/30/21 00:26 Sodium Chloride IVPB Not Given Q24H [facility] Dextrose/Sodium Chloride 1,000 mls @ 50 mls/hr 05/30/21 10:30 Dextrose 5%-Ns Iv Soln IV .Q20H [facility] Insulin Aspart 0 unit 05/26/21 00:00 05/30/21 06:28 Insulin Aspart (Novolog) 100 Unit/Ml Vial SQ Not Given Q6HR [facility] Protocol Insulin Detemir 16 unit 05/26/21 07:00 05/30/21 06:32 Insulin Detemir (Levemir) 100 Unit/Ml Syr SQ 16 unit DAILY@0700 [facility] Administration Iopamidol 30 ml 05/30/21 10:25 Iopamidol Contrast (Oral Use) Vial PO 05/31/21 10:[address] Scan Lisinopril 20 mg 05/29/21 09:00 05/30/21 09:00 Lisinopril 20 Mg Tab PO 20 mg DAILY [facility] Administration Lorazepam 0.5 mg 05/30/21 10:27 Lorazepam 0.5 Mg Tab PO Q2HR PRN Anxiety Metoprolol Tartrate 100 mg 05/28/21 11:00 05/30/21 09:00 Metoprolol Tartrate 50 Mg Tab PO 100 mg BID [facility] Administration Miscellaneous Information 1 each 05/27/21 10:55 Magnesium Replacement Protocol 1 Each Misc MISCELLANE DAILY PRN Per Protocol Protocol Morphine Sulfate 2 mg 05/30/21 10:25 Morphine Sulfate 2 Mg/Ml Syringe IVP 05/30/21 10:26 ONCE STA Naloxone HCl 0.2 mg 05/25/21 19:53 Naloxone 0.4 Mg/Ml 1 Ml Vial IV Q2M PRN Opioid Reversal Ondansetron HCl 4 mg 05/30/21 08:41 Ondansetron 4 Mg/2 Ml Vial IVP Q6HR PRN Nausea And Vomiting Oxycodone HCl 20 mg 05/25/21 20:43 05/30/21 10:02 Oxycodone Hcl 5 Mg Tab PO 20 mg Q4H PRN Administration Pain Pantoprazole Sodium 40 mg 05/26/21 07:30 05/30/21 06:32 Pantoprazole 40 Mg Tablet PO 40 mg [id number] [facility] Administration Promethazine HCl 12.5 mg 05/25/21 20:43 Promethazine 25 Mg Tab PO QID PRN Nausea Quetiapine Fumarate 25 mg 05/28/21 18:52 Quetiapine 25 Mg Tab PO ONCE PRN Agitation or Acute Psychosis Senna 8.6 mg 05/25/21 20:43 Sennosides 8.6 Mg Tab PO BID PRN Constipation Objective - Vital Signs Vital signs: Vital Signs Temp 98.5 F 05/30/21 08:00 Pulse 63 05/30/21 08:00 Resp 18 05/30/21 08:00 BP 121/70 05/30/21 08:00 Pulse Ox 98 05/30/21 08:00 Intake & Output 05/29/21 05/30/21 05/30/21 18:59 06:59 18:59 Intake Total 490 480 Output Total 200 400 Balance 290 80 Weight 102.5 kg Intake: Oral 490 480 Output: Urine 200 400 Other: Voiding Method Diaper Bedpan Bedpan # Voids 1 # Bowel Movements 1 - Exam -GENERAL: The patient is fully awake and oriented to time, place and person, she is appropriate and follow commands, not in any acute distress. Obese HEENT: Pupils are round and equally reacting to light. EOMI. No scleral icterus. No conjunctival pallor. Normocephalic, atraumatic. No pharyngeal erythema. No thyromegaly. CARDIOVASCULAR: S1 and S2 present. No murmurs, rubs, or gallops. PULMONARY: Chest is clear to auscultation, no wheezing or crackles. -ABDOMEN: Soft, n mild periumbilical tenderness, no rebound tenderness or guarding nondistended, normoactive bowel sounds. No palpable organomegaly. -MUSCULOSKELETAL: No joint swelling or deformity. Both legs are weak Right leg looks slightly weaker than the left leg. EXTREMITIES: No cyanosis, clubbing, or pedal edema. NEUROLOGICAL: Gross neurological examination did not reveal any focal deficits. SKIN: No rashes. No petechiae - Labs CBC & Chem 7: 05/27/21 07:11 05/28/21 07:23 Labs: Abnormal Lab Results - Last 24 Hours (Table) 05/29/21 05/29/21 05/30/21 Range/Units 12:28 18:03 00:21 POC Glucose (mg/dL) 103 H 142 H 100 H (75-99) mg/dL Microbiology - Last 24 Hours (Table) 05/25/21 17:22 Blood Culture Gram Stain - Final Blood Blood Culture - Final Escherichia coli Assessment and Plan Assessment: Acute urinary tract infection, with right pyelonephritis secondary to E. coli E coli bacteremia Severe sepsis secondary to above. Improved Acute and chronic low back pain with radiating to the right leg with difficulty walking and right leg weakness. Orthopedic team on the case and MRI of the spine is ordered Abdominal pain and tenderness with nausea, rule out bowel obstruction Hypotension, present on admission. Improved and currently patient placed back on her antihypertensive medication and blood pressure is controlled Elevated lactic acid, slightly improving Acute kidney injury . Back to baseline Diabetes mellitus Hypertension Chronic neck and back pain History of pseudotumor cerebri History of bacterial meningitis at age 30 History of hepatitis C History of pulmonary hypertension History of psoriasis Anxiety, not an active issue. Plan: this is a pleasant 60 years old female who presents with severe sepsis, UTI. GUSTAVO Continue with IV ceftriaxone Zosyn. Follow-up with ID team recommendations Follow-up MRI of the spine, follow-up recommendation by orthopedic team who saw the patient We will order CT of the abdomen and pelvis with no iv contrast, only oral contrast monitor labs. Continue with D5 normal saline and insulin sliding scale Check ultrasound of the legs given her Bilateral leg pain being bedridden Labs and medication were reviewed.. Continue same treatment. Continue with symptomatic treatment. Resume home medication. Monitor lytes and vitals. DVT and GI prophylaxis. Further recommendations depends on the clinical course of the patient DVT prophylaxis: Subcutaneous heparin GI Prophylaxis: Pepcid Prognosis is guarded
[2021-05-30 11:17] LABS: Glucose,Whole Blood 113 mg/dL (75-99)
--- NOTE | 2021-05-30 11:23 | US ---
EXAMINATION TYPE: US venous doppler duplex LE DATE OF EXAM: 05/30/2021 11:15 AM COMPARISON: 10/28/2019 CLINICAL HISTORY: Rule out DVT. Bilateral leg pain x 1 day SIDE PERFORMED: Bilateral TECHNIQUE: The lower extremity deep venous system is examined utilizing real time linear array sonog porsha with graded compression, doppler sonography and color-flow sonography. VESSELS IMAGED: Common Femoral Vein Deep Femoral Vein Greater Saphenous Vein * Femoral Vein Popliteal Vein Small Saphenous Vein * Proximal Calf Veins (* superficial vessels) Right Leg: Appears negative for DVT Left Leg: Appears negative for DVT IMPRESSION: Grayscale, color doppler, spectral doppler imaging performed of the deep veins of the lo wer extremities. There is normal flow, compressibility, vascular waveforms.
[2021-05-30] MEDS: IOPAMIDOL CONTRAST (ORAL USE) VIAL PO PRN ×2 (13:04→14:26)
[2021-05-30] MEDS: SODIUM CHLORIDE 0.9% 1,000 ML IV SCH (13:15)
[2021-05-30 13:32] LABS: Glucose,Whole Blood 121 mg/dL (75-99)
[2021-05-30] MEDS: busPIRone HCl 5 MG TAB PO SCH ×2 (16:00→23:31)
--- NOTE | 2021-05-30 16:23 | CT ---
EXAMINATION TYPE: CT abdomen pelvis wo con DATE OF EXAM: 05/30/2021 COMPARISON: 05/25/2021 INDICATION: Abdominal pain and tenderness. DLP: 1146.4 mGycm, Automated exposure control for dose reduction was used. CONTRAST: 0 mL of Isovue 300. Study performed with Oral Contrast TECHNIQUE: Axial images were obtained from above the diaphragm to the pubic rami in the axial plane a t 5 mm thick sections. Reconstructed images are reviewed on the computer in the coronal plane. FINDINGS: Limited CT sections are obtained the lung bases. Minimal bilateral pleural effusions are present. Mi ld compressive atelectasis adjacent. Couple calcified granulomas are likely in the posterior right jhon ng base.. CT ABDOMEN: Liver: Normal Spleen: Normal. Splenule is anterior to the spleen. Pancreas: Atrophic Adrenal glands: The adrenal glands are normal. Gallbladder: Normal Kidneys: No masses are evident. There may be some minimal right hydronephrosis. No obstructing renal or ureteral stones are evident. No cysts are present. No renal stones are evident. Aorta: Vascular calcification is within the aorta. Inferior vena cava: Normal. CT PELVIS: Small amount of subcutaneous air is anterior in the pelvis. Loops of bowel within the abdomen and pelvis are normal. There are loops of bowel which are incom pletely distended or lack oral contrast limiting their evaluation. Appendix: Not identified Urinary bladder: Normal. Genitourinary structures: Uterus is normal. Adnexal regions are clear. Osseous structures: No suspicious lytic or sclerotic lesions. IMPRESSIONS: 1. Minimal bilateral pleural effusions with adjacent compressive atelectasis. 2. Minimal right hydronephrosis. No obstructing stones are evident.
[2021-05-30 16:33] LABS: Glucose,Whole Blood 139 mg/dL (75-99)
[2021-05-30] MEDS: hydrALAZINE HCL 20 MG/ML 1 ML VIAL IVP PRN ×2 (17:45→20:55)
[2021-05-30 21:11] LABS: Glucose,Whole Blood 152 mg/dL (75-99)
[2021-05-30 22:45] LABS: Prothrombin Time 10.8 sec (9.0-12.0)
[2021-05-30] MEDS ORDERED: FUROSEMIDE 10 MG/ML 4 ML VIAL IV STA (23:14)
[2021-05-30] MEDS: LORazepam 0.5 MG TAB PO PRN (23:31)
--- NOTE | 2021-05-31 00:01 | PN ---
PROGRESS NOTE DATE OF SERVICE: 05/30/2021 REASON FOR FOLLOWUP: E coli UTI and bacteremia. INTERVAL HISTORY: Patient is afebrile. The patient is breathing comfortably. No chest pain, shortness of breath or cough. No nausea, vomiting, abdominal pain. No diarrhea. PHYSICAL EXAMINATION: Blood pressure 172/84 with a pulse of 73, temperature 97.8, she is 99% on room air. General description is a middle-aged female lying in bed in no distress. Respiratory system: Unlabored breathing, clear to auscultation anteriorly. Heart S1, S2. Regular rate and rhythm. Abdomen soft, no tenderness. LABS: INR is 1.0. DIAGNOSTIC IMPRESSION AND PLAN: Patient with E coli UTI and bacteremia source likely right-sided pyelonephritis with mild seen on the CT and no other obvious focus. Patient is covered with Rocephin 2 grams daily. Finish therapy with oral Cipro 500 mg twice a day. Total duration of antibiotics should be 2 weeks and close outpatient followup. MMODL / IJN: [id number] /
[2021-05-31] MEDS: SODIUM CHLORIDE 0.9% 1,000 ML IV SCH (05:33)
[2021-05-31] MEDS: INSULIN ASPART (NovoLOG) 100 UNIT/ML VIAL SQ SCH ×3 (06:19→16:56)
[2021-05-31 06:25] LABS: Glucose,Whole Blood 108 mg/dL (75-99)
[2021-05-31] MEDS: PANTOPRAZOLE 40 MG TABLET PO SCH (06:25)
--- NOTE | 2021-05-31 07:45 | P.GSCN ---
History of Present Illness Consult date: 05/31/21 History of present illness: 60 yo female who Iwas asked to see for hydronephrosis right. The patient is in the hospital with altered mental status due to a uti with sepsis. Her wbc have normalized. SHe had a renal us on admission that didnt identify any hydro. SHe had a subsequent ct scan that suggested mild right hydronephrosis. The patient is in a halfway because she cant care for herself due to multiple medical illnesses. She denies previous urologic issues. She has no problem with incontinence kidney stones pain and hematuria or recurrent kidney infections Review of Systems All systems: negative - Constitutional Denies fever, Denies weight loss - EENT Eyes: denies blurred vision Ears, nose, mouth and throat: Denies dysphagia - Cardiovascular Denies chest pain, Denies shortness of breath - Respiratory Denies cough, Denies 7 - Gastrointestinal Reports as per HPI - Genitourinary Genitourinary: Denies dysuria, Denies hematuria - Integumentary Denies rash, Denies unusual bruising - Neurological Denies headaches, Denies syncope - Hematologic/Lymphatic Denies easy bleeding, Denies easy bruising 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 02 2l at night History of Any Multi-Drug Resistant Organisms: None Reported Past Surgical History: Adenoidectomy, Appendectomy, Back Surgery, Bladder Surgery, Orthopedic Surgery, Tonsillectomy, Tubal Ligation Additional Past Surgical History / Comment(s): 9 COMB [employer] shunts- none at this time,28 LP shunts, eye surgery,rt ovary and fallopian tube removed, Laser procedure for cervix CA Past Anesthesia/Blood Transfusion Reactions: No Reported Reaction Additional Past Anesthesia/Blood Transfusion Reaction / Comm: no hx blood transfusion Past Psychological History: Anxiety Smoking Status: Former smoker Past Alcohol Use History: None Reported Past Drug Use History: None Reported - Past Family History Mother Family Medical History: No Reported History Father Family Medical History: Myocardial Infarction (PR) Additional Family Medical History / Comment(s): Father of a PR at the age of 60 yrs. Medications and Allergies Home Medications Medication Instructions Recorded Confirmed Type Furosemide [Lasix] 40 mg PO DAILY 12/13/19 05/25/21 History Ferrous Sulfate [Feosol] 325 mg PO DAILY 11/12/20 05/25/21 History Gabapentin 600 mg PO BID 11/12/20 05/25/21 History LORazepam [Ativan] 1 mg PO TID@0600,1400,2200 11/12/20 05/25/21 History Promethazine HCl 12.5 mg PO QID PRN 11/12/20 05/25/21 History hydrOXYzine HCL 10 mg PO QID@00,06,12,18 11/12/20 05/25/21 History oxyCODONE HCL [oxyCODONE HCL (IR)] 20 mg PO Q4H PRN 11/12/20 05/25/21 History DULoxetine HCL [Cymbalta] 60 mg PO DAILY 05/25/21 05/25/21 History Gabapentin 300 mg PO BID 05/25/21 05/25/21 History Glimepiride [Amaryl] 2 mg PO DAILY 05/25/21 05/25/21 History INSULIN LISPRO (HumaLOG) [humaLOG] See Protocol SQ ACHS@09,12,17,05/25/21 05/25/21 History Insulin Detemir [Levemir Flextouch] 16 units SQ DAILY 05/25/21 05/25/21 History Ketoconazole 2% Cream [Nizoral 2%] 1 applic TOPICAL TUSA@2100 05/25/21 05/25/21 History Lisinopril [Prinivil] 10 mg PO DAILY 05/25/21 05/25/21 History Metoprolol Tartrate [Lopressor] 100 mg PO BID 05/25/21 05/25/21 History Nitroglycerin Sl Tabs [Nitrostat] 0.4 mg SL Q5M PRN 05/25/21 05/25/21 History Omeprazole 20 mg PO DAILY 05/25/21 05/25/21 History Sennosides [Senna] 8.6 mg PO BID PRN 05/25/21 05/25/21 History Tacrolimus [Protopic] 1 applic TOPICAL BID 05/25/21 05/25/21 History Vascepa 1gm 2 gm PO BID 05/25/21 05/25/21 History metFORMIN HCL [Glucophage] 1,000 mg PO BID@0900,1700 05/25/21 05/25/21 History Allergies Allergy/AdvReac Type Severity Reaction Status Date / Time No Known Allergies Allergy Verified 05/25/21 17:07 Surgical - Exam Vital Signs Temp Pulse Resp BP Pulse Ox 99.7 F H 144 H 18 154/84 94 L 05/25/21 16:55 05/25/21 16:55 05/25/21 16:55 05/25/21 16:55 05/25/21 16:55 - General well developed, well nourished - Eyes PERRL - ENT no hearing loss - Neck trachea midline - Respiratory normal expansion, normal respiratory effort - Cardiovascular Rhythm: regular - Abdomen Abdomen: soft, non tender - Neurologic normal coordination, normal sensation - Musculoskeletal normal posture - Psychiatric oriented to time, oriented to person, oriented to place, speech is normal, memory intact Results - Labs 05/30/21 09:20 05/30/21 09:20 Abnormal Lab Results - Last 24 Hours (Table) 05/30/21 05/30/21 05/30/21 Range/Units 09:20 09:20 09:20 RBC 3.05 L (3.80-5.40) m/uL Hgb 9.1 L D (11.4-16.0) gm/dL Hct 30.6 L (34.0-46.0) % MCV 100.4 H D (80.0-100.0) fL MCHC 29.7 L (31.0-37.0) g/dL RDW 16.6 H (11.5-15.5) % Plt Count 124 L (150-450) k/uL Lymphocytes # 0.7 L (1.0-4.8) k/uL ESR 29 H (0-20) mm/hr Carbon Dioxide (22-30) mmol/L BUN (7-17) mg/dL Creatinine (0.52-1.04) mg/dL Glucose (74-99) mg/dL POC Glucose (mg/dL) (75-99) mg/dL Calcium (8.4-10.2) mg/dL C-Reactive Protein 3.8 H (<1.0) mg/dL 05/30/21 05/30/21 05/30/21 Range/Units 09:20 11:14 13:31 RBC (3.80-5.40) m/uL Hgb (11.4-16.0) gm/dL Hct (34.0-46.0) % MCV (80.0-100.0) fL MCHC (31.0-37.0) g/dL RDW (11.5-15.5) % Plt Count (150-450) k/uL Lymphocytes # (1.0-4.8) k/uL ESR (0-20) mm/hr Carbon Dioxide 21 L (22-30) mmol/L BUN 63 H (7-17) mg/dL Creatinine 4.18 H (0.52-1.04) mg/dL Glucose 220 H (74-99) mg/dL POC Glucose (mg/dL) 113 H 121 H (75-99) mg/dL Calcium 7.5 L (8.4-10.2) mg/dL C-Reactive Protein (<1.0) mg/dL 05/30/21 05/30/21 05/31/21 Range/Units 16:27 20:45 06:17 RBC (3.80-5.40) m/uL Hgb (11.4-16.0) gm/dL Hct (34.0-46.0) % MCV (80.0-100.0) fL MCHC (31.0-37.0) g/dL RDW (11.5-15.5) % Plt Count (150-450) k/uL Lymphocytes # (1.0-4.8) k/uL ESR (0-20) mm/hr Carbon Dioxide (22-30) mmol/L BUN (7-17) mg/dL Creatinine (0.52-1.04) mg/dL Glucose (74-99) mg/dL POC Glucose (mg/dL) 139 H 152 H 108 H (75-99) mg/dL Calcium (8.4-10.2) mg/dL C-Reactive Protein (<1.0) mg/dL Diabetes panel 05/30/21 Range/Units 09:20 Sodium 138 (137-145) mmol/L Potassium 4.9 (3.5-5.1) mmol/L Chloride 106 (98-107) mmol/L Carbon Dioxide 21 L (22-30) mmol/L BUN 63 H (7-17) mg/dL Creatinine 4.18 H (0.52-1.04) mg/dL Glucose 220 H (74-99) mg/dL Calcium 7.5 L (8.4-10.2) mg/dL Calcium panel 05/30/21 Range/Units 09:20 Calcium 7.5 L (8.4-10.2) mg/dL Pituitary panel 05/30/21 Range/Units 09:20 Sodium 138 (137-145) mmol/L Potassium 4.9 (3.5-5.1) mmol/L Chloride 106 (98-107) mmol/L Carbon Dioxide 21 L (22-30) mmol/L BUN 63 H (7-17) mg/dL Creatinine 4.18 H (0.52-1.04) mg/dL Glucose 220 H (74-99) mg/dL Calcium 7.5 L (8.4-10.2) mg/dL Adrenal panel 05/30/21 Range/Units 09:20 Sodium 138 (137-145) mmol/L Potassium 4.9 (3.5-5.1) mmol/L Chloride 106 (98-107) mmol/L Carbon Dioxide 21 L (22-30) mmol/L BUN 63 H (7-17) mg/dL Creatinine 4.18 H (0.52-1.04) mg/dL Glucose 220 H (74-99) mg/dL Calcium 7.5 L (8.4-10.2) mg/dL - Imaging CT scan - abdomen: report reviewed CT scan - pelvis: report reviewed, image reviewed US - kidney/bladder: report reviewed, image reviewed Assessment and Plan Assessment: Impression: Urinary tract infection with sepsis treated. Multiple medical illnesses. Chronic anxiety. Mild right hydronephrosis Recommendations: I reviewed the ultrasound and computed tomography scan. The right hydronephrosis is not what I would consider clinically significant is probably a normal variation of her anatomy. I do not think this is contributing to her infection led alone her renal insufficiency. Nothing further urologic is recommended at this time.
[2021-05-31 08:43] LABS: Reticulocyte % 1.6 % (0.5-2.0)
[2021-05-31 08:55] LABS: Albumin 3.4 g/dL (3.5-5.0); Calcium 8.5 mg/dL (8.4-10.2); Magnesium 1.3 mg/dL (1.6-2.3); Potassium 2.9 mmol/L (3.5-5.1); Total Bilirubin 0.4 mg/dL (0.2-1.3); Total Protein 6.7 g/dL (6.3-8.2)
[2021-05-31] MEDS ORDERED: Magnesium Replacement Protocol 1 EACH MISC MISCELLANE PRN (09:07)
[2021-05-31] MEDS ORDERED: Potassium Replacement Protocol 1 EACH MISC MISCELLANE PRN ×2 (09:07→17:07)
[2021-05-31 09:29] LABS: HCT 38.2 % (34.0-46.0); MCH 28.8 pg (25.0-35.0); RBC 4.38 m/uL (3.80-5.40); RDW 13.5 % (11.5-15.5); WBC 9.2 k/uL (3.8-10.6)
[2021-05-31 09:32] LABS: HGB 12.6 gm/dL (11.4-16.0); MCV 87.1 fL (80.0-100.0); Platelet Count 266 k/uL (150-450)
[2021-05-31] MEDS: DULoxetine HCL 60 MG CAPSULE.DR PO SCH (09:45)
[2021-05-31] MEDS: busPIRone HCl 5 MG TAB PO SCH ×3 (09:45→22:16)
[2021-05-31] MEDS: FAMOTIDINE 20 MG TAB PO SCH ×2 (09:46→20:02)
[2021-05-31] MEDS: FERROUS SULFATE 325 MG TAB PO SCH (09:46)
[2021-05-31] MEDS: HEPARIN SODIUM,PORCINE/PF 5,000 UNIT/0.5 ML SYRINGE SQ SCH ×2 (09:47→20:02)
[2021-05-31] MEDS: METOPROLOL TARTRATE 50 MG TAB PO SCH ×2 (09:47→20:01)
[2021-05-31] MEDS: FUROSEMIDE 40 MG TAB PO SCH (09:47)
--- NOTE | 2021-05-31 09:47 | XR ---
EXAMINATION TYPE: XR chest 1V portable DATE OF EXAM: 05/31/2021 COMPARISON: 05/25/2021 HISTORY: Shortness of breath TECHNIQUE: Single frontal view of the chest is obtained. FINDINGS: There is no focal air space opacity, pleural effusion, or pneumothorax seen. The cardiac silhouette size is within normal limits. The osseous structures are intact. Arthropathy of the shou lders. Limited inspiration. IMPRESSION: No acute process.
[2021-05-31] MEDS: GABAPENTIN 300 MG CAP PO SCH ×2 (09:48→20:01)
[2021-05-31] MEDS: MAGNESIUM SULFATE-D5W PMX 1 GM in DEXTROSE/WATER 1 100ML.BAG IVPB SCH ×3 (09:48→12:13)
[2021-05-31] MEDS: POTASSIUM CHLORIDE ER 20 MEQ TAB.ER PO SCH ×5 (09:49→17:49)
--- NOTE | 2021-05-31 10:13 | P.PN ---
Subjective Patient is seen in follow-up for acute kidney injury. Nephrology was reconsulted as a creatinine went from 0.85 to 4.18 yesterday. Collado catheter was inserted last night and she also received a dose of IV Lasix. She is nonoliguric. GFR is back to baseline today. Oral intake is fair. No chest pain or shortness of breath. Vital signs are stable. General: The patient appeared well nourished and normally developed. HEENT: Head exam is unremarkable. Neck is without jugular venous distension. LUNGS: Breath sounds decreased. HEART: Rate and Rhythm are regular. ABDOMEN: Soft, no distention. EXTREMITITES: Trace edema. Objective - Vital Signs Vital signs: Vital Signs Temp 98.2 F 05/31/21 02:56 Pulse 72 05/31/21 08:00 Resp 16 05/31/21 08:00 BP 156/71 05/31/21 08:00 Pulse Ox 95 05/31/21 08:00 Intake & Output 05/30/21 05/31/21 05/31/21 18:59 06:59 18:59 Intake Total 720 100 180 Output Total 300 2580 1000 Balance 420 -2480 -820 Weight 102 kg Intake: Intake, IV Titration 100 Amount cefTRIAXone 2 gm In 100 Sodium Chloride 0.9% 50 ml @ 100 mls/hr IVPB Q24H [facility] Rx#:[id number] Oral 720 180 Output: Urine 300 2580 1000 Other: Voiding Method Bedpan Bedside Commode # Voids 1 # Bowel Movements 1 - Labs CBC & Chem 7: 05/31/21 07:16 05/31/21 07:16 Labs: Abnormal Lab Results - Last 24 Hours (Table) 05/30/21 05/30/21 05/30/21 Range/Units 09:20 09:20 09:20 RBC 3.05 L (3.80-5.40) m/uL Hgb 9.1 L D (11.4-16.0) gm/dL Hct 30.6 L (34.0-46.0) % MCV 100.4 H D (80.0-100.0) fL MCHC 29.7 L (31.0-37.0) g/dL RDW 16.6 H (11.5-15.5) % Plt Count 124 L (150-450) k/uL Lymphocytes # 0.7 L (1.0-4.8) k/uL ESR 29 H (0-20) mm/hr Potassium (3.5-5.1) mmol/L Carbon Dioxide (22-30) mmol/L BUN (7-17) mg/dL Creatinine (0.52-1.04) mg/dL Glucose (74-99) mg/dL POC Glucose (mg/dL) (75-99) mg/dL Calcium (8.4-10.2) mg/dL Magnesium (1.6-2.3) mg/dL C-Reactive Protein 3.8 H (<1.0) mg/dL Albumin (3.5-5.0) g/dL 05/30/21 05/30/21 05/30/21 Range/Units 09:20 11:14 13:31 RBC (3.80-5.40) m/uL Hgb (11.4-16.0) gm/dL Hct (34.0-46.0) % MCV (80.0-100.0) fL MCHC (31.0-37.0) g/dL RDW (11.5-15.5) % Plt Count (150-450) k/uL Lymphocytes # (1.0-4.8) k/uL ESR (0-20) mm/hr Potassium (3.5-5.1) mmol/L Carbon Dioxide 21 L (22-30) mmol/L BUN 63 H (7-17) mg/dL Creatinine 4.18 H (0.52-1.04) mg/dL Glucose 220 H (74-99) mg/dL POC Glucose (mg/dL) 113 H 121 H (75-99) mg/dL Calcium 7.5 L (8.4-10.2) mg/dL Magnesium (1.6-2.3) mg/dL C-Reactive Protein (<1.0) mg/dL Albumin (3.5-5.0) g/dL 05/30/21 05/30/21 05/31/21 Range/Units 16:27 20:45 06:17 RBC (3.80-5.40) m/uL Hgb (11.4-16.0) gm/dL Hct (34.0-46.0) % MCV (80.0-100.0) fL MCHC (31.0-37.0) g/dL RDW (11.5-15.5) % Plt Count (150-450) k/uL Lymphocytes # (1.0-4.8) k/uL ESR (0-20) mm/hr Potassium (3.5-5.1) mmol/L Carbon Dioxide (22-30) mmol/L BUN (7-17) mg/dL Creatinine (0.52-1.04) mg/dL Glucose (74-99) mg/dL POC Glucose (mg/dL) 139 H 152 H 108 H (75-99) mg/dL Calcium (8.4-10.2) mg/dL Magnesium (1.6-2.3) mg/dL C-Reactive Protein (<1.0) mg/dL Albumin (3.5-5.0) g/dL 05/31/21 Range/Units 07:16 RBC (3.80-5.40) m/uL Hgb (11.4-16.0) gm/dL Hct (34.0-46.0) % MCV (80.0-100.0) fL MCHC (31.0-37.0) g/dL RDW (11.5-15.5) % Plt Count (150-450) k/uL Lymphocytes # (1.0-4.8) k/uL ESR (0-20) mm/hr Potassium 2.9 L (3.5-5.1) mmol/L Carbon Dioxide 33 H (22-30) mmol/L BUN (7-17) mg/dL Creatinine (0.52-1.04) mg/dL Glucose 134 H (74-99) mg/dL POC Glucose (mg/dL) (75-99) mg/dL Calcium (8.4-10.2) mg/dL Magnesium 1.3 L (1.6-2.3) mg/dL C-Reactive Protein (<1.0) mg/dL Albumin 3.4 L (3.5-5.0) g/dL Assessment and Plan Plan: Assessment: 1. Acute kidney injury secondary to urinary retention. Creatinine was 4.18 y esterday and is 0.84 today. 2. E. coli bacteremiaan UTI on antibiotics. 3. Hypomagnesemia from poor intake and diuresis. 4. Hypokalemia from diuresis and hypomagnesemia. 5. Diabetes mellitus. Plan: Hep-Lock IV fluids. Replace potassium and magnesium. Maintain Collado catheter. Add Flomax. Urology also following.
[2021-05-31 10:41] LABS: Band Neutrophils % 2 %; Eosinophils # (M) 0.09 k/uL (0-0.7); Metamyelocytes # (M) 0.09 k/uL (0); Metamyelocytes % 1 %; Monocytes # (M) 0.46 k/uL (0-1.0); Myelocytes # (M) 0.09 k/uL (0); Myelocytes % 1 %; Neutrophils % (M) 66 %; Nucleated Red Blood Cells 0 /100 WBC (0-0); Total Cells Counted 200
[2021-05-31 11:40] LABS: Glucose,Whole Blood 191 mg/dL (75-99)
[2021-05-31] MEDS: TAMSULOSIN 0.4 MG CAP.ER.24H PO SCH (12:11)
[2021-05-31 13:26] LABS: Albumin 3.4 g/dL (3.5-5.0); Calcium 8.6 mg/dL (8.4-10.2); Potassium 3.1 mmol/L (3.5-5.1); Total Bilirubin 0.3 mg/dL (0.2-1.3); Total Protein 6.8 g/dL (6.3-8.2)
--- NOTE | 2021-05-31 13:29 | P.PN ---
Subjective Progress Note Date: 05/31/21 Principal diagnosis: back and neck pain, LE weakness Patient seen and examined. She is sitting up in bed she seems to be doing slightly better clinically today. She still complains of weakness and pain in her lower extremities as well as her back. She can get up to her chair but that is about it as she has weakness in her legs and difficulty with ambulation. She denies any bowel or bladder issues however her nurse states that yesterday she was straight cathed for over 1999 and a Collado was replaced and so she is having urinary retention at this time. Denies any genital numbness or tingling. Objective - Vital Signs Vital signs: Vital Signs Temp 98.2 F 05/31/21 02:56 Pulse 55 L 05/31/21 12:00 Resp 16 05/31/21 12:00 BP 151/93 05/31/21 12:00 Pulse Ox 98 05/31/21 12:00 Intake & Output 05/30/21 05/31/21 05/31/21 18:59 06:59 18:59 Intake Total 720 100 180 Output Total 300 2580 1000 Balance 420 -2480 -820 Weight 102 kg 102 kg Intake: Intake, IV Titration 100 Amount cefTRIAXone 2 gm In 100 Sodium Chloride 0.9% 50 ml @ 100 mls/hr IVPB Q24H [facility] Rx#:[id number] Oral 720 180 Output: Urine 300 2580 1000 Other: Voiding Method Bedpan Bedside Commode Indwelling Catheter # Voids 1 # Bowel Movements 1 - Exam Exam is stable at this time Physical exam: Patient is alert and oriented 3 appears well-nourished well-hydrated is in no acute distress. They does not appear septic. On exam the patient has no tenderness to palpation of her thoracic or lumbar spine. There is no edema or ballottement sign. Lower extremities with 3 out of 5 strength in all major muscle groups Upper extremities show 4/5 strength in all major muscle groups. There is FROM that is painless of the b/l UE and LE in all major joints. She is a poor command follow her at this time They are intact to light touch sensation in L2 to S1 nerve distribution. Intact light touch sensation in the C5 to T1 nerve distribution as well Intact perirectal and perianal sensation. Good rectal tone on chaperoned exam Patient has palpable dorsalis pedis was posterior tibial pulses. Compartments are soft and compressible. Patient shows a negative Homans, Positive Inocencio's on the left negative on the right negative Babinski's negative clonus bilaterally. negative straight leg raise bilaterally. No tensioning signs. Cranial nerves II through XII are grossly intact. Overall alignment is well-maintained in the sagittal coronal planes. Ambulates with a scooter - Labs CBC & Chem 7: 05/31/21 07:16 05/31/21 12:33 Labs: Abnormal Lab Results - Last 24 Hours (Table) 05/30/21 05/30/21 05/30/21 Range/Units 13:31 16:27 20:45 Metamyelocytes # (Man) (0) k/uL Myelocytes # (Manual) (0) k/uL Potassium (3.5-5.1) mmol/L Carbon Dioxide (22-30) mmol/L BUN (7-17) mg/dL Glucose (74-99) mg/dL POC Glucose (mg/dL) 121 H 139 H 152 H (75-99) mg/dL Magnesium (1.6-2.3) mg/dL Albumin (3.5-5.0) g/dL 05/31/21 05/31/21 05/31/21 Range/Units 06:17 07:16 07:16 Metamyelocytes # (Man) 0.09 H (0) k/uL Myelocytes # (Manual) 0.09 H (0) k/uL Potassium 2.9 L (3.5-5.1) mmol/L Carbon Dioxide 33 H (22-30) mmol/L BUN (7-17) mg/dL Glucose 134 H (74-99) mg/dL POC Glucose (mg/dL) 108 H (75-99) mg/dL Magnesium 1.3 L (1.6-2.3) mg/dL Albumin 3.4 L (3.5-5.0) g/dL 05/31/21 05/31/21 Range/Units 11:38 12:33 Metamyelocytes # (Man) (0) k/uL Myelocytes # (Manual) (0) k/uL Potassium 3.1 L (3.5-5.1) mmol/L Carbon Dioxide (22-30) mmol/L BUN 6 L (7-17) mg/dL Glucose 194 H (74-99) mg/dL POC Glucose (mg/dL) 191 H (75-99) mg/dL Magnesium (1.6-2.3) mg/dL Albumin 3.4 L (3.5-5.0) g/dL Assessment and Plan Assessment: Assessment: 60-year-old female complex medical history with upper and lower extremity weakness, chronic multiple medical comorbidities altered mental status, uro- sepsis, rule out spinal etiology, bacteremia Lower extremity weakness Urinary retention Plan: Plan: MRI is completed of her C-spine with and without which shows no infectious proc ess MRI of her thoracic and lumbar spine are pending at this time we are coordinating for her to go to [facility] for MRI. Patient was supposed to have this yesterday however her creatinine increased and she is unable to have it. At this point there is been delay in care secondary to not being able to obtain MRI and so we will recommend transfer of this patient urgently to a [facility] ity that is able to perform her MRI and take care of her. She is having urinary retention and lower extremity weakness as well as pain and she needs to have this MRI stat. It was order as such previously however our facility stated they could not do it for her. We attempted to get this done at [facility] however this was unable to happen. At this point she is needs to be transferred to a fa cility that can take care of her.
[2021-05-31 13:32] LABS: HCT 37.8 % (34.0-46.0); HGB 12.6 gm/dL (11.4-16.0); MCH 28.7 pg (25.0-35.0); MCHC 33.4 g/dL (31.0-37.0); MCV 85.8 fL (80.0-100.0); Mean Platelet Volume 8.4; Platelet Count 313 k/uL (150-450); RDW 13.5 % (11.5-15.5); WBC 11.4 k/uL (3.8-10.6)
[2021-05-31 14:43] LABS: Band Neutrophils % 1 %; Eosinophils # (M) 0.23 k/uL (0-0.7); Lymphocytes # (M) 2.05 k/uL (1.0-4.8); Metamyelocytes # (M) 0.11 k/uL (0); Metamyelocytes % 1 %; Myelocytes # (M) 0.11 k/uL (0); Myelocytes % 1 %; Neutrophils % (M) 71 %; Nucleated Red Blood Cells 0 /100 WBC (0-0); Total Cells Counted 200
--- NOTE | 2021-05-31 16:20 | PN ---
PROGRESS NOTE DATE OF SERVICE: 05/31/2021 REASON FOR FOLLOWUP: E coli UTI and bacteremia. INTERVAL HISTORY: The patient is afebrile. The patient is breathing comfortably. Denies any chest pain. No shortness of breath or cough. No abdominal pain. No diarrhea. PHYSICAL EXAMINATION: Her blood pressure is 151/93 with a pulse of 85, temperature 98.2. She is 98% on room air. General description is a middle aged female lying in bed in no distress. Respiratory system: Unlabored breathing, clear to auscultation anteriorly. Heart S1, S2. Regular rate and rhythm. Abdomen soft, no tenderness. LABORATORY DATA: Hemoglobin 10.4, white count 9.2, BUN of 8, creatinine 0.84. DIAGNOSTIC IMPRESSION AND PLAN: Patient with E coli urinary tract infection with secondary bacteremia. Repeat blood cultures have been negative. The patient is covered with Rocephin. Finish therapy with oral Cipro and close outpatient followup. Continue supportive care. MMODL / IJN: [id number] /
[2021-05-31 16:34] LABS: Glucose,Whole Blood 193 mg/dL (75-99)
--- NOTE | 2021-05-31 16:47 | P.CONS ---
History of Present Illness - Reason for Consult Consult date: 05/31/21 Bicytopenia Requesting physician: Kevin E Sheet - History of Present Illness Ms Moffett is a pleasant white female with multiple medical problems. She was last seen in office by Dr. lopez in 2019. The patient was noted to have mild elevation of her WBC, initially in mid 2018, according to her. We have labs available only from 09/28/18, along with the office note from our routine PCP visit. Labs done on that day showed a white count of 15.5, hemoglobin 14.2, and platelets 266. WBC differential showed predominant neutrophilia with ANC 11.3. Monocytes were minimally elevated at 1.1. she was therefore referred here for further evaluation and recommendations, given the persistence of this finding. She denied any prior history of blood related problems. She has been a smoker since age 16, smoking about 2 packs a day. After mid 2018, she had been trying to cut down and was down to about 1 pack a day at the time of her initial consultation here. She has a history of sleep apnea with ongoing sleep related problems. She also has a history of pseudotumor cerebri with multiple shunt re lated surgeries in the past, though the most recent was more than 10 years prior. The patient stated that her last colonoscopy was somewhere in the early s. She also reported not being compliant with her mammogram and Pap smear. She gave a history of hepatitis C initially diagnosed in the early s but denied any follow-up with gastroenterology. She was felt to clinically have a mild reactive condition due to smoking. She had additional w/u reveaing DEMETRICE positivity at 1:320. CT chest screening revealed b/l granulomas, benign appearing and rt hemidiaphragmmatic elevation. She was referred to [facility] but has not seen them yet She denied any f/c/v. She continues to c/o malaise and fatigue, indigestion, and generalized aches. Her ROS isotherwise as per HPI and negative out of 10. The pt's w/u is overall non specific as noted. At this time, there is no evidence of a primary MPD - Continue f/u with her PCP. She can be referred back if her WBC or other aspects of her CBC show any major change - Refer to Rheumatology to w/u her DEMETRICE - Refer to Pulmonary. The pt is very anxious about her CT report, and despite reassurance, wants a second opinion - She was strongly advised to f/u with [facility], as well as to quit smoking We had been asked to re-evaluate her this hospital stay due to bicytopenia. Although her most recent bloodwork was within normal ranges today. Still with a mild leukocytosis, she apparently is being treated for active infection (UTI). She resides in [facility] because of her significant medical history. past medical history of hepatitis C, diabetes mellitus, hypertension, chronic neck and back pain, pseudotumor cerebri, pulmonary hypertension, psoriasis ba cterial meningitis at age 30. 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 02 2l at night History of Any Multi-Drug Resistant Organisms: None Reported Past Surgical History: Adenoidectomy, Appendectomy, Back Surgery, Bladder Surgery, Orthopedic Surgery, Tonsillectomy, Tubal Ligation Additional Past Surgical History / Comment(s): 9 SAW MAKER shunts- none at this time,28 LP shunts, eye surgery,rt ovary and fallopian tube removed, Laser procedure for cervix CA Past Anesthesia/Blood Transfusion Reactions: No Reported Reaction Additional Past Anesthesia/Blood Transfusion Reaction / Comm: no hx blood transfusion Past Psychological History: Anxiety Smoking Status: Former smoker Past Alcohol Use History: None Reported Past Drug Use History: None Reported - Past Family History Mother Family Medical History: No Reported History Father Family Medical History: Myocardial Infarction (NC) Additional Family Medical History / Comment(s): Father of a NC at the age of 60 yrs. Medications and Allergies Home Medications Medication Instructions Recorded Confirmed Type Furosemide [Lasix] 40 mg PO DAILY 12/13/19 05/25/21 History Ferrous Sulfate [Feosol] 325 mg PO DAILY 11/12/20 05/25/21 History Gabapentin 600 mg PO BID 11/12/20 05/25/21 History LORazepam [Ativan] 1 mg PO TID@0600,1400,2200 11/12/20 05/25/21 History Promethazine HCl 12.5 mg PO QID PRN 11/12/20 05/25/21 History hydrOXYzine HCL 10 mg PO QID@00,06,12,18 11/12/20 05/25/21 History oxyCODONE HCL [oxyCODONE HCL (IR)] 20 mg PO Q4H PRN 11/12/20 05/25/21 History DULoxetine HCL [Cymbalta] 60 mg PO DAILY 05/25/21 05/25/21 History Gabapentin 300 mg PO BID 05/25/21 05/25/21 History Glimepiride [Amaryl] 2 mg PO DAILY 05/25/21 05/25/21 History INSULIN LISPRO (HumaLOG) [humaLOG] See Protocol SQ ACHS@09,,,05/25/21 05/25/21 History Insulin Detemir [Levemir Flextouch] 16 units SQ DAILY 05/25/21 05/25/21 History Ketoconazole 2% Cream [Nizoral 2%] 1 applic TOPICAL TUSA@2100 05/25/21 05/25/21 History Lisinopril [Prinivil] 10 mg PO DAILY 05/25/21 05/25/21 History Metoprolol Tartrate [Lopressor] 100 mg PO BID 05/25/21 05/25/21 History Nitroglycerin Sl Tabs [Nitrostat] 0.4 mg SL Q5M PRN 05/25/21 05/25/21 History Omeprazole 20 mg PO DAILY 05/25/21 05/25/21 History Sennosides [Senna] 8.6 mg PO BID PRN 05/25/21 05/25/21 History Tacrolimus [Protopic] 1 applic TOPICAL BID 05/25/21 05/25/21 History Vascepa 1gm 2 gm PO BID 05/25/21 05/25/21 History metFORMIN HCL [Glucophage] 1,000 mg PO BID@0900,1700 05/25/21 05/25/21 History Allergies Allergy/AdvReac Type Severity Reaction Status Date / Time No Known Allergies Allergy Verified 05/25/21 17:07 Physical Exam Vitals: Vital Signs Temp Pulse Resp BP Pulse Ox 05/31/21 02:56 98.2 F 65 16 137/62 97 05/31/21 02:00 65 18 05/31/21 00:00 98.0 F 76 17 125/74 97 05/30/21 19:54 97.8 F 66 18 178/84 99 05/30/21 18:37 18 133/80 98 05/30/21 16:00 97.5 F L 61 18 174/96 98 05/30/21 14:00 18 05/30/21 12:00 98.1 F 62 18 162/85 98 Intake and Output 05/30/21 05/31/21 05/31/21 22:59 06:59 14:59 Intake Total 480 100 Output Total 630 2250 Balance -150 -2150 Intake: Intake, IV Titration 100 Amount cefTRIAXone 2 gm In 100 Sodium Chloride 0.9% 50 ml @ 100 mls/hr IVPB Q24H [facility] Rx#:[id number] Oral 480 Output: Urine 630 2250 Other: Voiding Method Bedside Commode Bedside Commode # Voids 1 1 # Bowel Movements 1 Weight 102 kg Results CBC & Chem 7: 05/31/21 12:33 05/31/21 12:33 Labs: Abnormal Lab Results - Last 24 Hours (Table) 05/30/21 05/30/21 05/30/21 Range/Units 09:20 09:20 09:20 RBC 3.05 L (3.80-5.40) m/uL Hgb 9.1 L D (11.4-16.0) gm/dL Hct 30.6 L (34.0-46.0) % MCV 100.4 H D (80.0-100.0) fL MCHC 29.7 L (31.0-37.0) g/dL RDW 16.6 H (11.5-15.5) % Plt Count 124 L (150-450) k/uL Lymphocytes # 0.7 L (1.0-4.8) k/uL ESR 29 H (0-20) mm/hr Carbon Dioxide (22-30) mmol/L BUN (7-17) mg/dL Creatinine (0.52-1.04) mg/dL Glucose (74-99) mg/dL POC Glucose (mg/dL) (75-99) mg/dL Calcium (8.4-10.2) mg/dL C-Reactive Protein 3.8 H (<1.0) mg/dL 05/30/21 05/30/21 05/30/21 Range/Units 09:20 11:14 13:31 RBC (3.80-5.40) m/uL Hgb (11.4-16.0) gm/dL Hct (34.0-46.0) % MCV (80.0-100.0) fL MCHC (31.0-37.0) g/dL RDW (11.5-15.5) % Plt Count (150-450) k/uL Lymphocytes # (1.0-4.8) k/uL ESR (0-20) mm/hr Carbon Dioxide 21 L (22-30) mmol/L BUN 63 H (7-17) mg/dL Creatinine 4.18 H (0.52-1.04) mg/dL Glucose 220 H (74-99) mg/dL POC Glucose (mg/dL) 113 H 121 H (75-99) mg/dL Calcium 7.5 L (8.4-10.2) mg/dL C-Reactive Protein (<1.0) mg/dL 05/30/21 05/30/21 05/31/21 Range/Units 16:27 20:45 06:17 RBC (3.80-5.40) m/uL Hgb (11.4-16.0) gm/dL Hct (34.0-46.0) % MCV (80.0-100.0) fL MCHC (31.0-37.0) g/dL RDW (11.5-15.5) % Plt Count (150-450) k/uL Lymphocytes # (1.0-4.8) k/uL ESR (0-20) mm/hr Carbon Dioxide (22-30) mmol/L BUN (7-17) mg/dL Creatinine (0.52-1.04) mg/dL Glucose (74-99) mg/dL POC Glucose (mg/dL) 139 H 152 H 108 H (75-99) mg/dL Calcium (8.4-10.2) mg/dL C-Reactive Protein (<1.0) mg/dL
[2021-05-31] MEDS: LORazepam 0.5 MG TAB PO PRN ×3 (17:15→22:17)
--- NOTE | 2021-05-31 17:22 | P.PN ---
Subjective Progress Note Date: 05/31/21 Principal diagnosis: Acute urinary tract infection, with right pyelonephritis secondary to E. coli E coli bacteremia/ Severe sepsis Acute and chronic low back pain with radiating to the right leg with difficulty walking and right leg weakness 60-year-old female presenting to the ER last night for evaluation of her mental status changes patient is a [facility] of [facility] apparently the patient did have good onset of mental status changes and the patient was noticed to be febrile with temperature of 102 F patient was moaning and not answering any question the patient was hypoxic and shaky on presentation to the hospital on arrival to the ER patient did have a temperature of 99.7 F O2 sat 94% on room air patient did have a normal white count elevation subsequently white count is up to 26.3 today BUN and creatinine was mildly elevated lactic acid was elevated at 3.1 liver exams were not significantly elevated but did have a positive UA with large leukocyte esterase and WBC many bacteria murillo PCR was negative chest x-ray with atelectasis at the lung bases CT angiogram of the chest bilateral lower lobe infiltrate and atelectasis no PE CT of the abdominal pelvis mild fullness of the right upper collecting system but no calculus patient was started on Zosyn subsequent blood cultures remain positive with gram-negative bacilli that has prompted this infectious disease consultation patient evaluation slightly more awake alert she knows she is in the hospital denies having any headache no chest pain shortness of breath or cough some vague abdominal pain no vomiting or diarrhea has been reported patient did have a Collado catheter however patient mention she did have a long- term catheter and is not sure when the catheter was changed last. Patient has been evaluated by orthopedic surgery and recommending patient to be discharged to a tertiary care center for possible MRI of the lumbar and thoracic spine to rule out any infectious etiology and also for further management of such abscesses found Objective - Vital Signs Vital signs: Vital Signs Temp 98.2 F 05/31/21 02:56 Pulse 72 05/31/21 08:00 Resp 16 05/31/21 08:00 BP 156/71 05/31/21 08:00 Pulse Ox 95 05/31/21 08:00 Intake & Output 05/30/21 05/31/21 05/31/21 18:59 06:59 18:59 Intake Total 720 100 180 Output Total 300 2580 1000 Balance 420 -2100 -820 Weight 102 kg 102 kg Intake: Intake, IV Titration 100 Amount cefTRIAXone 2 gm In 100 Sodium Chloride 0.9% 50 ml @ 100 mls/hr IVPB Q24H [facility] Rx#:[id number] Oral 720 180 Output: Urine 300 2580 1000 Other: Voiding Method Bedpan Bedside Commode Indwelling Catheter # Voids 1 # Bowel Movements 1 - Exam GENERAL DESCRIPTION: Middle-aged female lying in bed, no distress. No tachypnea or accessory muscle of respiration use. HEENT: Shows Pallor , no scleral icterus. Oral mucous membrane is dry. No pharyngeal erythema or thrush NECK: Trachea central, no thyromegaly. LUNGS: Unlabored breathing. Clear to auscultation anteriorly. No wheeze or crackle. HEART: S1, S2, regular rate and rhythm. No loud murmur ABDOMEN: Soft, no tenderness , guarding or rigidity, no organomegaly EXTREMITIES: No edema of feet. SKIN: No rash, no masses palpable. NEUROLOGICAL: The patient is awake, alert, oriented x3, mood and affect normal. - Labs CBC & Chem 7: 05/31/21 12:33 05/31/21 16:06 Labs: Abnormal Lab Results - Last 24 Hours (Table) 05/30/21 05/30/21 05/30/21 Range/Units 09:20 13:31 16:27 Metamyelocytes # (Man) (0) k/uL Myelocytes # (Manual) (0) k/uL ESR 29 H (0-20) mm/hr Potassium (3.5-5.1) mmol/L Carbon Dioxide (22-30) mmol/L Glucose (74-99) mg/dL POC Glucose (mg/dL) 121 H 139 H (75-99) mg/dL Magnesium (1.6-2.3) mg/dL Albumin (3.5-5.0) g/dL 05/30/21 05/31/21 05/31/21 Range/Units 20:45 06:17 07:16 Metamyelocytes # (Man) 0.09 H (0) k/uL Myelocytes # (Manual) 0.09 H (0) k/uL ESR (0-20) mm/hr Potassium (3.5-5.1) mmol/L Carbon Dioxide (22-30) mmol/L Glucose (74-99) mg/dL POC Glucose (mg/dL) 152 H 108 H (75-99) mg/dL Magnesium (1.6-2.3) mg/dL Albumin (3.5-5.0) g/dL 05/31/21 05/31/21 Range/Units 07:16 11:38 Metamyelocytes # (Man) (0) k/uL Myelocytes # (Manual) (0) k/uL ESR (0-20) mm/hr Potassium 2.9 L (3.5-5.1) mmol/L Carbon Dioxide 33 H (22-30) mmol/L Glucose 134 H (74-99) mg/dL POC Glucose (mg/dL) 191 H (75-99) mg/dL Magnesium 1.3 L (1.6-2.3) mg/dL Albumin 3.4 L (3.5-5.0) g/dL Assessment and Plan Assessment: Acute urinary tract infection, with right pyelonephritis secondary to E. coli E coli bacteremia Severe sepsis secondary to above. Improved Acute and chronic low back pain with radiating to the right leg with difficulty walking and right leg weakness. Orthopedic team on the case and MRI of the spine is ordered Abdominal pain and tenderness with nausea, rule out bowel obstruction Hypotension, present on admission. Improved and currently patient placed back on her antihypertensive medication and blood pressure is controlled Elevated lactic acid, slightly improving Acute kidney injury . Back to baseline Diabetes mellitus Hypertension Chronic neck and back pain History of pseudotumor cerebri History of bacterial meningitis at age 30 History of hepatitis C History of pulmonary hypertension History of psoriasis Anxiety, not an active issue. Continue with IV ceftriaxone Zosyn. Follow-up with ID team recommendations Follow-up MRI of the spine, follow-up recommendation by orthopedic team who saw the patient We will order CT of the abdomen and pelvis with no iv contrast, only oral contrast monitor labs. Continue with D5 normal saline and insulin sliding scale Check ultrasound of the legs given her Bilateral leg pain being bedridden Labs and medication were reviewed.. Continue same treatment. Continue with symptomatic treatment. Resume home medication. Monitor lytes and vitals. DVT and GI prophylaxis. Further recommendations depends on the clinical course of the patient DVT prophylaxis: Subcutaneous heparin GI Prophylaxis: Pepcid
[2021-05-31 20:14] LABS: Glucose,Whole Blood 214 mg/dL (75-99)
[2021-05-31] MEDS: hydrALAZINE HCL 20 MG/ML 1 ML VIAL IVP PRN (22:22)
[2021-06-01] MEDS: INSULIN ASPART (NovoLOG) 100 UNIT/ML VIAL SQ SCH ×5 (00:46→20:19)
[2021-06-01 00:55] LABS: Potassium 3.1 mmol/L (3.5-5.1)
[2021-06-01] MEDS: POTASSIUM CHLORIDE ER 20 MEQ TAB.ER PO SCH ×4 (01:09→17:13)
[2021-06-01] MEDS: LORazepam 0.5 MG TAB PO PRN ×2 (01:15→09:12)
[2021-06-01] MEDS ORDERED: POTASSIUM CHLORIDE 10 MEQ in WATER FOR INJECTION 1 100ML.BAG IVPB STA (01:56)
[2021-06-01 06:05] LABS: Glucose,Whole Blood 148 mg/dL (75-99)
[2021-06-01] MEDS: PANTOPRAZOLE 40 MG TABLET PO SCH (07:07)
[2021-06-01] MEDS: busPIRone HCl 5 MG TAB PO SCH ×3 (08:48→20:18)
[2021-06-01] MEDS: METOPROLOL TARTRATE 50 MG TAB PO SCH ×2 (08:48→20:17)
[2021-06-01] MEDS: GABAPENTIN 300 MG CAP PO SCH ×2 (08:48→20:18)
[2021-06-01] MEDS: FERROUS SULFATE 325 MG TAB PO SCH (08:48)
[2021-06-01] MEDS: FAMOTIDINE 20 MG TAB PO SCH ×2 (08:48→20:18)
[2021-06-01] MEDS: FUROSEMIDE 40 MG TAB PO SCH (08:49)
[2021-06-01] MEDS: DULoxetine HCL 60 MG CAPSULE.DR PO SCH (08:49)
[2021-06-01] MEDS: TAMSULOSIN 0.4 MG CAP.ER.24H PO SCH (08:49)
[2021-06-01] MEDS: HEPARIN SODIUM,PORCINE/PF 5,000 UNIT/0.5 ML SYRINGE SQ SCH ×2 (08:49→20:20)
[2021-06-01] MEDS: hydrALAZINE HCL 20 MG/ML 1 ML VIAL IVP PRN (08:49)
[2021-06-01 11:42] LABS: Glucose,Whole Blood 205 mg/dL (75-99)
[2021-06-01 12:36] LABS: Basophils # (A) 0.2 k/uL (0-0.2); Basophils % (A) 2 %; Eosinophils # (A) 0.2 k/uL (0-0.7); Eosinophils % (A) 2 %; HCT 41.5 % (34.0-46.0); HGB 13.4 gm/dL (11.4-16.0); Lymphocytes # (A) 1.8 k/uL (1.0-4.8); Lymphocytes % (A) 16 %; MCH 28.2 pg (25.0-35.0); MCHC 32.3 g/dL (31.0-37.0); MCV 87.5 fL (80.0-100.0); Mean Platelet Volume 8.1; Monocytes # (A) 0.7 k/uL (0-1.0); Monocytes % (A) 6 %; Neutrophils # (A) 7.4 k/uL (1.3-7.7); Neutrophils % (A) 69 %; Platelet Count 333 k/uL (150-450); RBC 4.74 m/uL (3.80-5.40); RDW 13.7 % (11.5-15.5); WBC 10.7 k/uL (3.8-10.6)
[2021-06-01 12:47] LABS: C Reactive Protein 2.5 mg/dL (<1.0); Calcium 9.4 mg/dL (8.4-10.2); Magnesium 1.9 mg/dL (1.6-2.3); Potassium 3.4 mmol/L (3.5-5.1)
--- NOTE | 2021-06-01 14:35 | P.PN ---
Subjective Progress Note Date: 06/01/21 Principal diagnosis: back and neck pain, LE weakness Patient seen and examined. She is sitting up in bed she seems to be doing slightly better clinically today. She still complains of weakness and pain in her lower extremities as well as her back. She can get up to her chair but that is about it as she has weakness in her legs and difficulty with ambulation. She denies any bowel or bladder issues however her nurse states that yesterday she was straight cathed for over 1999 and a Collado was replaced and so she is having urinary retention at this time. Denies any genital numbness or tingling. Nursing at bedside states she looks better today as well. She is awaiting t ransfer to . Objective - Vital Signs Vital signs: Vital Signs Temp 97.9 F 06/01/21 08:00 Pulse 71 06/01/21 12:00 Resp 18 06/01/21 12:00 BP 135/87 06/01/21 12:00 Pulse Ox 96 06/01/21 12:00 Intake & Output 05/31/21 06/01/21 06/01/21 18:59 06:59 18:59 Intake Total 680 720 Output Total 1625 700 900 Balance -945 -700 -180 Weight 102 kg 98.2 kg Intake: IV 300 Magnesium Sulfate-D5w Pmx 300 1 gm In Dextrose/Water 1 100ml.bag @ 100 mls/hr IVPB Q1H [facility] Rx#: [id number] Oral 380 720 Output: Urine 1625 700 900 Other: Voiding Method Indwelling Catheter Indwelling Catheter Indwelling Catheter - Exam Exam is stable at this time Physical exam: Patient is alert and oriented 3 appears well-nourished well-hydrated is in no acute distress. They does not appear septic. On exam the patient has no tenderness to palpation of her thoracic or lumbar spine. There is no edema or ballottement sign. Lower extremities with 3 out of 5 strength in all major muscle groups Upper extremities show 4/5 strength in all major muscle groups. There is FROM that is painless of the b/l UE and LE in all major joints. She is a poor command follow her at this time They are intact to light touch sensation in L2 to S1 nerve distribution. Intact light touch sensation in the C5 to T1 nerve distribution as well Intact perirectal and perianal sensation. Good rectal tone on chaperoned exam Patient has palpable dorsalis pedis was posterior tibial pulses. Compartments are soft and compressible. Patient shows a negative Homans, Positive Inocencio's on the left negative on the right negative Babinski's negative clonus bilaterally. negative straight leg raise bilaterally. No tensioning signs. Cranial nerves II through XII are grossly intact. Overall alignment is well-maintained in the sagittal coronal planes. Ambulates with a scooter - Labs CBC & Chem 7: 06/01/21 12:03 06/01/21 12:03 Labs: Abnormal Lab Results - Last 24 Hours (Table) 05/31/21 05/31/21 05/31/21 Range/Units 12:33 16:06 16:33 WBC (3.8-10.6) k/uL Neutrophils # (Manual) 8.20 H (1.3-7.7) k/uL Metamyelocytes # (Man) 0.11 H (0) k/uL Myelocytes # (Manual) 0.11 H (0) k/uL Potassium 3.0 L (3.5-5.1) mmol/L Glucose (74-99) mg/dL POC Glucose (mg/dL) 193 H (75-99) mg/dL C-Reactive Protein (<1.0) mg/dL 05/31/21 06/01/21 06/01/21 Range/Units 20:12 00:14 06:03 WBC (3.8-10.6) k/uL Neutrophils # (Manual) (1.3-7.7) k/uL Metamyelocytes # (Man) (0) k/uL Myelocytes # (Manual) (0) k/uL Potassium 3.1 L (3.5-5.1) mmol/L Glucose (74-99) mg/dL POC Glucose (mg/dL) 214 H 148 H (75-99) mg/dL C-Reactive Protein (<1.0) mg/dL 06/01/21 06/01/21 06/01/21 Range/Units 11:40 12:03 12:03 WBC 10.7 H (3.8-10.6) k/uL Neutrophils # (Manual) (1.3-7.7) k/uL Metamyelocytes # (Man) (0) k/uL Myelocytes # (Manual) (0) k/uL Potassium 3.4 L (3.5-5.1) mmol/L Glucose 183 H (74-99) mg/dL POC Glucose (mg/dL) 205 H (75-99) mg/dL C-Reactive Protein 2.5 H (<1.0) mg/dL Assessment and Plan Assessment: Assessment: 60-year-old female complex medical history with upper and lower extremity weakness, chronic multiple medical comorbidities altered mental status, uro- sepsis, rule out spinal etiology, bacteremia Lower extremity weakness Urinary retention Plan: Plan: MRI is completed of her C-spine with and without which shows no infectious process MRI of her thoracic and lumbar spine are pending at this time we are coordinating for her to go to [facility] for MRI. Patient was supposed to have this yesterday however her creatinine increased and she is unable to have it. At this point there is been delay in care secondary to not being able to obtain MRI and so we will recommend transfer of this patient urgently to a facility that is able to perform her MRI and take care of her. She is having u rinary retention and lower extremity weakness as well as pain and she needs to have this MRI stat. It was order as such previously however our facility stated they could not do it for her. We attempted to get this done at [facility] however this was unable to happen. At this point she is needs to be transferred to a facility that can take care of her.
[2021-06-01] MEDS ORDERED: Potassium Replacement Protocol 1 EACH MISC MISCELLANE PRN (15:57)
--- NOTE | 2021-06-01 15:57 | PN ---
PROGRESS NOTE DATE OF SERVICE: 06/01/2021 REASON FOR FOLLOWUP: E coli UTI and bacteremia. INTERVAL HISTORY: Patient is afebrile. The patient is breathing comfortably. Patient denies having any chest pain, shortness of breath or cough. No abdominal pain or diarrhea. PHYSICAL EXAMINATION: Blood pressure 135/87 with a pulse of 71, temperature of 97.9. She is 96% on room air. General description is a middle-aged female lying in bed in no distress. Respiratory system: Unlabored breathing, clear to auscultation anteriorly. Heart S1, S2. Regular rate and rhythm. Abdomen soft, no tenderness. LABS: Hemoglobin 13.4, white count 10.7, BUN of 7, creatinine 0.691. DIAGNOSTIC IMPRESSION AND PLAN: Patient with an E coli UTI and bacteremia, right-sided pyelonephritis. Patient is covered with Rocephin. Transition to oral antibiotic on discharge and close outpatient followup. MMODL / IJN: [id number] /
[2021-06-01 16:50] LABS: Glucose,Whole Blood 157 mg/dL (75-99)
[2021-06-01] MEDS: hydrALAZINE HCL 20 MG/ML 1 ML VIAL IM PRN (17:14)
--- NOTE | 2021-06-01 17:45 | P.PN ---
Subjective Progress Note Date: 06/01/21 Principal diagnosis: Acute urinary tract infection, with right pyelonephritis secondary to E. coli E coli bacteremia/ Severe sepsis Acute and chronic low back pain with radiating to the right leg with difficulty walking and right leg weakness 60-year-old female presenting to the ER last night for evaluation of her mental status changes patient is a resident of local assisted apparently the patient did have good onset of mental status changes and the patient was noticed to be febrile with temperature of 102 F patient was moaning and not answering any question the patient was hypoxic and shaky on presentation to the hospital on arrival to the ER patient did have a temperature of 99.7 F O2 sat 94% on room air patient did have a normal white count elevation subsequently white count is up to 26.3 today BUN and creatinine was mildly elevated lactic acid was elevated at 3.1 liver exams were not significantly elevated but did have a positive UA with large leukocyte esterase and WBC many bacteria murillo PCR was negative chest x-ray with atelectasis at the lung bases CT angiogram of the chest bilateral lower lobe infiltrate and atelectasis no PE CT of the abdominal pelvis mild fullness of the right upper collecting system but no calculus patient was started on Zosyn subsequent blood cultures remain positive with gram-negative bacilli that has prompted this infectious disease consultation patient evaluation slightly more awake alert she knows she is in the hospital denies having any headache no chest pain shortness of breath or cough some vague abdominal pain no vomiting or diarrhea has been reported patient did have a Collado catheter however patient mention she did have a long- term catheter and is not sure when the catheter was changed last. Patient has been evaluated by orthopedic surgery and recommending patient to be discharged to a tertiary care center for possible MRI of the lumbar and thoracic spine to rule out any infectious etiology and also for further management of such abscesses found 06/01/2021 Patient is seen and evaluated in room at bedside; reports uncontrolled pain and requesting oxycodone to be changed to every 4 hours Patient denies any chest pain or shortness of breath Vital signs are reviewed and are stable with a temperature of 97.9, pulse 71, respiration 18 and blood pressure 135/87 with O2 saturation 96% on room air Patient is with E. coli UTI and bacteremia; with right-sided pyelonephritis remains on IV Rocephin Patient is being evaluated by orthopedic surgery and is recommended transferred to a tertiary Center for MRI of the thoracic/lumbar spine to rule out possible infectious etiology Objective - Vital Signs Vital signs: Vital Signs Temp 97.9 F 06/01/21 08:00 Pulse 74 06/01/21 08:00 Resp 18 06/01/21 08:00 BP 195/102 06/01/21 08:00 Pulse Ox 98 06/01/21 08:00 Intake & Output 05/31/21 06/01/21 06/01/21 18:59 06:59 18:59 Intake Total 680 240 Output Total 1625 700 Balance -945 -700 240 Weight 102 kg 98.2 kg Intake: IV 300 Magnesium Sulfate-D5w Pmx 300 1 gm In Dextrose/Water 1 100ml.bag @ 100 mls/hr IVPB Q1H [facility] Rx#: [id number] Oral 380 240 Output: Urine 1625 700 Other: Voiding Method Indwelling Catheter Indwelling Catheter - Exam GENERAL DESCRIPTION: Middle-aged female lying in bed, no distress. No tachypnea or accessory muscle of respiration use. HEENT: Shows Pallor , no scleral icterus. Oral mucous membrane is dry. No pharyngeal erythema or thrush NECK: Trachea central, no thyromegaly. LUNGS: Unlabored breathing. Clear to auscultation anteriorly. No wheeze or crackle. HEART: S1, S2, regular rate and rhythm. No loud murmur ABDOMEN: Soft, no tenderness , guarding or rigidity, no organomegaly EXTREMITIES: No edema of feet. SKIN: No rash, no masses palpable. NEUROLOGICAL: The patient is awake, alert, oriented x3, mood and affect normal. - Labs CBC & Chem 7: 06/01/21 12:03 06/01/21 12:03 Labs: Abnormal Lab Results - Last 24 Hours (Table) 05/31/21 05/31/21 05/31/21 Range/Units 07:16 11:38 12:33 WBC 11.4 H (3.8-10.6) k/uL Neutrophils # (Manual) 8.20 H (1.3-7.7) k/uL Metamyelocytes # (Man) 0.09 H 0.11 H (0) k/uL Myelocytes # (Manual) 0.09 H 0.11 H (0) k/uL Potassium (3.5-5.1) mmol/L BUN (7-17) mg/dL Glucose (74-99) mg/dL POC Glucose (mg/dL) 191 H (75-99) mg/dL Albumin (3.5-5.0) g/dL 05/31/21 05/31/21 05/31/21 Range/Units 12:33 16:06 16:33 WBC (3.8-10.6) k/uL Neutrophils # (Manual) (1.3-7.7) k/uL Metamyelocytes # (Man) (0) k/uL Myelocytes # (Manual) (0) k/uL Potassium 3.1 L 3.0 L (3.5-5.1) mmol/L BUN 6 L (7-17) mg/dL Glucose 194 H (74-99) mg/dL POC Glucose (mg/dL) 193 H (75-99) mg/dL Albumin 3.4 L (3.5-5.0) g/dL 05/31/21 06/01/21 06/01/21 Range/Units 20:12 00:14 06:03 WBC (3.8-10.6) k/uL Neutrophils # (Manual) (1.3-7.7) k/uL Metamyelocytes # (Man) (0) k/uL Myelocytes # (Manual) (0) k/uL Potassium 3.1 L (3.5-5.1) mmol/L BUN (7-17) mg/dL Glucose (74-99) mg/dL POC Glucose (mg/dL) 214 H 148 H (75-99) mg/dL Albumin (3.5-5.0) g/dL Assessment and Plan Assessment: Acute urinary tract infection, with right pyelonephritis secondary to E. coli E coli bacteremia Severe sepsis secondary to above. Improved Acute and chronic low back pain with radiating to the right leg with difficulty walking and right leg weakness. Orthopedic team on the case and MRI of the spine is ordered Abdominal pain and tenderness with nausea, rule out bowel obstruction Hypotension, present on admission. Improved and currently patient placed back on her antihypertensive medication and blood pressure is controlled Elevated lactic acid, slightly improving Acute kidney injury . Back to baseline Diabetes mellitus Hypertension Chronic neck and back pain History of pseudotumor cerebri History of bacterial meningitis at age 30 History of hepatitis C History of pulmonary hypertension History of psoriasis Anxiety, not an active issue. Continue with IV ceftriaxone Zosyn. Follow-up with ID team recommendations Follow-up MRI of the spine, follow-up recommendation by orthopedic team who saw the patient We will order CT of the abdomen and pelvis with no iv contrast, only oral contrast monitor labs. Continue with D5 normal saline and insulin sliding scale Check ultrasound of the legs given her Bilateral leg pain being bedridden Labs and medication were reviewed.. Continue same treatment. Continue with symptomatic treatment. Resume home medication. Monitor lytes and vitals. DVT and GI prophylaxis. Further recommendations depends on the clinical course of the patient DVT prophylaxis: Subcutaneous heparin GI Prophylaxis: Pepcid
[2021-06-01 20:07] LABS: Glucose,Whole Blood 163 mg/dL (75-99)
[2021-06-01] MEDS: CLOTRIMAZOLE 1% CREAM 30 GM TUBE TOPICAL SCH (20:18)
[2021-06-02] MEDS: INSULIN ASPART (NovoLOG) 100 UNIT/ML VIAL SQ SCH ×3 (06:34→18:24)
[2021-06-02] MEDS: PANTOPRAZOLE 40 MG TABLET PO SCH (06:35)
[2021-06-02] MEDS: FUROSEMIDE 40 MG TAB PO SCH (08:57)
[2021-06-02] MEDS: FAMOTIDINE 20 MG TAB PO SCH ×2 (08:57→21:00)
[2021-06-02] MEDS: GABAPENTIN 300 MG CAP PO SCH ×2 (08:57→21:00)
[2021-06-02] MEDS: DULoxetine HCL 60 MG CAPSULE.DR PO SCH (08:57)
[2021-06-02] MEDS: METOPROLOL TARTRATE 50 MG TAB PO SCH ×2 (08:57→21:00)
[2021-06-02] MEDS: TAMSULOSIN 0.4 MG CAP.ER.24H PO SCH (08:57)
[2021-06-02] MEDS: HEPARIN SODIUM,PORCINE/PF 5,000 UNIT/0.5 ML SYRINGE SQ SCH ×2 (08:57→21:00)
[2021-06-02] MEDS: FERROUS SULFATE 325 MG TAB PO SCH (08:58)
[2021-06-02] MEDS: busPIRone HCl 5 MG TAB PO SCH ×3 (08:58→21:02)
[2021-06-02 11:53] LABS: Glucose,Whole Blood 142 mg/dL (75-99)
[2021-06-02 12:06] LABS: Glucose,Whole Blood 175 mg/dL (75-99)
[2021-06-02] MEDS: hydrALAZINE HCL 20 MG/ML 1 ML VIAL IM PRN ×2 (12:16→23:03)
--- NOTE | 2021-06-02 15:46 | PN ---
PROGRESS NOTE DATE OF SERVICE: 06/02/2021 REASON FOR FOLLOWUP: E coli UTI and bacteremia. INTERVAL HISTORY: The patient is afebrile. The patient is breathing comfortably. The patient denies having any chest pain, shortness of breath or cough. No abdominal pain or diarrhea. PHYSICAL EXAMINATION: On examination, blood pressure 142/71, pulse of 90, temperature 98.2. She is ( ). General description is a middle-aged female lying in bed in no distress. Respiratory system: Unlabored breathing, clear to auscultation anteriorly. Heart S1, S2. Regular rate and rhythm. Abdomen soft, no tenderness. LABS: No new labs have been obtained. The patient did have a normal creatinine 0.91. DIAGNOSTIC IMPRESSION AND PLAN: Patient with E coli bacteremia secondary to urinary source. Repeat blood culture has been negative with back pain. The patient did have a normal creatinine and should go for an MRI. Clinical suspicion low for underlying diskitis. Spinal Surgery is following the patient. Continue with Rocephin. MMODL / IJN: [id number] /
[2021-06-02 16:46] LABS: Glucose,Whole Blood 187 mg/dL (75-99)
--- NOTE | 2021-06-02 17:10 | P.PN ---
Subjective Progress Note Date: 06/02/21 Principal diagnosis: Acute urinary tract infection, with right pyelonephritis secondary to E. coli E coli bacteremia/ Severe sepsis Acute and chronic low back pain with radiating to the right leg with difficulty walking and right leg weakness 60-year-old female presenting to the ER last night for evaluation of her mental status changes patient is a resident of local [facility] apparently the patient did have good onset of mental status changes and the patient was noticed to be febrile with temperature of 102 F patient was moaning and not answering any question the patient was hypoxic and shaky on presentation to the hospital on arrival to the ER patient did have a temperature of 99.7 F O2 sat 94% on room air patient did have a normal white count elevation subsequently white count is up to 26.3 today BUN and creatinine was mildly elevated lactic acid was elevated at 3.1 liver exams were not significantly elevated but did have a positive UA with large leukocyte esterase and WBC many bacteria murillo PCR was negative chest x-ray with atelectasis at the lung bases CT angiogram of the chest bilateral lower lobe infiltrate and atelectasis no PE CT of the abdominal pelvis mild fullness of the right upper collecting system but no calculus patient was started on Zosyn subsequent blood cultures remain positive with gram-negative bacilli that has prompted this infectious disease consultation patient evaluation slightly more awake alert she knows she is in the hospital denies having any headache no chest pain shortness of breath or cough some vague abdominal pain no vomiting or diarrhea has been reported patient did have a Collado catheter however patient mention she did have a long- term catheter and is not sure when the catheter was changed last. Patient has been evaluated by orthopedic surgery and recommending patient to be discharged to a tertiary care center for possible MRI of the lumbar and thoracic spine to rule out any infectious etiology and also for further management of such abscesses found 06/01/2021 Patient is seen and evaluated in room at bedside; reports uncontrolled pain and requesting oxycodone to be changed to every 4 hours Patient denies any chest pain or shortness of breath Vital signs are reviewed and are stable with a temperature of 97.9, pulse 71, respiration 18 and blood pressure 135/87 with O2 saturation 96% on room air Patient is with E. coli UTI and bacteremia; with right-sided pyelonephritis remains on IV Rocephin Patient is being evaluated by orthopedic surgery and is recommended transferred to a tertiary Center for MRI of the thoracic/lumbar spine to rule out possible infectious etiology 06/02/2021 Patient is seen and evaluated in room at bedside; patient is requesting to be discharged home; detailed discussion about plan of care with patient as well as down yesterday; patient wants to be discharged home and wants to be informed once transferred arrangements to [facility] are completed at which time she wants to return to hospital; I did explain to patient again, she has been recommended transferred to [facility] for MRI of the spine to rule out infectious process and needs to be transferred from hospital to hospital; patient continues to argue and reports she will have one of the family members come and get her today Vital signs are stable with temperature of 98.2, pulse 63, respiration 18, blood pressure of 142/71 with O2 saturation 97% on room air Patient remains on antibiotic therapy for E. coli UTI and bacteremia; patient has been accepted at [facility]; await bed availability Objective - Vital Signs Vital signs: Vital Signs Temp 98.2 F 06/02/21 08:00 Pulse 63 06/02/21 11:51 Resp 18 06/02/21 11:51 BP 191/94 06/02/21 11:51 Pulse Ox 97 06/02/21 11:51 Intake & Output 06/01/21 06/02/21 06/02/21 18:59 06:59 18:59 Intake Total 720 Output Total 1550 875 Balance -830 -875 Weight 97.6 kg Intake: Oral 720 Output: Urine 1550 875 Other: Voiding Method Indwelling Catheter Indwelling Catheter Indwelling Catheter - Exam GENERAL DESCRIPTION: Middle-aged female lying in bed, no distress. No tachypnea or accessory muscle of respiration use. HEENT: Shows Pallor , no scleral icterus. Oral mucous membrane is dry. No pharyngeal erythema or thrush NECK: Trachea central, no thyromegaly. LUNGS: Unlabored breathing. Clear to auscultation anteriorly. No wheeze or crackle. HEART: S1, S2, regular rate and rhythm. No loud murmur ABDOMEN: Soft, no tenderness , guarding or rigidity, no organomegaly EXTREMITIES: No edema of feet. SKIN: No rash, no masses palpable. NEUROLOGICAL: The patient is awake, alert, oriented x3, mood and affect normal. - Labs CBC & Chem 7: 06/01/21 12:03 06/01/21 12:03 Labs: Abnormal Lab Results - Last 24 Hours (Table) 06/01/21 06/01/21 06/01/21 Range/Units 12:03 16:46 20:05 POC Glucose (mg/dL) 157 H 163 H (75-99) mg/dL Procalcitonin 2.19 H (0.02-0.09) ng/mL 06/02/21 06/02/21 Range/Units 06:00 11:53 POC Glucose (mg/dL) 142 H 175 H (75-99) mg/dL Procalcitonin (0.02-0.09) ng/mL Microbiology - Last 24 Hours (Table) 05/31/21 13:40 Blood Culture - Preliminary Blood No Growth after 24 hours Assessment and Plan Assessment: Acute urinary tract infection, with right pyelonephritis secondary to E. coli E coli bacteremia Severe sepsis secondary to above. Improved Acute and chronic low back pain with radiating to the right leg with difficulty walking and right leg weakness. Orthopedic team on the case and MRI of the spine is ordered Abdominal pain and tenderness with nausea, rule out bowel obstruction Hypotension, present on admission. Improved and currently patient placed back on her antihypertensive medication and blood pressure is controlled Elevated lactic acid, slightly improving Acute kidney injury . Back to baseline Diabetes mellitus Hypertension Chronic neck and back pain History of pseudotumor cerebri History of bacterial meningitis at age 30 History of hepatitis C History of pulmonary hypertension History of psoriasis Anxiety, not an active issue. Continue with IV ceftriaxone Zosyn. Follow-up with ID team recommendations Follow-up MRI of the spine, follow-up recommendation by orthopedic team who saw the patient We will order CT of the abdomen and pelvis with no iv contrast, only oral contrast monitor labs. Continue with D5 normal saline and insulin sliding scale Check ultrasound of the legs given her Bilateral leg pain being bedridden Labs and medication were reviewed.. Continue same treatment. Continue with symptomatic treatment. Resume home medication. Monitor lytes and vitals. DVT and GI prophylaxis. Further recommendations depends on the clinical course of the patient DVT prophylaxis: Subcutaneous heparin GI Prophylaxis: Pepcid
[2021-06-02] MEDS: LORazepam 0.5 MG TAB PO PRN (17:48)
[2021-06-02 18:09] LABS: Glucose,Whole Blood 170 mg/dL (75-99)
[2021-06-02 19:42] LABS: Glucose,Whole Blood 145 mg/dL (75-99)
[2021-06-03 00:01] LABS: Glucose,Whole Blood 195 mg/dL (75-99)
[2021-06-03] MEDS: INSULIN ASPART (NovoLOG) 100 UNIT/ML VIAL SQ SCH ×3 (00:43→12:19)
[2021-06-03] MEDS: LORazepam 0.5 MG TAB PO PRN ×2 (01:55→14:29)
[2021-06-03] MEDS: hydrALAZINE HCL 20 MG/ML 1 ML VIAL IM PRN (04:45)
[2021-06-03 05:47] LABS: Glucose,Whole Blood 155 mg/dL (75-99)
[2021-06-03] MEDS: PANTOPRAZOLE 40 MG TABLET PO SCH (06:03)
[2021-06-03] MEDS: TAMSULOSIN 0.4 MG CAP.ER.24H PO SCH (06:09)
[2021-06-03 09:13] VITALS: TEMP 97.9
[2021-06-03] MEDS: DULoxetine HCL 60 MG CAPSULE.DR PO SCH (09:17)
[2021-06-03] MEDS: busPIRone HCl 5 MG TAB PO SCH (09:17)
[2021-06-03] MEDS: FUROSEMIDE 40 MG TAB PO SCH (09:18)
[2021-06-03] MEDS: FERROUS SULFATE 325 MG TAB PO SCH (09:18)
[2021-06-03] MEDS: HEPARIN SODIUM,PORCINE/PF 5,000 UNIT/0.5 ML SYRINGE SQ SCH (09:19)
[2021-06-03] MEDS: METOPROLOL TARTRATE 50 MG TAB PO SCH (09:19)
[2021-06-03] MEDS: GABAPENTIN 300 MG CAP PO SCH (09:19)
[2021-06-03] MEDS: FAMOTIDINE 20 MG TAB PO SCH (09:27)
[2021-06-03 12:30] LABS: Glucose,Whole Blood 179 mg/dL (75-99)
[2021-06-03 12:34] VITALS: BMI 37.8
--- NOTE | 2021-06-03 13:13 | PN ---
PROGRESS NOTE DATE OF SERVICE: 06/03/2021 REASON FOR FOLLOWUP: E coli UTI and bacteremia. INTERVAL HISTORY: Patient is afebrile. The patient is feeling better. Breathing comfortably. Denies any chest pain, shortness of breath. No cough. No nausea or vomiting or abdominal pain. The patient did have chronic back pain. Denies any worsening back pain. Feeling fine and wants to go back to halfway. PHYSICAL EXAMINATION: Blood pressure 159/88 with a pulse of 77, temperature 97.9. She is 97% on room air. General description is a middle-aged female up in the chair in no distress. Respiratory system: Unlabored breathing. Clear to auscultation anteriorly. Heart S1, S2. Regular rate and rhythm. Abdomen: Soft, no tenderness. LABS: Repeat blood culture has been negative. DIAGNOSTIC IMPRESSION AND PLAN: 1. Patient with E coli urinary tract infection with bacteremia. Repeat blood culture has been negative so far. The patient at this time covered with Rocephin, transition to oral Ceftin for 10 days. 2. Patient with chronic back pain with no recent worsening, clinical suspicion low for diskitis. However, with this concern, MRI of the lumbosacral spine should be done as an outpatient as an open MRI as the patient is refusing the closed one. 3. She is insisting on going home. Continue supportive care. MMODL / IJN: [id number] /
[2021-06-03 13:41] LABS: Folate, Serum 10.4 ng/mL
[2021-06-03 13:58] VITALS: BP 152/87; PULSE 62; RESP 17
--- NOTE | 2021-06-03 14:29 | P.DS ---
Providers Date of admission: 05/25/21 19:53 Expected date of discharge: 06/03/21 Attending physician: Jose Armando Romeo Consults: 05/25/21 20:07 Consult Physician Urgent Consulting Provider: Kevin Cueva Consult Reason/Comments: uti with sepsis Do you want consulting provider notified?: Yes 05/26/21 08:49 Consult Physician Routine Consulting Provider: Yoni Sepulveda Consult Reason/Comments: back pain and possible leg weakness Do you want consulting provider notified?: Yes 05/26/21 08:50 Consult Physician Urgent Consulting Provider: Radha Segura Consult Reason/Comments: honorio Do you want consulting provider notified?: Yes 05/30/21 13:39 Consult Physician Routine Consulting Provider: Maverick Morrison Consult Reason/Comments: renal failure Do you want consulting provider notified?: Yes 05/30/21 21:19 Consult Physician Urgent Consulting Provider: Maverick Morrison Consult Reason/Comments: honorio Do you want consulting provider notified?: Yes 05/30/21 23:15 Consult Physician Routine Consulting Provider: Fred Méndez Consult Reason/Comments: Hydronephrosis Do you want consulting provider notified?: Yes, Notify in am Primary care physician: Titus Head Hospital Course: Final diagnosis Acute urinary tract infection, with right pyelonephritis secondary to E. coli E coli bacteremia, improved Severe sepsis secondary to above. Improved Acute and chronic low back pain with radiating to the right leg with difficulty walking and right leg weakness Abdominal pain and tenderness with nausea, ruled out bowel obstruction Hypotension, present on admission. Improved Elevated lactic acid, slightly improving Acute kidney injury . Back to baseline Diabetes mellitus Hypertension Chronic neck and back pain History of pseudotumor cerebri History of bacterial meningitis at age 30 History of hepatitis C History of pulmonary hypertension History of psoriasis Anxiety, not an active issue No code Discharge disposition Patient is being discharged in a stable condition with guarded prognosis to [facility] where she is a resident. Patient will follow-up with Dr. Head in the outpatient setting upon discharge. Patient is to follow-up outpatient with orthopedics. Patient will continue on oral Ceftin 500 mg twice daily for the next 10 days and then may discontinue. Total time taken is greater than 35 minutes. Hospital course Acute urinary tract infection, with right pyelonephritis secondary to E. coli E coli bacteremia/ Severe sepsis Acute and chronic low back pain with radiating to the right leg with difficulty walking and right leg weakness 60-year-old female presenting to the ER last night for evaluation of her mental status changes patient is a resident of local retirement apparently the patient did have good onset of mental status changes and the patient was noticed to be febrile with temperature of 102 F patient was moaning and not answering any question the patient was hypoxic and shaky on presentation to the hospital on arrival to the ER patient did have a temperature of 99.7 F O2 sat 94% on room air patient did have a normal white count elevation subsequently white count is up to 26.3 today BUN and creatinine was mildly elevated lactic acid was elevated at 3.1 liver exams were not significantly elevated but did have a positive UA with large leukocyte esterase and WBC many bacteria murillo PCR was negative chest x-ray with atelectasis at the lung bases CT angiogram of the chest bilateral lower lobe infiltrate and atelectasis no PE CT of the abdominal pelvis mild fullness of the right upper collecting system but no calculus patient was started on Zosyn subsequent blood cultures remain positive with gram-negative bacilli that has prompted this infectious disease consultation patient evaluation slightly more awake alert she knows she is in the hospital denies having any headache no chest pain shortness of breath or cough some vague abdominal pain no vomiting or diarrhea has been reported p atient did have a Collado catheter however patient mention she did have a long- term catheter and is not sure when the catheter was changed last. Patient has been evaluated by orthopedic surgery and recommending patient to be discharged to a tertiary care center for possible MRI of the lumbar and thoracic spine to rule out any infectious etiology and also for further management of such abscesses found 06/01/2021 Patient is seen and evaluated in room at bedside; reports uncontrolled pain and requesting oxycodone to be changed to every 4 hours Patient denies any chest pain or shortness of breath Vital signs are reviewed and are stable with a temperature of 97.9, pulse 71, respiration 18 and blood pressure 135/87 with O2 saturation 96% on room air Patient is with E. coli UTI and bacteremia; with right-sided pyelonephritis remains on IV Rocephin Patient is being evaluated by orthopedic surgery and is recommended transferred to a tertiary Center for MRI of the thoracic/lumbar spine to rule out possible infectious etiology 06/02/2021 Patient is seen and evaluated in room at bedside; patient is requesting to be discharged home; detailed discussion about plan of care with patient as well as down yesterday; patient wants to be discharged home and wants to be informed once transferred arrangements to [facility] are completed at which time she wants to return to hospital; I did explain to patient again, she has been recommended transferred to [facility] for MRI of the spine to rule out infectious process and needs to be transferred from hospital to hospital; patient continues to argue and reports she will have one of the family members come and get her today Vital signs are stable with temperature of 98.2, pulse 63, respiration 18, blood pressure of 142/71 with O2 saturation 97% on room air Patient remains on antibiotic therapy for E. coli UTI and bacteremia; patient has been accepted at [facility]; await bed availability 06/03/2021 Patient is seen in follow-up this morning with no acute overnight issues. Patient initially was possibly being transferred to [facility] and awaiting a bed per orthopedic recommendations for possible concern for patient inability to ambulate and continued lower extremity weakness. Patient has now since refused MRI and refusing transfer and would like to return to [facility] and patient is alert and oriented 3. Patient was maintained on IV antibiotics and will transition to oral Ceftin per infectious disease recommendations and will continue with 500 mg twice daily for the next 10 days and then may discontinue. Patient will need to follow-up with primary care provider and possible orthopedics for possible outpatient MRI once patient is willing to do so. Again patient is alert and oriented 3 and refusing further treatment. Patient is adamant about going back to [facility] today. Risks versus benefits of continuing treatment were explained in detail with the patient and patient is aware and continues to refuse treatments and adamant again about returning to [facility] today. Currently no reports of chest pain, shortness of breath, or palpitations. Patient is afebrile. No reports of nausea or vomiting and patient is tolerating diet. Patient will be going to [facility] the [facility] today. Guarded prognosis Gen: This is a 60-year-old female sitting up in the chair awake, alert and oriented 3, well-developed, well-nourished, anxious, temp is 97.9F, pulse is 62, respirations are 17, blood pressure 152/87, oxygen saturation is 100% on room air. HEENT: Head is atraumatic, normocephalic. Pupils equal, round. Sclerae is anicteric. NECK: Supple. No JVD. No lymphadenopathy. No thyromegaly. LUNGS: diminished bilaterally with no wheezing or rhonchi noted. No intercostal retractions. HEART: Regular rate and rhythm. No murmur. ABDOMEN: Soft. Bowel sounds are present. No masses. No tenderness. EXTREMITIES: No pedal edema. No calf tenderness. NEUROLOGICAL: Patient is awake, alert and oriented x3. Diffusely weak. Please refer to medication reconciliation sheet for a list of medications. Patient Condition at Discharge: Serious Plan - Discharge Summary Discharge Rx Participant: No New Discharge Prescriptions: New busPIRone HCl [Buspar] 7.5 mg PO TID tab Cefuroxime Axetil [Ceftin] 500 mg PO BID 10 Days #20 tab Tamsulosin [Flomax] 0.4 mg PO PC-BRKFST cap.er.24h oxyCODONE HCL [OxyIR] 20 mg PO Q5H PRN #6 tab PRN Reason: Pain Famotidine [Pepcid] 10 mg PO Q12HR tab QUEtiapine [SEROquel] 25 mg PO ONCE PRN tab PRN Reason: Agitation Or Acute Psychosis Acetaminophen Tab [Tylenol] 650 mg PO Q6HR PRN tab PRN Reason: Mild Pain Or Fever > 100.5 Continue Furosemide [Lasix] 40 mg PO DAILY Promethazine HCl 12.5 mg PO QID PRN PRN Reason: Nausea Ferrous Sulfate [Iron (65 MG Elemental)] 325 mg PO DAILY INSULIN LISPRO (HumaLOG) [humaLOG] See Protocol SQ ACHS@09,12,17,21 Sennosides [Senna] 8.6 mg PO BID PRN PRN Reason: Constipation Ketoconazole 2% Cream [Nizoral 2%] 1 applic TOPICAL TUSA@2100 Lisinopril [Prinivil] 10 mg PO DAILY Insulin Detemir [Levemir Flextouch] 16 units SQ DAILY Glimepiride [Amaryl] 2 mg PO DAILY LORazepam [Ativan] 1 mg PO TID@0600,1400,2200 #6 tab Nitroglycerin Sl Tabs [Nitrostat] 0.4 mg SL Q5M PRN PRN Reason: Chest Pain Tacrolimus [Protopic] 1 applic TOPICAL BID Vascepa 1gm 2 gm PO BID metFORMIN HCL [Glucophage] 1,000 mg PO BID@0900,1700 Metoprolol Tartrate [Lopressor] 100 mg PO BID Omeprazole 20 mg PO DAILY DULoxetine HCL [Cymbalta] 60 mg PO DAILY Gabapentin 600 mg PO BID #10 tab Discontinued hydrOXYzine HCL 10 mg PO QID@00,06,12,18 oxyCODONE HCL [oxyCODONE HCL (IR)] 20 mg PO Q4H PRN PRN Reason: Pain Gabapentin 300 mg PO BID Discharge Medication List Furosemide [Lasix] 40 mg PO DAILY 12/13/19 [History] Ferrous Sulfate [Iron (65 MG Elemental)] 325 mg PO DAILY 11/12/20 [History] Promethazine HCl 12.5 mg PO QID PRN 11/12/20 [History] DULoxetine HCL [Cymbalta] 60 mg PO DAILY 05/25/21 [History] Glimepiride [Amaryl] 2 mg PO DAILY 05/25/21 [History] INSULIN LISPRO (HumaLOG) [humaLOG] See Protocol SQ ACHS@09,12,17,05/25/21 [History] Insulin Detemir [Levemir Flextouch] 16 units SQ DAILY 05/25/21 [History] Ketoconazole 2% Cream [Nizoral 2%] 1 applic TOPICAL TUSA@2100 05/25/21 [History] Lisinopril [Prinivil] 10 mg PO DAILY 05/25/21 [History] Metoprolol Tartrate [Lopressor] 100 mg PO BID 05/25/21 [History] Nitroglycerin Sl Tabs [Nitrostat] 0.4 mg SL Q5M PRN 05/25/21 [History] Omeprazole 20 mg PO DAILY 05/25/21 [History] Sennosides [Senna] 8.6 mg PO BID PRN 05/25/21 [History] Tacrolimus [Protopic] 1 applic TOPICAL BID 05/25/21 [History] Vascepa 1gm 2 gm PO BID 05/25/21 [History] metFORMIN HCL [Glucophage] 1,000 mg PO BID@0900,1700 05/25/21 [History] Acetaminophen Tab [Tylenol] 650 mg PO Q6HR PRN tab 06/03/21 [Rx] Cefuroxime Axetil [Ceftin] 500 mg PO BID 10 Days #20 tab 06/03/21 [Rx] Famotidine [Pepcid] 10 mg PO Q12HR tab 06/03/21 [Rx] Gabapentin 600 mg PO BID #10 tab 06/03/21 [Rx] LORazepam [Ativan] 1 mg PO TID@0600,1400,2200 #6 tab 06/03/21 [Rx] QUEtiapine [SEROquel] 25 mg PO ONCE PRN tab 06/03/21 [Rx] Tamsulosin [Flomax] 0.4 mg PO PC-BRKFST cap.er.24h 06/03/21 [Rx] busPIRone HCl [Buspar] 7.5 mg PO TID tab 06/03/21 [Rx] oxyCODONE HCL [OxyIR] 20 mg PO Q5H PRN #6 tab 06/03/21 [Rx] Follow up Appointment(s)/Referral(s): Titus Head MD [Primary Care Provider] - 1-2 days Activity/Diet/Wound Care/Special Instructions: Patient is returning to [facility] Outpatient follow-up with primary care provider Continue antibiotics for 10 days and then may discontinue Patient will need outpatient orthopedics and outpatient open MRI as patient is refusing Patient is a no code Continue to monitor Accu-Cheks before meals and at bedtime and continue with insulin as ordered Continue heart healthy consistent carb diet Continue with Glucerna 3 times a day with meals Discharge Disposition: TRANSFER TO SNF/ECF
== END 2021-06-03 15:34 | DRG 871 ==
LOC: EC 16:51 → 3SCARD 19:53
PROVIDERS: ADMIT Hospitalist; ATTEND Hospitalist
PROC: 05HA33Z Insertion of Infusion Device into Left Brachial Vein, Percutaneous Approach (ICD-10-PCS; principal; 2021-05-30 07:30)
DX: A41.51 Sepsis due to Escherichia coli [E. coli] (principal); G93.41 Metabolic encephalopathy; R65.21 Severe sepsis with septic shock; N17.0 Acute kidney failure with tubular necrosis; E87.2 Acidosis; J98.11 Atelectasis; N13.6 Pyonephrosis; Z20.822 Contact with and (suspected) exposure to COVID-19; E11.9 Type 2 diabetes mellitus without complications; Z66 Do not resuscitate; E66.9 Obesity, unspecified; E83.42 Hypomagnesemia; E87.6 Hypokalemia; F41.9 Anxiety disorder, unspecified; G89.29 Other chronic pain; G93.89 Other specified disorders of brain; I11.0 Hypertensive heart disease with heart failure; I27.20 Pulmonary hypertension, unspecified; J84.10 Pulmonary fibrosis, unspecified; R26.2 Difficulty in walking, not elsewhere classified; R33.8 Other retention of urine; L40.9 Psoriasis, unspecified; R00.0 Tachycardia, unspecified; I48.91 Unspecified atrial fibrillation; K59.00 Constipation, unspecified; I50.9 Heart failure, unspecified; R09.02 Hypoxemia; R20.0 Anesthesia of skin; M79.601 Pain in right arm; M79.602 Pain in left arm; J98.6 Disorders of diaphragm; B18.2 Chronic viral hepatitis C; M54.2 Cervicalgia; Z79.899 Other long term (current) drug therapy; Z85.41 Personal history of malignant neoplasm of cervix uteri; Z86.61 Personal history of infections of the central nervous system; Z87.891 Personal history of nicotine dependence; Z86.73 Personal history of transient ischemic attack (TIA), and cerebral infarction without residual deficits; Z79.4 Long term (current) use of insulin; Z98.51 Tubal ligation status; Z90.49 Acquired absence of other specified parts of digestive tract
CPT/HCPCS: 36410; 36415; 70450; 71045; 71046; 71275; 72156; 74176; 74177; 76770; 76937; 80048; 80053; 80306; 81001; 82140; 82550; 82607; 82746; 83605; 83735; 84132; 84145; 84443; 84484; 85025; 85045; 85379; 85610; 85652; 85730; 86140; 87040; 87077; 87086; 87186; 87635; 93005; 93970; 94760

== ENCOUNTER 2022-02-16 19:44 | Inpatient (IN) | payer OTHER ==
[2022-02-16] MEDS ORDERED: ONDANSETRON 4 MG/2 ML VIAL IVP STA (20:38)
[2022-02-16] MEDS ORDERED: MORPHINE SULFATE 4 MG/ML SYRINGE IV STA (20:40)
--- NOTE | 2022-02-16 20:41 | ED ---
Dizziness HPI - General Chief Complaint: Dizziness Stated Complaint: Increased weakness/altered Time Seen by Provider: 02/16/22 20:26 Source: EMS, RN notes reviewed Mode of arrival: EMS Limitations: no limitations - History of Present Illness Initial Comments: This is a 61-year-old female with multiple medical issues as listed in the past medical history. Past medical, surgical, social, and family history reviewed. Patient presents to the emergency department today complaining of generalized weakness as well as pain and clumsiness involving her left arm which is going on for 2 weeks. Patient also complaining of a cough and increased shortness of breath. Does indicate that she occasionally will get chest pains as well. No current chest pain. Patient has had no known fever. No headache, no fever or chills, no changes in vision or hearing, no sore throat or difficulty with speech, no neck pain,, chronic shortness of breath, no abdominal pain, no nausea or vomiting, no changes in urination or bowel movements, no numbness or tingling, , no skin rashes or lesions. Patient is at a local halfway and is essentially non-ambulatory and in a wheelchair. - Related Data Home Medications Medication Instructions Recorded Confirmed Furosemide [Lasix] 40 mg PO DAILY@89912/13/19 02/16/22 Ferrous Sulfate [Iron (65 MG 325 mg PO DAILY@89911/12/20 02/16/22 Elemental)] Promethazine HCl 12.5 mg PO QID PRN 11/12/20 02/16/22 DULoxetine HCL [Cymbalta] 60 mg PO BID@05/25/21 02/16/22 Glimepiride [Amaryl] 2 mg PO DAILY@89905/25/21 02/16/22 Insulin Detemir [Levemir Flextouch 16 units SQ HS@209905/25/21 02/16/22 Pen] Metoprolol Tartrate [Lopressor] 100 mg PO BID@899,209905/25/21 02/16/22 Nitroglycerin Sl Tabs [Nitrostat] 0.4 mg SL Q5M PRN 05/25/21 02/16/22 Omeprazole 20 mg PO DAILY@79905/25/21 02/16/22 Sennosides [Senna] 8.6 mg PO BID PRN 05/25/21 02/16/22 metFORMIN HCL [Glucophage] 1,000 mg PO BID@0900,209905/25/21 02/16/22 Atorvastatin [Lipitor] 10 mg PO HS@209902/16/22 02/16/22 Betamethasone Dipropionate 1 applic TOPICAL HS 02/16/22 02/16/22 [Betamethasone Dipropionate 0.05%] Cholecalciferol [Vitamin D3 (25 50 mcg PO DAILY@89902/16/22 02/16/22 Mcg = 1000 Iu)] Famotidine [Pepcid AC] 10 mg PO BID@0900,209902/16/22 02/16/22 Folic Acid 0.4 mg PO DAILY@89902/16/22 02/16/22 Gabapentin 800 mg PO BID@0900,209902/16/22 02/16/22 Glucerna Shake 1 can PO TID@0900,1300,209902/16/22 02/16/22 Ibuprofen [Motrin] 600 mg PO Q8HR PRN 02/16/22 02/16/22 Insulin Aspart [NovoLOG] See Protocol SQ ACHS 02/16/22 02/16/22 Lactulose 20 gm PO DAILY PRN 02/16/22 02/16/22 Losartan/Hydrochlorothiazide 1 tab PO DAILY@89902/16/22 02/16/22 [Losartan-Hctz 100-25 mg Tab] Melatonin 3 mg PO HS@209902/16/22 02/16/22 Morphine Sulfate ER [Ms Contin] 30 mg PO BID@0900,209902/16/22 02/16/22 Ondansetron [Zofran] 4 mg PO BID@0900,209902/16/22 02/16/22 Pimecrolimus [Elidel] 1 applic TOPICAL SUSA@0900,209902/16/22 02/16/22 QUEtiapine [SEROquel] 12.5 mg PO HS 02/16/22 02/16/22 Simethicone Capsule (Unknown Dose) 1 cap PO Q6H PRN 02/16/22 02/16/22 Tamsulosin [Flomax] 0.4 mg PO DAILY@0900 02/16/22 02/16/22 cloNIDine HCL [Catapres] 0.1 mg PO BID PRN 02/16/22 02/16/22 hydrOXYzine HCL 10 mg PO BID PRN 02/16/22 02/16/22 oxyCODONE HCL 20 mg PO BID PRN 02/16/22 02/16/22 oxyCODONE HCL 20 mg PO DAILY@1000 02/16/22 02/16/22 polyethylene glycoL 3350 [Miralax] 17 gm PO DAILY PRN 02/16/22 02/16/22 Previous Rx's Medication Instructions Recorded Acetaminophen Tab [Tylenol] 650 mg PO Q6HR PRN tab 06/03/21 Allergies Allergy/AdvReac Type Severity Reaction Status Date / Time diphenhydramine Allergy Unknown Verified 02/16/22 21:46 [From Benadryl] Review of Systems ROS Statement: Those systems with pertinent positive or pertinent negative responses have been documented in the HPI. ROS Other: All systems not noted in ROS Statement are negative. 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 02 2l at night History of Any Multi-Drug Resistant Organisms: None Reported Past Surgical History: Adenoidectomy, Appendectomy, Back Surgery, Bladder Russell edith, Orthopedic Surgery, Tonsillectomy, Tubal Ligation Additional Past Surgical History / Comment(s): 9 [employer] shunts- none at this time,28 LP shunts, eye surgery,rt ovary and fallopian tube removed, Laser procedure for cervix CA Past Anesthesia/Blood Transfusion Reactions: No Reported Reaction Additional Past Anesthesia/Blood Transfusion Reaction / Comment(s): no hx blood transfusion Past Psychological History: Anxiety Smoking Status: Current every day smoker Past Alcohol Use History: None Reported Past Drug Use History: None Reported - Past Family History Mother Family Medical History: No Reported History Father Family Medical History: Myocardial Infarction (OR) Additional Family Medical History / Comment(s): Father of a OR at the age of 60 yrs. General Exam - General Exam Comments Initial Comments: This is a deconditioned appearing 61-year-old female who appears to be in minimal distress. Patient does appear to be adequately hydrated and has normal skin color. Patient appears to be globally confused with global weakness. There is no evidence of focal weakness. Patient alert and oriented 3. Seems to be disoriented to time. Limitations: no limitations General appearance: alert, in no apparent distress Head exam: Present: atraumatic, normocephalic, normal inspection Eye exam: Present: normal appearance, PERRL, EOMI. Absent: scleral icterus, conjunctival injection, periorbital swelling ENT exam: Present: normal exam, normal oropharynx, mucous membranes moist, TM's normal bilaterally, normal external ear exam Neck exam: Present: normal inspection, full ROM. Absent: tenderness, meningismus, lymphadenopathy Respiratory exam: Present: normal lung sounds bilaterally. Absent: respiratory distress, wheezes, rales, rhonchi, stridor Cardiovascular Exam: Present: regular rate, normal rhythm, normal heart sounds. Absent: systolic murmur, diastolic murmur, rubs, gallop, clicks GI/Abdominal exam: Present: soft, normal bowel sounds. Absent: distended, tenderness, guarding, rebound, rigid Extremities exam: Present: normal inspection, full ROM, normal capillary refill. Absent: tenderness, pedal edema, joint swelling, calf tenderness Back exam: Present: normal inspection Neurological exam: Present: alert, oriented X3, CN II-XII intact, other (Patient appears to have some clumsiness with regards to the left hand. Pronator drift is essentially normal.). Absent: normal gait (Not tested), motor sensory defic it Psychiatric exam: Present: normal affect, normal mood Skin exam: Present: warm, dry, intact, normal color. Absent: rash Course Vital Signs 02/16/22 02/17/22 02/17/22 20:16 00:18 00:43 Temperature 99.5 F 98.7 F Pulse Rate 113 H 100 100 Respiratory 20 20 Rate Blood Pressure 133/86 108/72 O2 Sat by Pulse 94 L 97 Oximetry EKG Findings - EKG Comments: EKG Findings:: [place] [address] ED attending physician reveals sinus rhythm with a rate of 99. Left axis deviation, no acute ST or T-wave changes. Normal intervals. Moderate voltage criteria for LVH. Normal QRS morphology otherwise. Procedures - Sepsis Sepsis Focused Exam #1 Time Sepsis Criteria Met: 23:49 Sepsis Focused Exam Date: 02/16/22 Sepsis Focused Exam Time: 23:49 Sepsis Focused Exam Complete: Yes Vital Signs & RN Notes Reviewed: Yes Capillary Refill: < 2 Seconds: Fingers, Toes Peripheral Pulses: Absent: Radial (R), Radial (L), Dorsalis Pedis (R), Dorsalis Pedis (L) Skin Color: Normal for Patient Respiratory Exam: normal lung sounds Cardiovascular Exam: tachycardia Medical Decision Making - Lab Data Result diagrams: 02/16/22 21:43 02/16/22 21:43 Lab Results 02/16/22 02/16/22 02/16/22 Range/Units 21:43 21:43 21:43 WBC 21.2 H (3.8-10.6) k/uL RBC 4.37 (3.80-5.40) m/uL Hgb 13.5 (11.4-16.0) gm/dL Hct 39.9 (34.0-46.0) % MCV 91.4 (80.0-100.0) fL MCH 30.9 (25.0-35.0) pg MCHC 33.8 (31.0-37.0) g/dL RDW 13.9 (11.5-15.5) % Plt Count 261 (150-450) k/uL MPV 8.1 Neutrophils % 80 % Lymphocytes % 13 % Monocytes % 4 % Eosinophils % 2 % Basophils % 0 % Neutrophils # 17.0 H (1.3-7.7) k/uL Lymphocytes # 2.7 (1.0-4.8) k/uL Monocytes # 0.8 (0-1.0) k/uL Eosinophils # 0.4 (0-0.7) k/uL Basophils # 0.1 (0-0.2) k/uL PT 10.3 (9.0-12.0) sec INR 0.9 (<1.2) APTT 29.6 (22.0-30.0) sec D-Dimer 0.36 (<0.60) mg/L FEU Sodium 136 L (137-145) mmol/L Potassium 4.4 (3.5-5.1) mmol/L Chloride 91 L (98-107) mmol/L Carbon Dioxide 38 H (22-30) mmol/L Anion Gap 7 mmol/L BUN 41 H (7-17) mg/dL Creatinine 1.29 H (0.52-1.04) mg/dL Est GFR (CKD-EPI)AfAm 52 (>60 ml/min/1.73 sqM) Est GFR (CKD-EPI)NonAf 46 (>60 ml/min/1.73 sqM) Glucose 128 H (74-99) mg/dL Plasma Lactic Acid Ian (0.7-2.0) mmol/L Calcium 8.8 (8.4-10.2) mg/dL Phosphorus 4.2 (2.5-4.5) mg/dL Magnesium 1.7 (1.6-2.3) mg/dL Total Bilirubin 1.1 (0.2-1.3) mg/dL AST 65 H (14-36) U/L ALT 40 H (4-34) U/L Alkaline Phosphatase 137 H (38-126) U/L Troponin I (0.000-0.034) ng/mL NT-Pro-B Natriuret Pep pg/mL Total Protein 7.5 (6.3-8.2) g/dL Albumin 3.8 (3.5-5.0) g/dL TSH 0.544 (0.465-4.680) mIU/L Coronavirus (PCR) (Not Detectd) Influenza Type A RNA (Not Detectd) Influenza Type B (PCR) (Not Detectd) 02/16/22 02/16/22 02/16/22 Range/Units 21:43 21:43 21:43 WBC (3.8-10.6) k/uL RBC (3.80-5.40) m/uL Hgb (11.4-16.0) gm/dL Hct (34.0-46.0) % MCV (80.0-100.0) fL MCH (25.0-35.0) pg MCHC (31.0-37.0) g/dL RDW (11.5-15.5) % Plt Count (150-450) k/uL MPV Neutrophils % % Lymphocytes % % Monocytes % % Eosinophils % % Basophils % % Neutrophils # (1.3-7.7) k/uL Lymphocytes # (1.0-4.8) k/uL Monocytes # (0-1.0) k/uL Eosinophils # (0-0.7) k/uL Basophils # (0-0.2) k/uL PT (9.0-12.0) sec INR (<1.2) APTT (22.0-30.0) sec D-Dimer (<0.60) mg/L FEU Sodium (137-145) mmol/L Potassium (3.5-5.1) mmol/L Chloride (98-107) mmol/L Carbon Dioxide (22-30) mmol/L Anion Gap mmol/L BUN (7-17) mg/dL Creatinine (0.52-1.04) mg/dL Est GFR (CKD-EPI)AfAm (>60 ml/min/1.73 sqM) Est GFR (CKD-EPI)NonAf (>60 ml/min/1.73 sqM) Glucose (74-99) mg/dL Plasma Lactic Acid Ian 1.2 (0.7-2.0) mmol/L Calcium (8.4-10.2) mg/dL Phosphorus (2.5-4.5) mg/dL Magnesium (1.6-2.3) mg/dL Total Bilirubin (0.2-1.3) mg/dL AST (14-36) U/L ALT (4-34) U/L Alkaline Phosphatase (38-126) U/L Troponin I <0.012 (0.000-0.034) ng/mL NT-Pro-B Natriuret Pep 249 pg/mL Total Protein (6.3-8.2) g/dL Albumin (3.5-5.0) g/dL TSH (0.465-4.680) mIU/L Coronavirus (PCR) (Not Detectd) Influenza Type A RNA (Not Detectd) Influenza Type B (PCR) (Not Detectd) 02/16/22 02/16/22 Range/Units 21:53 21:53 WBC (3.8-10.6) k/uL RBC (3.80-5.40) m/uL Hgb (11.4-16.0) gm/dL Hct (34.0-46.0) % MCV (80.0-100.0) fL MCH (25.0-35.0) pg MCHC (31.0-37.0) g/dL RDW (11.5-15.5) % Plt Count (150-450) k/uL MPV Neutrophils % % Lymphocytes % % Monocytes % % Eosinophils % % Basophils % % Neutrophils # (1.3-7.7) k/uL Lymphocytes # (1.0-4.8) k/uL Monocytes # (0-1.0) k/uL Eosinophils # (0-0.7) k/uL Basophils # (0-0.2) k/uL PT (9.0-12.0) sec INR (<1.2) APTT (22.0-30.0) sec D-Dimer (<0.60) mg/L FEU Sodium (137-145) mmol/L Potassium (3.5-5.1) mmol/L Chloride (98-107) mmol/L Carbon Dioxide (22-30) mmol/L Anion Gap mmol/L BUN (7-17) mg/dL Creatinine (0.52-1.04) mg/dL Est GFR (CKD-EPI)AfAm (>60 ml/min/1.73 sqM) Est GFR (CKD-EPI)NonAf (>60 ml/min/1.73 sqM) Glucose (74-99) mg/dL Plasma Lactic Acid Ian (0.7-2.0) mmol/L Calcium (8.4-10.2) mg/dL Phosphorus (2.5-4.5) mg/dL Magnesium (1.6-2.3) mg/dL Total Bilirubin (0.2-1.3) mg/dL AST (14-36) U/L ALT (4-34) U/L Alkaline Phosphatase (38-126) U/L Troponin I (0.000-0.034) ng/mL NT-Pro-B Natriuret Pep pg/mL Total Protein (6.3-8.2) g/dL Albumin (3.5-5.0) g/dL TSH (0.465-4.680) mIU/L Coronavirus (PCR) Not Detected (Not Detectd) Influenza Type A RNA Not Detected (Not Detectd) Influenza Type B (PCR) Not Detected (Not Detectd) Critical Care Time Critical Care Time: Yes (Patient is criteria for sepsis. Multiple re- evaluations. Sepsis reevaluat) Total Critical Care Time: 30 Critical Care Time: Multiple evaluations. Evaluation of patient. Evaluation of patient's response to treatment. Interpretation diagnostic tests. Discussion with the admitting physician. Disposition Clinical Impression: Right lower lobe pneumonia, Sepsis, General weakness, Clumsiness Narrative: Left hand clumsiness2 weeks Disposition: ADMITTED IP TO THIS HOSP Condition: Fair Time of Disposition: 23:49 Decision to Admit Reason: Admit from EC Decision Time: 23:49
--- NOTE | 2022-02-16 21:07 | XR ---
EXAMINATION TYPE: XR chest 1V portable DATE OF EXAM: 02/16/2022 COMPARISON: 05/31/2021 HISTORY: Weakness TECHNIQUE: FINDINGS: There is some linear density at the right lung base and elevated right diaphragm. Left lung is clear. No heart failure. Heart size is normal. Bony thorax appears intact. IMPRESSION: There is some atelectasis at the right lung base that is new compared to old exam. No hea rt failure.
[2022-02-16 21:52] LABS: Basophils # (A) 0.1 k/uL (0-0.2); Basophils % (A) 0 %; Eosinophils # (A) 0.4 k/uL (0-0.7); Eosinophils % (A) 2 %; HCT 39.9 % (34.0-46.0); HGB 13.5 gm/dL (11.4-16.0); Lymphocytes # (A) 2.7 k/uL (1.0-4.8); Lymphocytes % (A) 13 %; MCH 30.9 pg (25.0-35.0); MCHC 33.8 g/dL (31.0-37.0); MCV 91.4 fL (80.0-100.0); Mean Platelet Volume 8.1; Monocytes # (A) 0.8 k/uL (0-1.0); Monocytes % (A) 4 %; Neutrophils % (A) 80 %; Platelet Count 261 k/uL (150-450); RBC 4.37 m/uL (3.80-5.40); RDW 13.9 % (11.5-15.5); WBC 21.2 k/uL (3.8-10.6)
--- NOTE | 2022-02-16 21:58 | CT ---
EXAMINATION TYPE: CT brain wo con DATE OF EXAM: 02/16/2022 COMPARISON: 05/29/2021 HISTORY: Left arm pain, left arm and hand clumsiness. CT DLP: 1094.4 mGycm Automated exposure control for dose reduction was used. Images of the brain obtained without contrast. There is mild cerebral atrophy. There is no mass effect or midline shift. There is no evidence of int racranial hemorrhage. There is prominent subarachnoid space in the posterior fossa on the right side it could be arachnoid cyst and measures 3 x 2.5 cm. The skull base is intact. There is normal aeratio n of the mastoid sinuses. There is 3 x 1 cm area of subcortical hypodensity in the right posterior fr ontal lobe consistent with old infarct. IMPRESSION: Mild cerebral atrophy. 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 No russell nge compared to old exam. No acute abnormality.
[2022-02-16 22:05] LABS: Albumin 3.8 g/dL (3.5-5.0); Calcium 8.8 mg/dL (8.4-10.2); Magnesium 1.7 mg/dL (1.6-2.3); Phosphorus 4.2 mg/dL (2.5-4.5); Potassium 4.4 mmol/L (3.5-5.1); Total Bilirubin 1.1 mg/dL (0.2-1.3); Total Protein 7.5 g/dL (6.3-8.2)
[2022-02-16 22:47] LABS: INR 0.9 (<1.2); Partial Thromboplastin Time 29.6 sec (22.0-30.0); Prothrombin Time 10.3 sec (9.0-12.0)
[2022-02-16] MEDS ORDERED: AZITHROMYCIN 500 MG in SODIUM CHLORIDE 0.9% 250 ML IVPB STA (23:44)
[2022-02-16] MEDS ORDERED: PNEUMONIA PROTOCOL UTILIZED 1 EACH MISC PO PRN (23:44)
[2022-02-16] MEDS ORDERED: HYDROmorphone 1 MG/ML 1 ML SYRINGE IVP STA (23:51)
[2022-02-16] MEDS ORDERED: ACETAMINOPHEN TAB 325 MG TAB PO PRN (23:54)
[2022-02-16] MEDS ORDERED: ALBUTEROL NEBULIZED 2.5 MG/3 ML INHALATION PRN (23:54)
[2022-02-16] MEDS ORDERED: ASPIRIN 325 MG TAB PO STA (23:54)
[2022-02-17] MEDS ORDERED: HYDROmorphone 1 MG/ML 1 ML SYRINGE IVP PRN
[2022-02-17] MEDS ORDERED: ONDANSETRON 4 MG/2 ML VIAL IVP PRN (00:01)
[2022-02-17] MEDS: SODIUM CHLORIDE 0.9% 1,000 ML IV SCH ×3 (00:15→13:50)
[2022-02-17] MEDS ORDERED: ALBUTEROL NEBULIZED 2.5 MG/3 ML INHALATION SCH (08:00)
[2022-02-17] MEDS ORDERED: AZITHROMYCIN 500 MG TAB PO SCH (09:00)
[2022-02-17 10:45] LABS: Glucose,Whole Blood 125 mg/dL (75-99)
[2022-02-17] MEDS: INSULIN ASPART (NovoLOG) 100 UNIT/ML VIAL SQ SCH ×4 (11:41→21:14)
[2022-02-17] MEDS: IPRATROPIUM-ALBUTEROL 3 ML NEB INHALATION SCH ×4 (11:41→19:37)
[2022-02-17] MEDS: ENOXAPARIN 40 MG/0.4 ML SYRINGE SQ SCH (11:42)
[2022-02-17 12:35] LABS: Glucose,Whole Blood 100 mg/dL (75-99)
--- NOTE | 2022-02-17 14:31 | XR ---
EXAMINATION TYPE: XR chest 1V DATE OF EXAM: 02/17/2022 COMPARISON: 02/16/2022 HISTORY: Cough TECHNIQUE: Single frontal view of the chest is obtained. FINDINGS: Persistent bilateral lower lobe infiltrate greater on the right with small right effusion. Limited inspiration. Heart size normal. No pneumothorax. Artifact overlying the upper soft tissues o f neck. Chronic widening of the right AC joint arthropathy of the left AC joint. IMPRESSION: Stable bilateral lower lobe infiltrate greater on the right correlate for pneumonia.
[2022-02-17] MEDS ORDERED: SENNOSIDES 8.6 MG TAB PO PRN (14:51)
[2022-02-17] MEDS ORDERED: hydrOXYzine HCL 10 MG TAB PO PRN (14:51)
[2022-02-17] MEDS ORDERED: PROMETHAZINE 25 MG TAB PO PRN (14:51)
[2022-02-17] MEDS ORDERED: polyethylene glycoL 3350 17 GM POWD.PACK PO PRN (14:51)
[2022-02-17] MEDS ORDERED: LACTULOSE 20 GM/30 ML CUP PO PRN (14:51)
[2022-02-17] MEDS ORDERED: SIMETHICONE 80 MG CHEWABLE PO PRN (14:51)
[2022-02-17] MEDS ORDERED: cloNIDine HCL 0.1 MG TAB PO PRN (14:51)
[2022-02-17] MEDS: PIPERACILLIN-TAZOBACTAM 3.375 GM in SODIUM CHLORIDE 0.9% 100 ML IVPB SCH (16:04)
[2022-02-17 16:56] LABS: Glucose,Whole Blood 117 mg/dL (75-99)
--- NOTE | 2022-02-17 17:08 | P.CNPUL ---
History of Present Illness Consult date: 02/17/22 Reason for consult: dyspnea, pneumonia History of present illness: 61-year-old female patient presented to the emergency with generalized weakness along with some increased cough and shortness of breath. She was also having some clumsiness in her left upper extremity for the past 2 weeks. No headache. No neck stiffness. No fever. No chills. No aspiration. No nausea or vomiting. No altered mentation. She lives in a local group home and she is essentially nonambulatory on a wheelchair and she has several multiple medical problems. Her chest x-ray revealed a right lower lobe infiltrate. The patient x-ray did not indicate any previous pulmonary infiltration. The patient's white cell count is at 21.2 with a hemoglobin of 13.5, BUN is at 41 with a creatinine of 1.2 and the sodium level of 136, COVID 19 testing was negative and influenza A and B were negative. Rest of the electrolytes show a component of chronic metabolic alkalosis with a CO2 of 38. The CAT scan of the brain showed mild cerebral atrophy. 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 There is also a right-sided subarachnoid cyst. No change compared to the previous examination. At this point in time, the patient is resting comfortably in bed. She is on 2 L of oxygen by nasal cannula. No significant sputum production. No chest pain. No pleurisy. No hemoptysis. Review of Systems CONSTITUTIONAL: No fever, no malaise, no fatigue. The patient a group home resident. The patient is bedridden. The patient is morbidly obese. The body mass index is 76. HEENT: No recent visual problems or hearing problems. Denied any sore throat. CARDIOVASCULAR: No orthopnea, PND, no palpitations, no syncope. PULMONARY: Increased shortness of breath GASTROINTESTINAL: No diarrhea, no nausea, no vomiting,. Normoactive bowel sounds. NEUROLOGICAL: No headaches, no weakness, no numbness. HEMATOLOGICAL: Denies any bleeding or petechiae. GENITOURINARY: Denies any burning micturition, no hematuria. MUSCULOSKELETAL/RHEUMATOLOGICAL: Denies any joint pain, swelling, or any muscle pain. ENDOCRINE: Denies any polyuria or polydipsia. 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, covid + 10/2021, thyroid nodule, single pulmonary nodule, psoriasis, bacterial meningitis at age 30, cancer cervix, UTI/R pyelonephritis with sepsis, History of Any Multi-Drug Resistant Organisms: None Reported Past Surgical History: Adenoidectomy, Appendectomy, Back Surgery, Bladder Surgery, Orthopedic Surgery, Tonsillectomy, Tubal Ligation Additional Past Surgical History / Comment(s): 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 Past Anesthesia/Blood Transfusion Reactions: No Reported Reaction Additional Past Anesthesia/Blood Transfusion Reaction / Comment(s): no hx blood transfusion Smoking Status: Current every day smoker - Past Family History Mother Family Medical History: No Reported History Additional Family Medical History / Comment(s): Mother was murdered at the age of 44 yrs. She had paranoid schizophrenia. Father Family Medical History: Myocardial Infarction (NH) Additional Family Medical History / Comment(s): Father of a NH at the age of 60 yrs. Medications and Allergies Home Medications Medication Instructions Recorded Confirmed Type Furosemide [Lasix] 40 mg PO DAILY@0912/13/19 02/16/22 History Ferrous Sulfate [Iron (65 MG 325 mg PO DAILY@89911/12/20 02/16/22 History Elemental)] Promethazine HCl 12.5 mg PO QID PRN 11/12/20 02/16/22 History DULoxetine HCL [Cymbalta] 60 mg PO BID@899,209905/25/21 02/16/22 History Glimepiride [Amaryl] 2 mg PO DAILY@89905/25/21 02/16/22 History Insulin Detemir [Levemir Flextouch 16 units SQ HS@209905/25/21 02/16/22 History Pen] Metoprolol Tartrate [Lopressor] 100 mg PO BID@899,209905/25/21 02/16/22 History Nitroglycerin Sl Tabs [Nitrostat] 0.4 mg SL Q5M PRN 05/25/21 02/16/22 History Omeprazole 20 mg PO DAILY@0800 05/25/21 02/16/22 History Sennosides [Senna] 8.6 mg PO BID PRN 05/25/21 02/16/22 History metFORMIN HCL [Glucophage] 1,000 mg PO BID@0900,209905/25/21 02/16/22 History Acetaminophen Tab [Tylenol] 650 mg PO Q6HR PRN tab 06/03/21 02/16/22 Rx Atorvastatin [Lipitor] 10 mg PO HS@209902/16/22 02/16/22 History Betamethasone Dipropionate 1 applic TOPICAL HS 02/16/22 02/16/22 History [Betamethasone Dipropionate 0.05%] Cholecalciferol [Vitamin D3 (25 50 mcg PO DAILY@0900 02/16/22 02/16/22 History Mcg = 1000 Iu)] Famotidine [Pepcid AC] 10 mg PO BID@0900,209902/16/22 02/16/22 History Folic Acid 0.4 mg PO DAILY@0902/16/22 02/16/22 History Gabapentin 800 mg PO BID@0900,209902/16/22 02/16/22 History Glucerna Shake 1 can PO TID@0900,1300,209902/16/22 02/16/22 History Ibuprofen [Motrin] 600 mg PO Q8HR PRN 02/16/22 02/16/22 History Insulin Aspart [NovoLOG] See Protocol SQ ACHS 02/16/22 02/16/22 History Lactulose 20 gm PO DAILY PRN 02/16/22 02/16/22 History Losartan/Hydrochlorothiazide 1 tab PO DAILY@0900 02/16/22 02/16/22 History [Losartan-Hctz 100-25 mg Tab] Melatonin 3 mg PO HS@209902/16/22 02/16/22 History Morphine Sulfate ER [Ms Contin] 30 mg PO BID@0900,209902/16/22 02/16/22 History Ondansetron [Zofran] 4 mg PO BID@0900,209902/16/22 02/16/22 History Pimecrolimus [Elidel] 1 applic TOPICAL SUSA@0900,209902/16/22 02/16/22 History QUEtiapine [SEROquel] 12.5 mg PO HS 02/16/22 02/16/22 History Simethicone Capsule (Unknown Dose) 1 cap PO Q6H PRN 02/16/22 02/16/22 History Tamsulosin [Flomax] 0.4 mg PO DAILY@0900 02/16/22 02/16/22 History cloNIDine HCL [Catapres] 0.1 mg PO BID PRN 02/16/22 02/16/22 History hydrOXYzine HCL 10 mg PO BID PRN 02/16/22 02/16/22 History oxyCODONE HCL 20 mg PO BID PRN 02/16/22 02/16/22 History oxyCODONE HCL 20 mg PO DAILY@1000 02/16/22 02/16/22 History polyethylene glycoL 3350 [Miralax] 17 gm PO DAILY PRN 02/16/22 02/16/22 History diazePAM [Valium] 2.5 mg PO BID 02/17/22 02/17/22 History Allergies Allergy/AdvReac Type Severity Reaction Status Date / Time diphenhydramine Allergy Unknown Verified 02/16/22 21:46 [From Benadryl] Physical Exam Vitals: Vital Signs Temp Pulse Pulse Resp BP BP Pulse Ox 02/17/22 14:14 97.6 F 102 H 14 119/83 97 02/17/22 11:55 100 02/17/22 11:44 100 02/17/22 08:56 100 02/17/22 08:46 100 02/17/22 00:52 96 02/17/22 00:51 106 H 02/17/22 00:43 100 02/17/22 00:18 98.7 F 100 20 108/72 97 02/16/22 20:16 99.5 F 113 H 20 133/86 94 L Intake and Output 02/17/22 02/17/22 02/17/22 06:59 14:59 22:59 Other: Weight 226.8 kg GENERAL: The patient is fully awake and oriented to time, place and person, she is appropriate and follow commands, not in any acute distress. Obese Head exam was generally normal. There was no scleral icterus or corneal arcus. Mucous membranes were moist. HEENT: Pupils are round and equally reacting to light. EOMI. No scleral icterus. No conjunctival pallor. Normocephalic, atraumatic. No pharyngeal erythema. No thyromegaly. Cardiac exam revealed the PMI to be normally situated and sized. The rhythm was regular and no extrasystoles were noted during several minutes of auscultation. The first and second heart sounds were normal and physiologic splitting of the second heart sound was noted. There were no murmurs, rubs, clicks, or gallops. PULMONARY: Chest is clear to auscultation, no wheezing or crackles. ABDOMEN: Soft, mild right lower quadrant tenderness, nondistended, normoactive bowel sounds. No palpable organomegaly. MUSCULOSKELETAL: No joint swelling or deformity. Right leg looks slightly weaker than the left leg.(Patient refused to do back examination) EXTREMITIES: No cyanosis, clubbing, or pedal edema. NEUROLOGICAL: Gross neurological examination did not reveal any focal deficits. The patient is global generalized motor weakness in all 4 extremities Examination of the skin revealed no evidence of significant rashes, suspicious appearing nevi or other concerning lesions. Results - Laboratory Findings CBC and BMP: 02/16/22 21:43 02/16/22 21:43 PT/INR, D-dimer PT 10.3 sec (9.0-12.0) 02/16/22 21:43 INR 0.9 (<1.2) 02/16/22 21:43 D-Dimer 0.36 mg/L FEU (<0.60) 02/16/22 21:43 Abnormal lab findings: Abnormal Labs 02/16/22 02/16/22 02/17/22 21:43 21:43 08:44 WBC 21.2 H Neutrophils # 17.0 H Sodium 136 L Chloride 91 L Carbon Dioxide 38 H BUN 41 H Creatinine 1.29 H Glucose 128 H POC Glucose (mg/dL) 125 H AST 65 H ALT 40 H Alkaline Phosphatase 137 H 02/17/22 12:31 WBC Neutrophils # Sodium Chloride Carbon Dioxide BUN Creatinine Glucose POC Glucose (mg/dL) 100 H AST ALT Alkaline Phosphatase Assessment and Plan Plan: 1 right lower lobe pneumonia, as the patient developed a new infiltrate in the right lung base. Consider a group home acquired pneumonia versus aspiration. 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 coli sepsis/UTI Plan Check sputum Gram stain and culture Check blood culture Check pro calcitonin level Cover this patient with IV Zosyn Resume all medications Incentive spirometer O2 therapy to maintain a saturation above 90% Repeat chest x-ray within next 24-48 hours
[2022-02-17 17:18] LABS: Appearance,Urine Cloudy (Clear); Bacteria,Urine Rare /hpf; Bilirubin,Urine Negative (Negative); Blood,Urine Negative (Negative); Color,Urine Yellow; Glucose,Urine (UA) Negative (Negative); Ketones,Urine Negative (Negative); Leukocyte Esterase,Urine Large (Negative); Mucus,Urine Rare /hpf; Nitrite,Urine Negative (Negative); Protein,Urine Negative (Negative); RBC,Urine <1 /hpf (0-5); Specific Gravity,Urine 1.015 (1.001-1.035); Squamous Epithelial Cell,Urine 1 /hpf (0-4); Urobilinogen,Urine <2.0 mg/dL (<2.0); WBC,Urine >182 /hpf (0-5)
[2022-02-17] MEDS: diazePAM 5 MG TAB PO SCH (20:51)
[2022-02-17] MEDS: metFORMIN 500 MG TAB PO SCH (20:52)
[2022-02-17] MEDS: ATORVASTATIN 10 MG TAB PO SCH (20:52)
[2022-02-17] MEDS: METOPROLOL TARTRATE 50 MG TAB PO SCH (20:53)
[2022-02-17] MEDS: ONDANSETRON 4 MG TAB PO SCH (20:53)
[2022-02-17] MEDS: MELATONIN 3 MG TABLET PO SCH (20:53)
[2022-02-17] MEDS: FAMOTIDINE 20 MG TAB PO SCH (20:54)
[2022-02-17] MEDS: DULoxetine HCL 60 MG CAPSULE.DR PO SCH (20:54)
[2022-02-17] MEDS: QUEtiapine 25 MG TAB PO SCH (20:55)
[2022-02-17] MEDS ORDERED: NON FORMULARY DRUG (Glucerna Shake 1 CAN Ml) PO SCH (21:00)
[2022-02-17] MEDS: GABAPENTIN 400 MG CAP PO SCH (21:00)
[2022-02-17] MEDS: MORPHINE SULFATE ER 30 MG TABLET PO SCH (21:01)
[2022-02-17] MEDS: TRIAMCINOLONE 0.1% CREAM 80 GM TUBE TOPICAL SCH (21:03)
[2022-02-17] MEDS: INSULIN DETEMIR (LEVEMIR) 100 UNIT/ML SYR SQ SCH (21:16)
[2022-02-17 21:19] LABS: Glucose,Whole Blood 160 mg/dL (75-99)
[2022-02-18] MEDS: SODIUM CHLORIDE 0.9% 1,000 ML IV SCH ×4 (00:55→21:58)
[2022-02-18] MEDS: PIPERACILLIN-TAZOBACTAM 3.375 GM in SODIUM CHLORIDE 0.9% 100 ML IVPB SCH ×3 (01:05→16:53)
[2022-02-18 01:08] LABS: Glucose,Whole Blood 86 mg/dL (75-99)
[2022-02-18 07:19] LABS: Glucose,Whole Blood 95 mg/dL (75-99)
[2022-02-18] MEDS: INSULIN ASPART (NovoLOG) 100 UNIT/ML VIAL SQ SCH ×4 (07:34→21:56)
[2022-02-18] MEDS: GABAPENTIN 400 MG CAP PO SCH ×2 (08:33→19:45)
[2022-02-18] MEDS: ENOXAPARIN 40 MG/0.4 ML SYRINGE SQ SCH (08:33)
[2022-02-18] MEDS: ONDANSETRON 4 MG TAB PO SCH ×2 (08:34→19:46)
[2022-02-18] MEDS: metFORMIN 500 MG TAB PO SCH ×2 (08:34→19:45)
[2022-02-18] MEDS: FOLIC ACID 1 MG TAB PO SCH (08:34)
[2022-02-18] MEDS: CHOLECALCIFEROL 25 MCG (1000 IU) TABLET PO SCH (08:34)
[2022-02-18] MEDS: TAMSULOSIN 0.4 MG CAP.ER.24H PO SCH (08:34)
[2022-02-18] MEDS: DULoxetine HCL 60 MG CAPSULE.DR PO SCH ×2 (08:34→19:46)
[2022-02-18] MEDS: MORPHINE SULFATE ER 30 MG TABLET PO SCH ×2 (08:34→19:44)
[2022-02-18] MEDS: FERROUS SULFATE 325 MG TAB PO SCH (08:34)
[2022-02-18] MEDS: METOPROLOL TARTRATE 50 MG TAB PO SCH ×2 (08:34→19:44)
[2022-02-18] MEDS: FUROSEMIDE 40 MG TAB PO SCH (08:35)
[2022-02-18] MEDS: PANTOPRAZOLE 40 MG TABLET PO SCH (08:35)
[2022-02-18] MEDS: FAMOTIDINE 20 MG TAB PO SCH ×2 (08:35→19:45)
[2022-02-18] MEDS: diazePAM 5 MG TAB PO SCH ×2 (08:36→19:43)
[2022-02-18] MEDS: LOSARTAN-HCTZ 50-12.5 MG 1 EACH TAB PO SCH (08:42)
[2022-02-18] MEDS: GLIMEPIRIDE 2 MG TAB PO SCH (08:42)
[2022-02-18] MEDS: IPRATROPIUM-ALBUTEROL 3 ML NEB INHALATION SCH ×4 (09:35→20:59)
[2022-02-18 10:17] LABS: Basophils # (A) 0.09 X 10*3/uL (0.00-0.10); Basophils % (A) 0.9 %; Eosinophils # (A) 0.33 X 10*3/uL (0.04-0.35); Eosinophils % (A) 3.2 %; HCT 35.5 % (37.2-46.3); HGB 10.9 g/dL (12.0-15.0); Immature Grans, Automated 1.2 %; Lymphocytes # (A) 1.95 X 10*3/uL (0.90-5.00); Lymphocytes % (A) 18.7 %; MCH 29.8 pg (27.0-32.0); MCHC 30.7 g/dL (32.0-37.0); Mean Platelet Volume 10.6 fL (9.5-12.2); Monocytes % (A) 7.7 %; NRBC Per 100 WBC 0 /100 WBCS (0.0-0.0); Neutrophils # (A) 7.14 X 10*3/uL (1.80-7.70); Neutrophils % (A) 68.3 %; Platelet Count 202 X 10*3/uL (140-440); RBC 3.66 X 10*6/uL (4.10-5.20); RDW 13.5 % (11.5-14.5); WBC 10.44 X 10*3/uL (4.50-10.00)
[2022-02-18 10:49] LABS: African American GFR (CKD) 71.4 (60.0-200.0); Albumin 3.2 g/dL (3.8-4.9); Albumin/Globulin Ratio 1.23 (1.60-3.17); Anion Gap 9.8 mmol/L (10.00-18.00); BUN/Creat Ratio 22.6 Ratio (12.00-20.00); Blood Urea Nitrogen 22.6 mg/dL (9.0-27.0); Calcium 8.7 mg/dL (8.7-10.3); Carbon Dioxide 31.2 mmol/L (20.0-27.5); Globulin 2.6 g/dL (1.6-3.3); Non-African American GFR(CKD) 61.6 (60.0-200.0); Potassium 3.9 mmol/L (3.5-5.5); Total Bilirubin 0.3 mg/dL (0.30-1.20); Total Protein 5.8 g/dL (6.2-8.2)
[2022-02-18 11:43] LABS: Glucose,Whole Blood 92 mg/dL (75-99)
--- NOTE | 2022-02-18 13:24 | P.PN ---
Subjective Progress Note Date: 02/18/22 Principal diagnosis: Right lower lobe pneumonia 61-year-old female patient presented to the emergency with generalized weakness along with some increased cough and shortness of breath. She was also having some clumsiness in her left upper extremity for the past 2 weeks. No headache. No neck stiffness. No fever. No chills. No aspiration. No nausea or vomiting. No altered mentation. She lives in a local intermediate and she is essentially nonambulatory on a wheelchair and she has several multiple medical problems. Her chest x-ray revealed a right lower lobe infiltrate. The patient x-ray did not indicate any previous pulmonary infiltration. The patient's white cell count is at 21.2 with a hemoglobin of 13.5, BUN is at 41 with a creatinine of 1.2 and the sodium level of 136, COVID 19 testing was negative and influenza A and B were negative. Rest of the electrolytes show a component of chronic metabolic alkalosis with a CO2 of 38. The CAT scan of the brain showed mild cerebral atrophy. 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 There is also a right-sided subarachnoid cyst. No change compared to the previous examination. At this point in time, the patient is resting comfortably in bed. She is on 2 L of oxygen by nasal cannula. No significant sputum production. No chest pain. No pleurisy. No hemoptysis. On 02/18/2022 patient seen in follow-up on medical surgical floor. She is awake, in no acute distress, she is oriented 3, she still having persistent cough, which is dry in nature, nonproductive. Overall she states she is feeling better, vital signs are stable, she remains on 3 L of oxygen pulse ox of 90%, she's been afebrile, and hemodynamically stable, lung sounds are diminished, with a few scattered bibasilar crackles. No wheezing. Remains on nebulized bronchodilators. Remains on azithromycin and Zosyn for antibiotic coverage, patient's white count is improving on today's labs, urinalysis was also completed showing evidence of urinary tract infection, urine culture has been sent and pending at this time. Patient states she had suspected a urinary tract infection as she was having some back pain. Blood cultures have been sent and showed no growth at the 24-hour sara. No nausea or vomiting, no diarrhea, patient is tolerating oral intake. Denies any abdominal pain. Follow-up chest x-rays today show stable bilateral lower lobe infiltrates greater on the right with small right pleural effusion. Objective - Vital Signs Vital signs: Vital Signs Temp 98.0 F 02/18/22 07:44 Pulse 72 02/18/22 09:49 Resp 16 02/18/22 07:44 BP 120/76 02/18/22 07:44 Pulse Ox 98 02/18/22 07:44 Intake & Output 02/17/22 02/18/22 02/18/22 18:59 06:59 18:59 Intake Total 880 Balance 880 Weight 102.058 kg Intake: Intake, IV Titration 880 Amount Piperacillin-Tazobactam 3 100 .375 gm In Sodium Chloride 0.9% 100 ml @ 25 mls/hr IVPB Q8HR [facility] Rx# :[id number] Sodium Chloride 0.9% 1, 780 000 ml @ 130 mls/hr IV . Q7H42M [facility] Rx#:[id number] Other: Voiding Method Toilet # Voids 1 - Exam GENERAL EXAM: Alert, very pleasant, 61-year-old white female, on 3 L of oxygen comfortable in no apparent distress. HEAD: Normocephalic/atraumatic. EYES: Normal reaction of pupils, equal size. Conjunctiva pink, sclera white. NOSE: Clear with pink turbinates. THROAT: No erythema or exudates. NECK: No masses, no JVD, no thyroid enlargement, no adenopathy. CHEST: No chest wall deformity. Symmetrical expansion. LUNGS: Equal air entry with bibasilar crackles CVS: Regular rate and rhythm, normal S1 and S2, no gallops, no murmurs, no rubs ABDOMEN: Soft, nontender. No hepatosplenomegaly, normal bowel sounds, no guarding or rigidity. EXTREMITIES: No clubbing, no edema, no cyanosis, 2+ pulses and upper and lower extremities. MUSCULOSKELETAL: Muscle strength and tone normal. SPINE: No scoliosis or deformity SKIN: No rashes CENTRAL NERVOUS SYSTEM: Alert and oriented -3. No focal deficits, tone is normal in all 4 extremities. PSYCHIATRIC: Alert and oriented -3. Appropriate affect. Intact judgment and insight. - Labs CBC & Chem 7: 02/18/22 07:47 02/18/22 07:47 Labs: Abnormal Lab Results - Last 24 Hours (Table) 04/24/22 04/24/22 04/25/22 Range/Units 20:38 21:43 16:54 WBC (4.50-10.00) X 10*3/uL RBC (4.10-5.20) X 10*6/uL Hgb (12.0-15.0) g/dL Hct (37.2-46.3) % MCHC (32.0-37.0) g/dL Immature Gran # (0.00-0.04) X 10*3/uL Carbon Dioxide (20.0-27.5) mmol/L Anion Gap (10.00-18.00) mmol/L BUN/Creatinine Ratio (12.00-20.00) Ratio POC Glucose (mg/dL) 117 H (75-99) mg/dL AST (13-35) U/L Total Protein (6.2-8.2) g/dL Albumin (3.8-4.9) g/dL Albumin/Globulin Ratio (1.60-3.17) g/dL Procalcitonin 0.10 H (0.02-0.09) ng/mL Urine Appearance Cloudy H (Clear) Ur Leukocyte Esterase Large H (Negative) Urine WBC >182 H (0-5) /hpf Urine WBC Clumps Few H (None) /hpf Urine Bacteria Rare H (None) /hpf Urine Mucus Rare H (None) /hpf 02/17/22 02/18/22 02/18/22 Range/Units 21:06 07:47 07:47 WBC 10.44 H (4.50-10.00) X 10*3/uL RBC 3.66 L (4.10-5.20) X 10*6/uL Hgb 10.9 L (12.0-15.0) g/dL Hct 35.5 L (37.2-46.3) % MCHC 30.7 L (32.0-37.0) g/dL Immature Gran # 0.13 H (0.00-0.04) X 10*3/uL Carbon Dioxide 31.2 H (20.0-27.5) mmol/L Anion Gap 9.80 L (10.00-18.00) mmol/L BUN/Creatinine Ratio 22.60 H (12.00-20.00) Ratio POC Glucose (mg/dL) 160 H (75-99) mg/dL AST 41 H (13-35) U/L Total Protein 5.8 L (6.2-8.2) g/dL Albumin 3.2 L (3.8-4.9) g/dL Albumin/Globulin Ratio 1.23 L (1.60-3.17) g/dL Procalcitonin (0.02-0.09) ng/mL Urine Appearance (Clear) Ur Leukocyte Esterase (Negative) Urine WBC (0-5) /hpf Urine WBC Clumps (None) /hpf Urine Bacteria (None) /hpf Urine Mucus (None) /hpf Microbiology - Last 24 Hours (Table) 02/17/22 00:16 Blood Culture - Preliminary Blood No Growth after 24 hours 02/16/22 20:38 Urine Culture - Preliminary Urine,Voided Assessment and Plan Plan: Assessment: 1 right lower lobe pneumonia, as the patient developed a new infiltrate in the right lung base. Consider a intermediate acquired pneumonia versus aspiration. 2 acute urinary tract infection, urine culture is pending 3 acute hypoxic respiratory failure currently on 2 L of O2 nasal cannula 4 diabetes mellitus type 2 with history of diabetic peripheral neuropathy 5 diabetic retinopathy 6 history of chronic liver disease secondary to hepatitis C 7 history of pseudotumor cerebri 8 obesity with a BMI of 34 9 spinal stenosis with history of chronic neck and back pain 10 history of chronic migraines 11 history of coronary 19 infection back in March 2022 12 history of psoriasis 13 history of acute meningitis at age of 30 14 history of cervical cancer 15 previous history of UTI/right-sided pyonephritis 16 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 coli sepsis/UTI Plan: Continue current antibiotic coverage Continue nebulized bronchodilators Follow-up chest x-ray tomorrow Speech evaluation We'll continue to follow her clinical course I have personally seen and examined the patient, performed the documentation and the assessment and plan as written. Number of minutes spent on the visit: 10 I have personally seen and examined the patient and reviewed the documentation. I performed a joint evaluation with the nurse practitioner in this evaluation was done more than 20 minutes. I fully agree with the documentation above and the plan of care. Clinically stable. Repeat a chest x-ray in the morning. There is a concern for UTI. Continue Zosyn. Add Zithromax. White cell count is improving. Swallow evaluation. Time with Patient: Less than 30
[2022-02-18] MEDS: AZITHROMYCIN 500 MG in SODIUM CHLORIDE 0.9% 250 ML IVPB SCH (14:42)
[2022-02-18 16:44] LABS: Glucose,Whole Blood 156 mg/dL (75-99)
[2022-02-18] MEDS: QUEtiapine 25 MG TAB PO SCH (19:45)
[2022-02-18] MEDS: ATORVASTATIN 10 MG TAB PO SCH (19:46)
[2022-02-18] MEDS: MELATONIN 3 MG TABLET PO SCH (19:46)
[2022-02-18 20:50] LABS: Glucose,Whole Blood 187 mg/dL (75-99)
[2022-02-18] MEDS: INSULIN DETEMIR (LEVEMIR) 100 UNIT/ML SYR SQ SCH (21:56)
[2022-02-18] MEDS: TRIAMCINOLONE 0.1% CREAM 80 GM TUBE TOPICAL SCH (21:57)
[2022-02-19] MEDS: PIPERACILLIN-TAZOBACTAM 3.375 GM in SODIUM CHLORIDE 0.9% 100 ML IVPB SCH ×4 (00:02→23:31)
[2022-02-19 04:33] LABS: Glucose,Whole Blood 98 mg/dL (75-99)
[2022-02-19 07:05] LABS: Glucose,Whole Blood 77 mg/dL (75-99)
[2022-02-19] MEDS: INSULIN ASPART (NovoLOG) 100 UNIT/ML VIAL SQ SCH ×4 (07:17→22:37)
[2022-02-19] MEDS: AZITHROMYCIN 500 MG in SODIUM CHLORIDE 0.9% 250 ML IVPB SCH (08:06)
[2022-02-19] MEDS: METOPROLOL TARTRATE 50 MG TAB PO SCH ×2 (08:07→20:40)
[2022-02-19] MEDS: FOLIC ACID 1 MG TAB PO SCH (08:07)
[2022-02-19] MEDS: FERROUS SULFATE 325 MG TAB PO SCH (08:07)
[2022-02-19] MEDS: metFORMIN 500 MG TAB PO SCH ×2 (08:07→20:33)
[2022-02-19] MEDS: TAMSULOSIN 0.4 MG CAP.ER.24H PO SCH (08:07)
[2022-02-19] MEDS: FAMOTIDINE 20 MG TAB PO SCH ×2 (08:08→20:33)
[2022-02-19] MEDS: CHOLECALCIFEROL 25 MCG (1000 IU) TABLET PO SCH (08:08)
[2022-02-19] MEDS: PANTOPRAZOLE 40 MG TABLET PO SCH (08:08)
[2022-02-19] MEDS: MORPHINE SULFATE ER 30 MG TABLET PO SCH ×2 (08:08→20:34)
[2022-02-19] MEDS: ONDANSETRON 4 MG TAB PO SCH ×2 (08:08→20:33)
--- NOTE | 2022-02-19 08:08 | XR ---
EXAMINATION TYPE: XR chest 2V DATE OF EXAM: 02/19/2022 COMPARISON: Chest x-ray 02/17/2022 HISTORY: Pneumonia TECHNIQUE: Frontal and lateral views of the chest are obtained. FINDINGS: Minimal patchy basilar density is present, patient is rotated. There is no evident pneumot horax. Difficult to exclude effusion. Cardiac mediastinal silhouette is stable. There are overlying l kali and tubing. IMPRESSION: Basilar atelectasis versus pneumonia, follow-up suggested. Expiratory rotated exam.
[2022-02-19] MEDS: FUROSEMIDE 40 MG TAB PO SCH (08:09)
[2022-02-19] MEDS: GLIMEPIRIDE 2 MG TAB PO SCH (08:09)
[2022-02-19] MEDS: LOSARTAN-HCTZ 50-12.5 MG 1 EACH TAB PO SCH (08:09)
[2022-02-19] MEDS: DULoxetine HCL 60 MG CAPSULE.DR PO SCH ×2 (08:09→20:32)
[2022-02-19] MEDS: GABAPENTIN 400 MG CAP PO SCH ×2 (08:09→20:33)
[2022-02-19] MEDS: SODIUM CHLORIDE 0.9% 1,000 ML IV SCH ×3 (08:10→23:31)
[2022-02-19] MEDS: ENOXAPARIN 40 MG/0.4 ML SYRINGE SQ SCH (08:10)
[2022-02-19] MEDS: diazePAM 5 MG TAB PO SCH ×2 (08:10→20:32)
[2022-02-19] MEDS: IPRATROPIUM-ALBUTEROL 3 ML NEB INHALATION SCH ×4 (08:38→21:30)
[2022-02-19 11:13] LABS: Glucose,Whole Blood 79 mg/dL (75-99)
--- NOTE | 2022-02-19 14:01 | P.PN ---
Subjective Progress Note Date: 02/19/22 61-year-old female patient presented to the emergency with generalized weakness along with some increased cough and shortness of breath. She was also having some clumsiness in her left upper extremity for the past 2 weeks. No headache. No neck stiffness. No fever. No chills. No aspiration. No nausea or vomiting. No altered mentation. She lives [facility] a local [facility] and she is essentially nonambulatory on a wheelchair and she has several multiple medical problems. Her chest x-ray revealed a right lower lobe infiltrate. The patient x-ray did not indicate any previous pulmonary infiltration. The patient's white cell count is at 21.2 with a hemoglobin of 13.5, BUN is at 41 with a creatinine of 1.2 and the sodium level of 136, COVID 19 testing was negative and influenza A and B were negative. Rest of the electrolytes show a component of chronic metabolic alkalosis with a CO2 of 38. The CAT scan of the brain showed mild cerebral atrophy. 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 There is also a right-sided subarachnoid cyst. No change compared to the previous examination. At this point in time, the patient is resting comfortably in bed. She is on 2 L of oxygen by nasal cannula. No significant sputum production. No chest pain. No pleurisy. No hemoptysis. On 02/18/2022 patient seen in follow-up on medical surgical floor. She is awake, in no acute distress, she is oriented 3, she still having persistent cough, which is dry in nature, nonproductive. Overall she states she is feeling better, vital signs are stable, she remains on 3 L of oxygen pulse ox of 90%, she's been afebrile, and hemodynamically stable, lung sounds are diminished, with a few scattered bibasilar crackles. No wheezing. Remains on nebulized bronchodilators. Remains on azithromycin and Zosyn for antibiotic coverage, patient's white count is improving on today's labs, urinalysis was also completed showing evidence of urinary tract infection, urine culture has been sent and pending at this time. Patient states she had suspected a urinary tract infection as she was having some back pain. Blood cultures have been sent and showed no growth at the 24-hour sara. No nausea or vomiting, no diarrhea, patient is tolerating oral intake. Denies any abdominal pain. Follow-up chest x-rays today show stable bilateral lower lobe infiltrates greater on the right with small right pleural effusion. The patient is seen today 02/19/2022 in follow-up on the regular medical floor. She is currently sitting up in bed. Awake and alert in no acute distress. She continues with a loose nonproductive cough. She's been afebrile. He continued O2 saturations in the high 90s on 3 L/m per nasal cannula. Follow up chest x- ray reveals minimal patchy basilar density. No evidence of pneumothorax. Cannot exclude effusion. Basilar atelectasis versus pneumonia. Urine culture positive for gram-negative bacilli. Blood culture revealing no growth to date. Blood glucose 79. She is continued on DuoNeb inhalations. Antibiotics in the form of Zosyn and azithromycin. Lovenox for DVT prophylaxis. Remains on oral diuretics. Objective - Vital Signs Vital signs: Vital Signs Temp 98.0 F 02/19/22 07:54 Pulse 84 02/19/22 12:06 Resp 18 02/19/22 07:54 BP 107/69 02/19/22 08:05 Pulse Ox 98 02/19/22 07:54 Intake & Output 02/18/22 02/19/22 02/19/22 18:59 06:59 18:59 Other: Voiding Method Toilet Toilet # Voids 3 1 # Bowel Movements 1 1 - Exam GENERAL EXAM: Alert, very pleasant, 61-year-old female patient, on 3 L of oxygen, comfortable in no apparent distress. HEAD: Normocephalic/atraumatic. EYES: Normal reaction of pupils, equal size. Conjunctiva pink, sclera white. NOSE: Clear with pink turbinates. THROAT: No erythema or exudates. NECK: No masses, no JVD, no thyroid enlargement, no adenopathy. CHEST: No chest wall deformity. Symmetrical expansion. LUNGS: Equal air entry with bibasilar crackles. Right greater than left CVS: Regular rate and rhythm, normal S1 and S2, no gallops, no murmurs, no rubs ABDOMEN: Soft, nontender. No hepatosplenomegaly, normal bowel sounds, no guarding or rigidity. EXTREMITIES: No clubbing, no edema, no cyanosis, 2+ pulses and upper and lower extremities. MUSCULOSKELETAL: Muscle strength and tone normal. SPINE: No scoliosis or deformity SKIN: No rashes CENTRAL NERVOUS SYSTEM: No focal deficits, tone is normal in all 4 extremities. PSYCHIATRIC: Alert and oriented -3. Appropriate affect. Intact judgment and insight. - Labs CBC & Chem 7: 02/18/22 07:47 02/18/22 07:47 Labs: Abnormal Lab Results - Last 24 Hours (Table) 02/18/22 02/18/22 Range/Units 16:42 20:48 POC Glucose (mg/dL) 156 H 187 H (75-99) mg/dL Microbiology - Last 24 Hours (Table) 02/17/22 00:16 Blood Culture - Preliminary Blood No Growth after 48 hours 02/16/22 20:38 Urine Culture - Preliminary Urine,Voided Gram Neg Bacilli Assessment and Plan Assessment: 1 right lower lobe pneumonia, as the patient developed a new infiltrate in the right lung base. Consider a [facility] acquired pneumonia versus aspiration. 2 acute urinary tract infection, urine culture is pending 3 acute hypoxic respiratory failure currently on 2 L of O2 nasal cannula 4 diabetes mellitus type 2 with history of diabetic peripheral neuropathy 5 diabetic retinopathy 6 history of chronic liver disease secondary to hepatitis C 7 history of pseudotumor cerebri 8 obesity with a BMI of 34 9 spinal stenosis with history of chronic neck and back pain 10 history of chronic migraines 11 history of coronary 19 infection back in March 2022 12 history of psoriasis 13 history of acute meningitis at age of 30 14 history of cervical cancer 15 previous history of UTI/right-sided pyonephritis 16 history of RN CARE TRANSITION shunts and previous history of LP shunts 17 also cerebellar infarct/atrophy 18 chronic elevation of the right hemidiaphragm, 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 coli sepsis/UTI Plan: The patient was seen and evaluated Chest x-ray and labs reviewed Improved but not quite back to baseline Continue the current treatment plan We will continue to follow I have personally seen and examined the patient, performed the documentation and the assessment and plan as written. Number of minutes spent on the visit: 10. I have personally seen and examined the patient and reviewed the documentation. I performed a joint evaluation with the nurse practitioner in this evaluation was done more than 20 minutes. I fully agree with the documentation above and the plan of care. The patient is stable. Chest x-ray still showing atelectatic changes in the right lung base along with a right basilar infiltrate and the patient remains on IV Zosyn. No aspiration. Keep same antibiotic coverage. The patient gram-negative bacteria in the urine. Will need another few days inpatient treatment.
[2022-02-19 16:24] LABS: Glucose,Whole Blood 148 mg/dL (75-99)
[2022-02-19] MEDS: MELATONIN 3 MG TABLET PO SCH (20:33)
[2022-02-19] MEDS: ATORVASTATIN 10 MG TAB PO SCH (20:33)
[2022-02-19] MEDS: QUEtiapine 25 MG TAB PO SCH (20:33)
[2022-02-19] MEDS: TRIAMCINOLONE 0.1% CREAM 80 GM TUBE TOPICAL SCH (20:40)
[2022-02-19 21:50] LABS: Glucose,Whole Blood 124 mg/dL (75-99)
[2022-02-19] MEDS: INSULIN DETEMIR (LEVEMIR) 100 UNIT/ML SYR SQ SCH (23:31)
[2022-02-20 07:11] LABS: Glucose,Whole Blood 101 mg/dL (75-99)
[2022-02-20] MEDS: INSULIN ASPART (NovoLOG) 100 UNIT/ML VIAL SQ SCH ×2 (07:57→12:45)
[2022-02-20] MEDS: DULoxetine HCL 60 MG CAPSULE.DR PO SCH (08:44)
[2022-02-20] MEDS: FUROSEMIDE 40 MG TAB PO SCH (08:44)
[2022-02-20] MEDS: TAMSULOSIN 0.4 MG CAP.ER.24H PO SCH (08:44)
[2022-02-20] MEDS: PANTOPRAZOLE 40 MG TABLET PO SCH (08:44)
[2022-02-20] MEDS: ONDANSETRON 4 MG TAB PO SCH (08:44)
[2022-02-20] MEDS: FAMOTIDINE 20 MG TAB PO SCH (08:44)
[2022-02-20] MEDS: METOPROLOL TARTRATE 50 MG TAB PO SCH (08:45)
[2022-02-20] MEDS: LOSARTAN-HCTZ 50-12.5 MG 1 EACH TAB PO SCH (08:45)
[2022-02-20] MEDS: metFORMIN 500 MG TAB PO SCH (08:45)
[2022-02-20] MEDS: diazePAM 5 MG TAB PO SCH (08:45)
[2022-02-20] MEDS: GABAPENTIN 400 MG CAP PO SCH (08:45)
[2022-02-20] MEDS: FERROUS SULFATE 325 MG TAB PO SCH (08:45)
[2022-02-20] MEDS: CHOLECALCIFEROL 25 MCG (1000 IU) TABLET PO SCH (08:45)
[2022-02-20] MEDS: FOLIC ACID 1 MG TAB PO SCH (08:45)
[2022-02-20] MEDS: MORPHINE SULFATE ER 30 MG TABLET PO SCH (08:46)
[2022-02-20] MEDS: ENOXAPARIN 40 MG/0.4 ML SYRINGE SQ SCH (08:46)
[2022-02-20] MEDS: SODIUM CHLORIDE 0.9% 1,000 ML IV SCH ×2 (08:47→12:45)
[2022-02-20] MEDS: IPRATROPIUM-ALBUTEROL 3 ML NEB INHALATION SCH ×3 (08:55→15:28)
[2022-02-20 09:04] VITALS: RESP 16
[2022-02-20] MEDS: PIPERACILLIN-TAZOBACTAM 3.375 GM in SODIUM CHLORIDE 0.9% 100 ML IVPB SCH ×2 (09:06→18:08)
[2022-02-20] MEDS: GLIMEPIRIDE 2 MG TAB PO SCH (09:10)
[2022-02-20] MEDS: AZITHROMYCIN 500 MG in SODIUM CHLORIDE 0.9% 250 ML IVPB SCH (09:55)
[2022-02-20 10:13] LABS: ALT 30 U/L (4-34); AST 47 U/L (14-36); African American GFR (CKD) 62 (>60 ml/min/1.73 sqM); Albumin 3.2 g/dL (3.5-5.0); Alkaline Phosphatase 80 U/L (38-126); Anion Gap 6 mmol/L; Blood Urea Nitrogen 21 mg/dL (7-17); Calcium 8.4 mg/dL (8.4-10.2); Carbon Dioxide 34 mmol/L (22-30); Chloride 102 mmol/L (98-107); Globulin 3.2 g/dL; Glucose 73 mg/dL (74-99); Non-African American GFR(CKD) 53 (>60 ml/min/1.73 sqM); Potassium 3.9 mmol/L (3.5-5.1); Sodium 142 mmol/L (137-145); Total Bilirubin 0.7 mg/dL (0.2-1.3); Total Protein 6.4 g/dL (6.3-8.2)
[2022-02-20 10:42] LABS: Basophils # (A) 0.1 k/uL (0-0.2); Basophils % (A) 1 %; Eosinophils # (A) 0.3 k/uL (0-0.7); Eosinophils % (A) 3 %; HCT 38.4 % (34.0-46.0); HGB 11.8 gm/dL (11.4-16.0); Hypochromasia Slight; Lymphocytes # (A) 1.7 k/uL (1.0-4.8); Lymphocytes % (A) 20 %; MCH 30.1 pg (25.0-35.0); MCHC 30.7 g/dL (31.0-37.0); Mean Platelet Volume 8.4; Monocytes # (A) 0.7 k/uL (0-1.0); Monocytes % (A) 8 %; Neutrophils # (A) 5.7 k/uL (1.3-7.7); Neutrophils % (A) 66 %; Platelet Count 176 k/uL (150-450); RBC 3.91 m/uL (3.80-5.40); RDW 13.3 % (11.5-15.5); WBC 8.6 k/uL (3.8-10.6)
[2022-02-20 10:43] LABS: MCV 98.2 fL (80.0-100.0)
[2022-02-20 11:42] LABS: Glucose,Whole Blood 90 mg/dL (75-99)
--- NOTE | 2022-02-20 13:00 | P.HPIM ---
History of Present Illness H&P Date: 02/17/22 Chief Complaint: Right lower lobe pneumonia. HISTORY OF PRESENT ILLNESS: This is a 61-year-old female with a past medical history significant for hypertension and hypertensive cardio vascular disease, hyperlipidemia, diabetes mellitus type 2 with diabetic polyneuropathy, history of chronic pain syndrome, history of cervical cancer status post surgery in the past, history of recurrent UTI, history of COVID-19 back in 2021 was resultant chronic hypoxemic respiratory failure requiring 2 L nasal cannula, history of right diaphragm paralysis, patient presented to the emergency department at [facility] because of increased coughing associated with increased shortness breath with mental status changes thought to be due to encephalopathy as per fact was toxic metabolic encephalopathy due to combination of aspiration pneumonia as well as pain medication, patient was started on IV antibiotic in the form of Rocephin and Zithromax subsequent she was switched to Zosyn 3.375 g IV piggyback every 8 hours and she was started on Zithromax 250 mg orally once every day for community acquired pneumonia coverage as well, patient was seen in consultation by pulmonary medicine, and she was admitted to the hospital for evaluation and treatment. REVIEW OF SYSTEMS: Constitutional: No documented fever, no chills, no night sweats. No weight change. No weakness, fatigue or lethargy. No daytime sleepiness. HEENT: No headache. No blurred vision or double vision, no loss of vision. No loss of Hearing, no ringing in the ears, no dizziness. No nasal drainage or congestion. No epistaxis. No sore throat. Lungs: Positive shortness of breath, positive for cough, positive for sputum production. No wheezing. Reports dyspnea with activity. Cardiovascular: No chest pain, no lower extremity edema. No palpitations. No paroxysmal nocturnal dyspnea. No orthopnea. No lightheadedness or dizziness. No syncopal episodes. Abdominal: Reports abdominal pain. No nausea, vomiting. No diarrhea. No constipation. No bloody or tarry stools reports loss of appetite. Genitourinary: No dysuria, increased frequency, urgency. No urinary retention. Musculoskeletal: No myalgias. No muscle weakness, no gait dysfunction, no frequent falls. No back pain. No neck pain. Integumentary: No wounds, no lesions. No rash or pruritus. No unusual bruising. No change in hair or nails. Neurologic: No aphasia. No facial droop. No change in mentation. No head injury. No headache. No paralysis. No paresthesia. Psychiatric: Positive for depression. Positive for anxiety. No mood swings. Endocrine: No abnormal blood sugars. No weight change. PAST MEDICAL HISTORY: Hypertension and hypertensive cardio vascular disease. Hyperlipidemia. Diabetes mellitus type 2. Diabetic polyneuropathy. Obesity with obstructive sleep apnea. Vitamin D deficiency Cervical cancer. Chronic pain syndrome. Spondylosis of the lumbar spine Fibromyalgia. pseudotumor cerebri. Spinal stenosis. Hepatitis C. Chronic hypoxemic respiratory failure. COVID-19 Psoriasis. PAST SURGICAL HISTORY: 9 CATH LAB TECHNOLOGIST shunts 12 lumbar shunts Cervical laser therapy. Partial hysterectomy with right fallopian tube and OOphorectomy Bilateral optic nerve decompressive surgery. Right shoulder reverse arthroplasty. Bladder suspension. Appendectomy. Tonsillectomy and adenoidectomy. Right open reduction and internal fixation for right ankle trimalleolar fracture. Colonoscopy. EGD. SOCIAL HISTORY: Patient smokes about a pack every day since he was 42-year-old she denies any marijuana use or abuse, she denies any alcohol use or abuse. She currently resides at [facility]. FAMILY HISTORY: Mother at the age of 27 she had a history of manic depressive disorder she went missing for 27 years she was murdered father at age 60 from [place]. Patient has no sisters or brothers she has 2 daughters one of them with thyroid nodule that became cancer and one son with hypertension hyperlipidemia PHYSICAL EXAMINATION: General: 61-year-old female laying down in bed in minimal restrictive distress HEENT: Head is atraumatic, normocephalic, pupils were equal round reactive to li ght and recommendation, extraocular muscle movement were intact, sclera nonicteric, conjunctivae were pale, mucous membranes of the mouth are somewhat dry. Neck: Supple, no JVP, normal carotid upstroke bilaterally, no lymphadenopathy. Chest: Decreased breath sounds at the bases, few rhonchi, no expiratory wheezes, no chest wall tenderness, no intercostal retractions. Heart: First heart sound is normal, second heart sounds normal there is no gallop or murmur. Abdomen: Soft, nontender, nondistended, positive bowel sounds. no hepatomegaly. Extremities: There is no edema no calf tenderness DP +2 bilaterally. Neurologic examination: Patient is awake alert and oriented X 3, cranial nerves II-12 appear grossly intact, muscle power were 5 out of 5 in upper extremities and 5 out of 5 in bilateral lower extremities, deep tendon reflexes normal bilaterally. ASSESSMENT AND PLAN: 1. Acute hypoxemic respiratory failure due to right lower lobe aspiration pneumonia. Discontinue Rocephin and start the patient on Zithromax 500 mg IV piggyback every 24 hours, Zosyn 3.375 g IV piggyback every 8 hours, DuoNeb nebulization 4 times every day, oxygen support, pulmonary consultation, blood cultures, sputum culture, follow-up with the patient very closely. 2. Toxic metabolic encephalopathy. Likely related to combination of pneumonia or sepsis along with chronic opioid use. We will decrease oxycodone to 20 mg orally 3 times every day as needed continue MS Contin. 3. Hypertension and hypertensive cardio vascular disease. Continue losartan 50/12.5 mg once every day, continue metoprolol 100 mg orally twice every day, clonidine 0.0 mg orally twice every day. Continue to watch patient blood pressure very closely. 4. Hyponatremia. Continue cholesterol diet, continue atorvastatin 10 mg every day, monitor lipid panel, keep LDL 5570 per 5. Diabetes mellitus type 2. Continue patient on Levemir 16 units at bedtime, continue sliding scale insulin, continue glyburide 10 mg once every day. Monitor blood glucose level before each meal and at bedtime. 6.Diabetic polyneuropathy. Continue gabapentin 800 mg orally twice every day, monitor the patient's symptoms very closely. 7. Fibromyalgia. Continue patient on duloxetine 60 mg orally twice every day. 8. History of pseudocyst tumor cerebri status post multiple CATH LAB TECHNOLOGIST shunt's. 9. History of cervical cancer currently in remission. 10. History of chronic pain syndrome. Continue current pain management. 11. DVT prophylaxis. Continue Lovenox 40 subcutaneously every 24 hours. 12. GI prophylaxis. Continue patient on famotidine 20 mg orally once every day as well as PPI. 13. Patient is no CODE STATUS per her own wishes. 14. Admitted to inpatient. Estimate a length of stay 2 midnights. 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, pulmonary htn, covid + 10/2021, thyroid nodule, single pulmonary nodule, psoriasis, bacterial meningitis at age 30, cancer cervix, UTI/R pyelonephritis with sepsis, History of Any Multi-Drug Resistant Organisms: None Reported Past Surgical History: Adenoidectomy, Appendectomy, Back Surgery, Bladder Surgery, Orthopedic Surgery, Tonsillectomy, Tubal Ligation Additional Past Surgical History / Comment(s): 9 CATH LAB TECHNOLOGIST shunts- none at 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 Past Anesthesia/Blood Transfusion Reactions: No Reported Reaction Additional Past Anesthesia/Blood Transfusion Reaction / Comment(s): no hx blood transfusion Smoking Status: Current every day smoker - Past Family History Mother Family Medical History: No Reported History Additional Family Medical History / Comment(s): Mother was murdered at the age of 44 yrs. She had paranoid schizophrenia. Father Family Medical History: Myocardial Infarction ([place]) Additional Family Medical History / Comment(s): Father of a [place] at the age of 60 yrs. Medications and Allergies Home Medications Medication Instructions Recorded Confirmed Type Furosemide [Lasix] 40 mg PO DAILY@0900 12/13/19 02/16/22 History Ferrous Sulfate [Iron (65 MG 325 mg PO DAILY@0900 11/12/20 02/16/22 History Elemental)] Promethazine HCl 12.5 mg PO QID PRN 11/12/20 02/16/22 History DULoxetine HCL [Cymbalta] 60 mg PO BID@0900,209905/25/21 02/16/22 History Glimepiride [Amaryl] 2 mg PO DAILY@89905/25/21 02/16/22 History Insulin Detemir [Levemir Flextouch 16 units SQ HS@209905/25/21 02/16/22 History Pen] Metoprolol Tartrate [Lopressor] 100 mg PO BID@0900,209905/25/21 02/16/22 History Nitroglycerin Sl Tabs [Nitrostat] 0.4 mg SL Q5M PRN 05/25/21 02/16/22 History Omeprazole 20 mg PO DAILY@0800 05/25/21 02/16/22 History Sennosides [Senna] 8.6 mg PO BID PRN 05/25/21 02/16/22 History metFORMIN HCL [Glucophage] 1,000 mg PO BID@0900,209905/25/21 02/16/22 History Acetaminophen Tab [Tylenol] 650 mg PO Q6HR PRN tab 06/03/21 02/16/22 Rx Atorvastatin [Lipitor] 10 mg PO HS@209902/16/22 02/16/22 History Betamethasone Dipropionate 1 applic TOPICAL HS 02/16/22 02/16/22 History [Betamethasone Dipropionate 0.05%] Cholecalciferol [Vitamin D3 (25 50 mcg PO DAILY@0900 02/16/22 02/16/22 History Mcg = 1000 Iu)] Famotidine [Pepcid AC] 10 mg PO BID@0900,209902/16/22 02/16/22 History Folic Acid 0.4 mg PO DAILY@0900 02/16/22 02/16/22 History Gabapentin 800 mg PO BID@0900,209902/16/22 02/16/22 History Glucerna Shake 1 can PO TID@0900,1300,209902/16/22 02/16/22 History Ibuprofen [Motrin] 600 mg PO Q8HR PRN 02/16/22 02/16/22 History Insulin Aspart [NovoLOG] See Protocol SQ ACHS 02/16/22 02/16/22 History Lactulose 20 gm PO DAILY PRN 02/16/22 02/16/22 History Losartan/Hydrochlorothiazide 1 tab PO DAILY@0900 02/16/22 02/16/22 History [Losartan-Hctz 100-25 mg Tab] Melatonin 3 mg PO HS@209902/16/22 02/16/22 History Morphine Sulfate ER [Ms Contin] 30 mg PO BID@0900,209902/16/22 02/16/22 History Ondansetron [Zofran] 4 mg PO BID@0900,209902/16/22 02/16/22 History Pimecrolimus [Elidel] 1 applic TOPICAL SUSA@0900,2100 02/16/22 02/16/22 History QUEtiapine [SEROquel] 12.5 mg PO HS 02/16/22 02/16/22 History Simethicone Capsule (Unknown Dose) 1 cap PO Q6H PRN 02/16/22 02/16/22 History Tamsulosin [Flomax] 0.4 mg PO DAILY@0900 02/16/22 02/16/22 History cloNIDine HCL [Catapres] 0.1 mg PO BID PRN 02/16/22 02/16/22 History hydrOXYzine HCL 10 mg PO BID PRN 02/16/22 02/16/22 History oxyCODONE HCL 20 mg PO BID PRN 02/16/22 02/16/22 History oxyCODONE HCL 20 mg PO DAILY@1000 02/16/22 02/16/22 History polyethylene glycoL 3350 [Miralax] 17 gm PO DAILY PRN 02/16/22 02/16/22 History diazePAM [Valium] 2.5 mg PO BID 02/17/22 02/17/22 History Allergies Allergy/AdvReac Type Severity Reaction Status Date / Time diphenhydramine Allergy Unknown Verified 02/16/22 21:46 [From Benadryl] Physical Exam Vitals: Vital Signs Temp Pulse Pulse Resp BP BP Pulse Ox 02/17/22 14:14 97.6 F 102 H 14 119/83 97 02/17/22 11:55 100 02/17/22 11:44 100 02/17/22 08:56 100 02/17/22 08:46 100 02/17/22 00:52 96 02/17/22 00:51 106 H 02/17/22 00:43 100 02/17/22 00:18 98.7 F 100 20 108/72 97 02/16/22 20:16 99.5 F 113 H 20 133/86 94 L Intake and Output 02/16/22 02/17/22 02/17/22 22:59 06:59 14:59 Other: Weight 226.8 kg 226.8 kg Results CBC & Chem 7: 02/20/22 08:30 02/20/22 08:39 Labs: Abnormal Lab Results - Last 24 Hours (Table) 02/16/22 02/16/22 02/17/22 Range/Units 21:43 21:43 08:44 WBC 21.2 H (3.8-10.6) k/uL Neutrophils # 17.0 H (1.3-7.7) k/uL Sodium 136 L (137-145) mmol/L Chloride 91 L (98-107) mmol/L Carbon Dioxide 38 H (22-30) mmol/L BUN 41 H (7-17) mg/dL Creatinine 1.29 H (0.52-1.04) mg/dL Glucose 128 H (74-99) mg/dL POC Glucose (mg/dL) 125 H (75-99) mg/dL AST 65 H (14-36) U/L ALT 40 H (4-34) U/L Alkaline Phosphatase 137 H (38-126) U/L 02/17/22 Range/Units 12:31 WBC (3.8-10.6) k/uL Neutrophils # (1.3-7.7) k/uL Sodium (137-145) mmol/L Chloride (98-107) mmol/L Carbon Dioxide (22-30) mmol/L BUN (7-17) mg/dL Creatinine (0.52-1.04) mg/dL Glucose (74-99) mg/dL POC Glucose (mg/dL) 100 H (75-99) mg/dL AST (14-36) U/L ALT (4-34) U/L Alkaline Phosphatase (38-126) U/L Thrombosis Risk Factor Assmnt - Choose All That Apply Any of the Below Risk Factors Present?: Yes Each Factor Represents 1 point: Age 41-60 years, Obesity (BMI >25), Serious lung disease incl. pneumonia (< 1month) Other Risk Factors: Yes Each Risk Factor Represents 2 Points: Malignancy Other congenital or acquired thrombophilia - If yes, enter type in comment: No Thrombosis Risk Factor Assessment Total Risk Factor Score: 5 Thrombosis Risk Factor Assessment Level: High Risk
--- NOTE | 2022-02-20 13:19 | P.PN ---
Subjective Progress Note Date: 02/18/22 HISTORY OF PRESENT ILLNESS: This is a 61-year-old female with a past medical history significant for hypertension and hypertensive cardio vascular disease, hyperlipidemia, diabetes mellitus type 2 with diabetic polyneuropathy, history of chronic pain syndrome, history of cervical cancer status post surgery in the past, history of recurrent UTI, history of COVID-19 back in 2021 was resultant chronic hypoxemic respiratory failure requiring 2 L nasal cannula, history of right diaphragm paralysis, patient presented to the emergency department at [facility] because of increased coughing associated with increased shortness breath with mental status changes thought to be due to encephalopathy as per fact was toxic metabolic encephalopathy due to combination of aspiration pneumonia as well as pain medication, patient was started on IV antibiotic in the form of Rocephin and Zithromax subsequent she was switched to Zosyn 3.375 g IV piggyback every 8 hours and she was started on Zithromax 250 mg orally once every day for community acquired pneumonia coverage as well, patient was seen in consultation by pulmonary medicine, and she was admitted to the hospital for evaluation and t reatment. 02/18: Patient states she still has some shortness of breath but improving. She denies any sore throat. She does relate that she has trouble swallowing and chokes about one time per week and speech therapy consult added. His been afebrile, heart rate in the 60s and 70s, blood pressure 120/76, pulse ox 90% on 3 L nasal cannula. Azithromycin added to Zosyn and incentive spirometry added. Repeat chest x-ray has been ordered by pulmonary medicine. REVIEW OF SYSTEMS: Constitutional: No documented fever, no chills, no night sweats. No weight change. No weakness, fatigue or lethargy. No daytime sleepiness. HEENT: No headache. No blurred vision or double vision, no loss of vision. No loss of Hearing, no ringing in the ears, no dizziness. No nasal drainage or congestion. No epistaxis. No sore throat. Lungs: Positive shortness of breath, positive for cough, positive for sputum production. No wheezing. Reports dyspnea with activity. Reports choking episodes Cardiovascular: No chest pain, no lower extremity edema. No palpitations. No paroxysmal nocturnal dyspnea. No orthopnea. No lightheadedness or dizziness. No syncopal episodes. Abdominal: Reports abdominal pain. No nausea, vomiting. No diarrhea. No constipation. No bloody or tarry stools reports loss of appetite. Genitourinary: No dysuria, increased frequency, urgency. No urinary retention. Musculoskeletal: No myalgias. No muscle weakness, no gait dysfunction, no frequent falls. No back pain. No neck pain. Integumentary: No wounds, no lesions. No rash or pruritus. No unusual bruising. No change in hair or nails. Neurologic: No aphasia. No facial droop. No change in mentation. No head injury. No headache. No paralysis. No paresthesia. Psychiatric: Positive for depression. Positive for anxiety. No mood swings. Endocrine: No abnormal blood sugars. No weight change. PHYSICAL EXAMINATION: General: 61-year-old female laying down in bed in no respiratory distress HEENT: Head is atraumatic, normocephalic, pupils were equal round reactive to light and recommendation, extraocular muscle movement were intact, sclera nonicteric, conjunctivae were pale, mucous membranes of the mouth are somewhat dry. Neck: Supple, no JVP, normal carotid upstroke bilaterally, no lymphadenopathy. Chest: Decreased breath sounds at the bases, few rhonchi, no expiratory wheezes, no chest wall tenderness, no intercostal retractions. Heart: First heart sound is normal, second heart sounds normal there is no gallop or murmur. Abdomen: Soft, nontender, nondistended, positive bowel sounds. no hepatomegaly. Extremities: There is no edema no calf tenderness DP +2 bilaterally. Neurologic examination: Patient is awake alert and oriented X 3, cranial nerves II-12 appear grossly intact, muscle power were 5 out of 5 in upper extremities and 5 out of 5 in bilateral lower extremities, deep tendon reflexes normal bilaterally. ASSESSMENT AND PLAN: 1. Acute hypoxemic respiratory failure due to right lower lobe aspiration pneumonia. Discontinue Rocephin and start the patient on Zithromax 500 mg IV piggyback every 24 hours, Zosyn 3.375 g IV piggyback every 8 hours, DuoNeb nebulization 4 times every day, oxygen support, pulmonary consultation, blood cultures, sputum culture, follow-up with the patient very closely. Incentive spirometry added, speech therapy consultation. 2. Toxic metabolic encephalopathy. Likely related to combination of pneumonia or sepsis along with chronic opioid use. We will decrease oxycodone to 20 mg orally 3 times every day as needed continue MS Contin. 3. Hypertension and hypertensive cardio vascular disease. Continue losartan 50/12.5 mg once every day, continue metoprolol 100 mg orally twice every day, clonidine 0.0 mg orally twice every day. Continue to watch patient blood pressure very closely. 4. Hyponatremia. Continue cholesterol diet, continue atorvastatin 10 mg every day, monitor lipid panel, keep LDL 5570 per 5. Diabetes mellitus type 2. Continue patient on Levemir 16 units at bedtime, continue sliding scale insulin, continue glyburide 10 mg once every day. Monitor blood glucose level before each meal and at bedtime. 6. Diabetic polyneuropathy. Continue gabapentin 800 mg orally twice every day, monitor the patient's symptoms very closely. 7. Fibromyalgia. Continue patient on duloxetine 60 mg orally twice every day. 8. 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 9. History of cervical cancer currently in remission. 10. History of chronic pain syndrome. Continue current pain management. 11. DVT prophylaxis. Continue Lovenox 40 subcutaneously every 24 hours. 12. GI prophylaxis. Continue patient on famotidine 20 mg orally once every day as well as PPI. 13. Patient is no CODE STATUS per her own wishes. Discharge plan: Return to [facility] Impression and plan of care have been directed as dictated by the signing physician. Carolny Cunningham nurse practitioner acting as scribe for signing physician. Objective - Vital Signs Vital signs: Vital Signs Temp 98.0 F 02/18/22 07:44 Pulse 72 02/18/22 09:49 Resp 16 02/18/22 07:44 BP 120/76 02/18/22 07:44 Pulse Ox 98 02/18/22 07:44 Intake & Output 02/17/22 02/18/22 02/18/22 18:59 06:59 18:59 Intake Total 880 Balance 880 Weight 102.058 kg Intake: Intake, IV Titration 880 Amount Piperacillin-Tazobactam 3 100 .375 gm In Sodium Chloride 0.9% 100 ml @ 25 mls/hr IVPB Q8HR [facility] Rx# :[id number] Sodium Chloride 0.9% 1, 780 000 ml @ 130 mls/hr IV . [id number] [facility] Rx#:[id number] Other: Voiding Method Toilet # Voids 1 - Labs CBC & Chem 7: 02/20/22 08:30 02/20/22 08:39 Labs: Abnormal Lab Results - Last 24 Hours (Table) 02/16/22 02/16/22 02/17/22 Range/Units 20:38 21:43 16:54 WBC (4.50-10.00) X 10*3/uL RBC (4.10-5.20) X 10*6/uL Hgb (12.0-15.0) g/dL Hct (37.2-46.3) % MCHC (32.0-37.0) g/dL Immature Gran # (0.00-0.04) X 10*3/uL Carbon Dioxide (20.0-27.5) mmol/L Anion Gap (10.00-18.00) mmol/L BUN/Creatinine Ratio (12.00-20.00) Ratio POC Glucose (mg/dL) 117 H (75-99) mg/dL AST (13-35) U/L Total Protein (6.2-8.2) g/dL Albumin (3.8-4.9) g/dL Albumin/Globulin Ratio (1.60-3.17) g/dL Procalcitonin 0.10 H (0.02-0.09) ng/mL Urine Appearance Cloudy H (Clear) Ur Leukocyte Esterase Large H (Negative) Urine WBC >182 H (0-5) /hpf Urine WBC Clumps Few H (None) /hpf Urine Bacteria Rare H (None) /hpf Urine Mucus Rare H (None) /hpf 02/17/22 02/18/22 02/18/22 Range/Units 21:06 07:47 07:47 WBC 10.44 H (4.50-10.00) X 10*3/uL RBC 3.66 L (4.10-5.20) X 10*6/uL Hgb 10.9 L (12.0-15.0) g/dL Hct 35.5 L (37.2-46.3) % MCHC 30.7 L (32.0-37.0) g/dL Immature Gran # 0.13 H (0.00-0.04) X 10*3/uL Carbon Dioxide 31.2 H (20.0-27.5) mmol/L Anion Gap 9.80 L (10.00-18.00) mmol/L BUN/Creatinine Ratio 22.60 H (12.00-20.00) Ratio POC Glucose (mg/dL) 160 H (75-99) mg/dL AST 41 H (13-35) U/L Total Protein 5.8 L (6.2-8.2) g/dL Albumin 3.2 L (3.8-4.9) g/dL Albumin/Globulin Ratio 1.23 L (1.60-3.17) g/dL Procalcitonin (0.02-0.09) ng/mL Urine Appearance (Clear) Ur Leukocyte Esterase (Negative) Urine WBC (0-5) /hpf Urine WBC Clumps (None) /hpf Urine Bacteria (None) /hpf Urine Mucus (None) /hpf Microbiology - Last 24 Hours (Table) 02/17/22 00:16 Blood Culture - Preliminary Blood No Growth after 24 hours 02/16/22 20:38 Urine Culture - Preliminary Urine,Voided
--- NOTE | 2022-02-20 13:19 | P.PN ---
Subjective Progress Note Date: 02/20/22 61-year-old female patient presented to the emergency with generalized weakness along with some increased cough and shortness of breath. She was also having some clumsiness in her left upper extremity for the past 2 weeks. No headache. No neck stiffness. No fever. No chills. No aspiration. No nausea or vomiting. No altered mentation. She lives in a local snf and she is essentially nonambulatory on a wheelchair and she has several multiple medical problems. Her chest x-ray revealed a right lower lobe infiltrate. The patient x-ray did not indicate any previous pulmonary infiltration. The patient's white cell count is at 21.2 with a hemoglobin of 13.5, BUN is at 41 with a creatinine of 1.2 and the sodium level of 136, COVID 19 testing was negative and influenza A and B were negative. Rest of the electrolytes show a component of chronic metabolic alkalosis with a CO2 of 38. The CAT scan of the brain showed mild cerebral atrophy. 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 There is also a right-sided subarachnoid cyst. No change compared to the previous examination. At this point in time, the patient is resting comfortably in bed. She is on 2 L of oxygen by nasal cannula. No significant sputum production. No chest pain. No pleurisy. No hemoptysis. On 02/18/2022 patient seen in follow-up on medical surgical floor. She is awake, in no acute distress, she is oriented 3, she still having persistent cough, which is dry in nature, nonproductive. Overall she states she is feeling better, vital signs are stable, she remains on 3 L of oxygen pulse ox of 90%, she's been afebrile, and hemodynamically stable, lung sounds are diminished, with a few scattered bibasilar crackles. No wheezing. Remains on nebulized bronchodilators. Remains on azithromycin and Zosyn for antibiotic coverage, patient's white count is improving on today's labs, urinalysis was also completed showing evidence of urinary tract infection, urine culture has been sent and pending at this time. Patient states she had suspected a urinary tract infection as she was having some back pain. Blood cultures have been sent and showed no growth at the 24-hour sara. No nausea or vomiting, no diarrhea, patient is tolerating oral intake. Denies any abdominal pain. Follow-up chest x-rays today show stable bilateral lower lobe infiltrates greater on the right with small right pleural effusion. The patient is seen today 02/19/2022 in follow-up on the regular medical floor. She is currently sitting up in bed. Awake and alert in no acute distress. She continues with a loose nonproductive cough. She's been afebrile. He continued O2 saturations in the high 90s on 3 L/m per nasal cannula. Follow up chest x- ray reveals minimal patchy basilar density. No evidence of pneumothorax. Cannot exclude effusion. Basilar atelectasis versus pneumonia. Urine culture positive for gram-negative bacilli. Blood culture revealing no growth to date. Blood glucose 79. She is continued on DuoNeb inhalations. Antibiotics in the form of Zosyn and azithromycin. Lovenox for DVT prophylaxis. Remains on oral diuretics. The patient is seen today the 2021 in follow-up on the regular medical floor. She is awake and alert in no acute distress. She denies any worsening shortness of breath, cough or congestion. No hemoptysis. She ismaintaining good O2 saturations in the 90s on room air. She's afebrile. Hemodynamically stable.urine culture was positive for Enterobacter cloacae. Blood cultures reveal no growth. white count 8.6. Hemoglobin 11.8. Platelets 176. Sodium 142. Potassium 3.9. Bicarb 34. BUN 21. Creatinine 1.13. Glucose 73. she is continued on DuoNeb inhalations, antibiotics in the form of Zosyn. Objective - Vital Signs Vital signs: Vital Signs Temp 97.7 F 02/20/22 08:00 Pulse 75 02/20/22 12:21 Resp 16 02/20/22 08:00 BP 122/71 02/20/22 08:00 Pulse Ox 94 L 02/20/22 09:01 Intake & Output 02/19/22 02/20/22 02/20/22 18:59 06:59 18:59 Intake Total 414 Balance 414 Intake: Oral 414 Other: Voiding Method Toilet # Voids 1 1 # Bowel Movements 1 - Exam GENERAL EXAM: Alert, very pleasant, 61-year-old female patient, on room air, comfortable in no apparent distress. HEAD: Normocephalic/atraumatic. EYES: Normal reaction of pupils, equal size. Conjunctiva pink, sclera white. NOSE: Clear with pink turbinates. THROAT: No erythema or exudates. NECK: No masses, no JVD, no thyroid enlargement, no adenopathy. CHEST: No chest wall deformity. Symmetrical expansion. LUNGS: Equal air entry with bibasilar crackles. Right greater than left CVS: Regular rate and rhythm, normal S1 and S2, no gallops, no murmurs, no rubs ABDOMEN: Soft, nontender. No hepatosplenomegaly, normal bowel sounds, no guarding or rigidity. EXTREMITIES: No clubbing, no edema, no cyanosis, 2+ pulses and upper and lower extremities. MUSCULOSKELETAL: Muscle strength and tone normal. SPINE: No scoliosis or deformity SKIN: No rashes CENTRAL NERVOUS SYSTEM: No focal deficits, tone is normal in all 4 extremities. PSYCHIATRIC: Alert and oriented -3. Appropriate affect. Intact judgment and insight. - Labs CBC & Chem 7: 02/20/22 08:30 02/20/22 08:39 Labs: Abnormal Lab Results - Last 24 Hours (Table) 02/19/22 02/19/22 02/20/22 Range/Units 16:23 21:48 07:10 MCHC (31.0-37.0) g/dL Carbon Dioxide (22-30) mmol/L BUN (7-17) mg/dL Creatinine (0.52-1.04) mg/dL Glucose (74-99) mg/dL POC Glucose (mg/dL) 148 H 124 H 101 H (75-99) mg/dL AST (14-36) U/L Albumin (3.5-5.0) g/dL 02/20/22 02/20/22 Range/Units 08:30 08:39 MCHC 30.7 L (31.0-37.0) g/dL Carbon Dioxide 34 H (22-30) mmol/L BUN 21 H (7-17) mg/dL Creatinine 1.13 H (0.52-1.04) mg/dL Glucose 73 L (74-99) mg/dL POC Glucose (mg/dL) (75-99) mg/dL AST 47 H (14-36) U/L Albumin 3.2 L (3.5-5.0) g/dL Microbiology - Last 24 Hours (Table) 02/17/22 00:16 Blood Culture - Preliminary Blood No Growth after 72 hours 02/16/22 20:38 Urine Culture - Final Urine,Voided Enterobacter cloacae Assessment and Plan Assessment: 1 right lower lobe pneumonia, as the patient developed a new infiltrate in the right lung base. Consider a snf acquired pneumonia versus aspiration. 2 acute urinary tract infection, urine culture is pending 3 acute hypoxic respiratory failure currently on 2 L of O2 nasal cannula 4 diabetes mellitus type 2 with history of diabetic peripheral neuropathy 5 diabetic retinopathy 6 history of chronic liver disease secondary to hepatitis C 7 history of pseudotumor cerebri 8 obesity with a BMI of 34 9 spinal stenosis with history of chronic neck and back pain 10 history of chronic migraines 11 history of coronary 19 infection back in March 2022 12 history of psoriasis 13 history of acute meningitis at age of 30 14 history of cervical cancer 15 previous history of UTI/right-sided pyonephritis 16 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 coli sepsis/UTI Plan: The patient was seen and evaluated Labs and medications reviewed Cleared for discharge from the pulmonary standpoint Complete a course of antibiotics in the form of Levaquin I have personally seen and examined the patient, performed the documentation and the assessment and plan as written. Number of minutes spent on the visit: 10. I have personally seen and examined the patient, performed the documentation and the assessment and plan as written. Number of minutes spent on the visit: 12. . The patient is doing well. The patient has Enterobacter in the urine. The patient will be going home on antibiotics orally, recommend a combination of Levaquin and Augmentin.
--- NOTE | 2022-02-20 13:25 | P.PN ---
Subjective Progress Note Date: 02/19/22 HISTORY OF PRESENT ILLNESS: This is a 61-year-old female with a past medical history significant for hypertension and hypertensive cardio vascular disease, hyperlipidemia, diabetes mellitus type 2 with diabetic polyneuropathy, history of chronic pain syndrome, history of cervical cancer status post surgery in the past, history of recurrent UTI, history of COVID-19 back in 2021 was resultant chronic hypoxemic respiratory failure requiring 2 L nasal cannula, history of right diaphragm paralysis, patient presented to the emergency department at [facility] because of increased coughing associated with increased shortness breath with mental status changes thought to be due to encephalopathy as per fact was toxic metabolic encephalopathy due to combination of aspiration pneumonia as well as pain medication, patient was started on IV antibiotic in the form of Rocephin and Zithromax subsequent she was switched to Zosyn 3.375 g IV piggyback every 8 hours and she was started on Zithromax 250 mg orally once every day for community acquired pneumonia coverage as well, patient was seen in consultation by pulmonary medicine, and she was admitted to the hospital for evaluation and t reatment. 02/18: Patient states she still has some shortness of breath but improving. She denies any sore throat. She does relate that she has trouble swallowing and chokes about one time per week and speech therapy consult added. His been afebrile, heart rate in the 60s and 70s, blood pressure 120/76, pulse ox 90% on 3 L nasal cannula. Azithromycin added to Zosyn and incentive spirometry added. Repeat chest x-ray has been ordered by pulmonary medicine. 02/19: Patient has been seen by speech therapy and recommended continuing regular diet and thin liquids and alternating liquids and solids as needed. Repeat chest x-ray reveals basilar atelectasis versus pneumonia. Patient has been afebrile, heart rate in the 80s, blood pressure 107/69, pulse ox 98% on 3 L nasal cannula. Urine culture is showing gram-negative bacilli. Blood culture no growth at 48 hours. Patient is continued on Zosyn and azithromycin. Plan to monitor overnight and probable discharge to [facility] tomorrow. REVIEW OF SYSTEMS: Constitutional: No documented fever, no chills, no night sweats. No weight change. No weakness, fatigue or lethargy. No daytime sleepiness. HEENT: No headache. No blurred vision or double vision, no loss of vision. No loss of Hearing, no ringing in the ears, no dizziness. No nasal drainage or congestion. No epistaxis. No sore throat. Lungs: Positive shortness of breath improved, positive for cough, positive for sputum production. No wheezing. Reports dyspnea with activity. Reports choking episodes Cardiovascular: No chest pain, no lower extremity edema. No palpitations. No paroxysmal nocturnal dyspnea. No orthopnea. No lightheadedness or dizziness. No syncopal episodes. Abdominal: Reports abdominal pain. No nausea, vomiting. No diarrhea. No constipation. No bloody or tarry stools reports loss of appetite. Genitourinary: No dysuria, increased frequency, urgency. No urinary retention. Musculoskeletal: No myalgias. No muscle weakness, no gait dysfunction, no frequent falls. No back pain. No neck pain. Integumentary: No wounds, no lesions. No rash or pruritus. No unusual bruising. No change in hair or nails. Neurologic: No aphasia. No facial droop. No change in mentation. No head injury. No headache. No paralysis. No paresthesia. Psychiatric: Positive for depression. Positive for anxiety. No mood swings. Endocrine: No abnormal blood sugars. No weight change. PHYSICAL EXAMINATION: General: 61-year-old female laying down in bed in no respiratory distress HEENT: Head is atraumatic, normocephalic, pupils were equal round reactive to light and recommendation, extraocular muscle movement were intact, sclera nonicteric, conjunctivae were pale, mucous membranes of the mouth are somewhat dry. Neck: Supple, no JVP, normal carotid upstroke bilaterally, no lymphadenopathy. Chest: Decreased breath sounds at the bases, few rhonchi, no expiratory wheezes, no chest wall tenderness, no intercostal retractions. Heart: First heart sound is normal, second heart sounds normal there is no gallop or murmur. Abdomen: Soft, nontender, nondistended, positive bowel sounds. no hepatomegaly. Extremities: There is no edema no calf tenderness DP +2 bilaterally. Neurologic examination: Patient is awake alert and oriented X 3, cranial nerves II-12 appear grossly intact, muscle power were 5 out of 5 in upper extremities and 5 out of 5 in bilateral lower extremities, deep tendon reflexes normal bilaterally. ASSESSMENT AND PLAN: 1. Acute hypoxemic respiratory failure due to right lower lobe aspiration pneumonia. Continue patient on Zithromax 500 mg IV piggyback every 24 hours, Zosyn 3.375 g IV piggyback every 8 hours, DuoNeb nebulization 4 times every day, oxygen support, pulmonary consultation, blood cultures revealing no growth, sputum culture not obtained, follow-up with the patient very closely. Incentive spirometry added, speech therapy consultation. 2. Toxic metabolic encephalopathy, back to baseline. Likely related to combination of pneumonia or sepsis along with chronic opioid use. We will decrease oxycodone to 20 mg orally 3 times every day as needed continue MS Contin. 3. Hypertension and hypertensive cardio vascular disease. Continue losartan 50/12.5 mg once every day, continue metoprolol 100 mg orally twice every day, clonidine 0.0 mg orally twice every day. Continue to watch patient blood pressure very closely. 4. Hyponatremia. Continue cholesterol diet, continue atorvastatin 10 mg every day, monitor lipid panel, keep LDL 5570 per 5. Diabetes mellitus type 2. Continue patient on Levemir 16 units at bedtime, continue sliding scale insulin, continue glyburide 10 mg once every day. Monitor blood glucose level before each meal and at bedtime. 6. Diabetic polyneuropathy. Continue gabapentin 800 mg orally twice every day, monitor the patient's symptoms very closely. 7. Fibromyalgia. Continue patient on duloxetine 60 mg orally twice every day. 8. 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 9. History of cervical cancer currently in remission. 10. History of chronic pain syndrome. Continue current pain management. 11. DVT prophylaxis. Continue Lovenox 40 subcutaneously every 24 hours. 12. GI prophylaxis. Continue patient on famotidine 20 mg orally once every day as well as PPI. 13. Patient is no CODE STATUS per her own wishes. Discharge plan: Return to [facility] on Impression and plan of care have been directed as dictated by the signing physician. Carolyn Cunningham nurse practitioner acting as scribe for signing boaz freedman. Objective - Vital Signs Vital signs: Vital Signs Temp 98.0 F 02/19/22 07:54 Pulse 84 02/19/22 12:06 Resp 18 02/19/22 07:54 BP 107/69 02/19/22 08:05 Pulse Ox 98 02/19/22 07:54 Intake & Output 02/18/22 02/19/22 02/19/22 18:59 06:59 18:59 Other: Voiding Method Toilet Toilet # Voids 3 1 # Bowel Movements 1 1 - Labs CBC & Chem 7: 02/20/22 08:30 02/20/22 08:39 Labs: Abnormal Lab Results - Last 24 Hours (Table) 02/18/22 02/18/22 Range/Units 16:42 20:48 POC Glucose (mg/dL) 156 H 187 H (75-99) mg/dL Microbiology - Last 24 Hours (Table) 02/17/22 00:16 Blood Culture - Preliminary Blood No Growth after 48 hours 02/16/22 20:38 Urine Culture - Preliminary Urine,Voided Gram Neg Bacilli
--- NOTE | 2022-02-20 13:29 | P.DS ---
Providers Date of admission: 02/16/22 23:49 Expected date of discharge: 02/20/22 Attending physician: Bisi Yepez Consults: 02/17/22 14:51 Consult Physician Routine Consulting Provider: Raven Singh Consult Reason/Comments: Pneumonia Do you want consulting provider notified?: Yes Primary care physician: Bisi Yepez Hospital Course: HISTORY OF PRESENT ILLNESS: This is a 61-year-old female with a past medical history significant for hypertension and hypertensive cardio vascular disease, hyperlipidemia, diabetes mellitus type 2 with diabetic polyneuropathy, history of chronic pain syndrome, history of cervical cancer status post surgery in the past, history of recurrent UTI, history of COVID-19 back in 2021 was resultant chronic hypoxemic respiratory failure requiring 2 L nasal cannula, history of right diaphragm paralysis, patient presented to the emergency department at [facility] because of increased coughing associated with increased shortness breath with mental status changes thought to be due to encephalopathy as per fact was toxic metabolic encephalopathy due to combination of aspiration pneumonia as well as pain medication, patient was started on IV antibiotic in the form of Rocephin and Zithromax subsequent she was switched to Zosyn 3.375 g IV piggyback every 8 hours and she was started on Zithromax 250 mg orally once every day for community acquired pneumonia coverage as well, patient was seen in consultation by pulmonary medicine, and she was admitted to the hospital for evaluation and treatment. 02/18: Patient states she still has some shortness of breath but improving. She denies any sore throat. She does relate that she has trouble swallowing and chokes about one time per week and speech therapy consult added. His been afebrile, heart rate in the 60s and 70s, blood pressure 120/76, pulse ox 90% on 3 L nasal cannula. Azithromycin added to Zosyn and incentive spirometry added. Repeat chest x-ray has been ordered by pulmonary medicine. 02/19: Patient has been seen by speech therapy and recommended continuing regular diet and thin liquids and alternating liquids and solids as needed. Repeat chest x-ray reveals basilar atelectasis versus pneumonia. Patient has been afebrile, heart rate in the 80s, blood pressure 107/69, pulse ox 98% on 3 L nasal cannula. Urine culture is showing gram-negative bacilli. Blood culture no growth at 48 hours. Patient is continued on Zosyn and azithromycin. Plan to monitor overnight and probable discharge to [facility] tomorrow. 02/20: Patient is respiratory status is significantly improved. She's been afebrile, heart rate in the 70s and 80s, pulse ox 94% on room air. Blood pressure is 122/71. Repeat blood work reveals WBC is 8.6, hemoglobin 0.8, platelet count 176. Sodium 142, potassium 3.9, chloride 102, CO2 34, BUN 21 and creatinine 1.13. Currently blood glucose running between 90 and 148. AST 47 otherwise liver function tests normal. Calcium 8.4. Albumin 3.2. Patient will be discharged back to [facility] today in stable condition. DISCHARGE DIAGNOSES 1. Acute hypoxemic respiratory failure due to right lower lobe aspiration pneumonia. 2. Toxic metabolic encephalopathy, back to baseline. 3. Hypertension and hypertensive cardio vascular disease. 4. Hyponatremia. 5. Diabetes mellitus type 2. 6. Diabetic polyneuropathy. 7. Fibromyalgia. 8. History of pseudocyst tumor cerebri status post multiple [employer] shunt's. 9. History of cervical cancer currently in remission. 10. History of chronic pain syndrome. Discharge plan: Return to [facility] Greater than 35 minutes was utilized and coordinating patient's discharge. Impression and plan of care have been directed as dictated by the signing physician. Carolyn Cunningham nurse practitioner acting as scribe for signing physician. Patient Condition at Discharge: Stable Plan - Discharge Summary Discharge Rx Participant: No New Discharge Prescriptions: New oxyCODONE HCL [OxyIR] 20 mg PO TID PRN #36 tab PRN Reason: Moderate Pain Amoxicillin/Potassium Clav [Augmentin 875-125 Tablet] 1 tab PO BID 7 Days #14 tab Ipratropium-Albuterol Nebulize [Duoneb 0.5 mg-3 mg/3 ml Soln] 3 ml INHALATION RT-QID ml Continue Furosemide [Lasix] 40 mg PO DAILY@0900 Promethazine HCl 12.5 mg PO QID PRN PRN Reason: Nausea Ferrous Sulfate [Iron (65 MG Elemental)] 325 mg PO DAILY@0900 Sennosides [Senna] 8.6 mg PO BID PRN PRN Reason: Constipation Insulin Detemir [Levemir Flextouch Pen] 16 units SQ HS@2100 Glimepiride [Amaryl] 2 mg PO DAILY@0900 Lactulose 20 gm PO DAILY PRN PRN Reason: Constipation Glucerna Shake 1 can PO TID@0900,1300,2099 Famotidine [Pepcid AC] 10 mg PO BID@0900,2099 Cholecalciferol [Vitamin D3 (25 Mcg = 1000 Iu)] 50 mcg PO DAILY@0900 Losartan/Hydrochlorothiazide [Losartan-Hctz 100-25 mg Tab] 1 tab PO ТАТЬЯНА LY@0900 Folic Acid 0.4 mg PO DAILY@0900 Betamethasone Dipropionate [Betamethasone Dipropionate 0.05%] 1 applic TOPICAL HS Atorvastatin [Lipitor] 10 mg PO HS@2099 Morphine Sulfate ER [Ms Contin] 30 mg PO BID@899,2099 #6 tab Nitroglycerin Sl Tabs [Nitrostat] 0.4 mg SL Q5M PRN PRN Reason: Chest Pain metFORMIN HCL [Glucophage] 1,000 mg PO BID@0900,2099 Metoprolol Tartrate [Lopressor] 100 mg PO BID@09,2099 Omeprazole 20 mg PO DAILY@0800 DULoxetine HCL [Cymbalta] 60 mg PO BID@0900,2099 Acetaminophen Tab [Tylenol] 650 mg PO Q6HR PRN tab PRN Reason: Mild Pain Or Fever > 100.5 Simethicone Capsule (Unknown Dose) 1 cap PO Q6H PRN PRN Reason: GAS polyethylene glycoL 3350 [Miralax] 17 gm PO DAILY PRN PRN Reason: Constipation hydrOXYzine HCL 10 mg PO BID PRN PRN Reason: Itching cloNIDine HCL [Catapres] 0.1 mg PO BID PRN PRN Reason: SPB > 170 Insulin Aspart [NovoLOG] See Protocol SQ ACHS Ondansetron [Zofran] 4 mg PO BID@0900,2099 Pimecrolimus [Elidel] 1 applic TOPICAL SUSA@00,2099 QUEtiapine [SEROquel] 12.5 mg PO HS Melatonin 3 mg PO HS@2099 Tamsulosin [Flomax] 0.4 mg PO DAILY@0900 Gabapentin 800 mg PO BID@0900,2100 #6 tab Changed diazePAM [Valium] 5 mg PO BID #6 tab Discontinued oxyCODONE HCL 20 mg PO BID PRN PRN Reason: Pain oxyCODONE HCL 20 mg PO DAILY@1000 Ibuprofen [Motrin] 600 mg PO Q8HR PRN PRN Reason: Pain Discharge Medication List Furosemide [Lasix] 40 mg PO DAILY@89912/13/19 [History] Ferrous Sulfate [Iron (65 MG Elemental)] 325 mg PO DAILY@89911/12/20 [History] Promethazine HCl 12.5 mg PO QID PRN 11/12/20 [History] DULoxetine HCL [Cymbalta] 60 mg PO BID@899,209905/25/21 [History] Glimepiride [Amaryl] 2 mg PO DAILY@89905/25/21 [History] Insulin Detemir [Levemir Flextouch Pen] 16 units SQ HS@209905/25/21 [History] Metoprolol Tartrate [Lopressor] 100 mg PO BID@899,209905/25/21 [History] Nitroglycerin Sl Tabs [Nitrostat] 0.4 mg SL Q5M PRN 05/25/21 [History] Omeprazole 20 mg PO DAILY@79905/25/21 [History] Sennosides [Senna] 8.6 mg PO BID PRN 05/25/21 [History] metFORMIN HCL [Glucophage] 1,000 mg PO BID@899,209905/25/21 [History] Acetaminophen Tab [Tylenol] 650 mg PO Q6HR PRN tab 06/03/21 [Rx] Atorvastatin [Lipitor] 10 mg PO HS@209902/16/22 [History] Betamethasone Dipropionate [Betamethasone Dipropionate 0.05%] 1 applic TOPICAL HS 02/16/22 [History] Cholecalciferol [Vitamin D3 (25 Mcg = 1000 Iu)] 50 mcg PO DAILY@89902/16/22 [History] Famotidine [Pepcid AC] 10 mg PO BID@899,209902/16/22 [History] Folic Acid 0.4 mg PO DAILY@89902/16/22 [History] Glucerna Shake 1 can PO TID@0900,1300,209902/16/22 [History] Insulin Aspart [NovoLOG] See Protocol SQ ACHS 02/16/22 [History] Lactulose 20 gm PO DAILY PRN 02/16/22 [History] Losartan/Hydrochlorothiazide [Losartan-Hctz 100-25 mg Tab] 1 tab PO DAILY@89902/16/22 [History] Melatonin 3 mg PO HS@209902/16/22 [History] Ondansetron [Zofran] 4 mg PO BID@899,209902/16/22 [History] Pimecrolimus [Elidel] 1 applic TOPICAL SUSA@899,209902/16/22 [History] QUEtiapine [SEROquel] 12.5 mg PO HS 02/16/22 [History] Simethicone Capsule (Unknown Dose) 1 cap PO Q6H PRN 02/16/22 [History] Tamsulosin [Flomax] 0.4 mg PO DAILY@89902/16/22 [History] cloNIDine HCL [Catapres] 0.1 mg PO BID PRN 02/16/22 [History] hydrOXYzine HCL 10 mg PO BID PRN 02/16/22 [History] polyethylene glycoL 3350 [Miralax] 17 gm PO DAILY PRN 02/16/22 [History] Amoxicillin/Potassium Clav [Augmentin 875-125 Tablet] 1 tab PO BID 7 Days #14 tab 02/20/22 [Rx] Gabapentin 800 mg PO BID@899,2099 #6 tab 02/20/22 [Rx] Ipratropium-Albuterol Nebulize [Duoneb 0.5 mg-3 mg/3 ml Soln] 3 ml INHALATION RT-QID ml 02/20/22 [Rx] Morphine Sulfate ER [Ms Contin] 30 mg PO BID@0900,2100 #6 tab 02/20/22 [Rx] diazePAM [Valium] 5 mg PO BID #6 tab 02/20/22 [Rx] oxyCODONE HCL [OxyIR] 20 mg PO TID PRN #36 tab 02/20/22 [Rx] Follow up Appointment(s)/Referral(s): Bisi Yepez MD [Primary Care Provider] - 1 Week (At [facility]) Raven Singh MD [STAFF PHYSICIAN] - 1 Week Discharge Disposition: TRANSFER TO SNF/ECF
[2022-02-20 15:02] VITALS: BP 166/92; TEMP 97.5
[2022-02-20 15:39] VITALS: PULSE 69
[2022-02-22] MEDS ORDERED: PIMECROLIMUS TOPICAL SCH (09:00)
== END 2022-02-20 16:30 | DRG 193 ==
LOC: EC 19:44 → 4SSUR 23:49
PROVIDERS: ADMIT Internal Medicine; ATTEND Internal Medicine
DX: J18.9 Pneumonia, unspecified organism (principal); G92.8 Other toxic encephalopathy; J96.01 Acute respiratory failure with hypoxia; E87.1 Hypo-osmolality and hyponatremia; E87.3 Alkalosis; I13.0 Hypertensive heart and chronic kidney disease with heart failure and stage 1 through stage 4 chronic kidney disease, or unspecified chronic kidney disease; N12 Tubulo-interstitial nephritis, not specified as acute or chronic; J69.0 Pneumonitis due to inhalation of food and vomit; J98.6 Disorders of diaphragm; M54.2 Cervicalgia; I50.9 Heart failure, unspecified; B18.2 Chronic viral hepatitis C; E11.22 Type 2 diabetes mellitus with diabetic chronic kidney disease; E11.319 Type 2 diabetes mellitus with unspecified diabetic retinopathy without macular edema; E11.42 Type 2 diabetes mellitus with diabetic polyneuropathy; E78.5 Hyperlipidemia, unspecified; N18.30 Chronic kidney disease, stage 3 unspecified; F17.210 Nicotine dependence, cigarettes, uncomplicated; G89.4 Chronic pain syndrome; G93.0 Cerebral cysts; B96.89 Other specified bacterial agents as the cause of diseases classified elsewhere; G93.2 Benign intracranial hypertension; G31.89 Other specified degenerative diseases of nervous system; E66.01 Morbid (severe) obesity due to excess calories; I27.20 Pulmonary hypertension, unspecified; Z68.34 Body mass index [BMI] 34.0-34.9, adult; R13.10 Dysphagia, unspecified; K76.0 Fatty (change of) liver, not elsewhere classified; M48.00 Spinal stenosis, site unspecified; M79.7 Fibromyalgia; Z79.4 Long term (current) use of insulin; Z79.84 Long term (current) use of oral hypoglycemic drugs; Z79.891 Long term (current) use of opiate analgesic; Z79.899 Other long term (current) drug therapy; Z81.8 Family history of other mental and behavioral disorders; Z82.49 Family history of ischemic heart disease and other diseases of the circulatory system; Z85.41 Personal history of malignant neoplasm of cervix uteri; Z86.16 Personal history of COVID-19; Z86.61 Personal history of infections of the central nervous system; Z86.73 Personal history of transient ischemic attack (TIA), and cerebral infarction without residual deficits; Z87.440 Personal history of urinary (tract) infections; Z90.711 Acquired absence of uterus with remaining cervical stump; Z98.2 Presence of cerebrospinal fluid drainage device; Z88.8 Allergy status to other drugs, medicaments and biological substances; Z98.51 Tubal ligation status
CPT/HCPCS: 36415; 70450; 71045; 71046; 80053; 81001; 83605; 83735; 83880; 84100; 84145; 84443; 84484; 85025; 85379; 85610; 85730; 87040; 87077; 87086; 87186; 87502; 87635; 93005; 94640; 96365; 96366; 96367; 96375; 96376; 99291

== ENCOUNTER 2022-05-21 22:51 | Emergency (ER) | payer OTHER ==
[2022-05-21 23:02] VITALS: RESP 16; TEMP 98.3
[2022-05-21] MEDS ORDERED: HYDROmorphone 1 MG/ML 1 ML SYRINGE IVP STA (23:21)
[2022-05-21] MEDS ORDERED: SODIUM CHLORIDE 0.9% 500 ML 500 ML IV STA (23:21)
[2022-05-21] MEDS ORDERED: ONDANSETRON 4 MG/2 ML VIAL IVP STA (23:21)
[2022-05-21] MEDS ORDERED: diazePAM 5 MG/ML 1 ML VIAL IVP STA (23:23)
[2022-05-21 23:48] LABS: Basophils # (A) 0.1 k/uL (0-0.2); Basophils % (A) 1 %; Eosinophils # (A) 0.1 k/uL (0-0.7); Eosinophils % (A) 1 %; HCT 39.4 % (34.0-46.0); HGB 13.1 gm/dL (11.4-16.0); Lymphocytes # (A) 1.9 k/uL (1.0-4.8); Lymphocytes % (A) 12 %; MCH 30.1 pg (25.0-35.0); MCHC 33.1 g/dL (31.0-37.0); Mean Platelet Volume 8.2; Monocytes # (A) 0.7 k/uL (0-1.0); Monocytes % (A) 5 %; Neutrophils # (A) 12.8 k/uL (1.3-7.7); Neutrophils % (A) 81 %; Platelet Count 275 k/uL (150-450); RBC 4.33 m/uL (3.80-5.40); RDW 13.4 % (11.5-15.5); WBC 15.8 k/uL (3.8-10.6)
[2022-05-22 00:08] LABS: ALT 21 U/L (4-34); African American GFR (CKD) 47 (>60 ml/min/1.73 sqM); Anion Gap 10 mmol/L; Blood Urea Nitrogen 23 mg/dL (7-17); Calcium 8.2 mg/dL (8.4-10.2); Carbon Dioxide 23 mmol/L (22-30); Chloride 94 mmol/L (98-107); Glucose 458 mg/dL (74-99); Non-African American GFR(CKD) 41 (>60 ml/min/1.73 sqM); Sodium 127 mmol/L (137-145)
[2022-05-22 00:21] LABS: Magnesium 1.1 mg/dL (1.6-2.3); Phosphorus 3.6 mg/dL (2.5-4.5); Potassium 5.1 mmol/L (3.5-5.1); Total Protein 6.6 g/dL (6.3-8.2)
[2022-05-22 00:22] LABS: AST 42 U/L (14-36); Albumin 3.5 g/dL (3.5-5.0); Alkaline Phosphatase 130 U/L (38-126); Total Bilirubin 0.8 mg/dL (0.2-1.3)
[2022-05-22] MEDS ORDERED: SODIUM CHLORIDE 0.9% 1,000 ML IV ONE (00:43)
--- NOTE | 2022-05-22 00:43 | XR ---
EXAMINATION TYPE: XR chest 1V portable DATE OF EXAM: 05/22/2022 COMPARISON: 03/04/2022 HISTORY: Tachycardia TECHNIQUE: Single view FINDINGS: There is no heart failure nor confluent pneumonic infiltrate. Costophrenic angles are fairl y clear. There are some linear density right lung base. There is slight elevated right diaphragm. IMPRESSION: There are some mild chronic elevation of the right diaphragm without change. There is pro bably subsegmental atelectasis right lung base. No heart failure.
--- NOTE | 2022-05-22 00:53 | ED ---
General Adult HPI - General Chief complaint: Back Pain/Injury Stated complaint: Pain Time Seen by Provider: 05/21/22 23:02 Source: patient, EMS, RN notes reviewed Mode of arrival: EMS Limitations: no limitations - History of Present Illness Initial comments: This is a pleasant 61-year-old female who arrives via EMS for chronic pain. Patient states she was unable to get her morphine prescription filled. Her physician is on vacation. Patient states that she has generalized abdominal pain which is much worse than usual. Patient states that she also has chronic upper back and neck pain which is exacerbated from normal. Patient states she had a recent shelter stay for debilitation and liver failure. Patient also has a history of chronic renal failure. Patient requesting pain medication she could not get the medicine filled. Patient has some sensation of shortness of breath. Denying any chest pain. 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 No headache, no fever or chills, no changes in vision or hearing, no sore throat or difficulty with speech, no neck pain, no chest pain, no abdominal pain, no nausea or vomiting, no changes in urination or bowel movements, no numbness or tingling, no extremity pain, no skin rashes or lesions. Past medical, surgical, social, and family history reviewed. - Related Data Home Medications Medication Instructions Recorded Confirmed Ferrous Sulfate [Iron (65 MG 325 mg PO DAILY@0911/12/20 03/12/22 Elemental)] Promethazine HCl 12.5 mg PO Q6H PRN 11/12/20 03/12/22 DULoxetine HCL [Cymbalta] 60 mg PO BID@09,209905/25/21 03/12/22 Glimepiride [Amaryl] 2 mg PO DAILY@0905/25/21 03/12/22 Metoprolol Tartrate [Lopressor] 100 mg PO BID@0900,209905/25/21 03/12/22 Nitroglycerin Sl Tabs [Nitrostat] 0.4 mg SL Q5M PRN 05/25/21 03/12/22 Omeprazole 20 mg PO DAILY@0600 05/25/21 03/12/22 Sennosides [Senna] 8.6 mg PO BID PRN 05/25/21 03/12/22 Atorvastatin [Lipitor] 10 mg PO HS@209902/16/22 03/12/22 Cholecalciferol [Vitamin D3 (25 50 mcg PO DAILY@89902/16/22 03/12/22 Mcg = 1000 Iu)] Famotidine [Pepcid AC] 10 mg PO BID@0900,209902/16/22 03/12/22 Folic Acid 0.4 mg PO DAILY@0900 02/16/22 03/12/22 Lactulose 20 gm PO DAILY PRN 02/16/22 03/12/22 Losartan/Hydrochlorothiazide 1 tab PO DAILY@0902/16/22 03/12/22 [Losartan-Hctz 100-25 mg Tab] Melatonin 3 mg PO HS@209902/16/22 03/12/22 Ondansetron [Zofran] 4 mg PO BID@0900,209902/16/22 03/12/22 Pimecrolimus [Elidel] 1 applic TOPICAL SUSA@0900,209902/16/22 03/12/22 QUEtiapine [SEROquel] 12.5 mg PO HS@209902/16/22 03/12/22 polyethylene glycoL 3350 [Miralax] 17 gm PO DAILY PRN 02/16/22 03/12/22 Insulin Glargine,Hum.rec.anlog 16 unit SQ HS@209903/04/22 03/12/22 [Lantus Solostar Pen] Insulin Lispro [humaLOG Kwikpen] See Protocol SQ ACHS 03/04/22 03/12/22 Loperamide [Imodium] 2 mg PO DAILY PRN 03/04/22 03/12/22 Ipratropium-Albuterol Nebulize 3 ml INHALATION RT-Q4H PRN 03/12/22 03/12/22 [Duoneb 0.5 mg-3 mg/3 ml Soln] Magnesium Hydroxide [Milk of 2,400 mg PO DAILY PRN 03/12/22 03/12/22 Magnesia] Na Phos,M-B/Na Phos,Di-Ba [Fleet 133 ml RECTAL DAILY PRN 03/12/22 03/12/22 Adult] bisacodyL [Dulcolax] 10 mg RECTAL DAILY PRN 03/12/22 03/12/22 Previous Rx's Medication Instructions Recorded Acetaminophen Tab [Tylenol] 650 mg PO Q6HR PRN tab 06/03/21 Gabapentin [Neurontin] 600 mg PO BID@0900,2100 #12 cap 03/14/22 Morphine Sulfate ER [Ms Contin] 15 mg PO BID@0900,2100 #6 tab 03/14/22 diazePAM [Valium] 2 mg PO BID@0900,2100 #6 tab 03/14/22 oxyCODONE HCL [OxyIR] 5 mg PO Q6HR PRN #12 tab 03/14/22 Allergies Allergy/AdvReac Type Severity Reaction Status Date / Time diphenhydramine Allergy Unknown Verified 03/12/22 12:05 [From Benadryl] Review of Systems ROS Statement: Those systems with pertinent positive or pertinent negative responses have been documented in the HPI. ROS Other: All systems not noted in ROS Statement are negative. 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, pulmonary htn, covid + 10/2021, thyroid nodule, single pulmonary nodule, psoriasis, bacterial meningitis at age 30, cancer cervix, UTI/R pyelonephritis with sepsis, History of Any Multi-Drug Resistant Organisms: None Reported Past Surgical History: Adenoidectomy, Appendectomy, Back Surgery, Bladder Surgery, Orthopedic Surgery, Tonsillectomy, Tubal Ligation Additional Past Surgical History / Comment(s): 9 MAIL HANDLER shunts- none at 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 Past Anesthesia/Blood Transfusion Reactions: No Reported Reaction Additional Past Anesthesia/Blood Transfusion Reaction / Comment(s): no hx blood transfusion Past Psychological History: Anxiety Smoking Status: Current every day smoker Past Alcohol Use History: None Reported Past Drug Use History: Unable to Obtain - Past Family History Mother Family Medical History: No Reported History Additional Family Medical History / Comment(s): Mother was murdered at the age of 44 yrs. She had paranoid schizophrenia. Father Family Medical History: Myocardial Infarction ([place]) Additional Family Medical History / Comment(s): Father of a [place] at the age of 60 yrs. General Exam - General Exam Comments Initial Comments: General deconditioned appearing 61-year-old female who does not appear to be ill or toxic. Patient distress secondary to pain. Cranial nerves II through XII grossly intact. There is no mottling. Capillary refill is less than 2 seconds. Limitations: no limitations General appearance: alert, in no apparent distress Head exam: Present: atraumatic, normocephalic, normal inspection Eye exam: Present: normal appearance, PERRL, EOMI. Absent: scleral icterus, conjunctival injection, periorbital swelling ENT exam: Present: normal exam, mucous membranes moist Neck exam: Present: normal inspection, full ROM. Absent: tenderness, meningismus, lymphadenopathy Respiratory exam: Present: normal lung sounds bilaterally. Absent: respiratory distress, wheezes, rales, rhonchi, stridor Cardiovascular Exam: Present: regular rate, normal rhythm, normal heart sounds. Absent: systolic murmur, diastolic murmur, rubs, gallop, clicks GI/Abdominal exam: Present: soft, normal bowel sounds. Absent: distended, tenderness, guarding, rebound, rigid Extremities exam: Present: normal inspection, full ROM, normal capillary refill. Absent: tenderness, pedal edema, joint swelling, calf tenderness Back exam: Present: normal inspection Neurological exam: Present: alert, oriented X3, CN II-XII intact Psychiatric exam: Present: normal affect, normal mood Skin exam: Present: warm, dry, intact, normal color. Absent: rash Course Vital Signs 05/21/22 22:54 Temperature 98.3 F Pulse Rate 76 Respiratory 16 Rate Blood Pressure 136/94 - Reevaluation(s) Reevaluation #1: 05/22/22 01:09 Lactic acid elevated at 3.4. Acetone added, venous pH headache, corrected sodium is 133. Blood glucose 458. EKG Findings - EKG Comments: EKG Findings:: EKG done at 0037 and reviewed with ED attending physician reveals sinus rhythm with rate of 66. Left axis deviation, no acute ST or T-wave changes. Normal intervals. No evidence of acute changes otherwise. Normal QRS morphology Medical Decision Making - Medical Decision Making Patient repeat lactic acid was 2. Patient was much improved at discharge. Vital signs stable, patient afebrile. Venous blood gas was normal. Acetone was negative. Patient did ask for another dose of pain medication. I did tell the patient she'll need to receive any further pain control from her regular physician. Patient will need to call the [facility] to work on obtaining her ideas she states that she could not hand picker her pain medication due to the fact this was . Patient in no distress at discharge. The case was discussed in detail with ED attending physician. Presentation, findings, treatment plan discussed in detail. Director Of Cardiac Cath Lab Dr. Lanza - Lab Data Result diagrams: 05/21/22 23:14 05/21/22 23:14 Lab Results 05/21/22 05/21/22 05/21/22 Range/Units 23:14 23:14 23:14 WBC 15.8 H (3.8-10.6) k/uL RBC 4.33 (3.80-5.40) m/uL Hgb 13.1 (11.4-16.0) gm/dL Hct 39.4 (34.0-46.0) % MCV 91.0 (80.0-100.0) fL MCH 30.1 (25.0-35.0) pg MCHC 33.1 (31.0-37.0) g/dL RDW 13.4 (11.5-15.5) % Plt Count 275 (150-450) k/uL MPV 8.2 Neutrophils % 81 % Lymphocytes % 12 % Monocytes % 5 % Eosinophils % 1 % Basophils % 1 % Neutrophils # 12.8 H (1.3-7.7) k/uL Lymphocytes # 1.9 (1.0-4.8) k/uL Monocytes # 0.7 (0-1.0) k/uL Eosinophils # 0.1 (0-0.7) k/uL Basophils # 0.1 (0-0.2) k/uL VBG pH (7.31-7.41) VBG pCO2 (37-51) mmHg VBG HCO3 (24-28) mmol/L Sodium 127 L (137-145) mmol/L Potassium 5.1 (3.5-5.1) mmol/L Chloride 94 L (98-107) mmol/L Carbon Dioxide 23 (22-30) mmol/L Anion Gap 10 mmol/L BUN 23 H (7-17) mg/dL Creatinine 1.41 H (0.52-1.04) mg/dL Est GFR (CKD-EPI)AfAm 47 (>60 ml/min/1.73 sqM) Est GFR (CKD-EPI)NonAf 41 (>60 ml/min/1.73 sqM) Glucose 458 H (74-99) mg/dL POC Glucose (mg/dL) (70-110) mg/dL POC Glu [address] Engineer ID Lactic Ac Sepsis Rflx Plasma Lactic Acid Ian (0.7-2.0) mmol/L Calcium 8.2 L (8.4-10.2) mg/dL Phosphorus 3.6 (2.5-4.5) mg/dL Magnesium 1.1 L (1.6-2.3) mg/dL Total Bilirubin 0.8 (0.2-1.3) mg/dL AST 42 H (14-36) U/L ALT 21 (4-34) U/L Alkaline Phosphatase 130 H (38-126) U/L Troponin I <0.012 (0.000-0.034) ng/mL Total Protein 6.6 (6.3-8.2) g/dL Albumin 3.5 (3.5-5.0) g/dL TSH 0.344 L (0.465-4.680) mIU/L Free T4 1.39 (0.78-2.19) ng/dL Urine Color Urine Appearance (Clear) Urine pH (5.0-8.0) Ur Specific [place] (1.001-1.035) Urine Protein (Negative) Urine Glucose (UA) (Negative) Urine Ketones (Negative) Urine Blood (Negative) Urine Nitrite (Negative) Urine Bilirubin (Negative) Urine Urobilinogen (<2.0) mg/dL Ur Leukocyte Esterase (Negative) Acetone, Qual (Negative) 05/21/22 05/21/22 05/22/22 Range/Units 23:14 23:58 01:10 WBC (3.8-10.6) k/uL RBC (3.80-5.40) m/uL Hgb (11.4-16.0) gm/dL Hct (34.0-46.0) % MCV (80.0-100.0) fL MCH (25.0-35.0) pg MCHC (31.0-37.0) g/dL RDW (11.5-15.5) % Plt Count (150-450) k/uL MPV Neutrophils % % Lymphocytes % % Monocytes % % Eosinophils % % Basophils % % Neutrophils # (1.3-7.7) k/uL Lymphocytes # (1.0-4.8) k/uL Monocytes # (0-1.0) k/uL Eosinophils # (0-0.7) k/uL Basophils # (0-0.2) k/uL VBG pH (7.31-7.41) VBG pCO2 (37-51) mmHg VBG HCO3 (24-28) mmol/L Sodium (137-145) mmol/L Potassium (3.5-5.1) mmol/L Chloride (98-107) mmol/L Carbon Dioxide (22-30) mmol/L Anion Gap mmol/L BUN (7-17) mg/dL Creatinine (0.52-1.04) mg/dL Est GFR (CKD-EPI)AfAm (>60 ml/min/1.73 sqM) Est GFR (CKD-EPI)NonAf (>60 ml/min/1.73 sqM) Glucose (74-99) mg/dL POC Glucose (mg/dL) (70-110) mg/dL POC Glu [address] Engineer ID Lactic Ac Sepsis Rflx Y Plasma Lactic Acid Ian 3.4 H* (0.7-2.0) mmol/L Calcium (8.4-10.2) mg/dL Phosphorus (2.5-4.5) mg/dL Magnesium (1.6-2.3) mg/dL Total Bilirubin (0.2-1.3) mg/dL AST (14-36) U/L ALT (4-34) U/L Alkaline Phosphatase (38-126) U/L Troponin I (0.000-0.034) ng/mL Total Protein (6.3-8.2) g/dL Albumin (3.5-5.0) g/dL TSH (0.465-4.680) mIU/L Free T4 (0.78-2.19) ng/dL Urine Color Urine Appearance (Clear) Urine pH (5.0-8.0) Ur Specific [place] (1.001-1.035) Urine Protein (Negative) Urine Glucose (UA) (Negative) Urine Ketones (Negative) Urine Blood (Negative) Urine Nitrite (Negative) Urine Bilirubin (Negative) Urine Urobilinogen (<2.0) mg/dL Ur Leukocyte Esterase (Negative) Acetone, Qual Negative (Negative) 05/22/22 05/22/22 05/22/22 Range/Units 01:10 02:19 02:20 WBC (3.8-10.6) k/uL RBC (3.80-5.40) m/uL Hgb (11.4-16.0) gm/dL Hct (34.0-46.0) % MCV (80.0-100.0) fL MCH (25.0-35.0) pg MCHC (31.0-37.0) g/dL RDW (11.5-15.5) % Plt Count (150-450) k/uL MPV Neutrophils % % Lymphocytes % % Monocytes % % Eosinophils % % Basophils % % Neutrophils # (1.3-7.7) k/uL Lymphocytes # (1.0-4.8) k/uL Monocytes # (0-1.0) k/uL Eosinophils # (0-0.7) k/uL Basophils # (0-0.2) k/uL VBG pH 7.38 (7.31-7.41) VBG pCO2 47 (37-51) mmHg VBG HCO3 28 (24-28) mmol/L Sodium (137-145) mmol/L Potassium (3.5-5.1) mmol/L Chloride (98-107) mmol/L Carbon Dioxide (22-30) mmol/L Anion Gap mmol/L BUN (7-17) mg/dL Creatinine (0.52-1.04) mg/dL Est GFR (CKD-EPI)AfAm (>60 ml/min/1.73 sqM) Est GFR (CKD-EPI)NonAf (>60 ml/min/1.73 sqM) Glucose (74-99) mg/dL POC Glucose (mg/dL) 298 H (70-110) mg/dL POC Glu [address] Engineer ID [place], [place] Lactic Ac Sepsis Rflx Plasma Lactic Acid Ian (0.7-2.0) mmol/L Calcium (8.4-10.2) mg/dL Phosphorus (2.5-4.5) mg/dL Magnesium (1.6-2.3) mg/dL Total Bilirubin (0.2-1.3) mg/dL AST (14-36) U/L ALT (4-34) U/L Alkaline Phosphatase (38-126) U/L Troponin I <0.012 (0.000-0.034) ng/mL Total Protein (6.3-8.2) g/dL Albumin (3.5-5.0) g/dL TSH (0.465-4.680) mIU/L Free T4 (0.78-2.19) ng/dL Urine Color Urine Appearance (Clear) Urine pH (5.0-8.0) Ur Specific [place] (1.001-1.035) Urine Protein (Negative) Urine Glucose (UA) (Negative) Urine Ketones (Negative) Urine Blood (Negative) Urine Nitrite (Negative) Urine Bilirubin (Negative) Urine Urobilinogen (<2.0) mg/dL Ur Leukocyte Esterase (Negative) Acetone, Qual (Negative) 05/22/22 05/22/22 Range/Units 02:20 03:25 WBC (3.8-10.6) k/uL RBC (3.80-5.40) m/uL Hgb (11.4-16.0) gm/dL Hct (34.0-46.0) % MCV (80.0-100.0) fL MCH (25.0-35.0) pg MCHC (31.0-37.0) g/dL RDW (11.5-15.5) % Plt Count (150-450) k/uL MPV Neutrophils % % Lymphocytes % % Monocytes % % Eosinophils % % Basophils % % Neutrophils # (1.3-7.7) k/uL Lymphocytes # (1.0-4.8) k/uL Monocytes # (0-1.0) k/uL Eosinophils # (0-0.7) k/uL Basophils # (0-0.2) k/uL VBG pH (7.31-7.41) VBG pCO2 (37-51) mmHg VBG HCO3 (24-28) mmol/L Sodium (137-145) mmol/L Potassium (3.5-5.1) mmol/L Chloride (98-107) mmol/L Carbon Dioxide (22-30) mmol/L Anion Gap mmol/L BUN (7-17) mg/dL Creatinine (0.52-1.04) mg/dL Est GFR (CKD-EPI)AfAm (>60 ml/min/1.73 sqM) Est GFR (CKD-EPI)NonAf (>60 ml/min/1.73 sqM) Glucose (74-99) mg/dL POC Glucose (mg/dL) (70-110) mg/dL POC Glu [address] Engineer ID Lactic Ac Sepsis Rflx Plasma Lactic Acid Ian 2.0 (0.7-2.0) mmol/L Calcium (8.4-10.2) mg/dL Phosphorus (2.5-4.5) mg/dL Magnesium (1.6-2.3) mg/dL Total Bilirubin (0.2-1.3) mg/dL AST (14-36) U/L ALT (4-34) U/L Alkaline Phosphatase (38-126) U/L Troponin I (0.000-0.034) ng/mL Total Protein (6.3-8.2) g/dL Albumin (3.5-5.0) g/dL TSH (0.465-4.680) mIU/L Free T4 (0.78-2.19) ng/dL Urine Color Light Yellow Urine Appearance Clear (Clear) Urine pH 5.5 (5.0-8.0) Ur Specific [place] 1.008 (1.001-1.035) Urine Protein Negative (Negative) Urine Glucose (UA) 3+ H (Negative) Urine Ketones Negative (Negative) Urine Blood Negative (Negative) Urine Nitrite Negative (Negative) Urine Bilirubin Negative (Negative) Urine Urobilinogen <2.0 (<2.0) mg/dL Ur Leukocyte Esterase Negative (Negative) Acetone, Qual (Negative) Disposition Clinical Impression: Chronic pain, Dehydration, Hyperglycemia due to type 2 diabetes mellitus, Chronic dyspnea Narrative: Chronic neck and back pain associated with other chronic pain and chronic dyspnea secondary to partially paralyzed diaphragm Disposition: HOME SELF-CARE Condition: Good Instructions (If sedation given, give patient instructions): Chronic Pain (ED), Diabetic Hyperglycemia (ED) Additional Instructions: Call your regular doctor at 8 AM to schedule follow-up appointment. Follow-up with your regular physician as directed. Return to the ER immediately if any symptoms worsen, new symptoms arise, or any other problems develop. Is patient prescribed a controlled substance at d/c from ED?: No Referrals: Bisi Yepez MD [Primary Care Provider] - 1-2 days Time of Disposition: 03:50
[2022-05-22 01:35] LABS: T4, Free (Free Thyroxine) 1.39 ng/dL (0.78-2.19)
[2022-05-22 02:21] LABS: Glucose,Whole Blood 298 mg/dL (70-110)
[2022-05-22 02:57] LABS: VBG PH 7.38 (7.31-7.41)
[2022-05-22 03:40] LABS: Appearance,Urine Clear (Clear); Bilirubin,Urine Negative (Negative); Blood,Urine Negative (Negative); Color,Urine Light Yellow; Glucose,Urine (UA) 3+ (Negative); Ketones,Urine Negative (Negative); Leukocyte Esterase,Urine Negative (Negative); Nitrite,Urine Negative (Negative); PH, Urine 5.5 (5.0-8.0); Protein,Urine Negative (Negative); Specific Gravity,Urine 1.008 (1.001-1.035); Urobilinogen,Urine <2.0 mg/dL (<2.0)
[2022-05-22] MEDS ORDERED: HYDROcodone/APAP 5-325MG 1 EACH TAB PO STA (03:48)
[2022-05-22] MEDS ORDERED: ACET/COD 300 MG/30 MG STARTER PACK 6 TAB BTL PO STA (03:49)
[2022-05-22 03:50] LABS: Amphetamine Screen,Urine Not Detected (NotDetected); Barbiturate Screen,Urine Not Detected (NotDetected); Benzodiazepines Screen,Urine Detected (NotDetected); Cocaine Screen,Urine Not Detected (NotDetected); Methadone Screen, Urine Not Detected (NotDetected); Opiate Screen,Urine Detected (NotDetected); Oxycodone Screen, Urine Not Detected (NotDetected); Phencyclidine Screen,Urine Not Detected (NotDetected); Tricyclic Antidepressant,Urine Not Detected (NotDetected); Urn Cannabinoid Scrn Detected (NotDetected)
[2022-05-22 04:17] VITALS: BP 137/93; PULSE 66
== END 2022-05-22 04:17 | disposition home or self-care (01) ==
LOC: EC 22:51
DX: G89.4 Chronic pain syndrome (principal); E86.0 Dehydration; E11.65 Type 2 diabetes mellitus with hyperglycemia; R06.00 Dyspnea, unspecified; I11.0 Hypertensive heart disease with heart failure; I50.9 Heart failure, unspecified; E78.5 Hyperlipidemia, unspecified; F31.9 Bipolar disorder, unspecified; F17.200 Nicotine dependence, unspecified, uncomplicated; Z88.8 Allergy status to other drugs, medicaments and biological substances; Z79.899 Other long term (current) drug therapy
CPT/HCPCS: 36415 ×2; 93005; 84439; 80053; 84443; 82803; 82009; 83605 ×2; 83735; 84100; 84484 ×2; 85025; 81003; 87040; 80306; 71045; 99285; 96374; 96375 ×2; 96361; J2405; J1170; J3360

== ENCOUNTER 2022-07-14 17:29 | Observation (INO) | payer OTHER ==
[2022-07-14] MEDS ORDERED: MORPHINE SULFATE 4 MG/ML SYRINGE IV STA (18:14)
--- NOTE | 2022-07-14 18:15 | ED ---
General Adult HPI - General Chief complaint: Weakness Stated complaint: weakness Time Seen by Provider: 07/14/22 18:02 Source: patient, EMS, RN notes reviewed Mode of arrival: EMS Limitations: no limitations - History of Present Illness Initial comments: Patient is a 61-year-old female presenting to the emergency room with generalized weakness along with headache. She reports he has been feeling well over the last few days regarding his vascular worse recently. Prompting her to call EMS to bring her to the hospital. She complains of a headache worse than her typical headaches difficulty with fine motor activities and lower extremity weakness worse than her baseline. She denies any other focal neurological deficits besides her fine motor weakness. She does report abnormal sounds when listening to music consistent with tendinitis for mild sounds. She denies any chest pain, sinus pressure, ear pain, abdominal pain, shortness of breath, nausea, vomiting, fevers or chills. She has a significant past medical history including multiple CVAs, hypertension, diabetes, hyperlipidemia, chronic back and neck pain, bilateral neuropathy, hepatitis C, and psoriasis. - Related Data Home Medications Medication Instructions Recorded Confirmed Metoprolol Tartrate [Lopressor] 100 mg PO BID 05/25/21 07/14/22 Nitroglycerin Sl Tabs [Nitrostat] 0.4 mg SL Q5M PRN 05/25/21 07/14/22 Atorvastatin [Lipitor] 10 mg PO HS 02/16/22 07/14/22 Lactulose 10 gm PO DAILY PRN 02/16/22 07/14/22 Losartan/Hydrochlorothiazide 1 tab PO DAILY 02/16/22 07/14/22 [Losartan-Hctz 100-25 mg Tab] QUEtiapine [SEROquel] 25 mg PO HS 02/16/22 07/14/22 Insulin Glargine,Hum.rec.anlog 20 unit SQ HS 03/04/22 07/14/22 [Lantus Solostar Pen] Insulin Lispro [humaLOG Kwikpen] See Protocol SQ ACHS 03/04/22 07/14/22 Clobetasol Propionate [Temovate 1 applic TOPICAL BID PRN 07/14/22 07/14/22 0.05% Cream] Fluocinonide 0.05% Solution 1 applic TOPICAL BID PRN 07/14/22 07/14/22 Furosemide [Lasix] 40 mg PO DAILY PRN 07/14/22 07/14/22 Gabapentin [Neurontin] 600 mg PO BID 07/14/22 07/14/22 Morphine Sulfate ER [Ms Contin] 30 mg PO Q12HR 07/14/22 07/14/22 Ondansetron Odt [Zofran ODT] 4 mg SL DAILY PRN 07/14/22 07/14/22 Tacrolimus [Tacrolimus 0.1%] 1 applic TOPICAL BID PRN 07/14/22 07/14/22 Triamcinolone Acetonide 1 applic TOPICAL BID PRN 07/14/22 07/14/22 [Triamcinolone Acetonide 0.025%] diazePAM [Valium] 2 mg PO BID 07/14/22 07/14/22 oxyCODONE HCL [oxyCODONE HCL (IR)] 10 mg PO Q6H PRN 07/14/22 07/14/22 Allergies Allergy/AdvReac Type Severity Reaction Status Date / Time No Known Allergies Allergy Verified 07/14/22 20:15 Review of Systems ROS Statement: Those systems with pertinent positive or pertinent negative responses have been documented in the HPI. ROS Other: All systems not noted in ROS Statement are negative. 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, pulmonary htn, covid + 10/2021, thyroid nodule, single pulmonary nodule, psoriasis, bacterial meningitis at age 30, cancer cervix, UTI/R pyelonephritis with sepsis, History of Any Multi-Drug Resistant Organisms: None Reported Past Surgical History: Adenoidectomy, Appendectomy, Back Surgery, Bladder Surgery, Orthopedic Surgery, Tonsillectomy, Tubal Ligation Additional Past Surgical History / Comment(s): 9 [employer] shunts- none at 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 Past Anesthesia/Blood Transfusion Reactions: No Reported Reaction Additional Past Anesthesia/Blood Transfusion Reaction / Comment(s): no hx blood transfusion Past Psychological History: Anxiety Smoking Status: Current every day smoker Past Alcohol Use History: None Reported Past Drug Use History: Marijuana - Past Family History Mother Family Medical History: No Reported History Additional Family Medical History / Comment(s): Mother was murdered at the age of 44 yrs. She had paranoid schizophrenia. Father Family Medical History: Myocardial Infarction (MN) Additional Family Medical History / Comment(s): Father of a MN at the age of 60 yrs. General Exam Limitations: no limitations General appearance: alert, in no apparent distress Head exam: Present: atraumatic, normocephalic, normal inspection Eye exam: Present: normal appearance, PERRL, EOMI. Absent: scleral icterus, conjunctival injection, periorbital swelling ENT exam: Present: normal exam, mucous membranes moist Neck exam: Present: normal inspection Respiratory exam: Present: normal lung sounds bilaterally. Absent: respiratory distress, wheezes, rales, rhonchi, stridor Cardiovascular Exam: Present: regular rate, normal rhythm, normal heart sounds. Absent: systolic murmur, diastolic murmur, rubs, gallop, clicks GI/Abdominal exam: Present: soft, normal bowel sounds. Absent: distended, tenderness, guarding, rebound, rigid Rectal exam: Present: deferred Extremities exam: Absent: pedal edema, joint swelling Back exam: Present: normal inspection Neurological exam: Present: alert, oriented X3, CN II-XII intact, other (Mild slurred speach at baseline) Expanded Eye Response: (4) open spontaneously Motor Response: (6) obeys commands Verbal Response: (5) oriented Cornelio Total: 15 Psychiatric exam: Present: normal affect, normal mood Skin exam: Present: warm, dry, intact, normal color. Absent: rash Course Vital Signs 07/14/22 07/14/22 17:35 19:40 Temperature 98.2 F Pulse Rate 75 88 Respiratory 18 16 Rate Blood Pressure 123/74 114/75 O2 Sat by Pulse 95 98 Oximetry Medical Decision Making - Medical Decision Making 61-year-old female presenting to the emergency room with generalized weakness and headache ongoing for several days. Multiple comorbid conditions. Will check CBC, CMP, urinalysis, magnesium and TSH along with CT of the head due to weakness and headache and chest x-ray. Will give 1 dose of morphine for pain and monitor response. Laboratory studies revealed leukocytosis with WBC count of 16.8, mild dehydration with BUN at 34 creatinine 1.55 slightly elevated compared to baseline. Sodium mildly elevated at 135. Will give IV fluid bolus 1 L Normal saline and add lactic acid and blood cultures as chest x-ray is negative for acute cardiopulmonary process. CT of the brain without acute intracranial process. Continue to await urine sample. Pain persists despite morphine will give dose of IV Dilaudid. Awaiting urine sample to give broad-spectrum antibiotics. Pain improved with Dilaudid. Urinalysis consistent with mild UTI. Will start on broad-spectrum antibiotics. Dr. Yepez patient's primary care provider called regarding observation admission. Awaiting call back from Dr. Yepez; observations orders placed. Case discussed with Dr. Nieto. - Lab Data Result diagrams: 07/14/22 18:24 07/14/22 18:24 Lab Results 07/14/22 07/14/22 07/14/22 Range/Units 18:24 18:24 18:24 WBC 16.8 H (3.8-10.6) k/uL RBC 4.99 (3.80-5.40) m/uL Hgb 14.6 (11.4-16.0) gm/dL Hct 44.1 (34.0-46.0) % MCV 88.4 (80.0-100.0) fL MCH 29.3 (25.0-35.0) pg MCHC 33.1 (31.0-37.0) g/dL RDW 13.3 (11.5-15.5) % Plt Count 225 (150-450) k/uL MPV 8.7 Neutrophils % 75 % Lymphocytes % 18 % Monocytes % 4 % Eosinophils % 2 % Basophils % 1 % Neutrophils # 12.6 H (1.3-7.7) k/uL Lymphocytes # 2.9 (1.0-4.8) k/uL Monocytes # 0.6 (0-1.0) k/uL Eosinophils # 0.3 (0-0.7) k/uL Basophils # 0.1 (0-0.2) k/uL Sodium 135 L (137-145) mmol/L Potassium 4.2 (3.5-5.1) mmol/L Chloride 98 (98-107) mmol/L Carbon Dioxide 27 (22-30) mmol/L Anion Gap 10 mmol/L BUN 34 H (7-17) mg/dL Creatinine 1.55 H (0.52-1.04) mg/dL Est GFR (CKD-EPI)AfAm 42 (>60 ml/min/1.73 sqM) Est GFR (CKD-EPI)NonAf 36 (>60 ml/min/1.73 sqM) Glucose 225 H (74-99) mg/dL Plasma Lactic Acid Ian 1.4 (0.7-2.0) mmol/L Calcium 9.1 (8.4-10.2) mg/dL Magnesium 1.6 (1.6-2.3) mg/dL Total Bilirubin 0.6 (0.2-1.3) mg/dL AST 45 H (14-36) U/L ALT 24 (4-34) U/L Alkaline Phosphatase 180 H (38-126) U/L Total Protein 6.7 (6.3-8.2) g/dL Albumin 3.8 (3.5-5.0) g/dL TSH 0.547 (0.465-4.680) mIU/L Urine Color Urine Appearance (Clear) Urine pH (5.0-8.0) Ur Specific [place] (1.001-1.035) Urine Protein (Negative) Urine Glucose (UA) (Negative) Urine Ketones (Negative) Urine Blood (Negative) Urine Nitrite (Negative) Urine Bilirubin (Negative) Urine Urobilinogen (<2.0) mg/dL Ur Leukocyte Esterase (Negative) Urine RBC (0-5) /hpf Urine WBC (0-5) /hpf Ur Squamous Epith Cells (0-4) /hpf Urine Bacteria (None) /hpf Hyaline Casts (0-2) /lpf Urine Mucus (None) /hpf Coronavirus (PCR) (Not Detectd) 07/14/22 07/14/22 Range/Units 18:49 22:00 WBC (3.8-10.6) k/uL RBC (3.80-5.40) m/uL Hgb (11.4-16.0) gm/dL Hct (34.0-46.0) % MCV (80.0-100.0) fL MCH (25.0-35.0) pg MCHC (31.0-37.0) g/dL RDW (11.5-15.5) % Plt Count (150-450) k/uL MPV Neutrophils % % Lymphocytes % % Monocytes % % Eosinophils % % Basophils % % Neutrophils # (1.3-7.7) k/uL Lymphocytes # (1.0-4.8) k/uL Monocytes # (0-1.0) k/uL Eosinophils # (0-0.7) k/uL Basophils # (0-0.2) k/uL Sodium (137-145) mmol/L Potassium (3.5-5.1) mmol/L Chloride (98-107) mmol/L Carbon Dioxide (22-30) mmol/L Anion Gap mmol/L BUN (7-17) mg/dL Creatinine (0.52-1.04) mg/dL Est GFR (CKD-EPI)AfAm (>60 ml/min/1.73 sqM) Est GFR (CKD-EPI)NonAf (>60 ml/min/1.73 sqM) Glucose (74-99) mg/dL Plasma Lactic Acid Ian (0.7-2.0) mmol/L Calcium (8.4-10.2) mg/dL Magnesium (1.6-2.3) mg/dL Total Bilirubin (0.2-1.3) mg/dL AST (14-36) U/L ALT (4-34) U/L Alkaline Phosphatase (38-126) U/L Total Protein (6.3-8.2) g/dL Albumin (3.5-5.0) g/dL TSH (0.465-4.680) mIU/L Urine Color Yellow Urine Appearance Clear (Clear) Urine pH 5.5 (5.0-8.0) Ur Specific [place] 1.014 (1.001-1.035) Urine Protein Negative (Negative) Urine Glucose (UA) 1+ H (Negative) Urine Ketones Negative (Negative) Urine Blood Negative (Negative) Urine Nitrite Negative (Negative) Urine Bilirubin Negative (Negative) Urine Urobilinogen <2.0 (<2.0) mg/dL Ur Leukocyte Esterase Small H (Negative) Urine RBC 1 (0-5) /hpf Urine WBC 5 (0-5) /hpf Ur Squamous Epith Cells 4 (0-4) /hpf Urine Bacteria Rare H (None) /hpf Hyaline Casts 9 H (0-2) /lpf Urine Mucus Rare H (None) /hpf Coronavirus (PCR) Not Detected (Not Detectd) - Radiology Data Radiology results: report reviewed, image reviewed CT of the brain without acute intracranial process. Stable exam. Chest x-ray shows no acute cardiopulmonary process. Disposition Clinical Impression: UTI (urinary tract infection), Weakness Disposition: ADMITTED IP TO THIS HOSP Condition: Stable Is patient prescribed a controlled substance at d/c from ED?: No Referrals: Bisi Yepez MD [Primary Care Provider] - 1-2 days Time of Disposition: 23:09
[2022-07-14 18:33] LABS: Basophils # (A) 0.1 k/uL (0-0.2); Basophils % (A) 1 %; Eosinophils # (A) 0.3 k/uL (0-0.7); Eosinophils % (A) 2 %; HCT 44.1 % (34.0-46.0); HGB 14.6 gm/dL (11.4-16.0); Lymphocytes # (A) 2.9 k/uL (1.0-4.8); Lymphocytes % (A) 18 %; MCH 29.3 pg (25.0-35.0); MCHC 33.1 g/dL (31.0-37.0); MCV 88.4 fL (80.0-100.0); Mean Platelet Volume 8.7; Monocytes # (A) 0.6 k/uL (0-1.0); Monocytes % (A) 4 %; Neutrophils # (A) 12.6 k/uL (1.3-7.7); Neutrophils % (A) 75 %; Platelet Count 225 k/uL (150-450); RBC 4.99 m/uL (3.80-5.40); RDW 13.3 % (11.5-15.5); WBC 16.8 k/uL (3.8-10.6)
[2022-07-14 18:48] LABS: Albumin 3.8 g/dL (3.5-5.0); Calcium 9.1 mg/dL (8.4-10.2); Magnesium 1.6 mg/dL (1.6-2.3); Potassium 4.2 mmol/L (3.5-5.1); Total Bilirubin 0.6 mg/dL (0.2-1.3); Total Protein 6.7 g/dL (6.3-8.2)
[2022-07-14] MEDS ORDERED: SODIUM CHLORIDE 0.9% 1,000 ML IV STA (18:49)
--- NOTE | 2022-07-14 18:55 | XR ---
EXAMINATION TYPE: XR chest 2V DATE OF EXAM: 07/14/2022 6:35 PM COMPARISON: Chest radiographs from 05/22/2022 TECHNIQUE: XR chest 2V Frontal and lateral views of the chest. CLINICAL INDICATION:Female, 61 years old with history of Weakness; FINDINGS: Lungs/Pleura: Low lung volumes. There is no evidence of pleural effusion, focal consolidation, or pne umothorax. Streaky basilar atelectasis/scarring bilaterally. Pulmonary vascularity: Unremarkable. Heart/mediastinum: Cardiomediastinal silhouette is unremarkable. Musculoskeletal: No acute osseous pathology. IMPRESSION: No acute cardiopulmonary disease/process.
--- NOTE | 2022-07-14 19:22 | CT ---
EXAMINATION TYPE: CT brain wo con CT DLP: 1213.4 mGycm, Automated exposure control for dose reduction was used. DATE OF EXAM: 07/14/2022 6:39 PM COMPARISON: CT 03/04/2022 CLINICAL INDICATION:Female, 61 years old with history of weakness, TECHNIQUE: Brain: Axial CT images of the brain were obtained with coronal and sagittal reformats created and rev iewed. Contrast used: None. Oral contrast used: None. FINDINGS: Brain: Extra-axial spaces: No abnormal extra-axial fluid collections. Unchanged CSF attenuating fluid collec tion the posterior cranial fossa on the right which could represent arachnoid cyst. Ventricular system: Within normal limits Cerebral parenchyma: Stable white matter changes in the right frontal lobe midline. No acute intrapar enchymal hemorrhage or mass effect. The serra-white junction is well differentiated. Cerebellum: Unremarkable. Mass effect: No evidence of midline shift. Intracranial vasculature: unremarkable Soft tissues: Normal. Calvarium/osseous structures: No depressed skull fracture. Postsurgical changes to the right frontal skull. Paranasal sinuses and mastoid air cells: Mild scattered paranasal sinus disease. Visualized orbits: Orbital contents are intact. IMPRESSION: No acute intracranial process. Stable exam.
[2022-07-14] MEDS ORDERED: NALOXONE 0.4 MG/ML 1 ML VIAL IV PRN ×2 (20:26→23:06)
[2022-07-14] MEDS ORDERED: SODIUM CHLORIDE 0.9% 1,000 ML IV SCH (20:30)
[2022-07-14] MEDS ORDERED: HYDROmorphone 1 MG/ML 1 ML SYRINGE IVP STA (20:39)
[2022-07-14 22:26] LABS: Appearance,Urine Clear (Clear); Bacteria,Urine Rare /hpf; Bilirubin,Urine Negative (Negative); Blood,Urine Negative (Negative); Color,Urine Yellow; Glucose,Urine (UA) 1+ (Negative); Hyaline Casts,Urine 9 /lpf (0-2); Ketones,Urine Negative (Negative); Leukocyte Esterase,Urine Small (Negative); Mucus,Urine Rare /hpf; Nitrite,Urine Negative (Negative); PH, Urine 5.5 (5.0-8.0); Protein,Urine Negative (Negative); RBC,Urine 1 /hpf (0-5); Specific Gravity,Urine 1.014 (1.001-1.035); Squamous Epithelial Cell,Urine 4 /hpf (0-4); Urobilinogen,Urine <2.0 mg/dL (<2.0); WBC,Urine 5 /hpf (0-5)
[2022-07-14] MEDS ORDERED: cefTRIAXone IN SWFI 1,000 MG/10 ML SYRINGE IVP STA (23:07)
[2022-07-14] MEDS ORDERED: DEXTROSE 50% SYRINGE 50 ML IVP PRN ×2 (23:12)
[2022-07-15 00:08] LABS: Glucose,Whole Blood 301 mg/dL (70-110)
[2022-07-15] MEDS: MORPHINE SULFATE ER 30 MG TABLET PO SCH ×3 (00:23→20:13)
[2022-07-15] MEDS: diazePAM 2 MG TAB PO SCH ×4 (00:24→20:14)
[2022-07-15] MEDS: QUEtiapine 25 MG TAB PO SCH (00:24)
[2022-07-15] MEDS: METOPROLOL TARTRATE 50 MG TAB PO SCH ×4 (00:24→20:13)
[2022-07-15] MEDS: ATORVASTATIN 10 MG TAB PO SCH ×2 (00:24→20:14)
[2022-07-15] MEDS: SODIUM CHLORIDE 0.9% 1,000 ML IV SCH ×2 (00:25→12:53)
[2022-07-15] MEDS: GABAPENTIN 300 MG CAP PO SCH ×3 (00:25→20:13)
[2022-07-15] MEDS: INSULIN DETEMIR (LEVEMIR) 100 UNIT/ML SYR SQ SCH ×2 (00:26→20:13)
[2022-07-15] MEDS ORDERED: LACTULOSE 20 GM/30 ML CUP PO PRN (07:47)
[2022-07-15 09:11] LABS: Glucose,Whole Blood 264 mg/dL (70-110)
[2022-07-15] MEDS: INSULIN ASPART (NovoLOG) 100 UNIT/ML VIAL SQ SCH ×4 (09:16→20:12)
[2022-07-15] MEDS: LOSARTAN-HCTZ 50-12.5 MG 1 EACH TAB PO SCH (09:18)
--- NOTE | 2022-07-15 09:38 | P.HPIM ---
History of Present Illness H&P Date: 07/15/22 HISTORY OF PRESENT ILLNESS: This is a 61-year-old female with a past medical history significant for hypertension and hypertensive cardio vascular disease, hyperlipidemia, diabetes mellitus type 2 with diabetic polyneuropathy, history of chronic pain syndrome, history of cervical cancer status post surgery in the past, history of recurrent UTI, history of COVID-19 back in 2021, chronic hypoxemic respiratory failure requiring 2 L nasal cannula, history of right diaphragm paralysis. Levi tawny had recently hospitalization for acute hypoxic respiratory failure secondary to right lower lobe aspiration pneumonia along with toxic metabolic encephalopathy, also another hospitalization March 04- for acute kidney injury, hypotension and toxic metabolic encephalopathy thought to be a combination of acute kidney injury with chronic opioid use. Patient was a long-term resident at [facility] but then was discharged to home. Patient states that she has been living with her daughter but they have been arguing for the past 2 weeks. She states she's been unable to take a shower for the past 3 weeks because she can't get into the shower. She has had 7 falls recently. She is utilizing a walker but there is no room in the home for wheelchair. She presented to [facility] emergency center complaining of feeling tired, didn't sleep for 3 days, generalized weakness and a muffled sensation in her ears. She complains of severe headache and neck pain. Patient complains of feeling hot and cold all the time. She does complain of dysuria, no hematuria. Patient was found to be afebrile, heart rate 75, blood pressure 123/74 and pulse ox 95% on room air. WBC 16.8, hemoglobin 14.6, platelet count 225. Sodium 135, potassium 4.2, chloride 98, CO2 27, BUN 34 creatinine 1.55. Blood sugar 225. Lactic acid 1.4. Calcium 9.1. Magnesium 1.6. AST 45 other liver function tests were normal. TSH 0.547. Urinalysis was glucose 1+, leukoesterase small, thick 2 rare, hyal ine casts 6. Covonavirus PCR not detected. Chest x-ray reveals no acute cardiopulmonary disease. CAT scan of the brain revealed no acute intracranial process. Patient is seen today in the emergency center waiting for a bed on the observation unit. REVIEW OF SYSTEMS: Constitutional: No documented fever, no chills, no night sweats. No weight change. Noted weakness, Noted fatigue noted lethargy. Noted to daytime sleepiness. HEENT: Reports neck pain reports headache. No blurred vision or double vision, no loss of vision. No loss of Hearing, no ringing in the ears, no dizziness. No nasal drainage or congestion. No epistaxis. No sore throat. Lungs: no shortness of breath, no for cough, no sputum production. No wheezing. Cardiovascular: No chest pain, no lower extremity edema. No palpitations. No paroxysmal nocturnal dyspnea. No orthopnea. No lightheadedness or dizziness. No syncopal episodes. Abdominal: Denies abdominal pain. No nausea, vomiting. No diarrhea. No consti pation. No bloody or tarry stools reports loss of appetite. Genitourinary: No dysuria, increased frequency, urgency. No urinary retention. Musculoskeletal: No myalgias. Reports muscle weakness, Reports gait dysfunction, no frequent falls. Reports chronic back pain. Reports chronic neck pain. Integumentary: No wounds, no lesions. No rash or pruritus. No unusual bruising. No change in hair or nails. Neurologic: No aphasia. No facial droop. No change in mentation. No head injury. No headache. No paralysis. No paresthesia. Psychiatric: Positive for depression. Positive for anxiety. No mood swings. Endocrine: No abnormal blood sugars. No weight change. PAST MEDICAL HISTORY: Hypertension and hypertensive cardio vascular disease. Hyperlipidemia. Diabetes mellitus type 2. Diabetic polyneuropathy. Obesity with obstructive sleep apnea. Vitamin D deficiency Cervical cancer. Chronic pain syndrome. Spondylosis of the lumbar spine Fibromyalgia. pseudotumor cerebri. Spinal stenosis. Hepatitis C. Chronic hypoxemic respiratory failure. COVID-19 Psoriasis. PAST SURGICAL HISTORY: 9 [employer] COMMUNICATION[employer] MANAGER shunts 12 lumbar shunts Cervical laser therapy. Partial hysterectomy with right fallopian tube and OOphorectomy Bilateral optic nerve decompressive surgery. Right shoulder reverse arthroplasty. Bladder suspension. Appendectomy. Tonsillectomy and adenoidectomy. Right open reduction and internal fixation for right ankle trimalleolar fracture. Colonoscopy. EGD. SOCIAL HISTORY: Patient smokes about a pack every day since he was 42-year-old she denies any marijuana use or abuse, she denies any alcohol use or abuse. Patient previously resided at [facility] as a long-term resident, recently was discharged to her daughter's home. FAMILY HISTORY: Mother at the age of 27 she had a history of manic depressive disorder she went missing for 27 years she was murdered father at age 60 from [place]. Patient has no sisters or brothers she has 2 daughters one of them with thyroid nodule that became cancer and one son with hypertension hyperlipidemia PHYSICAL EXAMINATION: General: 61-year-old female laying on the ER stretcher in no acute respiratory distress. HEENT: Head is atraumatic, normocephalic, pupils were equal round reactive to light and recommendation, extraocular muscle movement were intact, sclera nonicteric, conjunctivae were pale, mucous membranes of the mouth are somewhat dry. Neck: Supple, no JVP, normal carotid upstroke bilaterally, no lymphadenopathy. Chest: Decreased breath sounds at the bases, no expiratory wheezes, no chest wall tenderness, no intercostal retractions. Heart: First heart sound is normal, second heart sounds normal there is no gal lop or murmur. Abdomen: Soft, nontender, nondistended, positive bowel sounds. no hepatomegaly. Extremities: There is no edema no calf tenderness DP +2 bilaterally. Neurologic examination: Patient is sleeping, awakens to verbal stimuli, oriented x3, cranial nerves II-12 appear grossly intact, muscle power were 5 out of 5 in upper extremities and 5 out of 5 in bilateral lower extremities, deep tendon reflexes normal bilaterally. ASSESSMENT AND PLAN: 1. Dehydration. Continue patient on 0.9 normal saline at 75 mL per hour. 2. Acute exacerbation of headache and neck pain which are chronic. Continue patient on current pain medications from home which include MS Contin 30 mg oral every 12 hours, oxycodone 10 mg every 6 hours as needed, Valium 2 mg twice daily. 3. Frequent falls with generalized weakness. PT and OT consults. 4. Chronic kidney disease stage III. Continue IV fluids and monitor renal function. 5. Hypertension and hypertensive cardiovascular disease. Continue l osartan/HCTZ 50/12.5 mg once every day. Continue metoprolol 100 mg orally twice every day. Continue to watch patient blood pressure very closely. 6. Hyperlipidemia. Continue low cholesterol diet, continue atorvastatin 10 mg every day. 7. Diabetes mellitus type 2. Continue patient on Levemir 20 units at bedtime, continue sliding scale insulin. Monitor blood glucose level before each meal an d at bedtime. 8. Diabetic polyneuropathy. Continue patient on gabapentin 600 mg orally twice every day. 9. Fibromyalgia. Continue gabapentin. 10. Recurrent depression. Continue Seroquel 25 mg at bedtime. 11. History of pseudocyst tumor cerebri status post multiple [employer] COMM[employer]ICATION[employer] MANAGER shunt's. 12. History of cervical cancer currently in remission. 13. History of chronic pain syndrome. Continue current pain management. 14. DVT prophylaxis. Continue heparin 5000 units subcutaneously twice daily. 15. GI prophylaxis. Continue patient on famotidine 20 mg orally every day. Admitted to inpatient. Estimate a length of stay 2 midnights. Discharge plan: Subacute rehab at [facility]. Consult with social work, PT and OT. Impression and plan of care have been directed as dictated by the signing physician. Carolyn Cunningham nurse practitioner acting as scribe for signing physician. 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, pulmonary htn, covid + 10/2021, thyroid nodule, single pulmonary nodule, psoriasis, bacterial meningitis at age 30, cancer cervix, UTI/R pyelonephritis with sepsis, History of Any Multi-Drug Resistant Organisms: None Reported Past Surgical History: Adenoidectomy, Appendectomy, Back Surgery, Bladder Surgery, Orthopedic Surgery, Tonsillectomy, Tubal Ligation Additional Past Surgical History / Comment(s): 9 H[employer] COMM[employer]ICATION[employer] MANAGER shunts- none at this time, 2 8 LP shunts, eye bilateral nerve decompression/shield surgery, rt ovary and fallopian tube removed, laser procedure for cervix CA, unsatisfactory thyroid biopsy specimen, colonoscopy, bladder suspension. Past Anesthesia/Blood Transfusion Reactions: No Reported Reaction Additional Past Anesthesia/Blood Transfusion Reaction / Comment(s): no hx blood transfusion Past Psychological History: Anxiety Smoking Status: Current every day smoker Past Alcohol Use History: None Reported Past Drug Use History: Marijuana - Past Family History Mother Family Medical History: No Reported History Additional Family Medical History / Comment(s): Mother was murdered at the age of 44 yrs. She had paranoid schizophrenia. Father Family Medical History: Myocardial Infarction ([place]) Additional Family Medical History / Comment(s): Father of a [place] at the age of 60 yrs. Medications and Allergies Home Medications Medication Instructions Recorded Confirmed Type Metoprolol Tartrate [Lopressor] 100 mg PO BID 05/25/21 07/14/22 History Nitroglycerin Sl Tabs [Nitrostat] 0.4 mg SL Q5M PRN 05/25/21 07/14/22 History Atorvastatin [Lipitor] 10 mg PO HS 02/16/22 07/14/22 History Lactulose 10 gm PO DAILY PRN 02/16/22 07/14/22 History Losartan/Hydrochlorothiazide 1 tab PO DAILY 02/16/22 07/14/22 History [Losartan-Hctz 100-25 mg Tab] QUEtiapine [SEROquel] 25 mg PO HS 02/16/22 07/14/22 History Insulin Glargine,Hum.rec.anlog 20 unit SQ HS 03/04/22 07/14/22 History [Lantus Solostar Pen] Insulin Lispro [humaLOG Kwikpen] See Protocol SQ ACHS 03/04/22 07/14/22 History Clobetasol Propionate [Temovate 1 applic TOPICAL BID PRN 07/14/22 07/14/22 History 0.05% Cream] Fluocinonide 0.05% Solution 1 applic TOPICAL BID PRN 07/14/22 07/14/22 History Furosemide [Lasix] 40 mg PO DAILY PRN 07/14/22 07/14/22 History Gabapentin [Neurontin] 600 mg PO BID 07/14/22 07/14/22 History Morphine Sulfate ER [Ms Contin] 30 mg PO Q12HR 07/14/22 07/14/22 History Ondansetron Odt [Zofran ODT] 4 mg SL DAILY PRN 07/14/22 07/14/22 History Tacrolimus [Tacrolimus 0.1%] 1 applic TOPICAL BID PRN 07/14/22 07/14/22 History Triamcinolone Acetonide 1 applic TOPICAL BID PRN 07/14/22 07/14/22 History [Triamcinolone Acetonide 0.025%] diazePAM [Valium] 2 mg PO BID 07/14/22 07/14/22 History oxyCODONE HCL [oxyCODONE HCL (IR)] 10 mg PO Q6H PRN 07/14/22 07/14/22 History Allergies Allergy/AdvReac Type Severity Reaction Status Date / Time No Known Allergies Allergy Verified 07/14/22 20:15 Physical Exam Vitals: Vital Signs Temp Pulse Resp BP Pulse Ox 07/15/22 00:33 86 16 101/59 96 07/15/22 00:00 87 16 112/77 98 07/14/22 20:00 88 16 114/75 97 07/14/22 19:40 88 16 114/75 98 07/14/22 17:35 98.2 F 75 18 123/74 95 Intake and Output 07/14/22 07/15/22 07/15/22 22:59 06:59 14:59 Other: Weight 97.069 kg Results CBC & Chem 7: 07/14/22 18:24 07/14/22 18:24 Labs: Abnormal Lab Results - Last 24 Hours (Table) 07/14/22 07/14/22 07/14/22 Range/Units 18:24 18:24 22:00 WBC 16.8 H (3.8-10.6) k/uL Neutrophils # 12.6 H (1.3-7.7) k/uL Sodium 135 L (137-145) mmol/L BUN 34 H (7-17) mg/dL Creatinine 1.55 H (0.52-1.04) mg/dL Glucose 225 H (74-99) mg/dL POC Glucose (mg/dL) (70-110) mg/dL AST 45 H (14-36) U/L Alkaline Phosphatase 180 H (38-126) U/L Urine Glucose (UA) 1+ H (Negative) Ur Leukocyte Esterase Small H (Negative) Urine Bacteria Rare H (None) /hpf Hyaline Casts 9 H (0-2) /lpf Urine Mucus Rare H (None) /hpf 07/15/22 Range/Units 00:06 WBC (3.8-10.6) k/uL Neutrophils # (1.3-7.7) k/uL Sodium (137-145) mmol/L BUN (7-17) mg/dL Creatinine (0.52-1.04) mg/dL Glucose (74-99) mg/dL POC Glucose (mg/dL) 301 H (70-110) mg/dL AST (14-36) U/L Alkaline Phosphatase (38-126) U/L Urine Glucose (UA) (Negative) Ur Leukocyte Esterase (Negative) Urine Bacteria (None) /hpf Hyaline Casts (0-2) /lpf Urine Mucus (None) /hpf
[2022-07-15 12:26] LABS: Glucose,Whole Blood 259 mg/dL (70-110)
[2022-07-15 16:59] LABS: Glucose,Whole Blood 324 mg/dL (70-110)
[2022-07-15 19:38] LABS: Glucose,Whole Blood 357 mg/dL (70-110)
[2022-07-15] MEDS: HEPARIN SODIUM,PORCINE/PF 5,000 UNIT/0.5 ML SYRINGE SQ SCH (20:14)
[2022-07-16] MEDS: QUEtiapine 25 MG TAB PO SCH ×2 (01:21→21:08)
[2022-07-16] MEDS: SODIUM CHLORIDE 0.9% 1,000 ML IV SCH (02:02)
[2022-07-16 08:21] LABS: Glucose,Whole Blood 349 mg/dL (70-110)
[2022-07-16 09:17] LABS: Basophils # (A) 0.15 X 10*3/uL (0.00-0.10); Basophils % (A) 1.3 %; Eosinophils # (A) 0.27 X 10*3/uL (0.04-0.35); Eosinophils % (A) 2.3 %; HCT 39.5 % (37.2-46.3); Immature Grans, Automated 2.6 %; Lymphocytes # (A) 3.14 X 10*3/uL (0.90-5.00); Lymphocytes % (A) 27.3 %; MCH 29.6 pg (27.0-32.0); MCHC 32.9 g/dL (32.0-37.0); Mean Platelet Volume 11.5 fL (9.5-12.2); Monocytes % (A) 7.8 %; NRBC Per 100 WBC 0 /100 WBCS (0.0-0.0); Neutrophils # (A) 6.74 X 10*3/uL (1.80-7.70); Neutrophils % (A) 58.7 %; Platelet Count 185 X 10*3/uL (140-440); RBC 4.39 X 10*6/uL (4.10-5.20); RDW 13.5 % (11.5-14.5)
[2022-07-16] MEDS: MORPHINE SULFATE ER 30 MG TABLET PO SCH ×2 (09:18→21:07)
[2022-07-16] MEDS: GABAPENTIN 300 MG CAP PO SCH ×2 (09:18→21:03)
[2022-07-16] MEDS: METOPROLOL TARTRATE 50 MG TAB PO SCH ×2 (09:18→21:07)
[2022-07-16] MEDS: diazePAM 2 MG TAB PO SCH ×2 (09:18→21:03)
[2022-07-16] MEDS: HEPARIN SODIUM,PORCINE/PF 5,000 UNIT/0.5 ML SYRINGE SQ SCH ×2 (09:19→21:03)
[2022-07-16] MEDS: INSULIN ASPART (NovoLOG) 100 UNIT/ML VIAL SQ SCH ×7 (09:20→21:04)
[2022-07-16] MEDS: FAMOTIDINE 20 MG TAB PO SCH (09:20)
[2022-07-16] MEDS: LOSARTAN-HCTZ 50-12.5 MG 1 EACH TAB PO SCH (09:22)
[2022-07-16 09:46] LABS: African American GFR (CKD) 71.4 (60.0-200.0); Albumin 3.3 g/dL (3.8-4.9); Albumin/Globulin Ratio 1.38 (1.60-3.17); BUN/Creat Ratio 18.2 Ratio (12.00-20.00); Blood Urea Nitrogen 18.2 mg/dL (9.0-27.0); Calcium 8.3 mg/dL (8.7-10.3); Globulin 2.4 g/dL (1.6-3.3); Non-African American GFR(CKD) 61.6 (60.0-200.0); Potassium 4.3 mmol/L (3.5-5.5); Total Bilirubin 0.3 mg/dL (0.30-1.20); Total Protein 5.7 g/dL (6.2-8.2)
[2022-07-16 12:50] LABS: Glucose,Whole Blood 281 mg/dL (70-110)
--- NOTE | 2022-07-16 16:52 | US ---
EXAMINATION TYPE: US pelvis complete with transvaginal imaging DATE OF EXAM: 07/16/2022 COMPARISON: CT 2020, US 2016 CLINICAL HISTORY: vaginal bleeding post menopausal. Exam done portable TECHNIQUE: . Transabdominal sonographic images of the pelvis were acquired. Transvaginal sonographic images were medically necessary to better assess the following anatomy: endometrium Date of LMP: 20 years ago EXAM MEASUREMENTS: Uterus: 6.7 x 3.8 x 3.0 cm Endometrial Stripe: 0.3 cm Difficult and limited study due to patient body habitus 1. Uterus: anteverted, 1.9cm hyperechoic area posterior myometrium 2. Endometrium: fluid within endo 3. Right Ovary: surgically absent 4. Left Ovary: not seen 5. Bilateral Adnexa: wnl 6. Posterior cul-de-sac: wnl IMPRESSION: Technically limited exam secondary to patient body habitus, Trace fluid within the endometrium, correlate for cervical stenosis. Consider MRI pelvis with IV contrast for complete evaluation of the uterus. MTDD
[2022-07-16 17:07] LABS: Glucose,Whole Blood 280 mg/dL (70-110)
[2022-07-16 20:46] LABS: Glucose,Whole Blood 269 mg/dL (70-110)
[2022-07-16] MEDS: ATORVASTATIN 10 MG TAB PO SCH (21:03)
[2022-07-16] MEDS: INSULIN DETEMIR (LEVEMIR) 100 UNIT/ML SYR SQ SCH (21:05)
[2022-07-17 07:36] LABS: Glucose,Whole Blood 269 mg/dL (70-110)
[2022-07-17] MEDS: HEPARIN SODIUM,PORCINE/PF 5,000 UNIT/0.5 ML SYRINGE SQ SCH (08:01)
[2022-07-17] MEDS: INSULIN ASPART (NovoLOG) 100 UNIT/ML VIAL SQ SCH ×4 (08:01→12:26)
[2022-07-17] MEDS: MORPHINE SULFATE ER 30 MG TABLET PO SCH (08:02)
[2022-07-17] MEDS: diazePAM 2 MG TAB PO SCH (08:02)
[2022-07-17] MEDS: LOSARTAN-HCTZ 50-12.5 MG 1 EACH TAB PO SCH (08:03)
[2022-07-17] MEDS: FAMOTIDINE 20 MG TAB PO SCH (08:03)
[2022-07-17] MEDS: GABAPENTIN 300 MG CAP PO SCH (08:03)
[2022-07-17] MEDS: METOPROLOL TARTRATE 50 MG TAB PO SCH (08:08)
--- NOTE | 2022-07-17 08:24 | P.PN ---
Subjective Progress Note Date: 07/16/22 HISTORY OF PRESENT ILLNESS: This is a 61-year-old female with a past medical history significant for hypertension and hypertensive cardio vascular disease, hyperlipidemia, diabetes mellitus type 2 with diabetic polyneuropathy, history of chronic pain syndrome, history of cervical cancer status post surgery in the past, history of recurrent UTI, history of COVID-19 back in 2021, chronic hypoxemic respiratory failure requiring 2 L nasal cannula, history of right diaphragm paralysis. Patient had recently hospitalization for acute hypoxic respiratory failure secondary to right lower lobe aspiration pneumonia along with toxic metabolic encephalopathy, also another hospitalization March 04- for acute kidney injury, hypotension and toxic metabolic encephalopathy thought to be a combination of acute kidney injury with chronic opioid use. Patient was a long-term resident at [facility] but then was discharged to home. Patient states that she has been living with her daughter but they have been arguing for the past 2 weeks. She states she's been unable to take a shower for the past 3 weeks because she can't get into the shower. She has had 7 falls recently. She is utilizing a walker b ut there is no room in the home for wheelchair. She presented to [facility] emergency center complaining of feeling tired, didn't sleep for 3 days, generalized weakness and a muffled sensation in her ears. She complains of severe headache and neck pain. Patient complains of feeling hot and cold all the time. She does complain of dysuria, no hematuria. Patient was found to be afebrile, heart rate 75, blood pressure 123/74 and pulse ox 95% on room air. WBC 16.8, hemoglobin 14.6, platelet count 225. Sodium 135, potassium 4.2, chloride 98, CO2 27, BUN 34 creatinine 1.55. Blood sugar 225. Lactic acid 1.4. Calcium 9.1. Magnesium 1.6. AST 45 other liver function tests were normal. TSH 0.547. Urinalysis was glucose 1+, leukoesterase small, thick 2 rare, hyaline casts 6. Covonavirus PCR not detected. Chest x-ray reveals no acute cardiopulmonary disease. CAT scan of the brain revealed no acute intracranial process. Patient is seen today in the emergency center waiting for a bed on the observation unit. 07/16: Patient's states that she still has headache and buzzing sound like crickets in her head. She has an appointment with Dr. Licea/Curtis at the office and is investigating a pain pump. Patient complains of vaginal bleeding but has not had periods, it is spotting with wiping. Vaginal ultrasound will be ordered. IV fluids changed to saline lock. Patient states she no longer is interested in going to [facility] and does not recall saying that yesterday. She is now interested in VNA and she is also mention to staff that she will would like a hospice informational meeting which can be arranged. REVIEW OF SYSTEMS: Constitutional: No documented fever, no chills, no night sweats. No weight change. Noted weakness, Noted fatigue noted lethargy. Noted to daytime sleepiness. HEENT: Reports neck pain reports headache. No blurred vision or double vision, no loss of vision. No loss of Hearing, no ringing in the ears, no dizziness. No nasal drainage or congestion. No epistaxis. No sore throat. Lungs: no shortness of breath, no for cough, no sputum production. No wheezing. Cardiovascular: No chest pain, no lower extremity edema. No palpitations. No paroxysmal nocturnal dyspnea. No orthopnea. No lightheadedness or dizziness. No syncopal episodes. Abdominal: Denies abdominal pain. No nausea, vomiting. No diarrhea. No cons tipation. No bloody or tarry stools reports loss of appetite. Reports vaginal bleeding. Genitourinary: No dysuria, increased frequency, urgency. No urinary retention. Musculoskeletal: No myalgias. Reports muscle weakness, Reports gait dysfunction, no frequent falls. Reports chronic back pain. Reports chronic neck pain. Integumentary: No wounds, no lesions. No rash or pruritus. No unusual b ruising. No change in hair or nails. Neurologic: No aphasia. No facial droop. No change in mentation. No head injury. No headache. No paralysis. No paresthesia. Psychiatric: Positive for depression. Positive for anxiety. No mood swings. Endocrine: No abnormal blood sugars. No weight change. PHYSICAL EXAMINATION: General: 61-year-old female resting in bed in no acute respiratory distress. HEENT: Head is atraumatic, normocephalic, pupils were equal round reactive to light and recommendation, extraocular muscle movement were intact, sclera nonicteric, conjunctivae were pale, mucous membranes of the mouth are somewhat dry. Neck: Supple, no JVP, normal carotid upstroke bilaterally, no lymphadenopathy. Chest: Decreased breath sounds at the bases, no expiratory wheezes, no chest wall tenderness, no intercostal retractions. Heart: First heart sound is normal, second heart sounds normal there is no gallop or murmur. Abdomen: Soft, nontender, nondistended, positive bowel sounds. no hepatomegaly. Extremities: There is no edema no calf tenderness DP +2 bilaterally. Neurologic examination: Patient is sleeping, awakens to verbal stimuli, oriented x3, cranial nerves II-12 appear grossly intact, muscle power were 5 out of 5 in upper extremities and 5 out of 5 in bilateral lower extremities, deep tendon reflexes normal bilaterally. ASSESSMENT AND PLAN: 1. Dehydration. Continue patient on 0.9 normal saline at 75 mL per hour, will discontinue IV fluids. 2. Acute exacerbation of headache and neck pain which are chronic. Continue patient on current pain medications from home which include MS Contin 30 mg oral every 12 hours, oxycodone 10 mg every 6 hours as needed, Valium 2 mg twice daily. Patient to follow-up with Dr. Licea's office. 3. Frequent falls with generalized weakness. PT and OT consults appreciated and recommend subacute rehab. 4. Chronic kidney disease stage III. Continue IV fluids and monitor renal function. Discontinue IV fluids 5. Hypertension and hypertensive cardiovascular disease. Continue losartan/HCTZ 50/12.5 mg once every day. Continue metoprolol 100 mg orally twice every day. Continue to watch patient blood pressure very closely. 6. Hyperlipidemia. Continue low cholesterol diet, continue atorvastatin 10 mg every day. 7. Diabetes mellitus type 2. Continue patient on Levemir 20 units at bedtime, continue sliding scale insulin. Monitor blood glucose level before each meal and at bedtime. 8. Diabetic polyneuropathy. Continue patient on gabapentin 600 mg orally twice every day. 9. Fibromyalgia. Continue gabapentin. 10. Recurrent depression. Continue Seroquel 25 mg at bedtime. 11. History of pseudocyst tumor cerebri status post multiple HAND IRONER shunt's. 12. History of cervical cancer currently in remission. 13. History of chronic pain syndrome. Continue current pain management. 14. Vaginal bleeding. Ultrasound ordered. 15. DVT prophylaxis. Continue heparin 5000 units subcutaneously twice daily. 16. GI prophylaxis. Continue patient on famotidine 20 mg orally every day. Admitted to inpatient. Estimate a length of stay 2 midnights. Discharge plan: VNA tomorrow. Consult with social work, PT and OT. Impression and plan of care have been directed as dictated by the signing physician. Carolyn Cunningham nurse practitioner acting as scribe for signing physician. Objective - Vital Signs Vital signs: Vital Signs Temp 98.2 F 07/16/22 08:02 Pulse 98 07/16/22 08:02 Resp 13 07/16/22 08:02 BP 114/75 07/16/22 08:02 Pulse Ox 98 07/16/22 08:02 FiO2 Intake & Output 07/15/22 07/16/22 07/16/22 18:59 06:59 18:59 Intake Total 360 Balance 360 Weight 97.069 kg Intake: Oral 360 Other: # Voids 1 2 - Labs CBC & Chem 7: 07/16/22 05:45 07/16/22 05:45 Labs: Abnormal Lab Results - Last 24 Hours (Table) 07/15/22 07/15/22 07/15/22 Range/Units 12:24 16:56 19:36 WBC (4.50-10.00) X 10*3/uL Immature Gran # (0.00-0.04) X 10*3/uL Basophils # (0.00-0.10) X 10*3/uL POC Glucose (mg/dL) 259 H 324 H 357 H (70-110) mg/dL 07/16/22 07/16/22 Range/Units 05:45 08:17 WBC 11.50 H (4.50-10.00) X 10*3/uL Immature Gran # 0.30 H (0.00-0.04) X 10*3/uL Basophils # 0.15 H (0.00-0.10) X 10*3/uL POC Glucose (mg/dL) 349 H (70-110) mg/dL
[2022-07-17 11:27] LABS: HCT 41.4 % (34.0-46.0); HGB 13.3 gm/dL (11.4-16.0); MCH 29.1 pg (25.0-35.0); MCHC 32.2 g/dL (31.0-37.0); MCV 90.4 fL (80.0-100.0); Mean Platelet Volume 8.5; Platelet Count 188 k/uL (150-450); RBC 4.58 m/uL (3.80-5.40); RDW 13.4 % (11.5-15.5)
[2022-07-17 11:36] LABS: ALT 20 U/L (4-34); AST 35 U/L (14-36); African American GFR (CKD) >90 (>60 ml/min/1.73 sqM); Albumin 3.1 g/dL (3.5-5.0); Albumin/Globulin Ratio 1.2; Alkaline Phosphatase 123 U/L (38-126); Anion Gap 10 mmol/L; Blood Urea Nitrogen 16 mg/dL (7-17); Calcium 8.6 mg/dL (8.4-10.2); Carbon Dioxide 25 mmol/L (22-30); Chloride 102 mmol/L (98-107); Globulin 2.6 g/dL; Glucose 212 mg/dL (74-99); Non-African American GFR(CKD) 81 (>60 ml/min/1.73 sqM); Potassium 4.2 mmol/L (3.5-5.1); Sodium 137 mmol/L (137-145); Total Bilirubin 0.6 mg/dL (0.2-1.3); Total Protein 5.7 g/dL (6.3-8.2)
[2022-07-17 12:24] LABS: Glucose,Whole Blood 192 mg/dL (70-110)
--- NOTE | 2022-07-17 13:46 | P.DS ---
Providers Date of admission: 07/14/22 22:39 Expected date of discharge: 07/17/22 Attending physician: Bisi Yepez Primary care physician: Bisi Yepez Hospital Course: HISTORY OF PRESENT ILLNESS: This is a 61-year-old female with a past medical history significant for hypertension and hypertensive cardio vascular disease, hyperlipidemia, diabetes mellitus type 2 with diabetic polyneuropathy, history of chronic pain syndrome, history of cervical cancer status post surgery in the past, history of recurrent UTI, history of COVID-19 back in 2021, chronic hypoxemic respiratory failure requiring 2 L nasal cannula, history of right diaphragm paralysis. Patient had recently hospitalization for acute hypoxic respiratory failure secondary to right lower lobe aspiration pneumonia along with toxic metabolic encephalopathy, also another hospitalization March 04- for acute kidney injury, hypotension and toxic metabolic encephalopathy thought to be a combination of acute kidney injury with chronic opioid use. Patient was a long-term resident at [facility] but then was discharged to home. Patient states that she has been living with her daughter but they have been arguing for the past 2 weeks. She states she's been unable to take a shower for the past 3 weeks because she can't get into the shower. She has had 7 falls recently. She is utilizing a walker but there is no room in the home for wheelchair. She presented to [facility] emergency center complaining of feeling tired, didn't sleep for 3 days, generalized weakness and a muffled sensation in her ears. She complains of severe headache and neck pain. Patient complains of feeling hot and cold all the time. She does complain of dysuria, no hematuria. Patient was found to be afebrile, heart rate 75, blood pressure 123/74 and pulse ox 95% on room air. WBC 16.8, hemoglobin 14.6, platelet count 225. Sodium 135, potassium 4.2, chloride 98, CO2 27, BUN 34 creatinine 1.55. Blood sugar 225. Lactic acid 1.4. Calcium 9.1. Magnesium 1.6. AST 45 other liver function tests were normal. TSH 0.547. Urinalysis was glucose 1+, leukoesterase small, thick 2 rare, hyaline casts 6. Covonavirus PCR not detected. Chest x-ray reveals no acute cardiopulmonary disease. CAT scan of the brain revealed no acute intracranial process. Patient is seen today in the emergency center waiting for a bed on the observation unit. 07/16: Patient's states that she still has headache and buzzing sound like crickets in her head. She has an appointment with Dr. Licea/Curtis at the office and is investigating a pain pump. Patient complains of vaginal bleeding but has not had periods, it is spotting with wiping. Vaginal ultrasound will be ordered. IV fluids changed to saline lock. Patient states she no longer is interested in going to [facility] and does not recall saying that yesterday. She is now interested in [facility] and she is also mention to staff that she will would like a hospice informational meeting which can be arranged. 07/17: Transvaginal pelvic ultrasound revealed limited study secondary to patient body habitus. Trace fluid within the endometrium correlate for cervical stenosis. Consider MRI of the pelvis with IV contrast for complete evaluation of the uterus. Patient is unable to undergo MRI. We'll plan for outpatient follow-up to discuss in the office before any further testing. Patient feels about the same as yesterday. She is willing to go home today with [facility] in place. She did have an informational meeting with hospice. Patient will be discharged today in stable condition. DISCHARGE DIAGNOSES 1. Dehydration. 2. Acute exacerbation of headache and neck pain which are chronic. 3. Frequent falls with generalized weakness. 4. Chronic kidney disease stage III. 5. Hypertension and hypertensive cardiovascular disease. 6. Hyperlipidemia. 7. Diabetes mellitus type 2. 8. Diabetic polyneuropathy. 9. Fibromyalgia. 10. Recurrent depression. 11. History of pseudocyst tumor cerebri status post multiple [employer]ORDINATOR shunt's. 12. History of cervical cancer currently in remission. 13. History of chronic pain syndrome. 14. Vaginal bleeding. Discharge plan: [facility] Greater than 35 minutes was utilized and coordinating patient's discharge. Impression and plan of care have been directed as dictated by the signing physician. Carolyn Cunningham nurse practitioner acting as scribe for signing physician. Patient Condition at Discharge: Stable Plan - Discharge Summary Discharge Rx Participant: No New Discharge Prescriptions: Continue Lactulose 10 gm PO DAILY PRN PRN Reason: Constipation Losartan/Hydrochlorothiazide [Losartan-Hctz 100-25 mg Tab] 1 tab PO DAILY Atorvastatin [Lipitor] 10 mg PO HS Insulin Glargine,Hum.rec.anlog [Lantus Solostar Pen] 20 unit SQ HS diazePAM [Valium] 2 mg PO BID Furosemide [Lasix] 40 mg PO DAILY PRN PRN Reason: Edema Gabapentin [Neurontin] 600 mg PO BID Morphine Sulfate ER [Ms Contin] 30 mg PO Q12HR Tacrolimus [Tacrolimus 0.1%] 1 applic TOPICAL BID PRN PRN Reason: psoriasis Nitroglycerin Sl Tabs [Nitrostat] 0.4 mg SL Q5M PRN PRN Reason: Chest Pain Metoprolol Tartrate [Lopressor] 100 mg PO BID QUEtiapine [SEROquel] 25 mg PO HS Insulin Lispro [humaLOG Kwikpen] See Protocol SQ ACHS Fluocinonide 0.05% Solution 1 applic TOPICAL BID PRN PRN Reason: psoriasis Ondansetron Odt [Zofran ODT] 4 mg SL DAILY PRN PRN Reason: Nausea oxyCODONE HCL [oxyCODONE HCL (IR)] 10 mg PO Q6H PRN PRN Reason: Pain Triamcinolone Acetonide [Triamcinolone Acetonide 0.025%] 1 applic TOPICAL BID PRN PRN Reason: psoriasis Clobetasol Propionate [Temovate 0.05% Cream] 1 applic TOPICAL BID PRN PRN Reason: psoriasis Discharge Medication List Metoprolol Tartrate [Lopressor] 100 mg PO BID 05/25/21 [History] Nitroglycerin Sl Tabs [Nitrostat] 0.4 mg SL Q5M PRN 05/25/21 [History] Atorvastatin [Lipitor] 10 mg PO HS 02/16/22 [History] Lactulose 10 gm PO DAILY PRN 02/16/22 [History] Losartan/Hydrochlorothiazide [Losartan-Hctz 100-25 mg Tab] 1 tab PO DAILY 02/16/22 [History] QUEtiapine [SEROquel] 25 mg PO HS 02/16/22 [History] Insulin Glargine,Hum.rec.anlog [Lantus Solostar Pen] 20 unit SQ HS 03/04/22 [History] Insulin Lispro [humaLOG Kwikpen] See Protocol SQ ACHS 03/04/22 [History] Clobetasol Propionate [Temovate 0.05% Cream] 1 applic TOPICAL BID PRN 07/14/22 [History] Fluocinonide 0.05% Solution 1 applic TOPICAL BID PRN 07/14/22 [History] Furosemide [Lasix] 40 mg PO DAILY PRN 07/14/22 [History] Gabapentin [Neurontin] 600 mg PO BID 07/14/22 [History] Morphine Sulfate ER [Ms Contin] 30 mg PO Q12HR 07/14/22 [History] Ondansetron Odt [Zofran ODT] 4 mg SL DAILY PRN 07/14/22 [History] Tacrolimus [Tacrolimus 0.1%] 1 applic TOPICAL BID PRN 07/14/22 [History] Triamcinolone Acetonide [Triamcinolone Acetonide 0.025%] 1 applic TOPICAL BID PRN 07/14/22 [History] diazePAM [Valium] 2 mg PO BID 07/14/22 [History] oxyCODONE HCL [oxyCODONE HCL (IR)] 10 mg PO Q6H PRN 07/14/22 [History] Follow up Appointment(s)/Referral(s): [facility] Visiting Nurse, [NON-STAFF] - 1 Week Bisi Yepez MD [Primary Care Provider] - 1 Week Discharge Disposition: HOME WITH HOME HEALTH SERVICES
[2022-07-17 14:40] VITALS: BP 136/93; PULSE 69; RESP 16; TEMP 97.6
== END 2022-07-17 16:09 | disposition home health service (06) ==
LOC: EC 17:29 → 6NMEDSUR 22:39
PROVIDERS: ADMIT Internal Medicine; ATTEND Internal Medicine
DX: E86.0 Dehydration (principal); N39.0 Urinary tract infection, site not specified; I13.0 Hypertensive heart and chronic kidney disease with heart failure and stage 1 through stage 4 chronic kidney disease, or unspecified chronic kidney disease; E78.5 Hyperlipidemia, unspecified; B19.20 Unspecified viral hepatitis C without hepatic coma; L40.9 Psoriasis, unspecified; N18.30 Chronic kidney disease, stage 3 unspecified; I50.9 Heart failure, unspecified; E11.22 Type 2 diabetes mellitus with diabetic chronic kidney disease; E11.42 Type 2 diabetes mellitus with diabetic polyneuropathy; E11.319 Type 2 diabetes mellitus with unspecified diabetic retinopathy without macular edema; M54.2 Cervicalgia; M54.9 Dorsalgia, unspecified; G89.4 Chronic pain syndrome; M48.20 Kissing spine, site unspecified; Q04.9 Congenital malformation of brain, unspecified; F17.200 Nicotine dependence, unspecified, uncomplicated; G47.33 Obstructive sleep apnea (adult) (pediatric); E66.9 Obesity, unspecified; E55.9 Vitamin D deficiency, unspecified; M47.816 Spondylosis without myelopathy or radiculopathy, lumbar region; F41.9 Anxiety disorder, unspecified; M79.7 Fibromyalgia; R29.6 Repeated falls; G93.2 Benign intracranial hypertension; M48.00 Spinal stenosis, site unspecified; I27.20 Pulmonary hypertension, unspecified; F33.9 Major depressive disorder, recurrent, unspecified; N95.8 Other specified menopausal and perimenopausal disorders; N93.9 Abnormal uterine and vaginal bleeding, unspecified; E04.1 Nontoxic single thyroid nodule; F11.10 Opioid abuse, uncomplicated; R91.1 Solitary pulmonary nodule; Z85.41 Personal history of malignant neoplasm of cervix uteri; Z98.51 Tubal ligation status; Z81.8 Family history of other mental and behavioral disorders; Z82.49 Family history of ischemic heart disease and other diseases of the circulatory system; Z86.73 Personal history of transient ischemic attack (TIA), and cerebral infarction without residual deficits; Z79.899 Other long term (current) drug therapy; Z79.4 Long term (current) use of insulin; Z86.16 Personal history of COVID-19; Z20.822 Contact with and (suspected) exposure to COVID-19; Z96.611 Presence of right artificial shoulder joint; Z80.8 Family history of malignant neoplasm of other organs or systems; Z83.438 Family history of other disorder of lipoprotein metabolism and other lipidemia; Z68.32 Body mass index [BMI] 32.0-32.9, adult
CPT/HCPCS: 96361 ×3; 96372 ×3; 96374; 96375 ×2; 99285; 36415; 94760; 97162; 97167; 80053 ×3; 83605; 83735; 84443; 85025 ×2; 85027; 81001; 87635; 71046; 76857; 76830; 70450; G0378 ×4; J2270; J0696; J1170; J1644 ×3

== ENCOUNTER 2022-07-19 01:10 | Emergency (ER) | payer OTHER ==
[2022-07-19] MEDS ORDERED: MORPHINE SULFATE 4 MG/ML SYRINGE IV STA ×2 (01:39→04:24)
[2022-07-19] MEDS ORDERED: METOCLOPRAMIDE 5 MG/ML 2 ML VIAL IVP STA (01:39)
[2022-07-19] MEDS ORDERED: SODIUM CHLORIDE 0.9% 500 ML 500 ML IV STA (01:39)
[2022-07-19 02:26] LABS: Basophils # (A) 0.1 k/uL (0-0.2); Basophils % (A) 0 %; Eosinophils # (A) 0.2 k/uL (0-0.7); Eosinophils % (A) 1 %; HGB 13.4 gm/dL (11.4-16.0); Lymphocytes # (A) 2.3 k/uL (1.0-4.8); Lymphocytes % (A) 17 %; MCH 30.3 pg (25.0-35.0); MCHC 36.3 g/dL (31.0-37.0); Mean Platelet Volume 9.2; Monocytes # (A) 0.6 k/uL (0-1.0); Monocytes % (A) 5 %; Neutrophils % (A) 73 %; Platelet Count 237 k/uL (150-450); RBC 4.43 m/uL (3.80-5.40); RDW 13.3 % (11.5-15.5); WBC 13.6 k/uL (3.8-10.6)
[2022-07-19 02:38] LABS: Albumin 3.6 g/dL (3.5-5.0); Calcium 9.5 mg/dL (8.4-10.2); MCV 83.6 fL (80.0-100.0); Potassium 3.4 mmol/L (3.5-5.1); Total Bilirubin 0.5 mg/dL (0.2-1.3); Total Protein 6.2 g/dL (6.3-8.2)
--- NOTE | 2022-07-19 04:10 | CT ---
EXAMINATION TYPE: CT brain wo con DATE OF EXAM: 07/19/2022 COMPARISON: 07/14/2022 HISTORY: [facility] CT DLP: 1162.4 mGycm Automated exposure control for dose reduction was used. There is mild cerebral atrophy. There is some hypodensity in the serra and white matter right posterio r frontal lobe near the cerebral falx. There is no mass effect or midline shift. No sign of intracran ial hemorrhage. The calvarium is intact. 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 No acute intracranial abnormality. No change.
--- NOTE | 2022-07-19 04:21 | ED ---
Headache HPI - General Chief Complaint: Headache Stated Complaint: Neck Pain, Head Pain Time Seen by Provider: 07/19/22 01:24 Source: patient Mode of arrival: EMS Limitations: no limitations - History of Present Illness MD Complaint: headache -: hour(s) Onset Description: gradual Location: diffuse Severity: severe Quality: aching Consistency: constant Improves With: nothing Worsens With: none Associated Symptoms: photophobia Treatments Prior to Arrival: none - Related Data Home Medications Medication Instructions Recorded Confirmed Metoprolol Tartrate [Lopressor] 100 mg PO BID 05/25/21 07/14/22 Nitroglycerin Sl Tabs [Nitrostat] 0.4 mg SL Q5M PRN 05/25/21 07/14/22 Atorvastatin [Lipitor] 10 mg PO HS 02/16/22 07/14/22 Lactulose 10 gm PO DAILY PRN 02/16/22 07/14/22 Losartan/Hydrochlorothiazide 1 tab PO DAILY 02/16/22 07/14/22 [Losartan-Hctz 100-25 mg Tab] QUEtiapine [SEROquel] 25 mg PO HS 02/16/22 07/14/22 Insulin Glargine,Hum.rec.anlog 20 unit SQ HS 03/04/22 07/14/22 [Lantus Solostar Pen] Insulin Lispro [humaLOG Kwikpen] See Protocol SQ ACHS 03/04/22 07/14/22 Clobetasol Propionate [Temovate 1 applic TOPICAL BID PRN 07/14/22 07/14/22 0.05% Cream] Fluocinonide 0.05% Solution 1 applic TOPICAL BID PRN 07/14/22 07/14/22 Furosemide [Lasix] 40 mg PO DAILY PRN 07/14/22 07/14/22 Gabapentin [Neurontin] 600 mg PO BID 07/14/22 07/14/22 Morphine Sulfate ER [Ms Contin] 30 mg PO Q12HR 07/14/22 07/14/22 Ondansetron Odt [Zofran ODT] 4 mg SL DAILY PRN 07/14/22 07/14/22 Tacrolimus [Tacrolimus 0.1%] 1 applic TOPICAL BID PRN 07/14/22 07/14/22 Triamcinolone Acetonide 1 applic TOPICAL BID PRN 07/14/22 07/14/22 [Triamcinolone Acetonide 0.025%] diazePAM [Valium] 2 mg PO BID 07/14/22 07/14/22 oxyCODONE HCL [oxyCODONE HCL (IR)] 10 mg PO Q6H PRN 07/14/22 07/14/22 Allergies Allergy/AdvReac Type Severity Reaction Status Date / Time No Known Allergies Allergy Verified 07/20/22 03:02 Review of Systems ROS Statement: Those systems with pertinent positive or pertinent negative responses have been documented in the HPI. ROS Other: All systems not noted in ROS Statement are negative. Constitutional: Denies: fever, chills, weakness Respiratory: Denies: cough, dyspnea Cardiovascular: Denies: chest pain, palpitations Gastrointestinal: Reports: nausea, vomiting Genitourinary: Denies: dysuria Musculoskeletal: Denies: back pain Skin: Denies: rash Neurological: Reports: headache. 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, pulmonary htn, covid + 10/2021, thyroid nodule, single pulmonary nodule, psoriasis, bacterial meningitis at age 30, cancer cervix, UTI/R pyelonephritis with sepsis, History of Any Multi-Drug Resistant Organisms: None Reported Past Surgical History: Adenoidectomy, Appendectomy, Back Surgery, Bladder Surgery, Orthopedic Surgery, Tonsillectomy, Tubal Ligation Additional Past Surgical History / Comment(s): 9 PROFESSOR OF NURSING shunts- none at 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 Past Anesthesia/Blood Transfusion Reactions: No Reported Reaction Additional Past Anesthesia/Blood Transfusion Reaction / Comment(s): no hx blood transfusion Past Psychological History: Anxiety Smoking Status: Current every day smoker Past Alcohol Use History: None Reported Past Drug Use History: Marijuana - Past Family History Mother Family Medical History: No Reported History Additional Family Medical History / Comment(s): Mother was murdered at the age of 44 yrs. She had paranoid schizophrenia. Father Family Medical History: Myocardial Infarction ([place]) Additional Family Medical History / Comment(s): Father of a [place] at the age of 60 yrs. General Exam General appearance: alert, in no apparent distress Head exam: Present: atraumatic, normocephalic Eye exam: Present: normal appearance, PERRL, EOMI. Absent: scleral icterus, conjunctival injection ENT exam: Present: normal oropharynx Neck exam: Present: normal inspection, full ROM. Absent: tenderness, meningismus Respiratory exam: Present: normal lung sounds bilaterally. Absent: respiratory distress, wheezes, rales, rhonchi, stridor Cardiovascular Exam: Present: regular rate, normal rhythm, normal heart sounds. Absent: systolic murmur, diastolic murmur, rubs, gallop GI/Abdominal exam: Present: soft. Absent: tenderness Neurological exam: Present: alert, oriented X3, CN II-XII intact. Absent: motor sensory deficit Skin exam: Present: warm, dry, intact, normal color, other (Piloerection). Absent: rash Course Vital Signs 07/19/22 07/19/22 07/19/22 01:12 02:17 05:11 Temperature 98.4 F 98 F Pulse Rate 91 97 87 Respiratory 22 22 20 Rate Blood Pressure 150/97 142/76 154/79 O2 Sat by Pulse 99 97 97 Oximetry Medical Decision Making - Lab Data Result diagrams: 07/19/22 02:00 07/19/22 02:00 Lab Results 07/19/22 07/19/22 Range/Units 02:00 02:00 WBC 13.6 H (3.8-10.6) k/uL RBC 4.43 (3.80-5.40) m/uL Hgb 13.4 (11.4-16.0) gm/dL Hct 37.0 (34.0-46.0) % MCV 83.6 D (80.0-100.0) fL MCH 30.3 (25.0-35.0) pg MCHC 36.3 (31.0-37.0) g/dL RDW 13.3 (11.5-15.5) % Plt Count 237 (150-450) k/uL MPV 9.2 Neutrophils % 73 % Lymphocytes % 17 % Monocytes % 5 % Eosinophils % 1 % Basophils % 0 % Neutrophils # 10.0 H (1.3-7.7) k/uL Lymphocytes # 2.3 (1.0-4.8) k/uL Monocytes # 0.6 (0-1.0) k/uL Eosinophils # 0.2 (0-0.7) k/uL Basophils # 0.1 (0-0.2) k/uL Sodium 135 L (137-145) mmol/L Potassium 3.4 L (3.5-5.1) mmol/L Chloride 97 L (98-107) mmol/L Carbon Dioxide 26 (22-30) mmol/L Anion Gap 12 mmol/L BUN 20 H (7-17) mg/dL Creatinine 1.02 (0.52-1.04) mg/dL Est GFR (CKD-EPI)AfAm 70 (>60 ml/min/1.73 sqM) Est GFR (CKD-EPI)NonAf 61 (>60 ml/min/1.73 sqM) Glucose 279 H (74-99) mg/dL Calcium 9.5 (8.4-10.2) mg/dL Total Bilirubin 0.5 (0.2-1.3) mg/dL AST 30 (14-36) U/L ALT 24 (4-34) U/L Alkaline Phosphatase 127 H (38-126) U/L Total Protein 6.2 L (6.3-8.2) g/dL Albumin 3.6 (3.5-5.0) g/dL Disposition Clinical Impression: Chronic headache Disposition: HOME SELF-CARE Condition: Good Instructions (If sedation given, give patient instructions): Acute Headache (ED) Is patient prescribed a controlled substance at d/c from ED?: No Referrals: Bisi Yepez MD [Primary Care Provider] - 1-2 days
[2022-07-19 05:12] VITALS: BP 154/79; PULSE 87; RESP 20; TEMP 98
== END 2022-07-19 05:12 | disposition home or self-care (01) ==
LOC: EC 01:10
DX: R51.9 Headache, unspecified (principal); I10 Essential (primary) hypertension; E11.9 Type 2 diabetes mellitus without complications; E78.5 Hyperlipidemia, unspecified; I50.9 Heart failure, unspecified; F17.200 Nicotine dependence, unspecified, uncomplicated; Z79.4 Long term (current) use of insulin; Z79.899 Other long term (current) drug therapy
CPT/HCPCS: 36415; 80053; 85025; 70450; 96374; 96375; 96376; 99284; J2270; J2765

== ENCOUNTER 2022-07-20 02:49 | Emergency (ER) | payer OTHER ==
[2022-07-20 03:07] VITALS: TEMP 98.1
[2022-07-20] MEDS ORDERED: MORPHINE SULFATE 4 MG/ML SYRINGE IV STA (03:29)
--- NOTE | 2022-07-20 04:02 | XR ---
EXAMINATION TYPE: XR chest 2V DATE OF EXAM: 07/20/2022 COMPARISON: 07/14/2022 HISTORY: Chest pain TECHNIQUE: 2 views FINDINGS: There is some atelectasis right lung base. Heart and mediastinum are normal. There are no h ilar masses. Bony thorax is intact. IMPRESSION: There is some atelectasis right lung base similar to old exam. Normal heart.
[2022-07-20 04:30] LABS: Basophils # (A) 0.1 k/uL (0-0.2); Basophils % (A) 1 %; Eosinophils # (A) 0.2 k/uL (0-0.7); Eosinophils % (A) 1 %; HCT 36.4 % (34.0-46.0); HGB 12.7 gm/dL (11.4-16.0); Lymphocytes # (A) 2.7 k/uL (1.0-4.8); Lymphocytes % (A) 18 %; MCH 29.7 pg (25.0-35.0); MCV 84.8 fL (80.0-100.0); Monocytes # (A) 0.7 k/uL (0-1.0); Monocytes % (A) 5 %; Neutrophils % (A) 73 %; Platelet Count 230 k/uL (150-450); RBC 4.29 m/uL (3.80-5.40); RDW 13.6 % (11.5-15.5); WBC 15.1 k/uL (3.8-10.6)
[2022-07-20 04:50] LABS: Albumin 3.5 g/dL (3.5-5.0); Calcium 9.2 mg/dL (8.4-10.2); Potassium 3.5 mmol/L (3.5-5.1); Total Bilirubin 0.4 mg/dL (0.2-1.3); Total Protein 6.2 g/dL (6.3-8.2)
--- NOTE | 2022-07-20 05:56 | ED ---
General Adult HPI - General Chief complaint: Recheck/Abnormal Lab/Rx Stated complaint: Chest Pain Time Seen by Provider: 07/20/22 03:16 Source: EMS Mode of arrival: EMS Limitations: no limitations - History of Present Illness Initial comments: This patient is a 61-year-old woman who presents with complaint that she is having aching everywhere. The patient states she has a number of medical problems and that she does get chronic pains. She usually takes home morphine. She has not noted new symptoms. No fever or chills. No chest pain or dyspnea. She has had some nausea. Onset/Timin -: days(s) Location: back, left, right, lower extremity Radiation: non-radiation Quality: aching Consistency: constant Improves with: none Worsens with: none Associated Symptoms: nausea/vomiting - Related Data Home Medications Medication Instructions Recorded Confirmed Metoprolol Tartrate [Lopressor] 100 mg PO BID 05/25/21 07/14/22 Nitroglycerin Sl Tabs [Nitrostat] 0.4 mg SL Q5M PRN 05/25/21 07/14/22 Atorvastatin [Lipitor] 10 mg PO HS 02/16/22 07/14/22 Lactulose 10 gm PO DAILY PRN 02/16/22 07/14/22 Losartan/Hydrochlorothiazide 1 tab PO DAILY 02/16/22 07/14/22 [Losartan-Hctz 100-25 mg Tab] QUEtiapine [SEROquel] 25 mg PO HS 02/16/22 07/14/22 Insulin Glargine,Hum.rec.anlog 20 unit SQ HS 03/04/22 07/14/22 [Lantus Solostar Pen] Insulin Lispro [humaLOG Kwikpen] See Protocol SQ ACHS 03/04/22 07/14/22 Clobetasol Propionate [Temovate 1 applic TOPICAL BID PRN 07/14/22 07/14/22 0.05% Cream] Fluocinonide 0.05% Solution 1 applic TOPICAL BID PRN 07/14/22 07/14/22 Furosemide [Lasix] 40 mg PO DAILY PRN 07/14/22 07/14/22 Gabapentin [Neurontin] 600 mg PO BID 07/14/22 07/14/22 Morphine Sulfate ER [Ms Contin] 30 mg PO Q12HR 07/14/22 07/14/22 Ondansetron Odt [Zofran ODT] 4 mg SL DAILY PRN 07/14/22 07/14/22 Tacrolimus [Tacrolimus 0.1%] 1 applic TOPICAL BID PRN 07/14/22 07/14/22 Triamcinolone Acetonide 1 applic TOPICAL BID PRN 07/14/22 07/14/22 [Triamcinolone Acetonide 0.025%] diazePAM [Valium] 2 mg PO BID 07/14/22 07/14/22 oxyCODONE HCL [oxyCODONE HCL (IR)] 10 mg PO Q6H PRN 07/14/22 07/14/22 Allergies Allergy/AdvReac Type Severity Reaction Status Date / Time No Known Allergies Allergy Verified 07/20/22 03:02 Review of Systems ROS Statement: Those systems with pertinent positive or pertinent negative responses have been documented in the HPI. ROS Other: All systems not noted in ROS Statement are negative. Constitutional: Reports: weakness. Denies: fever, chills Eyes: Denies: vision change Respiratory: Denies: cough, dyspnea Cardiovascular: Denies: chest pain, palpitations, edema, syncope Gastrointestinal: Reports: nausea. Denies: abdominal pain, vomiting, diarrhea, constipation Genitourinary: Denies: dysuria, hematuria Musculoskeletal: Reports: back pain, arthralgia, myalgia Skin: Denies: rash Neurological: Denies: headache, weakness 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, pulmonary htn, covid + 10/2021, thyroid nodule, single pulmonary nodule, psoriasis, bacterial meningitis at age 30, cancer cervix, UTI/R pyelonephritis with sepsis, History of Any Multi-Drug Resistant Organisms: None Reported Past Surgical History: Adenoidectomy, Appendectomy, Back Surgery, Bladder Surgery, Orthopedic Surgery, Tonsillectomy, Tubal Ligation Additional Past Surgical History / Comment(s): 9 LEGUILLON DEBEADER shunts- none at 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 Past Anesthesia/Blood Transfusion Reactions: No Reported Reaction Additional Past Anesthesia/Blood Transfusion Reaction / Comment(s): no hx blood transfusion Past Psychological History: Anxiety Smoking Status: Current every day smoker Past Alcohol Use History: None Reported Past Drug Use History: Marijuana - Past Family History Mother Family Medical History: No Reported History Additional Family Medical History / Comment(s): Mother was murdered at the age of 44 yrs. She had paranoid schizophrenia. Father Family Medical History: Myocardial Infarction ([place]) Additional Family Medical History / Comment(s): Father of a [place] at the age of 60 yrs. General Exam Limitations: no limitations General appearance: alert, in no apparent distress Head exam: Present: atraumatic, normocephalic Eye exam: Present: normal appearance. Absent: scleral icterus, conjunctival injection ENT exam: Present: normal oropharynx Neck exam: Present: normal inspection Respiratory exam: Present: normal lung sounds bilaterally. Absent: respiratory distress, wheezes, rales, rhonchi, stridor, chest wall tenderness Cardiovascular Exam: Present: regular rate, normal rhythm, normal heart sounds. Absent: systolic murmur, diastolic murmur, rubs, gallop GI/Abdominal exam: Present: soft. Absent: distended, tenderness, guarding, rebound, rigid, mass Extremities exam: Present: normal inspection, normal capillary refill. Absent: pedal edema, calf tenderness Back exam: Present: normal inspection. Absent: CVA tenderness (R), CVA tenderness (L) Neurological exam: Present: alert. Absent: motor sensory deficit Skin exam: Present: warm, dry, intact, normal color, other (Piloerection) Course Vital Signs 07/20/22 07/20/22 07/20/22 03:02 06:39 07:19 Temperature 98.1 F Pulse Rate 74 71 75 Respiratory 15 15 16 Rate Blood Pressure 141/74 139/68 137/72 O2 Sat by Pulse 97 97 99 Oximetry Medical Decision Making - Lab Data Result diagrams: 07/20/22 04:15 07/20/22 04:15 Lab Results 07/20/22 07/20/22 07/20/22 Range/Units 04:15 04:15 04:15 WBC 15.1 H (3.8-10.6) k/uL RBC 4.29 (3.80-5.40) m/uL Hgb 12.7 (11.4-16.0) gm/dL Hct 36.4 (34.0-46.0) % MCV 84.8 (80.0-100.0) fL MCH 29.7 (25.0-35.0) pg MCHC 35.0 (31.0-37.0) g/dL RDW 13.6 (11.5-15.5) % Plt Count 230 (150-450) k/uL MPV 9.0 Neutrophils % 73 % Lymphocytes % 18 % Monocytes % 5 % Eosinophils % 1 % Basophils % 1 % Neutrophils # 11.0 H (1.3-7.7) k/uL Lymphocytes # 2.7 (1.0-4.8) k/uL Monocytes # 0.7 (0-1.0) k/uL Eosinophils # 0.2 (0-0.7) k/uL Basophils # 0.1 (0-0.2) k/uL Sodium 134 L (137-145) mmol/L Potassium 3.5 (3.5-5.1) mmol/L Chloride 96 L (98-107) mmol/L Carbon Dioxide 27 (22-30) mmol/L Anion Gap 11 mmol/L BUN 20 H (7-17) mg/dL Creatinine 1.05 H (0.52-1.04) mg/dL Est GFR (CKD-EPI)AfAm 67 (>60 ml/min/1.73 sqM) Est GFR (CKD-EPI)NonAf 58 (>60 ml/min/1.73 sqM) Glucose 273 H (74-99) mg/dL Calcium 9.2 (8.4-10.2) mg/dL Total Bilirubin 0.4 (0.2-1.3) mg/dL AST 26 (14-36) U/L ALT 22 (4-34) U/L Alkaline Phosphatase 130 H (38-126) U/L Troponin I <0.012 (0.000-0.034) ng/mL Total Protein 6.2 L (6.3-8.2) g/dL Albumin 3.5 (3.5-5.0) g/dL Disposition Clinical Impression: Chronic pain Disposition: HOME SELF-CARE Condition: Fair Is patient prescribed a controlled substance at d/c from ED?: No Referrals: Bisi Yepez MD [Primary Care Provider] - 1-2 days Renny Licea MD [Medical Doctor] - 1-2 days
[2022-07-20 07:21] VITALS: BP 137/72; PULSE 75; RESP 16
== END 2022-07-20 07:20 | disposition home or self-care (01) ==
LOC: EC 02:49
DX: G89.29 Other chronic pain (principal); E11.9 Type 2 diabetes mellitus without complications; I11.0 Hypertensive heart disease with heart failure; I50.9 Heart failure, unspecified; F41.9 Anxiety disorder, unspecified; F17.200 Nicotine dependence, unspecified, uncomplicated; F12.90 Cannabis use, unspecified, uncomplicated; Z79.4 Long term (current) use of insulin; Z79.899 Other long term (current) drug therapy
CPT/HCPCS: 36415; 80053; 84484; 85025; 71046; 99285; 96374; J2270

== ENCOUNTER 2022-08-19 13:51 | Inpatient (IN) | payer OTHER ==
--- NOTE | 2022-08-19 16:06 | ED ---
General Adult HPI - General Chief complaint: Recheck/Abnormal Lab/Rx Stated complaint: Hyperglycemia Time Seen by Provider: 08/19/22 15:01 Source: patient Mode of arrival: ambulatory Limitations: no limitations - History of Present Illness Initial comments: Dictation was produced using [employer] dictation software. please excuse any grammatical, word or spelling errors. Chief Complaint: 61-year-old female instructed by home health care nurse come to the emergency department to be admitted for debility History of Present Illness: Patient is a 61-year-old female she has multiple comorbidities. Patient allegedly was told by her home health care nurse to come to the emergency department to be admitted. Patient has a complex medical history. She has been living in a intermediate for a year. In February she was discharged because they took away her motorized wheelchair because she was driving her wheelchair around inebriated. Continue living at home with home health nursing. Patient states that she does not feel like she is getting adequate care. She processes been having labile blood glucose despite full compliance with medications. Her home health care nurse today spoke with her primary care doctor, Dr. Yepez who requests that patient come to the emergency department to be admitted. Patient does not have any specific acute complaints prompting ER visit today. The ROS documented in this emergency department record has been reviewed and confirmed by me. Those systems with pertinent positive or negative responses have been documented in the HPI. All other systems are other negative and/or noncontributory. PHYSICAL EXAM: General Impression: Alert and oriented x3, not in acute distress HEENT: Normocephalic atraumatic, extra-ocular movements intact, pupils equal and reactive to light bilaterally, mucous membranes moist. Cardiovascular: Heart regular rate and rhythm Chest: Able to complete full sentences, no retractions, no tachypnea Abdomen: abdomen soft, non-tender, non-distended, no organomegaly Musculoskeletal: Pulses present and equal in all extremities, no peripheral edema Motor: no focal deficits noted Neurological: CN II-XII grossly intact, no focal motor or sensory deficits noted Skin: Intact with no visualized rashes Psych: Normal affect and mood ED course: 61-year-old well-appearing female presents to emergency department after being told by her primary care doctor to come to the emergency department to be admitted to the hospital. He allegedly has had elevated blood glucose at home Laboratory evaluation obtained. CBC, metabolic panel within acceptable limits. Case is discussed with Dr. Yepez who requested that patient be admitted with social work consultation. - Related Data Home Medications Medication Instructions Recorded Confirmed Metoprolol Tartrate [Lopressor] 100 mg PO BID 05/25/21 07/14/22 Nitroglycerin Sl Tabs [Nitrostat] 0.4 mg SL Q5M PRN 05/25/21 07/14/22 Atorvastatin [Lipitor] 10 mg PO HS 02/16/22 07/14/22 Lactulose 10 gm PO DAILY PRN 02/16/22 07/14/22 Losartan/Hydrochlorothiazide 1 tab PO DAILY 02/16/22 07/14/22 [Losartan-Hctz 100-25 mg Tab] QUEtiapine [SEROquel] 25 mg PO HS 02/16/22 07/14/22 Insulin Glargine,Hum.rec.anlog 20 unit SQ HS 03/04/22 07/14/22 [Lantus Solostar Pen] Insulin Lispro [humaLOG Kwikpen] See Protocol SQ ACHS 03/04/22 07/14/22 Clobetasol Propionate [Temovate 1 applic TOPICAL BID PRN 07/14/22 07/14/22 0.05% Cream] Fluocinonide 0.05% Solution 1 applic TOPICAL BID PRN 07/14/22 07/14/22 Furosemide [Lasix] 40 mg PO DAILY PRN 07/14/22 07/14/22 Gabapentin [Neurontin] 600 mg PO BID 07/14/22 07/14/22 Morphine Sulfate ER [Ms Contin] 30 mg PO Q12HR 07/14/22 07/14/22 Ondansetron Odt [Zofran ODT] 4 mg SL DAILY PRN 07/14/22 07/14/22 Tacrolimus [Tacrolimus 0.1%] 1 applic TOPICAL BID PRN 07/14/22 07/14/22 Triamcinolone Acetonide 1 applic TOPICAL BID PRN 07/14/22 07/14/22 [Triamcinolone Acetonide 0.025%] diazePAM [Valium] 2 mg PO BID 07/14/22 07/14/22 oxyCODONE HCL [oxyCODONE HCL (IR)] 10 mg PO Q6H PRN 07/14/22 07/14/22 Allergies Allergy/AdvReac Type Severity Reaction Status Date / Time No Known Allergies Allergy Verified 08/19/22 14:16 Review of Systems ROS Statement: Those systems with pertinent positive or pertinent negative responses have been documented in the HPI. ROS Other: All systems not noted in ROS Statement are negative. 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, pulmonary htn, covid + 10/2021, thyroid nodule, single pulmonary nodule, psoriasis, bacterial meningitis at age 30, cancer cervix, UTI/R pyelonephritis with sepsis, History of Any Multi-Drug Resistant Organisms: None Reported Past Surgical History: Adenoidectomy, Appendectomy, Back Surgery, Bladder Surgery, Orthopedic Surgery, Tonsillectomy, Tubal Ligation Additional Past Surgical History / Comment(s): 9 [employer] SCI[employer]OR shunts- none at 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 Past Anesthesia/Blood Transfusion Reactions: No Reported Reaction Additional Past Anesthesia/Blood Transfusion Reaction / Comment(s): no hx blood transfusion Past Psychological History: Anxiety Smoking Status: Current every day smoker Past Alcohol Use History: None Reported Past Drug Use History: Marijuana - Past Family History Mother Family Medical History: No Reported History Additional Family Medical History / Comment(s): Mother was murdered at the age of 44 yrs. She had paranoid schizophrenia. Father Family Medical History: Myocardial Infarction ([place]) Additional Family Medical History / Comment(s): Father of a [place] at the age of 60 yrs. General Exam Limitations: no limitations Course Vital Signs 08/19/22 14:13 Temperature 98.6 F Pulse Rate 73 Respiratory 20 Rate Blood Pressure 176/116 O2 Sat by Pulse 98 Oximetry Medical Decision Making - Lab Data Result diagrams: 08/19/22 15:53 08/19/22 15:53 Lab Results 08/19/22 08/19/22 Range/Units 15:53 15:53 WBC 14.6 H (3.8-10.6) k/uL RBC 4.97 (3.80-5.40) m/uL Hgb 15.1 (11.4-16.0) gm/dL Hct 43.2 (34.0-46.0) % MCV 86.8 (80.0-100.0) fL MCH 30.4 (25.0-35.0) pg MCHC 35.0 (31.0-37.0) g/dL RDW 13.3 (11.5-15.5) % Plt Count 260 (150-450) k/uL MPV 8.1 Neutrophils % 73 % Lymphocytes % 19 % Monocytes % 4 % Eosinophils % 2 % Basophils % 1 % Neutrophils # 10.7 H (1.3-7.7) k/uL Lymphocytes # 2.7 (1.0-4.8) k/uL Monocytes # 0.6 (0-1.0) k/uL Eosinophils # 0.3 (0-0.7) k/uL Basophils # 0.1 (0-0.2) k/uL Sodium 140 (137-145) mmol/L Potassium 4.3 (3.5-5.1) mmol/L Chloride 96 L (98-107) mmol/L Carbon Dioxide 29 (22-30) mmol/L Anion Gap 15 mmol/L BUN 17 (7-17) mg/dL Creatinine 0.89 (0.52-1.04) mg/dL Est GFR (CKD-EPI)AfAm 82 (>60 ml/min/1.73 sqM) Est GFR (CKD-EPI)NonAf 71 (>60 ml/min/1.73 sqM) Glucose 203 H (74-99) mg/dL Calcium 9.6 (8.4-10.2) mg/dL Disposition Clinical Impression: Gravely disabled Disposition: ADMITTED IP TO THIS HOSP Condition: Good Referrals: Bisi Yepez MD [Primary Care Provider] - 1-2 days Decision Time: 17:03
[2022-08-19 16:09] LABS: Basophils # (A) 0.1 k/uL (0-0.2); Basophils % (A) 1 %; Eosinophils # (A) 0.3 k/uL (0-0.7); Eosinophils % (A) 2 %; HCT 43.2 % (34.0-46.0); HGB 15.1 gm/dL (11.4-16.0); Lymphocytes # (A) 2.7 k/uL (1.0-4.8); Lymphocytes % (A) 19 %; MCH 30.4 pg (25.0-35.0); MCV 86.8 fL (80.0-100.0); Mean Platelet Volume 8.1; Monocytes # (A) 0.6 k/uL (0-1.0); Monocytes % (A) 4 %; Neutrophils # (A) 10.7 k/uL (1.3-7.7); Neutrophils % (A) 73 %; Platelet Count 260 k/uL (150-450); RBC 4.97 m/uL (3.80-5.40); RDW 13.3 % (11.5-15.5); WBC 14.6 k/uL (3.8-10.6)
[2022-08-19 16:28] LABS: Calcium 9.6 mg/dL (8.4-10.2); Potassium 4.3 mmol/L (3.5-5.1)
[2022-08-19] MEDS ORDERED: NALOXONE 0.4 MG/ML 1 ML VIAL IV PRN (17:01)
[2022-08-19] MEDS ORDERED: LACTULOSE 20 GM/30 ML CUP PO PRN (20:22)
[2022-08-19] MEDS ORDERED: ONDANSETRON 4 MG/2 ML VIAL IVP PRN (20:22)
[2022-08-19 21:41] LABS: Glucose,Whole Blood 159 mg/dL (70-110)
[2022-08-19] MEDS: GABAPENTIN 300 MG CAP PO SCH (21:59)
[2022-08-19] MEDS: METOPROLOL TARTRATE 50 MG TAB PO SCH (21:59)
[2022-08-19] MEDS ORDERED: INSULIN ASPART (NovoLOG) 100 UNIT/ML VIAL SQ ONE (22:00)
[2022-08-19] MEDS: QUEtiapine 25 MG TAB PO SCH (22:01)
[2022-08-19] MEDS: ATORVASTATIN 10 MG TAB PO SCH (22:01)
[2022-08-19] MEDS: diazePAM 2 MG TAB PO PRN (23:14)
[2022-08-20 07:06] LABS: Glucose,Whole Blood 205 mg/dL (70-110)
[2022-08-20] MEDS: GABAPENTIN 300 MG CAP PO SCH ×2 (07:21→21:11)
[2022-08-20] MEDS: LOSARTAN-HCTZ 50-12.5 MG 1 EACH TAB PO SCH (07:22)
[2022-08-20] MEDS: INSULIN ASPART (NovoLOG) 100 UNIT/ML VIAL SQ SCH ×4 (07:22→21:11)
[2022-08-20] MEDS: FUROSEMIDE 40 MG TAB PO SCH (07:22)
[2022-08-20] MEDS: METOPROLOL TARTRATE 50 MG TAB PO SCH ×2 (07:22→21:12)
[2022-08-20] MEDS ORDERED: MORPHINE SULFATE ER 30 MG TABLET PO SCH (09:00)
[2022-08-20] MEDS: DAPAGLIFLOZIN PROPANEDIOL 5 MG TABLET PO SCH (09:32)
[2022-08-20] MEDS ORDERED: diazePAM 2 MG TAB PO PRN (10:01)
--- NOTE | 2022-08-20 10:05 | P.HPIM ---
History of Present Illness H&P Date: 08/20/22 HISTORY OF PRESENT ILLNESS: This is a 61-year-old female with a past medical history significant for hypertension and hypertensive cardio vascular disease, hyperlipidemia, diabetes mellitus type 2 with diabetic polyneuropathy, history of chronic pain syndrome, history of cervical cancer status post surgery in the past, history of recurrent UTI, history of COVID-19 in 2021, chronic hypoxemic respiratory failure now off oxygen, history of right diaphragm paralysis. Patient had hospitalization earlier this year for acute hypoxic respiratory failure secondary to right lower lobe aspiration pneumonia along with toxic metabolic encephalopathy, and also another hospitalization for acute kidney injury, hypotension and toxic metabolic encephalopathy thought to be a combination of acute kidney injury with chronic opioid use. Patient was a long-term resident at [facility] but then was discharged to home. Patient states that she has been living with her daughter but her daughter is blind and not able to provide much assistance. Patient is unable to perform her own ADLs and unable to get her meals. She has home care in place and the nurse was concerned about her safety at home with recommendations for placement. Patient was sent into the emergency center for further evaluation. Patient was found to be afebrile, heart rate 73, blood pressure initially 176/116 with repeated 109/85, pulse ox 98% on room air. WBC 14.6, hemoglobin 15.1, platelet count 206. Sodium 140, potassium 4.3, chloride 96, CO2 29, BUN 17 and creatinine 0.89. Glucose 203. Calcium 9.6. Capillary blood glucose [id number]. Patient is seen today in the emergency center waiting for a bed on the [facility] floor, consults in place for PT, OT and social work for discharge planning. REVIEW OF SYSTEMS: Constitutional: No documented fever, no chills, no night sweats. No weight change. Noted weakness, reports fatigue reports lethargy. No to daytime sleepiness. HEENT: Reports neck pain reports headache. No blurred vision or double vision, no loss of vision. No loss of Hearing, no ringing in the ears, no dizziness. No nasal drainage or congestion. No epistaxis. No sore throat. Lungs: no shortness of breath, no for cough, no sputum production. No wheezing. Cardiovascular: No chest pain, no lower extremity edema. No palpitations. No paroxysmal nocturnal dyspnea. No orthopnea. No lightheadedness or dizziness. No syncopal episodes. Abdominal: Denies abdominal pain. No nausea, vomiting. No diarrhea. No constipation. No bloody or tarry stools reports loss of appetite. Genitourinary: No dysuria, increased frequency, urgency. No urinary retention. Musculoskeletal: No myalgias. Reports muscle weakness, Reports gait dysfunction, no frequent falls. Reports chronic back pain. Reports chronic neck pain. Integumentary: No wounds, no lesions. No rash or pruritus. No unusual bruising. No change in hair or nails. Neurologic: No aphasia. No facial droop. No change in mentation. No head injury. No headache. No paralysis. No paresthesia. Psychiatric: Positive for depression. Positive for anxiety. No mood swings. Endocrine: No abnormal blood sugars. No weight change. PAST MEDICAL HISTORY: Hypertension and hypertensive cardio vascular disease. Hyperlipidemia. Diabetes mellitus type 2. Diabetic polyneuropathy. Obesity with obstructive sleep apnea. Vitamin D deficiency Cervical cancer. Chronic pain syndrome. Spondylosis of the lumbar spine Fibromyalgia. pseudotumor cerebri. Spinal stenosis. Hepatitis C. Chronic hypoxemic respiratory failure. COVID-19 Psoriasis. PAST SURGICAL HISTORY: 9 ELECT[employer]ING [employer]PER[employer] shunts 12 lumbar shunts Cervical laser therapy. Partial hysterectomy with right fallopian tube and OOphorectomy Bilateral optic nerve decompressive surgery. Right shoulder reverse arthroplasty. Bladder suspension. Appendectomy. Tonsillectomy and adenoidectomy. Right open reduction and internal fixation for right ankle trimalleolar fracture. Colonoscopy. EGD. SOCIAL HISTORY: Patient smokes about a pack every day since he was 42-year-old she denies any marijuana use or abuse, she denies any alcohol use or abuse. Patient previously resided at [facility] as a long-term resident, recently was discharged to her daughter's home. FAMILY HISTORY: Mother at the age of 27 she had a history of manic depressive disorder she went missing for 27 years she was murdered father at age 60 from [place]. Patient has no sisters or brothers she has 2 daughters one of them with thyroid nodule that became cancer and one son with hypertension hyperlipidemia PHYSICAL EXAMINATION: General: 61-year-old female laying on the ER stretcher in no acute respiratory distress. HEENT: Head is atraumatic, normocephalic, pupils were equal round reactive to light and recommendation, extraocular muscle movement were intact, sclera nonicteric, conjunctivae were pale, mucous membranes of the mouth are somewhat dry. Neck: Supple, no JVP, normal carotid upstroke bilaterally, no lymphadenopathy. Chest: Decreased breath sounds at the bases, no expiratory wheezes, no chest wall tenderness, no intercostal retractions. Heart: First heart sound is normal, second heart sounds normal there is no gallop or murmur. Abdomen: Soft, nontender, nondistended, positive bowel sounds. no hepatomegaly. Extremities: There is no edema no calf tenderness DP +2 bilaterally. Neurologic examination: Patient is awake, alert and oriented x3, cranial nerves II-12 appear grossly intact, muscle power were 5 out of 5 in upper extremities and 5 out of 5 in bilateral lower extremities, deep tendon reflexes normal bilaterally. ASSESSMENT AND PLAN: 1. Generalized debility secondary to chronic conditions. PT, OT consults, social work consult. Dehydration. Continue patient on 0.9 normal saline at 75 mL per hour. 2. Chronic headache and neck pain. Continue patient on current pain medications from home which include MS Contin 15 mg oral every 12 hours, oxycodone 10 mg every 6 hours as needed, Valium 2 mg twice daily as needed. 3. Frequent falls with generalized weakness. PT and OT consults. 4. Chronic kidney disease stage III. Monitor renal function. 5. Hypertension and hypertensive cardiovascular disease. Continue losartan/HCTZ 100/25 mg once every day. Continue metoprolol 100 mg orally twice every day. Continue to watch patient blood pressure very closely. 6. Hyperlipidemia. Continue low cholesterol diet, continue atorvastatin 10 mg every day. 7. Diabetes mellitus type 2. Continue patient on Levemir 20 units at bedtime, continue sliding scale insulin. Monitor blood glucose level before each meal and at bedtime. 8. Diabetic polyneuropathy. Continue patient on gabapentin 600 mg orally twice every day. 9. Fibromyalgia. Continue gabapentin. 10. Recurrent depression. Continue Seroquel 25 mg at bedtime. 11. History of pseudocyst tumor cerebri status post multiple [employer]OR shunt's. 12. History of cervical cancer currently in remission. 13. History of chronic pain syndrome. Continue current pain management. 14. DVT prophylaxis. Continue Lovenox 40 mg subcu daily. 15. GI prophylaxis. Continue patient on famotidine 20 mg orally every day. Patient placed as an observation status. Discharge plan: Subacute rehab at [facility]. Consult with social work, PT and OT. Impression and plan of care have been directed as dictated by the signing physician. Carolyn Cunningham nurse practitioner acting as scribe for signing phys ician. 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, pulmonary htn, covid + 10/2021, thyroid nodule, single pulmonary nodule, psoriasis, bacterial meningitis at age 30, cancer cervix, UTI/R pyelonephritis with sepsis, History of Any Multi-Drug Resistant Organisms: None Reported Past Surgical History: Adenoidectomy, Appendectomy, Back Surgery, Bladder Surgery, Orthopedic Surgery, Tonsillectomy, Tubal Ligation Additional Past Surgical History / Comment(s): 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 Past Anesthesia/Blood Transfusion Reactions: No Reported Reaction Additional Past Anesthesia/Blood Transfusion Reaction / Comment(s): no hx blood transfusion Past Psychological History: Anxiety Smoking Status: Current every day smoker Past Alcohol Use History: None Reported Past Drug Use History: Marijuana - Past Family History Mother Family Medical History: No Reported History Additional Family Medical History / Comment(s): Mother was murdered at the age of 44 yrs. She had paranoid schizophrenia. Father Family Medical History: Myocardial Infarction ([place]) Additional Family Medical History / Comment(s): Father of a [place] at the age of 60 yrs. Medications and Allergies Home Medications Medication Instructions Recorded Confirmed Type Metoprolol Tartrate [Lopressor] 100 mg PO BID 05/25/21 08/19/22 History Nitroglycerin Sl Tabs [Nitrostat] 0.4 mg SL Q5M PRN 05/25/21 08/19/22 History Atorvastatin [Lipitor] 10 mg PO HS 02/16/22 08/19/22 History Lactulose 10 gm PO DAILY PRN 02/16/22 08/19/22 History Losartan/Hydrochlorothiazide 1 tab PO DAILY 02/16/22 08/19/22 History [Losartan-Hctz 100-25 mg Tab] QUEtiapine [SEROquel] 25 mg PO HS 02/16/22 08/19/22 History Insulin Glargine,Hum.rec.anlog 20 unit SQ HS 03/04/22 08/19/22 History [Lantus Solostar Pen] Insulin Lispro [humaLOG Kwikpen] See Protocol SQ ACHS 03/04/22 08/19/22 History Clobetasol Propionate [Temovate 1 applic TOPICAL BID PRN 07/14/22 08/19/22 History 0.05% Cream] Fluocinonide 0.05% Solution 1 applic TOPICAL BID PRN 07/14/22 08/19/22 History Furosemide [Lasix] 40 mg PO DAILY PRN 07/14/22 08/19/22 History Morphine Sulfate ER [Ms Contin] 30 mg PO DAILY 07/14/22 08/19/22 History Ondansetron Odt [Zofran ODT] 4 mg SL DAILY PRN 07/14/22 08/19/22 History Tacrolimus [Tacrolimus 0.1%] 1 applic TOPICAL BID PRN 07/14/22 08/19/22 History Triamcinolone Acetonide 1 applic TOPICAL BID PRN 07/14/22 08/19/22 History [Triamcinolone Acetonide 0.025%] diazePAM [Valium] 2 mg PO BID PRN 07/14/22 08/19/22 History oxyCODONE HCL [oxyCODONE HCL (IR)] 10 mg PO TID PRN 07/14/22 08/19/22 History Gabapentin 600 mg PO BID 08/19/22 08/19/22 History Ondansetron [Zofran] 4 mg PO TID PRN 08/19/22 08/19/22 History Allergies Allergy/AdvReac Type Severity Reaction Status Date / Time No Known Allergies Allergy Verified 08/19/22 17:39 Physical Exam Vitals: Vital Signs Temp Pulse Pulse Resp BP BP Pulse Ox 08/20/22 04:38 72 18 109/85 98 08/20/22 02:00 97.3 F L 79 14 138/72 98 08/19/22 14:13 98.6 F 73 20 176/116 98 Results CBC & Chem 7: 08/19/22 15:53 08/19/22 15:53 Labs: Abnormal Lab Results - Last 24 Hours (Table) 08/19/22 08/19/22 08/19/22 Range/Units 15:53 15:53 21:40 WBC 14.6 H (3.8-10.6) k/uL Neutrophils # 10.7 H (1.3-7.7) k/uL Chloride 96 L (98-107) mmol/L Glucose 203 H (74-99) mg/dL POC Glucose (mg/dL) 159 H (70-110) mg/dL 08/20/22 Range/Units 07:03 WBC (3.8-10.6) k/uL Neutrophils # (1.3-7.7) k/uL Chloride (98-107) mmol/L Glucose (74-99) mg/dL POC Glucose (mg/dL) 205 H (70-110) mg/dL
[2022-08-20 12:05] LABS: Glucose,Whole Blood 224 mg/dL (70-110)
[2022-08-20] MEDS: diazePAM 2 MG TAB PO PRN ×2 (15:50→21:22)
[2022-08-20 17:00] LABS: Glucose,Whole Blood 215 mg/dL (70-110)
[2022-08-20] MEDS: NICOTINE 21MG/24HR PATCH TRANSDERM SCH (20:05)
[2022-08-20 20:24] LABS: Glucose,Whole Blood 216 mg/dL (70-110)
[2022-08-20] MEDS: INSULIN DETEMIR (LEVEMIR) 100 UNIT/ML SYR SQ SCH (21:11)
[2022-08-20] MEDS: ATORVASTATIN 10 MG TAB PO SCH (21:11)
[2022-08-20] MEDS: QUEtiapine 25 MG TAB PO SCH (21:12)
[2022-08-20] MEDS: MORPHINE SULFATE ER 15 MG TABLET PO SCH (21:12)
[2022-08-21 07:03] LABS: Glucose,Whole Blood 255 mg/dL (70-110)
[2022-08-21] MEDS: INSULIN ASPART (NovoLOG) 100 UNIT/ML VIAL SQ SCH ×4 (08:45→21:22)
[2022-08-21] MEDS: ENOXAPARIN 40 MG/0.4 ML SYRINGE SQ SCH (09:35)
[2022-08-21] MEDS: MORPHINE SULFATE ER 15 MG TABLET PO SCH ×2 (09:58→21:20)
[2022-08-21] MEDS: GABAPENTIN 300 MG CAP PO SCH ×2 (09:59→21:20)
[2022-08-21] MEDS: FUROSEMIDE 40 MG TAB PO SCH (10:05)
[2022-08-21] MEDS: FAMOTIDINE 20 MG TAB PO SCH (10:06)
[2022-08-21] MEDS: NICOTINE 21MG/24HR PATCH TRANSDERM SCH (10:13)
[2022-08-21] MEDS: METOPROLOL TARTRATE 50 MG TAB PO SCH ×2 (10:15→21:20)
--- NOTE | 2022-08-21 10:41 | P.PN ---
Subjective Progress Note Date: 08/21/22 HISTORY OF PRESENT ILLNESS: This is a 61-year-old female with a past medical history significant for hypertension and hypertensive cardio vascular disease, hyperlipidemia, diabetes mellitus type 2 with diabetic polyneuropathy, history of chronic pain syndrome, history of cervical cancer status post surgery in the past, history of recurrent UTI, history of COVID-19 in 2021, chronic hypoxemic respiratory failure now off oxygen, history of right diaphragm paralysis. Patient had hospitalization earlier this year for acute hypoxic respiratory failure secondary to right lower lobe aspiration pneumonia along with toxic metabolic encephalopathy, and also another hospitalization for acute kidney injury, hypotension and toxic metabolic encephalopathy thought to be a combination of acute kidney injury with chronic opioid use. Patient was a long-term resident at [facility] but then was discharged to home. Patient states that she has been living with her daughter but her daughter is blind and not able to provide much assistance. Patient is unable to perform her own ADLs and unable to get her meals. She has home care in place and the nurse was concerned about her safety at home with recommendations for placement. Patient was sent into the emergency center for further evaluation. Patient was found to be afebrile, heart rate 73, blood pressure initially 176/116 with repeated 109/85, pulse ox 98% on room air. WBC 14.6, hemoglobin 15.1, platelet count 206. Sodium 140, potassium 4.3, chloride 96, CO2 29, BUN 17 and creatinine 0.89. Glucose 203. Calcium 9.6. Capillary blood glucose [id number]. Patient is seen today in the emergency center waiting for a bed on the [facility] floor, consults in place for PT, OT and social work for discharge planning. 08/21: Patient is seen today on the observation unit. She is complaining that it is hard to urinate and difficult to empty her bladder. Urine specimen will be obtained for urinalysis and culture. Patient will be started on ceftriaxone 1 g daily until urine culture is finalized. Patient is waiting for evaluation by PT and OT. Patient has been afebrile, heart rate 64, blood pressure 106/70, pulse ox 94% on room air. Complete blood glucose running between 215 and 255. Hemoglobin A1c was 10.4 on 06/26. REVIEW OF SYSTEMS: Constitutional: No documented fever, no chills, no night sweats. No weight change. Noted weakness, reports fatigue reports lethargy. No to daytime sleepiness. HEENT: Reports neck pain reports headache. No blurred vision or double vision, no loss of vision. No loss of Hearing, no ringing in the ears, no dizziness. No nasal drainage or congestion. No epistaxis. No sore throat. Lungs: no shortness of breath, no for cough, no sputum production. No wheezing. Cardiovascular: No chest pain, no lower extremity edema. No palpitations. No paroxysmal nocturnal dyspnea. No orthopnea. No lightheadedness or dizziness. No syncopal episodes. Abdominal: Denies abdominal pain. No nausea, vomiting. No diarrhea. No constipation. No bloody or tarry stools reports loss of appetite. Genitourinary: No dysuria, increased frequency, urgency. No urinary retention. Incomplete emptying of bladder. Musculoskeletal: No myalgias. Reports muscle weakness, Reports gait dysfunction, no frequent falls. Reports chronic back pain. Reports chronic neck pain. Integumentary: No wounds, no lesions. No rash or pruritus. No unusual bruising. No change in hair or nails. Neurologic: No aphasia. No facial droop. No change in mentation. No head injury. No headache. No paralysis. No paresthesia. Psychiatric: Positive for depression. Positive for anxiety. No mood swings. Endocrine: No abnormal blood sugars. No weight change. PHYSICAL EXAMINATION: General: 61-year-old female laying on the ER stretcher in no acute respiratory distress. HEENT: Head is atraumatic, normocephalic, pupils were equal round reactive to light and recommendation, sclera nonicteric, conjunctivae pale, mucous membranes of the mouth are somewhat dry. Neck: Supple, no JVP, normal carotid upstroke bilaterally, no lymphadenopathy. Chest: Decreased breath sounds at the bases, no expiratory wheezes, no chest wall tenderness, no intercostal retractions. Heart: First heart sound is normal, second heart sounds normal there is no gallop or murmur. Abdomen: Soft, nontender, nondistended, positive bowel sounds. no hepatomegaly. Extremities: There is no edema no calf tenderness DP +2 bilaterally. Neurologic examination: Patient is awake, alert and oriented x3, cranial nerves II-12 appear grossly intact, muscle power were 5 out of 5 in upper extremities and 5 out of 5 in bilateral lower extremities, deep tendon reflexes normal bilaterally. ASSESSMENT AND PLAN: 1. Generalized debility secondary to chronic conditions and possible acute urinary tract infection. PT, OT consults, social work consult. Dehydration. Continue patient on 0.9 normal saline at 75 mL per hour. 2. Chronic headache and neck pain. Continue patient on current pain medications from home which include MS Contin 15 mg oral every 12 hours, oxycodone 10 mg every 6 hours as needed, Valium 2 mg twice daily as needed. 3. Frequent falls with generalized weakness. PT and OT consults. 4. Chronic kidney disease stage III. Monitor renal function. 5. Hypertension and hypertensive cardiovascular disease. Continue losartan/HCTZ 100/25 mg once every day. Continue metoprolol 100 mg orally twice every day. Continue to watch patient blood pressure very closely. 6. Hyperlipidemia. Continue low cholesterol diet, continue atorvastatin 10 mg every day. 7. Diabetes mellitus type 2. Continue patient on Levemir 20 units at bedtime, continue sliding scale insulin. Monitor blood glucose level before each meal and at bedtime. 8. Diabetic polyneuropathy. Continue patient on gabapentin 600 mg orally twice every day. 9. Fibromyalgia. Continue gabapentin. 10. Recurrent depression. Continue Seroquel 25 mg at bedtime. 11. History of pseudocyst tumor cerebri status post multiple DEPLOYMENT TECHNICIAN shunt's. 12. History of cervical cancer currently in remission. 13. History of chronic pain syndrome. Continue current pain management. 14. DVT prophylaxis. Continue Lovenox 40 mg subcu daily. 15. GI prophylaxis. Continue patient on famotidine 20 mg orally every day. Discharge plan: Subacute rehab at [facility]. Consult with social work, PT and OT. Impression and plan of care have been directed as dictated by the signing physician. Carolyn Cunningham nurse practitioner acting as scribe for signing physician. Objective - Vital Signs Vital signs: Vital Signs Temp 99 F 08/21/22 04:35 Pulse 71 08/21/22 04:35 Resp 14 08/21/22 04:35 BP 118/73 08/21/22 04:35 Pulse Ox 94 L 08/21/22 04:35 FiO2 Intake & Output 08/20/22 08/21/22 08/21/22 18:59 06:59 18:59 Intake Total 540 Balance 540 Weight 97.069 kg Intake: Oral 540 Other: Voiding Method Toilet - Labs CBC & Chem 7: 08/19/22 15:53 08/19/22 15:53 Labs: Abnormal Lab Results - Last 24 Hours (Table) 08/20/22 08/20/22 08/20/22 Range/Units 12:00 16:59 20:21 POC Glucose (mg/dL) 224 H 215 H 216 H (70-110) mg/dL 08/21/22 Range/Units 07:01 POC Glucose (mg/dL) 255 H (70-110) mg/dL
[2022-08-21 10:44] LABS: Appearance,Urine Clear (Clear); Bilirubin,Urine Negative (Negative); Blood,Urine Negative (Negative); Color,Urine Yellow; Glucose,Urine (UA) 4+ (Negative); Ketones,Urine Negative (Negative); Leukocyte Esterase,Urine Negative (Negative); Nitrite,Urine Negative (Negative); PH, Urine 5.5 (5.0-8.0); Protein,Urine Negative (Negative); Specific Gravity,Urine 1.018 (1.001-1.035); Urobilinogen,Urine <2.0 mg/dL (<2.0)
[2022-08-21] MEDS: DAPAGLIFLOZIN PROPANEDIOL 5 MG TABLET PO SCH (10:48)
[2022-08-21] MEDS: LOSARTAN-HCTZ 50-12.5 MG 1 EACH TAB PO SCH (10:49)
[2022-08-21 11:19] LABS: Glucose,Whole Blood 260 mg/dL (70-110)
[2022-08-21 17:13] LABS: Glucose,Whole Blood 264 mg/dL (70-110)
[2022-08-21] MEDS: diazePAM 2 MG TAB PO PRN (18:13)
[2022-08-21 20:15] LABS: Glucose,Whole Blood 256 mg/dL (70-110)
[2022-08-21] MEDS: QUEtiapine 25 MG TAB PO SCH (21:20)
[2022-08-21] MEDS: ATORVASTATIN 10 MG TAB PO SCH (21:20)
[2022-08-21] MEDS: INSULIN DETEMIR (LEVEMIR) 100 UNIT/ML SYR SQ SCH (21:22)
[2022-08-22 07:27] LABS: Glucose,Whole Blood 324 mg/dL (70-110)
[2022-08-22] MEDS: MORPHINE SULFATE ER 15 MG TABLET PO SCH (07:44)
[2022-08-22] MEDS: GABAPENTIN 300 MG CAP PO SCH (07:47)
[2022-08-22] MEDS: FAMOTIDINE 20 MG TAB PO SCH (09:14)
[2022-08-22] MEDS: FUROSEMIDE 40 MG TAB PO SCH (09:15)
[2022-08-22] MEDS: DAPAGLIFLOZIN PROPANEDIOL 5 MG TABLET PO SCH (09:16)
[2022-08-22] MEDS: METOPROLOL TARTRATE 50 MG TAB PO SCH (09:16)
[2022-08-22] MEDS: LOSARTAN-HCTZ 50-12.5 MG 1 EACH TAB PO SCH (09:20)
[2022-08-22] MEDS: NICOTINE 21MG/24HR PATCH TRANSDERM SCH (09:20)
[2022-08-22] MEDS: ENOXAPARIN 40 MG/0.4 ML SYRINGE SQ SCH (09:37)
[2022-08-22] MEDS: INSULIN ASPART (NovoLOG) 100 UNIT/ML VIAL SQ SCH (09:37)
--- NOTE | 2022-08-22 11:19 | P.DS ---
Providers Date of admission: 08/21/22 08:35 Expected date of discharge: 08/22/22 Attending physician: Bisi Yepez Primary care physician: Bisi Yepez Hospital Course: HISTORY OF PRESENT ILLNESS: This is a 61-year-old female with a past medical history significant for hypertension and hypertensive cardio vascular disease, hyperlipidemia, diabetes mellitus type 2 with diabetic polyneuropathy, history of chronic pain syndrome, history of cervical cancer status post surgery in the past, history of recurrent UTI, history of COVID-19 in 2021, chronic hypoxemic respiratory failure now off oxygen, history of right diaphragm paralysis. Patient had hospitalization earlier this year for acute hypoxic respiratory failure secondary to right lower lobe aspiration pneumonia along with toxic metabolic encephalopathy, and also another hospitalization for acute kidney injury, hypotension and toxic metabolic encephalopathy thought to be a combination of acute kidney injury with chronic opioid use. Patient was a long-term resident at [facility] but then was discharged to home. Patient states that she has been living with her daughter but her daughter is blind and not able to provide much assistance. Patient is unable to perform her own ADLs and unable to get her meals. She has home care in place and the nurse was concerned about her safety at home with recommendations for placement. Patient was sent into the emergency center for further evaluation. Patient was found to be afebrile, heart rate 73, blood pressure initially 176/116 with repeated 109/85, pulse ox 98% on room air. WBC 14.6, hemoglobin 15.1, platelet count 206. Sodium 140, potassium 4.3, chloride 96, CO2 29, BUN 17 and creatinine 0.89. Glucose 203. Calcium 9.6. Capillary blood glucose [id number]. Patient is seen today in the emergency center waiting for a bed on the [facility] floor, consults in place for PT, OT and social work for discharge planning. 08/21: Patient is seen today on the observation unit. She is complaining that it is hard to urinate and difficult to empty her bladder. Urine specimen will be obtained for urinalysis and culture. Patient will be started on ceftriaxone 1 g daily until urine culture is finalized. Patient is waiting for evaluation by PT and OT. Patient has been afebrile, heart rate 64, blood pressure 106/70, pulse ox 94% on room air. Complete blood glucose running between 215 and 255. Hemoglobin A1c was 10.4 on 06/26. 08/22: Patient has been seen by therapy with recommendations for subacute rehab. Patient is not with case management and really wishes to go home. Patient relates that she is on a list to obtain [facility] housing and hopes to move this soon so that she has a better home situation. They're also working on setting of chore services for help in the home. Patient has been afebrile, heart rate 75, blood pressure was low during the night of 92/63 and metoprolol dose was decreased. Blood pressure this morning is 101/70. Pulse ox is 97% on room air. Capillary blood glucoses have been elevated running between 256 and 324. Urinalysis came back clean. She does state that she has continued problems with emptying her bladder. She states she has not been drinking much water but will increase the so she doesn't open infection. Patient will be discharged home today in stable condition. DISCHARGE DIAGNOSES 1. Generalized debility secondary to chronic conditions and possible acute urinary tract infection has been ruled out. 2. Chronic headache and neck pain. 3. Frequent falls with generalized weakness. 4. Chronic kidney disease stage III. 5. Hypertension and hypertensive cardiovascular disease. 6. Hyperlipidemia. 7. Diabetes mellitus type 2. 8. Diabetic polyneuropathy. 9. Fibromyalgia. 10. Recurrent depression. 11. History of pseudocyst tumor cerebri status post multiple BIOINFORMATICS SPECIALIST shunt's. 12. History of cervical cancer currently in remission. 13. History of chronic pain syndrome. Discharge plan: Home with [facility] Greater than 35 minutes was utilized and coordinating patient's discharge. Impression and plan of care have been directed as dictated by the signing physician. Carolyn Cunningham nurse practitioner acting as scribe for signing physician. Patient Condition at Discharge: Good Plan - Discharge Summary Discharge Rx Participant: No New Discharge Prescriptions: New Metoprolol Tartrate [Lopressor] 50 mg PO BID #60 tab Dapagliflozin Propanediol [Farxiga] 5 mg PO DAILY #30 tab Continue Lactulose 10 gm PO DAILY PRN PRN Reason: Constipation Losartan/Hydrochlorothiazide [Losartan-Hctz 100-25 mg Tab] 1 tab PO DAILY Atorvastatin [Lipitor] 10 mg PO HS Insulin Glargine,Hum.rec.anlog [Lantus Solostar Pen] 20 unit SQ HS diazePAM [Valium] 2 mg PO BID PRN PRN Reason: Anxiety Furosemide [Lasix] 40 mg PO DAILY PRN PRN Reason: Edema Tacrolimus [Tacrolimus 0.1%] 1 applic TOPICAL BID PRN PRN Reason: psoriasis Ondansetron [Zofran] 4 mg PO TID PRN PRN Reason: Nausea Nitroglycerin Sl Tabs [Nitrostat] 0.4 mg SL Q5M PRN PRN Reason: Chest Pain QUEtiapine [SEROquel] 25 mg PO HS Insulin Lispro [humaLOG Kwikpen] See Protocol SQ ACHS Fluocinonide 0.05% Solution 1 applic TOPICAL BID PRN PRN Reason: psoriasis Ondansetron Odt [Zofran ODT] 4 mg SL DAILY PRN PRN Reason: Nausea oxyCODONE HCL [oxyCODONE HCL (IR)] 10 mg PO TID PRN PRN Reason: Pain Triamcinolone Acetonide [Triamcinolone Acetonide 0.025%] 1 applic TOPICAL BID PRN PRN Reason: psoriasis Clobetasol Propionate [Temovate 0.05% Cream] 1 applic TOPICAL BID PRN PRN Reason: psoriasis Gabapentin 600 mg PO BID Changed Morphine Sulfate ER [Ms Contin] 15 mg PO BID #0 Discontinued Metoprolol Tartrate [Lopressor] 100 mg PO BID Discharge Medication List Nitroglycerin Sl Tabs [Nitrostat] 0.4 mg SL Q5M PRN 05/25/21 [History] Atorvastatin [Lipitor] 10 mg PO HS 02/16/22 [History] Lactulose 10 gm PO DAILY PRN 02/16/22 [History] Losartan/Hydrochlorothiazide [Losartan-Hctz 100-25 mg Tab] 1 tab PO DAILY 02/16/22 [History] QUEtiapine [SEROquel] 25 mg PO HS 02/16/22 [History] Insulin Glargine,Hum.rec.anlog [Lantus Solostar Pen] 20 unit SQ HS 03/04/22 [History] Insulin Lispro [humaLOG Kwikpen] See Protocol SQ ACHS 03/04/22 [History] Clobetasol Propionate [Temovate 0.05% Cream] 1 applic TOPICAL BID PRN 07/14/22 [History] Fluocinonide 0.05% Solution 1 applic TOPICAL BID PRN 07/14/22 [History] Furosemide [Lasix] 40 mg PO DAILY PRN 07/14/22 [History] Ondansetron Odt [Zofran ODT] 4 mg SL DAILY PRN 07/14/22 [History] Tacrolimus [Tacrolimus 0.1%] 1 applic TOPICAL BID PRN 07/14/22 [History] Triamcinolone Acetonide [Triamcinolone Acetonide 0.025%] 1 applic TOPICAL BID PRN 07/14/22 [History] diazePAM [Valium] 2 mg PO BID PRN 07/14/22 [History] oxyCODONE HCL [oxyCODONE HCL (IR)] 10 mg PO TID PRN 07/14/22 [History] Gabapentin 600 mg PO BID 08/19/22 [History] Ondansetron [Zofran] 4 mg PO TID PRN 08/19/22 [History] Dapagliflozin Propanediol [Farxiga] 5 mg PO DAILY #30 tab 08/22/22 [Rx] Metoprolol Tartrate [Lopressor] 50 mg PO BID #60 tab 08/22/22 [Rx] Morphine Sulfate ER [Ms Contin] 15 mg PO BID #0 08/22/22 [Rx] Follow up Appointment(s)/Referral(s): Bisi Yepez MD [Primary Care Provider] - 1 Week Discharge Disposition: HOME WITH HOME HEALTH SERVICES
[2022-08-22 11:45] VITALS: BP 102/65; PULSE 78; RESP 16; TEMP 98.4
[2022-08-22 11:57] LABS: Glucose,Whole Blood 260 mg/dL (70-110)
== END 2022-08-22 13:09 | disposition home health service (06) | DRG 638 ==
LOC: EC 13:51 → 4SSUR 17:35 → 5NMEDONC 08-20 15:49 → OBSVTOIN 08-21 08:35
PROVIDERS: ADMIT Internal Medicine; ATTEND Internal Medicine
DX: E11.65 Type 2 diabetes mellitus with hyperglycemia (principal); F33.9 Major depressive disorder, recurrent, unspecified; I13.0 Hypertensive heart and chronic kidney disease with heart failure and stage 1 through stage 4 chronic kidney disease, or unspecified chronic kidney disease; J96.11 Chronic respiratory failure with hypoxia; I50.9 Heart failure, unspecified; E11.22 Type 2 diabetes mellitus with diabetic chronic kidney disease; E11.319 Type 2 diabetes mellitus with unspecified diabetic retinopathy without macular edema; E11.42 Type 2 diabetes mellitus with diabetic polyneuropathy; E78.5 Hyperlipidemia, unspecified; K76.0 Fatty (change of) liver, not elsewhere classified; N18.30 Chronic kidney disease, stage 3 unspecified; B18.2 Chronic viral hepatitis C; E86.0 Dehydration; F17.210 Nicotine dependence, cigarettes, uncomplicated; F41.9 Anxiety disorder, unspecified; G89.4 Chronic pain syndrome; I27.20 Pulmonary hypertension, unspecified; M79.7 Fibromyalgia; R29.6 Repeated falls; Z79.4 Long term (current) use of insulin; Z79.899 Other long term (current) drug therapy; Z85.41 Personal history of malignant neoplasm of cervix uteri; Z86.16 Personal history of COVID-19; Z86.61 Personal history of infections of the central nervous system; Z87.440 Personal history of urinary (tract) infections; Z90.711 Acquired absence of uterus with remaining cervical stump; Z98.2 Presence of cerebrospinal fluid drainage device
CPT/HCPCS: 36415; 80048; 81003; 85025; 96374; 99285

== ENCOUNTER 2022-08-28 20:39 | Emergency (ER) | payer OTHER ==
[2022-08-28 20:55] VITALS: RESP 15; TEMP 98.5
[2022-08-28] MEDS ORDERED: SODIUM CHLORIDE 0.9% 500 ML 500 ML IV STA (21:11)
[2022-08-28] MEDS ORDERED: HYDROmorphone 1 MG/ML 1 ML SYRINGE IVP STA (21:11)
--- NOTE | 2022-08-28 21:54 | ED ---
General Adult HPI - General Chief complaint: Abdominal Pain Stated complaint: Left side pain Time Seen by Provider: 08/28/22 20:59 Source: patient, EMS, RN notes reviewed, old records reviewed Mode of arrival: EMS Limitations: no limitations - History of Present Illness Initial comments: 61-year-old female with multiple medical problems presenting for evaluation of left flank pain which is been present for the past 24 hours. Patient denies injury. Denies hematuria or dysuria. Denies fever. She's had nausea without vomiting. Patient was previously on hospice for what sounds like multiple chronic medical conditions. She states she is currently off hospice but is on palliative care. Her pain medication at home was not working. She states she did have a virtual visit with her primary care physician today but did not inform him of these symptoms. - Related Data Home Medications Medication Instructions Recorded Confirmed Nitroglycerin Sl Tabs [Nitrostat] 0.4 mg SL Q5M PRN 05/25/21 08/19/22 Atorvastatin [Lipitor] 10 mg PO HS 02/16/22 08/19/22 Lactulose 10 gm PO DAILY PRN 02/16/22 08/19/22 Losartan/Hydrochlorothiazide 1 tab PO DAILY 02/16/22 08/19/22 [Losartan-Hctz 100-25 mg Tab] QUEtiapine [SEROquel] 25 mg PO HS 02/16/22 08/19/22 Insulin Glargine,Hum.rec.anlog 20 unit SQ HS 03/04/22 08/19/22 [Lantus Solostar Pen] Insulin Lispro [humaLOG Kwikpen] See Protocol SQ ACHS 03/04/22 08/19/22 Clobetasol Propionate [Temovate 1 applic TOPICAL BID PRN 07/14/22 08/19/22 0.05% Cream] Fluocinonide 0.05% Solution 1 applic TOPICAL BID PRN 07/14/22 08/19/22 Furosemide [Lasix] 40 mg PO DAILY PRN 07/14/22 08/19/22 Ondansetron Odt [Zofran ODT] 4 mg SL DAILY PRN 07/14/22 08/19/22 Tacrolimus [Tacrolimus 0.1%] 1 applic TOPICAL BID PRN 07/14/22 08/19/22 Triamcinolone Acetonide 1 applic TOPICAL BID PRN 07/14/22 08/19/22 [Triamcinolone Acetonide 0.025%] diazePAM [Valium] 2 mg PO BID PRN 07/14/22 08/19/22 oxyCODONE HCL [oxyCODONE HCL (IR)] 10 mg PO TID PRN 07/14/22 08/19/22 Gabapentin 600 mg PO BID 08/19/22 08/19/22 Ondansetron [Zofran] 4 mg PO TID PRN 08/19/22 08/19/22 Previous Rx's Medication Instructions Recorded Dapagliflozin Propanediol [Farxiga] 5 mg PO DAILY #30 tab 08/22/22 Metoprolol Tartrate [Lopressor] 50 mg PO BID #60 tab 08/22/22 Morphine Sulfate ER [Ms Contin] 15 mg PO BID #0 08/22/22 Allergies Allergy/AdvReac Type Severity Reaction Status Date / Time No Known Allergies Allergy Verified 08/28/22 20:46 Review of Systems ROS Statement: Those systems with pertinent positive or pertinent negative responses have been documented in the HPI. ROS Other: All systems not noted in ROS Statement are negative. 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, pulmonary htn, covid + 10/2021, thyroid nodule, single pulmonary nodule, psoriasis, bacterial meningitis at age 30, cancer cervix, UTI/R pyelonephritis with sepsis, History of Any Multi-Drug Resistant Organisms: None Reported Past Surgical History: Adenoidectomy, Appendectomy, Back Surgery, Bladder Surgery, Orthopedic Surgery, Tonsillectomy, Tubal Ligation Additional Past Surgical History / Comment(s): 9 QUALITY IMPROVEMENT ANALYST shunts- none at 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 Past Anesthesia/Blood Transfusion Reactions: No Reported Reaction Additional Past Anesthesia/Blood Transfusion Reaction / Comment(s): no hx blood transfusion Past Psychological History: Anxiety Smoking Status: Current every day smoker - Past Family History Mother Family Medical History: No Reported History Additional Family Medical History / Comment(s): Mother was murdered at the age of 44 yrs. She had paranoid schizophrenia. Father Family Medical History: Myocardial Infarction (IN) Additional Family Medical History / Comment(s): Father of a IN at the age of 60 yrs. General Exam Limitations: no limitations General appearance: alert, in no apparent distress Head exam: Present: atraumatic, normocephalic Eye exam: Present: normal appearance, PERRL ENT exam: Present: normal exam Neck exam: Present: normal inspection. Absent: tenderness, meningismus Respiratory exam: Present: normal lung sounds bilaterally. Absent: respiratory distress, wheezes Cardiovascular Exam: Present: regular rate, normal rhythm GI/Abdominal exam: Present: soft. Absent: distended, tenderness, guarding, he ound Extremities exam: Present: normal inspection, normal capillary refill. Absent: pedal edema Back exam: Present: CVA tenderness (L) Neurological exam: Present: alert, oriented X3, CN II-XII intact. Absent: motor sensory deficit Psychiatric exam: Present: normal affect, normal mood Skin exam: Present: warm, dry, intact. Absent: cyanosis, diaphoretic Course Vital Signs 08/28/22 20:48 Temperature 98.5 F Pulse Rate 74 Respiratory 15 Rate Blood Pressure 133/87 O2 Sat by Pulse 100 Oximetry Medical Decision Making - Medical Decision Making 61-year-old female with an episode of left-sided flank pain. Chronic pain patient. Hemodynamics are stable. She has some CVA tenderness, no anterior abdominal tenderness. I did perform CT imaging which shows chronic changes without acute findings. No renal stone, no hydronephrosis on the left. No bowel obstruction. Patient's laboratory testing is stable, chronic elevation in white count, mild chronic kidney disease. Normal electrolytes. I did discuss case with Dr. Yepez, who was willing to either follow up as an outpatient with this patient or admit the patient for symptom control. The patient prefers discharge and wants to go home at this time. She's given return parameters. - Lab Data Result diagrams: 08/28/22 22:07 08/28/22 22:07 Lab Results 08/28/22 08/28/22 Range/Units 22:07 22:07 WBC 16.8 H (3.8-10.6) k/uL RBC 4.68 (3.80-5.40) m/uL Hgb 14.2 (11.4-16.0) gm/dL Hct 40.7 (34.0-46.0) % MCV 87.0 (80.0-100.0) fL MCH 30.3 (25.0-35.0) pg MCHC 34.8 (31.0-37.0) g/dL RDW 13.6 (11.5-15.5) % Plt Count 247 (150-450) k/uL MPV 9.9 Neutrophils % 77 % Lymphocytes % 15 % Monocytes % 5 % Eosinophils % 1 % Basophils % 1 % Neutrophils # 13.0 H (1.3-7.7) k/uL Lymphocytes # 2.5 (1.0-4.8) k/uL Monocytes # 0.8 (0-1.0) k/uL Eosinophils # 0.2 (0-0.7) k/uL Basophils # 0.1 (0-0.2) k/uL Sodium 134 L (137-145) mmol/L Potassium 3.8 (3.5-5.1) mmol/L Chloride 93 L (98-107) mmol/L Carbon Dioxide 27 (22-30) mmol/L Anion Gap 14 mmol/L BUN 40 H (7-17) mg/dL Creatinine 1.13 H (0.52-1.04) mg/dL Est GFR (CKD-EPI)AfAm 62 (>60 ml/min/1.73 sqM) Est GFR (CKD-EPI)NonAf 53 (>60 ml/min/1.73 sqM) Glucose 396 H (74-99) mg/dL Calcium 9.4 (8.4-10.2) mg/dL Total Bilirubin 0.4 (0.2-1.3) mg/dL AST 33 (14-36) U/L ALT 28 (4-34) U/L Alkaline Phosphatase 134 H (38-126) U/L Total Protein 6.6 (6.3-8.2) g/dL Albumin 3.8 (3.5-5.0) g/dL Amylase 76 (30-110) U/L Lipase 398 H (23-300) U/L Disposition Clinical Impression: Flank pain Disposition: HOME SELF-CARE Condition: Fair Instructions (If sedation given, give patient instructions): Flank Pain (ED) Is patient prescribed a controlled substance at d/c from ED?: No Referrals: Bisi Yepez MD [Primary Care Provider] - 1-2 days Time of Disposition: 23:23
--- NOTE | 2022-08-28 22:32 | CT ---
EXAMINATION TYPE: CT abdomen pelvis wo con DATE OF EXAM: 08/28/2022 COMPARISON: 05/30/2021 HISTORY: Left side flank pain CT DLP: 1033.4 mGycm Automated exposure control for dose reduction was used. Images obtained from the diaphragm to the floor the pelvis with no contrast. The lung bases are clear of consolidation. There is mild atelectasis at the right lung base. No pleur al effusion. Heart size is normal. No pericardial effusion. Liver spleen and stomach pancreas appear intact. The bile ducts are not dilated. Gallbladder is intac t. There is no adrenal mass. Kidneys of normal size and contour. No hydronephrosis. No retroperitoneal a denopathy. Ureters are not dilated. Abdominal aorta is atheromatous. The bladder distends smoothly. N o inguinal hernia. There is a thoracolumbar levoscoliosis. Multilevel spondylotic changes present in the lumbar spine. No compression fracture. The bony pelvis is intact. The hip joints are intact. There is no mesenteric edema. No ascites. No free air. No evidence of bowel obstruction. Uterus is anteverted. No pelvic mass. No free fluid in the pelvis. Appendix not seen. No sign of thickened appendix. IMPRESSION: minimal atelectasis right lung base which is improved compared to old exam. No acute abnormality wit hin the abdomen and pelvis. There is clearing of the right-sided hydronephrosis compared to old exam.
[2022-08-28 22:41] LABS: Basophils # (A) 0.1 k/uL (0-0.2); Basophils % (A) 1 %; Eosinophils # (A) 0.2 k/uL (0-0.7); Eosinophils % (A) 1 %; HCT 40.7 % (34.0-46.0); HGB 14.2 gm/dL (11.4-16.0); Lymphocytes # (A) 2.5 k/uL (1.0-4.8); Lymphocytes % (A) 15 %; MCH 30.3 pg (25.0-35.0); MCHC 34.8 g/dL (31.0-37.0); Mean Platelet Volume 9.9; Monocytes # (A) 0.8 k/uL (0-1.0); Monocytes % (A) 5 %; Neutrophils % (A) 77 %; Platelet Count 247 k/uL (150-450); RBC 4.68 m/uL (3.80-5.40); RDW 13.6 % (11.5-15.5); WBC 16.8 k/uL (3.8-10.6)
[2022-08-28 22:53] LABS: Albumin 3.8 g/dL (3.5-5.0); Calcium 9.4 mg/dL (8.4-10.2); Potassium 3.8 mmol/L (3.5-5.1); Total Bilirubin 0.4 mg/dL (0.2-1.3); Total Protein 6.6 g/dL (6.3-8.2)
[2022-08-28] MEDS ORDERED: HYDROmorphone 0.5 MG/0.5 ML SYRINGE IVP STA (23:19)
[2022-08-28 23:49] VITALS: BP 145/84; PULSE 84
== END 2022-08-28 23:48 | disposition home or self-care (01) ==
LOC: EC 20:39
DX: R10.9 Unspecified abdominal pain (principal); I11.0 Hypertensive heart disease with heart failure; I50.9 Heart failure, unspecified; E11.9 Type 2 diabetes mellitus without complications; E78.5 Hyperlipidemia, unspecified; F17.200 Nicotine dependence, unspecified, uncomplicated; Z79.4 Long term (current) use of insulin; Z79.899 Other long term (current) drug therapy
CPT/HCPCS: 36415; 80053; 82150; 83690; 85025; 74176; 99285; J1170 ×2

== ENCOUNTER 2022-11-10 04:07 | Emergency (ER) | payer OTHER ==
--- NOTE | 2022-11-10 04:13 | ED ---
Female Urogenital HPI - General Stated complaint: urinary issues Time Seen by Provider: 11/10/22 04:10 Source: RN notes reviewed, old records reviewed Mode of arrival: EMS Limitations: no limitations - History of Present Illness Initial comments: This is a 8-year-old female DF for evaluation patient admits she is under severe stress and anxiety. She can't stop shaking. Patient states is about a candidate to be living by herself. Patient states she has chronic debility with multiple complaints. Recent episodes of lightheadedness dizziness or weakness. No current symptoms. No recent travel history sick contacts no fevers no cough or congestion no other complaints MD Complaint: other (Severe anxiety) -: days(s) Improves with: none, urination (Patient thought she could not urinate but has no urine in her bladder scan) Worsens with: none - Related Data Home Medications Medication Instructions Recorded Confirmed Nitroglycerin Sl Tabs [Nitrostat] 0.4 mg SL Q5M PRN 05/25/21 08/19/22 Atorvastatin [Lipitor] 10 mg PO HS 02/16/22 08/19/22 Lactulose 10 gm PO DAILY PRN 02/16/22 08/19/22 Losartan/Hydrochlorothiazide 1 tab PO DAILY 02/16/22 08/19/22 [Losartan-Hctz 100-25 mg Tab] QUEtiapine [SEROquel] 25 mg PO HS 02/16/22 08/19/22 Insulin Glargine,Hum.rec.anlog 20 unit SQ HS 03/04/22 08/19/22 [Lantus Solostar Pen] Insulin Lispro [humaLOG Kwikpen] See Protocol SQ ACHS 03/04/22 08/19/22 Clobetasol Propionate [Temovate 1 applic TOPICAL BID PRN 07/14/22 08/19/22 0.05% Cream] Fluocinonide 0.05% Solution 1 applic TOPICAL BID PRN 07/14/22 08/19/22 Furosemide [Lasix] 40 mg PO DAILY PRN 07/14/22 08/19/22 Ondansetron Odt [Zofran ODT] 4 mg SL DAILY PRN 07/14/22 08/19/22 Tacrolimus [Tacrolimus 0.1%] 1 applic TOPICAL BID PRN 07/14/22 08/19/22 Triamcinolone Acetonide 1 applic TOPICAL BID PRN 07/14/22 08/19/22 [Triamcinolone Acetonide 0.025%] diazePAM [Valium] 2 mg PO BID PRN 07/14/22 08/19/22 oxyCODONE HCL [oxyCODONE HCL (IR)] 10 mg PO TID PRN 07/14/22 08/19/22 Gabapentin 600 mg PO BID 08/19/22 08/19/22 Ondansetron [Zofran] 4 mg PO TID PRN 08/19/22 08/19/22 Previous Rx's Medication Instructions Recorded Dapagliflozin Propanediol [Farxiga] 5 mg PO DAILY #30 tab 08/22/22 Metoprolol Tartrate [Lopressor] 50 mg PO BID #60 tab 08/22/22 Morphine Sulfate ER [Ms Contin] 15 mg PO BID #0 08/22/22 Allergies Allergy/AdvReac Type Severity Reaction Status Date / Time No Known Allergies Allergy Verified 11/10/22 04:17 Review of Systems ROS Statement: Those systems with pertinent positive or pertinent negative responses have been documented in the HPI. ROS Other: All systems not noted in ROS Statement are negative. 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, pulmonary htn, covid + 10/2021, thyroid nodule, single pulmonary nodule, psoriasis, bacterial meningitis at age 30, cancer cervix, UTI/R pyelonephritis with sepsis, History of Any Multi-Drug Resistant Organisms: None Reported Past Surgical History: Adenoidectomy, Appendectomy, Back Surgery, Bladder Surgery, Orthopedic Surgery, Tonsillectomy, Tubal Ligation Additional Past Surgical History / Comment(s): 9 DOMINATRIX shunts- none at 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 Past Anesthesia/Blood Transfusion Reactions: No Reported Reaction Additional Past Anesthesia/Blood Transfusion Reaction / Comment(s): no hx blood transfusion Past Psychological History: Anxiety Smoking Status: Current every day smoker - Past Family History Mother Family Medical History: No Reported History Additional Family Medical History / Comment(s): Mother was murdered at the age of 44 yrs. She had paranoid schizophrenia. Father Family Medical History: Myocardial Infarction (ME) Additional Family Medical History / Comment(s): Father of a ME at the age of 60 yrs. General Exam General appearance: alert, in no apparent distress, anxious Head exam: Present: atraumatic, normocephalic, normal inspection Eye exam: Present: normal appearance, PERRL, EOMI. Absent: scleral icterus, conjunctival injection, periorbital swelling ENT exam: Present: normal exam, mucous membranes moist Neck exam: Present: normal inspection. Absent: tenderness, meningismus, lymphadenopathy Respiratory exam: Present: normal lung sounds bilaterally. Absent: respiratory distress, wheezes, rales, rhonchi, stridor Cardiovascular Exam: Present: regular rate, normal rhythm, normal heart sounds. Absent: systolic murmur, diastolic murmur, rubs, gallop, clicks GI/Abdominal exam: Present: soft, normal bowel sounds. Absent: distended, tenderness, guarding, rebound, rigid Extremities exam: Present: normal inspection, full ROM, normal capillary refill. Absent: tenderness, pedal edema, joint swelling, calf tenderness Back exam: Present: normal inspection Neurological exam: Present: alert, oriented X3, CN II-XII intact Psychiatric exam: Present: normal affect, normal mood Skin exam: Present: warm, dry, intact, normal color. Absent: rash Course Vital Signs 11/10/22 04:17 Temperature 99.5 F Pulse Rate 93 Respiratory 16 Rate Blood Pressure 118/97 O2 Sat by Pulse 98 Oximetry - Reevaluation(s) Reevaluation #1: 11/10/22 04:53 Medical record is reviewed Reevaluation #2: 11/10/22 04:53 Patient's feeling improved here in the ER not homicidal or suicidal Reevaluation #3: 11/10/22 04:54 Patient informed results questions answered Reevaluation #4: 11/10/22 04:54 Was pt. sent in by a medical professional or institution? @ -no Did you speak to anyone other than the patient for history? @ -no Did you review nursing and triage notes? @ -agree Were old charts reviewed? @ -prior ED visits Differential Diagnosis? @ -prior EKG interpreted by me (3pts min.)? @ -[none] X-rays interpreted by me (1pt min.)? @ -[none] CT interpreted by me (1pt min.)? @ -[none] U/S interpreted by me (1pt. min.)? @ -[none] What testing was considered but not performed? (CT, X-rays, U/S, labs)? Why? @ -no What meds were considered but not given? Why? @ -[none] Did you discuss the management of the patient with other professionals? @ -no Did you reconcile home meds? @ -[none] Was smoking cessation discussed for >3mins.? @ -[none] Was critical care preformed (if so, how long)? @ -[none] Were there social determinants of health that impacted care today? How? (Homelessness, low income, unemployed, alcoholism, drug addiction, transportation, low edu. Level, literacy, decrease access to med. care, penitentiary, rehab)? @ -no Was there de-escalation of care discussed even if they declined? (Discuss DNR or withdrawal of care, Hospice)? @ -no What co-morbidities impacted this encounter? (DM, HTN, Smoking, COPD, CAD, Cancer, CVA, Hep., AIDS, mental health diagnosis, sleep apnea, morbid obesity)? @ -no Was patient admitted / discharged? @ -dc Undiagnosed new problem with uncertain prognosis? @ -[none] Drug Therapy requiring intensive monitoring for toxicity (Heparin, Nitro, Insulin, Cardizem)? @ -[none] Were any procedures done? @ -[none] Diagnosis/symptom? @ -[default] Acute, or Chronic, or Acute on Chronic? @ -[default] Uncomplicated (without systemic symptoms) or Complicated (systemic symptoms)? @ -[default] Side effects of treatment? @ -[none] Exacerbation, Progression, or Severe Exacerbation] @ -[no] Poses a threat to life or bodily function? @ -[no] Medical Decision Making - Medical Decision Making 62 female to the emergency department with multiple nonspecific complaints was on the patient is having increased nerves and anxiety. Patient is improved here in the ER will be discharged home Disposition Clinical Impression: Anxiety Disposition: HOME SELF-CARE Condition: Good Instructions (If sedation given, give patient instructions): Anxiety (ED) Is patient prescribed a controlled substance at d/c from ED?: No Referrals: Bisi Yepez MD [STAFF PHYSICIAN] - 1-2 days Time of Disposition: 05:00
[2022-11-10 04:23] VITALS: RESP 16; TEMP 99.5
[2022-11-10] MEDS ORDERED: LORazepam 1 MG TAB PO STA (04:27)
[2022-11-10 05:03] VITALS: BP 139/85; PULSE 81
== END 2022-11-10 05:03 | disposition home or self-care (01) ==
LOC: EC 04:07
DX: F41.9 Anxiety disorder, unspecified (principal); I11.0 Hypertensive heart disease with heart failure; I50.9 Heart failure, unspecified; E11.9 Type 2 diabetes mellitus without complications; E78.5 Hyperlipidemia, unspecified; F17.200 Nicotine dependence, unspecified, uncomplicated; Z79.4 Long term (current) use of insulin; Z79.84 Long term (current) use of oral hypoglycemic drugs; Z79.899 Other long term (current) drug therapy
CPT/HCPCS: 51798; 99284